=== PATIENT | male | born 1955 | race Caucasian/White ===

== ENCOUNTER 2022-11-10 00:38 | Inpatient (IN) | payer MEDICARE ==
[~2022-11-10] VITALS: Ht 177.8 cm; Wt 94.8 kg
--- NOTE | 2022-11-10 00:45 | ED Abdominal Pain ---
General Stated Complaint: LOWER ABD PAIN Source of Information: Patient Exam Limitations: No Limitations History of Present Illness Date Seen by Provider: Nov 10, 2022 Time Seen by Provider: 00:33 Initial Comments 67-year-old male presents to the emergency department today for abdominal pain. Symptoms started yesterday and have been progressive. He states he has had diverticulitis which felt similar in the past. He describes burning, stabbing sensation in the suprapubic region and left lower abdomen. No fevers or chills. No nausea or vomiting. He states for the last week he has been drinking very heavily. He has not taken his medications for about a week. He does have a history of atrial fibrillation, is typically taking Eliquis metoprolol and diltiazem. EMS reports A-fib with rates as high as 180 during transport. His blood pressures have been stable. He denies any bloody or dark tarry stools. Pain or shortness of breath. No urinary symptoms. All other systems reviewed and negative except documented per HPI. Voice recognition software was used to help create this chart Allergies and Home Medications Allergies Coded Allergies: No Known Drug Allergies (Unverified , 11/10/22) Patient Home Medication List Home Medication List Reviewed: Yes Apixaban (Eliquis) 5 Mg Tablet, 5 MG PO BID, (Reported) Entered as Reported by: BRUCE LACEY on 11/10/221014 Last Action: Continued Atorvastatin Calcium (Atorvastatin Calcium) 10 Mg Tablet, 10 MG PO DAILY, (Reported) Entered as Reported by: BRUCE LACEY on 11/10/221014 Last Action: Reviewed Diltiazem HCl (Diltiazem ER) 300 Mg Tab.er.24h, 300 MG PO DAILY, (Reported) Entered as Reported by: BRUCE LACEY on 11/10/221014 Last Action: Converted Furosemide (Furosemide) 20 Mg Tablet, 20 MG PO BID, (Reported) Entered as Reported by: BRUCE LACEY on 11/10/221014 Last Action: Reviewed Losartan Potassium (Losartan Potassium) 25 Mg Tablet, 25 MG PO DAILY, (Reported) Entered as Reported by: BRUCE LACEY on 11/10/221014 Last Action: Continued Metoprolol Succinate (Metoprolol Succinate) 25 Mg Tab.er.24h, 25 MG PO DAILY, (Reported) Entered as Reported by: BRUCE LACEY on 11/10/221014 Last Action: Continued Omeprazole (Omeprazole) 40 Mg Capsule., 40 MG PO DAILY, (Reported) Entered as Reported by: BRUCE LACEY on 11/10/221014 Last Action: Reviewed Sitagliptin Phos/Metformin HCl (Janumet 50-500 mg Tablet) 50 Mg-500 Mg Tablet, 1 EA PO BID, (Reported) Entered as Reported by: BRUCE LACEY on 11/10/221014 Last Action: Reviewed Review of Systems Review of Systems Constitutional: see HPI Past Uapmavf-Bvsyfv-Xojjyk Hx Patient Social History Tobacco Use?: No Use of E-Cig and/or Vaping dev: No Substance use?: No Alcohol Use?: Yes Physical Exam Vital Signs Vital Signs - First Documented 11/10/22 00:38 Temp 36.7 Pulse 136 Resp 18 B/P (MAP) 148/101 (117) Pulse Ox 94 O2 Delivery Room Air Capillary Refill : Height/Weight/BMI Height: '" Weight: lbs. oz. kg; BMI Method: General Appearance: WD/WN, no apparent distress HEENT: normal ENT inspection, pharynx normal Neck: non-tender, full range of motion, supple, normal inspection Respiratory: chest non-tender, lungs clear, normal breath sounds, no respiratory distress, no accessory muscle use Cardiovascular: no murmur, irregularly irregular Gastrointestinal: normal bowel sounds, soft, no organomegaly, tenderness (Tenderness palpation of suprapubic region and left lower abdomen with voluntary guarding. No rebound tenderness. No mass organomegaly. No skin changes.) Extremities: normal range of motion, non-tender, normal inspection, no pedal edema, no calf tenderness Neurologic/Psychiatric: alert, normal mood/affect, oriented x 3 Skin: normal color, warm/dry Progress/Results/Core Measures Results/Orders Lab Results Laboratory Tests Test 11/10/22 00:47 11/10/22 02:01 Range/Units White Blood Count 10.4 4.3-11.0 10^3/uL Red Blood Count 4.76 4.30-5.52 10^6/uL Hemoglobin 14.8 13.3-17.7 g/dL Hematocrit 44 40-54 % Mean Corpuscular Volume 93 80-99 fL Mean Corpuscular Hemoglobin 31 25-34 pg Mean Corpuscular Hemoglobin Concent 34 32-36 g/dL Red Cell Distribution Width 13.3 10.0-14.5 % Platelet Count 121 L 130-400 10^3/uL Mean Platelet Volume 10.3 9.0-12.2 fL Immature Granulocyte % (Auto) 0 % Neutrophils (%) (Auto) 73 42-75 % Lymphocytes (%) (Auto) 20 12-44 % Monocytes (%) (Auto) 6 0-12 % Eosinophils (%) (Auto) 1 0-10 % Basophils (%) (Auto) 1 0-10 % Neutrophils # (Auto) 7.6 1.8-7.8 10^3/uL Lymphocytes # (Auto) 2.1 1.0-4.0 10^3/uL Monocytes # (Auto) 0.6 0.0-1.0 10^3/uL Eosinophils # (Auto) 0.1 0.0-0.3 10^3/uL Basophils # (Auto) 0.1 0.0-0.1 10^3/uL Immature Granulocyte # (Auto) 0.0 0.0-0.1 10^3/uL Sodium Level 136 135-145 MMOL/L Potassium Level 3.8 3.6-5.0 MMOL/L Chloride Level 99 98-107 MMOL/L Carbon Dioxide Level 19 L 21-32 MMOL/L Anion Gap 18 H 5-14 MMOL/L Blood Urea Nitrogen 18 7-18 MG/DL Creatinine 0.84 0.60-1.30 MG/DL Estimat Glomerular Filtration Rate 96 BUN/Creatinine Ratio 21 Glucose Level 126 H 70-105 MG/DL Calcium Level 9.0 8.5-10.1 MG/DL Corrected Calcium 9.1 8.5-10.1 MG/DL Magnesium Level 1.4 L 1.6-2.4 MG/DL Total Bilirubin 1.2 H 0.1-1.0 MG/DL Aspartate Amino Transf (AST/SGOT) 43 H 5-34 U/L Alanine Aminotransferase (ALT/SGPT) 35 0-55 U/L Alkaline Phosphatase 75 40-136 U/L Total Protein 7.3 6.4-8.2 GM/DL Albumin 3.9 3.2-4.5 GM/DL Lipase 37 8-78 U/L Urine Color DARK YELLOW Urine Clarity CLEAR Urine pH 6.0 5-9 Urine Specific [place] 1.020 1.016-1.022 Urine Protein 2+ H NEGATIVE Urine Glucose (UA) NEGATIVE NEGATIVE Urine Ketones NEGATIVE NEGATIVE Urine Nitrite NEGATIVE NEGATIVE Urine Bilirubin NEGATIVE NEGATIVE Urine Urobilinogen 0.2 < = 1.0 MG/DL Urine Leukocyte Esterase NEGATIVE NEGATIVE Urine RBC (Auto) 1+ H NEGATIVE Urine RBC RARE /HPF Urine WBC RARE /HPF Urine Squamous Epithelial Cells RARE /HPF Urine Crystals NONE /LPF Urine Bacteria NEGATIVE /HPF Urine Casts PRESENT /LPF Urine Hyaline Casts 0-2 H /LPF Urine Granular Casts RARE /LPF Urine Mucus SMALL H /LPF Urine Culture Indicated NO My Orders Orders - ANAMARIA CARDENAS DO Cbc With Automated Diff (11/10/22 00:43) Comprehensive Metabolic Panel (11/10/22 00:43) Lipase (11/10/22 00:43) Ua Culture If Indicated (11/10/22 00:43) Magnesium (11/10/22 00:44) Ct Abdomen/Pelvis W (11/10/22 00:44) Diltiazem Injection (Cardizem Injection) (11/10/22 00:45) Ns Iv 1000 Ml (Sodium Chloride 0.9%) (11/10/22 01:00) Iohexol Injection (Omnipaque 350 Mg/Ml 1 (11/10/22 01:15) Received Contrast (Hold Metformin- Contr (11/10/22 01:15) Ns (Ivpb) (Sodium Chloride 0.9% Ivpb Bag (11/10/22 01:15) Monitor-Rhythm Ecg Trace Only (11/10/22 01:07) Ed Iv/Invasive Line Start (11/10/22 01:07) Ekg Tracing (11/10/22 01:07) Ciprofloxacin Iv 400mg/200ml (Cipro Iv S (11/10/22 02:00) Metronidazole 500mg/100ml Ivpb (Flagyl 5 (11/10/22 02:00) Diltiazem Drip Pre-Mix (Cardizem Drip Pr (11/10/22 02:15) Vital Signs/I&O 11/10/22 11/10/22 11/10/22 11/10/22 00:38 00:53 02:22 02:39 Temp 36.7 Pulse 136 118 130 126 Resp 18 20 B/P (MAP) 148/101 (117) 148/101 152/100 154/94 Pulse Ox 94 94 O2 Delivery Room Air Room Air Comment Atrial fibrillation with a rate of 143 bpm. Normal intervals outside of [place] interval's. Left axis deviation. No ST or T wave abnormalities. No ectopy. No STEMI. Departure Communication (Admissions) Patient has severe diverticulitis. Cipro Flagyl IV fluids. He also has A-fib with RVR. He is given a Cardizem bolus which does initially improve his symptoms. His blood pressures are stable. He is started on Cardizem drip and admitted to the ICU in stable condition. Impression Primary Impression: Atrial fibrillation with RVR Additional Impression: Diverticulitis Disposition: ADMITTED INPATIENT Condition: Stable Admissions Decision to Admit Reason: Admit from ER (General) ANAMARIA CARDENAS DO Nov 10, 2022 00:45
[2022-11-10 00:58] LABS: BASOPHILS # (AUTO) 0.1 10^3/uL (0.0-0.1); BASOPHILS % (AUTO) 1 % (0-10); EOSINOPHILS # (AUTO) 0.1 10^3/uL (0.0-0.3); EOSINOPHILS % (AUTO) 1 % (0-10); HEMATOCRIT 44 % (40-54); HEMOGLOBIN 14.8 g/dL (13.3-17.7); LYMPHOCYTES # (AUTO) 2.1 10^3/uL (1.0-4.0); LYMPHOCYTES % (AUTO) 20 % (12-44); MEAN CORPUSCULAR HEMOGLOBIN 31 pg (25-34); MEAN CORPUSCULAR HGB CONC 34 g/dL (32-36); MEAN CORPUSCULAR VOLUME 93 fL (80-99); MEAN PLATELET VOLUME 10.3 fL (9.0-12.2); MONOCYTES # (AUTO) 0.6 10^3/uL (0.0-1.0); MONOCYTES % (AUTO) 6 % (0-12); NEUTROPHILS # (AUTO) 7.6 10^3/uL (1.8-7.8); NEUTROPHILS % (AUTO) 73 % (42-75); PLATELET COUNT 121 10^3/uL (130-400); WHITE BLOOD COUNT 10.4 10^3/uL (4.3-11.0)
[2022-11-10] MEDS ORDERED: NS IV 1000 ML 1,000 ML IV SCH (01:00)
[2022-11-10] MEDS ORDERED: NS 100 ML (IVPB) BAG IV ONE (01:15)
[2022-11-10] MEDS ORDERED: IOHEXOL 350 MG/ML 100 ML (OMNIPAQUE 350) VIAL IV ONE (01:15)
[2022-11-10] MEDS ORDERED: HOLD METFORMIN - RECEIVED CONTRAST 20 ML VIAL IV SCH (01:15)
[2022-11-10 01:34] LABS: POTASSIUM 3.8 MMOL/L (3.6-5.0)
[2022-11-10 01:35] LABS: BILIRUBIN,TOTAL 1.2 MG/DL (0.1-1.0); CREATININE SERUM 0.84 MG/DL (0.60-1.30); MAGNESIUM 1.4 MG/DL (1.6-2.4)
[2022-11-10 01:36] LABS: ALBUMIN 3.9 GM/DL (3.2-4.5); TOTAL PROTEIN 7.3 GM/DL (6.4-8.2)
[2022-11-10] MEDS ORDERED: CIPROFLOXACIN IV 400MG/200ML 200 ML IV ONE (02:00)
[2022-11-10] MEDS ORDERED: metroNIDAZOLE 500MG/100ML IVPB 100 ML IV ONE (02:00)
[2022-11-10 02:14] LABS: BILIRUBIN,URINE NEGATIVE (NEGATIVE); CLARITY,URINE CLEAR; GLUCOSE, URINE (UA) NEGATIVE (NEGATIVE); KETONES,URINE NEGATIVE (NEGATIVE); LEUKOCYTE ESTERASE ,URINE NEGATIVE (NEGATIVE); NITRITE,URINE NEGATIVE (NEGATIVE); PROTEIN,URINE 2+ (NEGATIVE)
[2022-11-10] MEDS: dilTIAZem DRIP PRE-MIX 125 ML IV SCH (02:22)
[2022-11-10 02:24] LABS: BACTERIA,URINE NEGATIVE /HPF; COLOR,URINE DARK YELLOW; HYALINE CASTS, URINE 0-2 /LPF; RBC,URINE RARE /HPF; SQUAMOUS EPITHELIAL CELL,UR RARE /HPF; WBC,URINE RARE /HPF
[2022-11-10 02:25] LABS: GRANULAR CASTS,URINE RARE /LPF
[2022-11-10] MEDS ORDERED: ONDANSETRON 4 MG/2 ML (SDV) Z0FRAN IV PRN ×2 (04:30→13:15)
[2022-11-10] MEDS: morphine INJ 4 MG/ML 1 ML (VIAL/SYRINGE) IV PRN ×3 (04:37→12:04)
[2022-11-10 04:55] LABS: BASOPHILS % (AUTO) 1 % (0-10); EOSINOPHILS % (AUTO) 0 % (0-10); MONOCYTES % (AUTO) 6 % (0-12)
[2022-11-10 04:58] LABS: BASOPHILS # (AUTO) 0.1 10^3/uL (0.0-0.1); HEMATOCRIT 44 % (40-54); HEMOGLOBIN 14.7 g/dL (13.3-17.7); LYMPHOCYTES # (AUTO) 1.3 10^3/uL (1.0-4.0); LYMPHOCYTES % (AUTO) 12 % (12-44); MEAN CORPUSCULAR HEMOGLOBIN 32 pg (25-34); MEAN CORPUSCULAR HGB CONC 33 g/dL (32-36); MEAN CORPUSCULAR VOLUME 95 fL (80-99); MEAN PLATELET VOLUME 10.8 fL (9.0-12.2); MONOCYTES # (AUTO) 0.6 10^3/uL (0.0-1.0); NEUTROPHILS % (AUTO) 82 % (42-75); PLATELET COUNT 113 10^3/uL (130-400)
[2022-11-10] MEDS ORDERED: NS IV 500 ML 500 ML IV PRN (05:00)
[2022-11-10] MEDS ORDERED: NS IV 500 ML 500 ML ONE (05:02)
[2022-11-10 05:11] LABS: ALBUMIN 3.6 GM/DL (3.2-4.5)
[2022-11-10 05:13] LABS: CALCIUM 8.4 MG/DL (8.5-10.1)
[2022-11-10 05:16] LABS: BILIRUBIN,TOTAL 1.3 MG/DL (0.1-1.0)
[2022-11-10 05:17] LABS: PHOSPHORUS 2.3 MG/DL (2.3-4.7)
[2022-11-10 05:18] LABS: CREATININE SERUM 0.78 MG/DL (0.60-1.30)
[2022-11-10 05:20] LABS: MAGNESIUM 1.2 MG/DL (1.6-2.4)
[2022-11-10] MEDS: POTASSIUM CL 10MEQ/50ML IVPB 50 ML IV SCH ×3 (05:26→06:17)
[2022-11-10] MEDS: MAGNESIUM 1 GM/100 ML IVPB 100 ML IV SCH ×4 (05:26→07:00)
[2022-11-10] MEDS: CATHETER FLUSH 10 ML SYR IVP SCH ×3 (05:29→20:19)
[2022-11-10] MEDS: KCL 20 MEQ TAB (K-DUR) PO SCH (05:29)
--- NOTE | 2022-11-10 06:05 | Tele-ICU Progress Note ---
Progress Note 67M with afib, etoh abuse presented with progressive abd pain since yesterday. Feels similar to prior diverticulitis. No fever, chills, nausea or vomiting. Has not taken any meds for the past week, including metoprolol and eliquis for afib. In ED was in RVR in the 120-140s, reported to be up to 180 in the field. - afib: rate controlled still 110s on diltiazem gtt, BP 156/97. Will titrate. Mag and K replacements ordered. Cardiology consulted. - diverticulitis: CT completed, results not yet available. Continue cipro and flagyl started in ED. Can de-escalate if CT is negative. Will send cultures, lactic. - etoh: CIWA, banana bag Patient assessed via real time audiovisual communication system. CCT6 min Focused Exam Lactate Level 11/10/22 05:23: Height, Weight, BMI Height: '" Weight: lbs. oz. kg; 29.82 BMI Method: Lactic Acid Level Laboratory Tests Test 11/10/22 05:23 LULI LAY MD Nov 10, 2022 06:04
--- NOTE | 2022-11-10 08:00 | Diagnostic Imaging Report ---
PROCEDURE: CT abdomen and pelvis with contrast. TECHNIQUE: Multiple contiguous axial images were obtained through the abdomen and pelvis after administration of intravenous contrast. Auto Exposure Controls were utilized during the CT exam to meet ALARA standards for radiation dose reduction. All CT scans use one or more of the following dose optimizing techniques: automated exposure control, MA and/or KvP adjustment based on patient size and exam type or iterative reconstruction. INDICATION: Diffuse abdominal pain. Constipation. EXAMINATION: CT abdomen and pelvis with contrast 11/10/2022. FINDINGS: Lung bases unremarkable for acute abnormality. There is diffuse hepatic steatosis. There is evidence of previous cholecystectomy. Spleen normal. Pancreas slightly atrophied otherwise unremarkable. Adrenal glands normal. Kidneys unremarkable. There is marked wall thickening throughout the sigmoid colon with surrounding fluid and inflammatory change. Diverticular disease in the region is noted. Findings consistent with a severe acute diverticulitis. Along the inflammatory change, foci of air noted along the superior border of the sigmoid colon which could represent prominent diverticuli. A small contained microperforation is not excluded. There is no abscess. No distant or significant free air is seen. Free fluid noted in the pelvis. Appendix normal. There is no acute osseous abnormality. IMPRESSION: 1. Findings consistent with severe acute diverticulitis with marked inflammatory change and free fluid. Small contained microperforation not excluded. No abscess. Findings agree with the preliminary report. 2. Hepatic steatosis. Dictated by: Dictated on workstation # [id number]
--- NOTE | 2022-11-10 08:03 | Diagnostic Imaging Report ---
INDICATION: Sepsis EXAMINATION: Chest 11/10/2022 FINDINGS: Heart is prominent. Pulmonary vasculature is unremarkable. Lungs clear with no infiltrates, effusions or pneumothorax. IMPRESSION: No acute cardiopulmonary process. Dictated by: Dictated on workstation # [id number]
[2022-11-10] MEDS: THIAMINE IV SCH (08:40)
[2022-11-10] MEDS: NS IV SCH (08:40)
[2022-11-10] MEDS ORDERED: MTP25TSR PO (10:15)
[2022-11-10] MEDS ORDERED: LOSA25TA41 PO (10:15)
[2022-11-10] MEDS ORDERED: OMEP40CA6 PO (10:15)
[2022-11-10] MEDS ORDERED: SITA1TAB2 PO (10:15)
[2022-11-10] MEDS ORDERED: DILT300T9 PO (10:15)
[2022-11-10] MEDS ORDERED: APIX5TAB PO (10:15)
[2022-11-10] MEDS ORDERED: FURO20TA4 PO (10:15)
[2022-11-10] MEDS ORDERED: ATOR10TA66 PO (10:15)
[2022-11-10] MEDS ORDERED: PIPERACILLIN SODIUM/TAZOBACTAM 4.5 GM in NS (IVPB) 100 ML IV NR (11:00)
--- NOTE | 2022-11-10 13:14 | History & Physical ---
HPI History of Present Illness: 67 yo M that presented to ER with worsening abdominal pain. Patient states that it started yesterday morning and has been getting worse until he presented to ER. Patient has a h/o diverticulitis and states that it feels similar. He does also have a long h/o EtOH dependence and recently did a 90 day program and was living with a brother. About a week ago they moved him into a hotel because he started drinking again. States that he drinks 1/5 of Vodka daily and his last drink was yesterday afternoon. He also has not been taking his heart medication because he has been drinking more and forgeting. States that he has not previously had to be in the hospital when he stops drinking and denies any wi thdraw seizures. Source: patient, family (Sister in law) Exam Limitations: no limitations Date seen by provider: Nov 10, 2022 Time Seen by Provider: 10:05 Attending Physician Brandy,Local Physician PCP Admitting Physician: Glenys Ordonez MD Attending Physician: Glenys Ordonez MD Consult Date of Admission Nov 10, 2022 at 03:43 Home Medications Home Medications Reviewed patient Home Medication Reconciliation performed by pharmacy medication reconciliations location and measurement technician and/or nursing. Patients Allergies have been reviewed. Allergies Coded Allergies: No Known Drug Allergies (Unverified , 11/10/22) [id number]-Znghta Hx Patient Social History Alcohol Use?: Yes Past Medical History Atrial Fibrillation EtOH dependence Review of Systems ([facility]) Constitutional: No chills, No fever; malaise, weakness EENTM: no symptoms reported; No mouth pain, No nose congestion, No nose pain Respiratory: no symptoms reported; No cough, No dyspnea on exertion, No short of breath Cardiovascular: No chest pain; palpitations Gastrointestinal: abdominal pain; No constipation, No diarrhea; loss of appetite, nausea; No vomiting Genitourinary: no symptoms reported; No dysuria, No frequency, No hematuria Musculoskeletal: no symptoms reported; No back pain, No joint pain, No muscle pain Skin: no symptoms reported Psychiatric/Neurological: Anxiety Reviewed Test Results Reviewed Test Results Lab Laboratory Tests Test 11/10/22 00:47 11/10/22 02:01 11/10/22 04:35 11/10/22 05:23 Range/Units White Blood Count 10.4 11.0 4.3-11.0 10^3/uL Red Blood Count 4.76 4.67 4.30-5.52 10^6/uL Hemoglobin 14.8 14.7 13.3-17.7 g/dL Hematocrit 44 44 40-54 % Mean Corpuscular Volume 93 95 80-99 fL Mean Corpuscular Hemoglobin 31 32 25-34 pg Mean Corpuscular Hemoglobin Concent 34 33 32-36 g/dL Red Cell Distribution Width 13.3 13.4 10.0-14.5 % Platelet Count 121 L 113 L 130-400 10^3/uL Mean Platelet Volume 10.3 10.8 9.0-12.2 fL Immature Granulocyte % (Auto) 0 0 % Neutrophils (%) (Auto) 73 82 H 42-75 % Lymphocytes (%) (Auto) 20 12 12-44 % Monocytes (%) (Auto) 6 6 0-12 % Eosinophils (%) (Auto) 1 0 0-10 % Basophils (%) (Auto) 1 1 0-10 % Neutrophils # (Auto) 7.6 9.0 H 1.8-7.8 10^3/uL Lymphocytes # (Auto) 2.1 1.3 1.0-4.0 10^3/uL Monocytes # (Auto) 0.6 0.6 0.0-1.0 10^3/uL Eosinophils # (Auto) 0.1 0.0 0.0-0.3 10^3/uL Basophils # (Auto) 0.1 0.1 0.0-0.1 10^3/uL Immature Granulocyte # (Auto) 0.0 0.0 0.0-0.1 10^3/uL Sodium Level 136 135 135-145 MMOL/L Potassium Level 3.8 4.0 3.6-5.0 MMOL/L Chloride Level 99 104 98-107 MMOL/L Carbon Dioxide Level 19 L 17 L 21-32 MMOL/L Anion Gap 18 H 14 5-14 MMOL/L Blood Urea Nitrogen 18 14 7-18 MG/DL Creatinine 0.84 0.78 0.60-1.30 MG/DL Estimat Glomerular Filtration Rate 96 98 BUN/Creatinine Ratio 21 18 Glucose Level 126 H 141 H 70-105 MG/DL Calcium Level 9.0 8.4 L 8.5-10.1 MG/DL Corrected Calcium 9.1 8.7 8.5-10.1 MG/DL Magnesium Level 1.4 L 1.2 L 1.6-2.4 MG/DL Total Bilirubin 1.2 H 1.3 H 0.1-1.0 MG/DL Aspartate Amino Transf (AST/SGOT) 43 H 39 H 5-34 U/L Alanine Aminotransferase (ALT/SGPT) 35 37 0-55 U/L Alkaline Phosphatase 75 62 40-136 U/L Total Protein 7.3 7.0 6.4-8.2 GM/DL Albumin 3.9 3.6 3.2-4.5 GM/DL Lipase 37 8-78 U/L Urine Color DARK YELLOW Urine Clarity CLEAR Urine pH 6.0 5-9 Urine Specific [place] 1.020 1.016-1.022 Urine Protein 2+ H NEGATIVE Urine Glucose (UA) NEGATIVE NEGATIVE Urine Ketones NEGATIVE NEGATIVE Urine Nitrite NEGATIVE NEGATIVE Urine Bilirubin NEGATIVE NEGATIVE Urine Urobilinogen 0.2 < = 1.0 MG/DL Urine Leukocyte Esterase NEGATIVE NEGATIVE Urine RBC (Auto) 1+ H NEGATIVE Urine RBC RARE /HPF Urine WBC RARE /HPF Urine Squamous Epithelial Cells RARE /HPF Urine Crystals NONE /LPF Urine Bacteria NEGATIVE /HPF Urine Casts PRESENT /LPF Urine Hyaline Casts 0-2 H /LPF Urine Granular Casts RARE /LPF Urine Mucus SMALL H /LPF Urine Culture Indicated NO Percent Immature Platelet Fraction 4.3 0.0-7.6 % Phosphorus Level 2.3 2.3-4.7 MG/DL Lactic Acid Level 2.42 *H 0.50-2.00 MMOL/L Test 11/10/22 07:26 Range/Units Lactic Acid Level 1.46 0.50-2.00 MMOL/L Physical Exam-([facility]) Physical Exam Vital Signs VS - Last 72 Hours, by Label 11/10/22 11/10/22 11/10/22 11/10/22 00:38 00:53 02:22 02:39 Temp 36.7 Pulse 136 118 130 126 Resp 18 20 B/P (MAP) 148/101 (117) 148/101 152/100 154/94 Pulse Ox 94 94 O2 Delivery Room Air Room Air 11/10/22 11/10/22 11/10/22 11/10/22 04:02 04:15 04:15 04:30 Temp 36.5 Pulse 117 111 114 Resp 16 23 22 B/P (MAP) 168/110 (129) 141/94 (110) 169/110 (129) Pulse Ox 96 93 98 94 O2 Delivery Room Air Room Air Room Air Room Air 11/10/22 11/10/22 11/10/22 11/10/22 04:45 05:00 05:15 06:00 Pulse 128 128 115 99 Resp 17 11 18 13 B/P (MAP) 152/100 (117) 152/102 (119) 149/87 (107) 156/97 (116) Pulse Ox 95 93 93 93 O2 Delivery Room Air Room Air Room Air Room Air 11/10/22 11/10/22 11/10/22 11/10/22 07:00 07:00 07:07 07:35 Temp 36.0 Pulse 118 99 Resp 17 B/P (MAP) 157/97 (117) Pulse Ox 93 O2 Delivery Room Air Room Air 11/10/22 11/10/22 11/10/22 11/10/22 08:00 09:00 10:30 12:00 Temp 35.9 Pulse 105 106 112 Resp 16 17 19 B/P (MAP) 156/102 (120) 139/107 (118) 167/110 (129) Pulse Ox 94 92 93 O2 Delivery Room Air Room Air Room Air Capillary Refill : Less Than 3 Seconds General Appearance: WD/WN, no apparent distress HEENT: PERRL/EOMI Neck: non-tender, full range of motion, supple Respiratory: chest non-tender, lungs clear, normal breath sounds, no respiratory distress, no accessory muscle use Cardiovascular: regular rate, rhythm, no murmur Gastrointestinal: soft, guarding (mild), tenderness (LLQ) Back: no CVA tenderness Extremities: normal range of motion, no pedal edema, no calf tenderness Neurologic/Psychiatric: manufacturer's service representative II-XII nml as tested, alert, oriented x 3 Skin: normal color, warm/dry Lymphatic: no adenopathy Assessment/Plan Assessment/Plan Admission Status: Inpatient Order (span 2 midnights) Reason for Inpatient Admission: High risk for decompensation (1) Diverticulitis Status: Acute Assessment & Plan: - CT with some concerns about microperforation, will consult General surgery, tolerating CLD, Continue on Zosyn (2) Atrial fibrillation with RVR Status: Chronic Assessment & Plan: - Rate controlled this AM, Continue OAC (3) Alcohol dependence Status: Chronic Assessment & Plan: - CIWS, Folic Acid and thiamine Qualifiers: Qualified Codes: F10.20 - Alcohol dependence, uncomplicated (4) DVT prophylaxis Status: Acute Assessment & Plan: - OAC GLENYS ORDONEZ MD Nov 10, 2022 13:14
[2022-11-10] MEDS ORDERED: 1/2 NS IV SOLUTION 1,000 ML IV PRN (13:15)
[2022-11-10] MEDS ORDERED: SENNA W/DOCUSATE (SENOKOT S) TABLET PO PRN (13:15)
[2022-11-10] MEDS ORDERED: D5 1/2 NS 1000 ML IV SOLUTION 1,000 ML IV PRN (13:15)
[2022-11-10] MEDS ORDERED: ANTACID SUSP 30 ML UDC (MYLANTA) PO PRN (13:15)
[2022-11-10] MEDS ORDERED: LORazepam INJ 2 MG/ML (ATIVAN) VIAL IM/IV PRN (13:15)
[2022-11-10] MEDS ORDERED: ONDANSETRON 4 MG (ZOFRAN) ORAL DISSOLVE TAB SL PRN (13:15)
[2022-11-10] MEDS ORDERED: CIPROFLOXACIN IV 400MG/200ML 200 ML IV SCH (14:00)
[2022-11-10] MEDS ORDERED: metroNIDAZOLE 500MG/100ML IVPB 100 ML IV SCH (14:00)
[2022-11-10] MEDS: HYDROmorphone 2 MG/ML VIAL (DILAUDID) IV PRN ×2 (14:58→20:15)
[2022-11-10] MEDS: PIPERACILLIN SODIUM/TAZOBACTAM 4.5 GM in NS (IVPB) 100 ML IV SCH (17:45)
[2022-11-10] MEDS: APIXABAN 5 MG (ELIQUIS) TABLET PO SCH (20:15)
--- NOTE | 2022-11-10 22:26 | CONSULTATION REPORT ---
ADMITTING PHYSICIAN: Dr. Ania Ordonez. HISTORY OF PRESENT ILLNESS: The patient is a 67-year-old male, who presented to the Emergency Department with a left lower quadrant abdominal pain that started in the morning previous. He stated that the pain worsened over time and I decided to go to the emergency room. The patient does have a history of sigmoid diverticulitis and states that his pain was similar to this. The patient has a longstanding history of alcohol dependence and abuse and temporarily moved to this area with his brother and attempt for detoxification. The patient had a relapse approximately 1 week ago. His brother moved into a hotel because he again started drinking. His normal regimen is drinking 750 mL of vodka on a daily basis and had restarted that regimen recently. The patient also does have a history of atrial fibrillation and was found again to be in atrial fibrillation with a rapid ventricular response at a rate of 143 and was admitted to the ICU for rate control and started on a Cardizem drip. A CT scan was performed, which did show hepatic steatosis as well as a severe sigmoid diverticulitis with a small contained perforation. He does not report ever having a previous colonoscopy done in the past. He originally resides in [place] and the plan is for him to return back to [place]. Due to his circumstances and situation, we will recommend conservative medical management with IV antibiotics and bowel rest and hopefully allow the diverticulitis to resolve using this as a conservative route. At this time, a CT scan also did not show any intra-abdominal abscesses. He does have some pain; however, is mostly controlled with IV pain medications. He is currently afebrile. PAST MEDICAL HISTORY: Atrial fibrillation with a rapid ventricular response, hypertension, hypercholesterolemia, diabetes, alcohol dependence. PAST SURGICAL HISTORY: None known. ALLERGIES: NO KNOWN DRUG ALLERGIES. MEDICATIONS: Eliquis 5 mg b.i.d., atorvastatin 10 mg daily, diltiazem 300 mg daily, furosemide 20 mg daily, losartan 25 mg daily, metoprolol 25 mg daily, omeprazole 40 mg daily, Janumet 50/500 mg b.i.d. SOCIAL HISTORY: Positive for alcohol abuse, approximately 750 mL of hard alcohol on a daily basis. Denies smoking. FAMILY HISTORY: Noncontributory. REVIEW OF SYSTEMS: A well-nourished male, currently in no acute distress. He is not experiencing shortness of breath or difficulty breathing. No cough or sputum production. No chest pain with mild palpitations. No nausea, vomiting. No known diarrhea, no constipation and does not report any red blood per rectum, nor any dark tarry stools. No fever, chills, no recent inadvertent weight loss. All other review of systems negative. PHYSICAL EXAMINATION: VITAL SIGNS: Temperature 36.6, blood pressure 140/87, pulse 105, respirations 11, pulse ox 95% on 2 liters nasal cannula. CHEST: Few scattered rales bilaterally. HEART: Regular. No murmurs. EXTREMITIES: +1/3 bilateral lower extremity edema. Negative Homans' sign. HEENT: No scleral icterus. No cervical lymphadenopathy. ABDOMEN: Soft, nondistended. There is pain in the left lower abdominal quadrant with voluntary guarding, no rebound. No hernias. SKIN: Warm, dry. LABORATORY DATA: WBC 11.0, hemoglobin 14.7, hematocrit 44, platelets 113, BUN 14, creatinine 0.78. ASSESSMENT AND PLAN: A 67-year-old male with complicated diverticulitis with a contained microperforation as well as a history of atrial fibrillation with recent onset of rapid ventricular response and alcoholism. He came to this area to live with his brother temporarily in an attempt for detoxification; however, was not able to follow through with this plan. His plan is to move back to his hometown and then proceed with further evaluation and workup for the complicated diverticulitis and the necessary steps for resolution, which would encompass medical stabilization, alcohol cessation and this will be followed by a colonoscopy in approximately 6 weeks to rule out malignancy and then planning for an elective low anterior colorectal resection, ideally in 1 step with anastomosis. For now, we will continue with conservative medical management with bowel rest with a clear liquid diet and continued IV antibiotics and close monitoring. Job ID: [id number] DocumentID: [id number] Dictated Date: 11/10/2022 21:57:33 Account Manager Employee Benefits Date: 11/10/2022 22:24:00 Dictated By: WALLY LYNNE MD MTDD
[2022-11-11] MEDS: HYDROmorphone 2 MG/ML VIAL (DILAUDID) IV PRN (00:18)
[2022-11-11] MEDS: PIPERACILLIN SODIUM/TAZOBACTAM 4.5 GM in NS (IVPB) 100 ML IV SCH ×3 (00:18→16:46)
[2022-11-11] MEDS: LORazepam INJ 2 MG/ML (ATIVAN) VIAL IV PRN ×2 (03:22→19:52)
[2022-11-11] MEDS: dilTIAZem DRIP PRE-MIX 125 ML IV SCH (03:30)
[2022-11-11] MEDS ORDERED: ACETAMINOPHEN 500 MG TAB (TYLENOL) ONE (04:55)
[2022-11-11] MEDS ORDERED: ACETAMINOPHEN 500 MG TAB (TYLENOL) PO PRN (05:00)
[2022-11-11] MEDS: KCL 20 MEQ TAB (K-DUR) PO SCH (05:11)
[2022-11-11] MEDS: MAGNESIUM 1 GM/100 ML IVPB 100 ML IV SCH ×5 (05:11→08:49)
[2022-11-11] MEDS: CATHETER FLUSH 10 ML SYR IVP SCH ×3 (05:11→21:34)
[2022-11-11] MEDS: POTASSIUM CL 10MEQ/50ML IVPB 50 ML IV SCH (05:11)
[2022-11-11 05:21] LABS: BASOPHILS % (AUTO) 0 % (0-10); EOSINOPHILS % (AUTO) 0 % (0-10); HEMOGLOBIN 13.6 g/dL (13.3-17.7); PLATELET COUNT 109 10^3/uL (130-400)
[2022-11-11 05:23] LABS: HEMATOCRIT 41 % (40-54); LYMPHOCYTES # (AUTO) 0.6 10^3/uL (1.0-4.0); LYMPHOCYTES % (AUTO) 6 % (12-44); MEAN CORPUSCULAR HEMOGLOBIN 31 pg (25-34); MEAN CORPUSCULAR HGB CONC 33 g/dL (32-36); MEAN CORPUSCULAR VOLUME 94 fL (80-99); MEAN PLATELET VOLUME 11.1 fL (9.0-12.2); MONOCYTES # (AUTO) 0.3 10^3/uL (0.0-1.0); MONOCYTES % (AUTO) 3 % (0-12); NEUTROPHILS # (AUTO) 9.3 10^3/uL (1.8-7.8); NEUTROPHILS % (AUTO) 91 % (42-75); WHITE BLOOD COUNT 10.3 10^3/uL (4.3-11.0)
[2022-11-11 05:33] LABS: ALBUMIN 3.4 GM/DL (3.2-4.5); POTASSIUM 4.2 MMOL/L (3.6-5.0)
[2022-11-11 05:34] LABS: CALCIUM 8.6 MG/DL (8.5-10.1)
[2022-11-11 05:35] LABS: TOTAL PROTEIN 6.6 GM/DL (6.4-8.2)
[2022-11-11 05:37] LABS: BILIRUBIN,TOTAL 1.7 MG/DL (0.1-1.0)
[2022-11-11 05:39] LABS: CREATININE SERUM 1.01 MG/DL (0.60-1.30); PHOSPHORUS 2.3 MG/DL (2.3-4.7)
[2022-11-11 05:42] LABS: MAGNESIUM 1.6 MG/DL (1.6-2.4)
[2022-11-11 05:43] LABS: BAND NEUTROPHILS 11 %; BASOPHILS % (MANUAL) 0 %; EOSINOPHILS % (MANUAL) 0 %; LYMPHOCYTES % (MANUAL) 6 %; MONOCYTES % (MANUAL) 2 %; NEUTROPHILS % (MANUAL) 81 %; ROULEAUX SLIGHT; TOXIC GRANULATION/VACUOLAZATIO 1+
[2022-11-11] MEDS ORDERED: meTOprolol 5 MG/5 ML (LOPRESSOR) VIAL ONE (05:45)
[2022-11-11] MEDS: meTOprolol 5 MG/5 ML (LOPRESSOR) VIAL IV PRN (05:48)
[2022-11-11] MEDS: LOSARTAN 25 MG (COZAAR) TAB PO SCH (08:49)
[2022-11-11] MEDS ORDERED: NON-FORMULARY MEDICATION 1 EA EA (Diltiazem HCl (Diltiazem ER) 300 MG) PO SCH (09:00)
--- NOTE | 2022-11-11 09:04 | Consultation-Cardiology ---
HPI-Cardiology Cardiology Consultation Date of Consultation 11/11/22 Date of Admission Time Seen by Provider: 09:01 Indication: Atrial fibrillation HPI 67-year-old gentleman with history of paroxysmal atrial fibrillation, not following with any food and nutrition services assistant. Admitted with acute abdominal pain, diagnosed with diverticulitis. Has history of diverticulitis. Patient has long history of alcoholism. He denies any chest pain, no shortness of breath, his abdomen is feeling better. No syncope or near syncopal episodes. No claudication. Home Medications & Allergies Allergies: Coded Allergies: No Known Drug Allergies (Unverified , 11/10/22) Home Medication List Reviewed: Yes [id number] Hx Patient Social History Marital Status: single Employed/Student: retired Alcohol Use?: Yes Past Medical History Discussed below Family Medical History Significant Family History: No Pertinent Family Hx Review of Systems-General Review of Systems Constitutional: No chills, No fever; malaise, weakness EENTM: no symptoms reported; No mouth pain, No nose congestion, No nose pain Respiratory: no symptoms reported; No cough, No dyspnea on exertion, No short of breath Cardiovascular: No chest pain; palpitations Gastrointestinal: abdominal pain; No constipation, No diarrhea; loss of appetite, nausea; No vomiting Genitourinary: no symptoms reported; No dysuria, No frequency, No hematuria Musculoskeletal: no symptoms reported; No back pain, No joint pain, No muscle pain Skin: no symptoms reported Psychiatric/Neurological: Anxiety Reviewed Test Results Reviewed Test Results Lab Laboratory Tests Test 11/11/22 04:18 Range/Units White Blood Count 10.3 4.3-11.0 10^3/uL Red Blood Count 4.40 4.30-5.52 10^6/uL Hemoglobin 13.6 13.3-17.7 g/dL Hematocrit 41 40-54 % Mean Corpuscular Volume 94 80-99 fL Mean Corpuscular Hemoglobin 31 25-34 pg Mean Corpuscular Hemoglobin Concent 33 32-36 g/dL Red Cell Distribution Width 13.5 10.0-14.5 % Platelet Count 109 L 130-400 10^3/uL Mean Platelet Volume 11.1 9.0-12.2 fL Immature Granulocyte % (Auto) 0 % Neutrophils (%) (Auto) 91 H 42-75 % Lymphocytes (%) (Auto) 6 L 12-44 % Monocytes (%) (Auto) 3 0-12 % Eosinophils (%) (Auto) 0 0-10 % Basophils (%) (Auto) 0 0-10 % Neutrophils # (Auto) 9.3 H 1.8-7.8 10^3/uL Lymphocytes # (Auto) 0.6 L 1.0-4.0 10^3/uL Monocytes # (Auto) 0.3 0.0-1.0 10^3/uL Eosinophils # (Auto) 0.0 0.0-0.3 10^3/uL Basophils # (Auto) 0.0 0.0-0.1 10^3/uL Immature Granulocyte # (Auto) 0.0 0.0-0.1 10^3/uL Neutrophils % (Manual) 81 % Lymphocytes % (Manual) 6 % Monocytes % (Manual) 2 % Eosinophils % (Manual) 0 % Basophils % (Manual) 0 % Band Neutrophils 11 % Toxic Granulation 1+ Percent Immature Platelet Fraction 7.7 H 0.0-7.6 % Rouleau SLIGHT Sodium Level 133 L 135-145 MMOL/L Potassium Level 4.2 3.6-5.0 MMOL/L Chloride Level 99 98-107 MMOL/L Carbon Dioxide Level 25 21-32 MMOL/L Anion Gap 9 5-14 MMOL/L Blood Urea Nitrogen 13 7-18 MG/DL Creatinine 1.01 0.60-1.30 MG/DL Estimat Glomerular Filtration Rate 82 BUN/Creatinine Ratio 13 Glucose Level 204 H 70-105 MG/DL Calcium Level 8.6 8.5-10.1 MG/DL Corrected Calcium 9.1 8.5-10.1 MG/DL Phosphorus Level 2.3 2.3-4.7 MG/DL Magnesium Level 1.6 1.6-2.4 MG/DL Total Bilirubin 1.7 H 0.1-1.0 MG/DL Aspartate Amino Transf (AST/SGOT) 25 5-34 U/L Alanine Aminotransferase (ALT/SGPT) 28 0-55 U/L Alkaline Phosphatase 59 40-136 U/L Total Protein 6.6 6.4-8.2 GM/DL Albumin 3.4 3.2-4.5 GM/DL Physical Exam Physical Exam Vital Signs Vital Signs - First Documented 11/10/22 11/10/22 00:38 19:45 Temp 36.7 Pulse 136 Resp 18 B/P (MAP) 148/101 (117) Pulse Ox 94 O2 Delivery Room Air O2 Flow Rate 2.00 Capillary Refill : Less Than 3 Seconds Height, Weight, BMI Height: '" Weight: lbs. oz. kg; 29.82 BMI Method: General Appearance: No Apparent Distress, WD/WN Eyes: Bilateral Eye Normal Inspection, Bilateral Eye PERRL, Bilateral Eye EOMI HEENT: PERRL/EOMI, TMs Normal, Normal ENT Inspection, Pharynx Normal, Moist Mucous Membranes Neck: Full Range of Motion, Normal Inspection, Non Tender, Supple, Carotid Bruit Respiratory: Chest Non Tender, Normal Breath Sounds, No Accessory Muscle Use, No Respiratory Distress Cardiovascular: No Edema, No Gallop, No JVD, No Murmur, Normal Peripheral Pulses, Irregularly Irregular, Tachycardia Gastrointestinal: Normal Bowel Sounds, No Organomegaly, No Pulsatile Mass, Soft, Abnormal Bowel Sounds, Distended Back: Normal Inspection, No CVA Tenderness, No Vertebral Tenderness Extremity: Normal Capillary Refill, Normal Inspection, Normal Range of Motion, Non Tender, No Calf Tenderness, No Pedal Edema Neurologic/Psychiatric: Alert, Oriented x3, No Motor/Sensory Deficits, Normal Mood/Affect Skin: Normal Color, Warm/Dry Lymphatic: No Adenopathy A/P-Cardiology Admission Diagnosis Atrial fibrillation Tachycardia Hypertension Diverticulitis Assessment/Plan Atrial fibrillation with ventricular response History of paroxysmal atrial fibrillation, back in atrial fibrillation Started on Cardizem drip We will monitor, continue with Eliquis Evaluate 2D echo Acute diverticulitis, abdominal pain. Managed by medical team Alcoholism, is going through withdrawal. Managed by medical team, evaluation 2D echo Hypertension, monitor blood pressure, started on beta-pawan in addition to the Cardizem Obesity, BMI 30. GASPER OLVERA MD Nov 11, 2022 09:04
--- NOTE | 2022-11-11 09:24 | Tele-ICU Progress Note ---
Subjective Date Seen by a Provider: Nov 11, 2022 Time Seen by a Provider: 09:24 Subjective/Events-last exam (Tele-ICU Physician , Progress Note ) Service provided via interactive audio and video telecommunications E-CARE system to a patient admitted to ICU bed in [facility]. Patient is seen today due to persistent need of ICU care Available chart/ vitals / labs / Images reviewed Video assessment done using teleICU camera, rest of exam as per RN Discussed with RN Events overnight : Afebrile hemodynamically stable Respiratory - 2 l I/O =+ Drips: cardizem gtt Pressors- no Hospital course: (6.7) Admitted a 67 y/o with AF/RVR and diverticulitis A/P Afib - h/o PAF rate controlled still 110s on diltiazem gtt,15 - PO starteed -AC with eliquis if ok with sx - ECHO pending Cardiology consulted. omplicated diverticulitis with a contained microperforation -zosyn - sx follow - conservative mngmt now ( Etoh -CIWA- not in withdrawal - follow , banana bag Lines : , (Central Line Necessity Reviewed) Villalpando: OG: Nutrition: Analgesia: Anxiety/ delirium VTE Prophylaxis: Stress Ulcer Prophylaxis: Plans in collaboration with bedside consultants and IM MDs. Discussed with RN to reach out if any questions or concerns Case and care daily discussed on multidisciplinary rounds ( RN, PharmD, Associate Professor Of Medicine , Respiratory Therapy, pack mule worker ) A total of 20 minutes of critical care time was devoted to this patient today, required to treat and/or prevent further deterioration of critical care condition ( as above ) . I am remotely monitoring this patient from another state. I am unable to do the bedside exam, and history/physical and pertinent information is taken from other notes in the computer and bedside staff. Sepsis Event Evaluation Height, Weight, BMI Height: '" Weight: lbs. oz. kg; 29.82 BMI Method: Focused Exam Lactate Level 11/10/22 05:23: Lactic Acid Level 2.42*H 11/10/22 07:26: Lactic Acid Level 1.46 Exam Exam Patient acknowledged, consented, and participated in this virtual visit which was conducted using real time audio/video Vital Signs Date Time Temp Pulse Resp B/P (MAP) Pulse Ox O2 Delivery O2 Flow Rate FiO2 11/11/22 09:00 110 15 124/79 (94) 100 Nasal Cannula 2.00 11/11/22 08:00 99 Nasal Cannula 2.00 11/11/22 08:00 36.1 11/11/22 08:00 122 13 140/98 (112) 99 Nasal Cannula 2.00 11/11/22 07:23 90 11/11/22 07:00 106 17 133/75 (94) 99 Nasal Cannula 2.00 11/11/22 06:00 108 120/79 (93) 98 Nasal Cannula 2.00 11/11/22 05:28 36.1 11/11/22 05:00 142 130/99 (109) 96 Nasal Cannula 2.00 11/11/22 04:58 38.0 11/11/22 04:46 38.0 11/11/22 04:00 134 116/93 (101) 98 Nasal Cannula 2.00 11/11/22 04:00 95 Nasal Cannula 2.00 11/11/22 03:30 110 143/97 11/11/22 03:00 120 141/110 (120) 96 Nasal Cannula 2.00 11/11/22 02:00 104 150/96 (114) 91 Nasal Cannula 2.00 11/11/22 01:00 96 122/71 (88) 92 Nasal Cannula 2.00 11/11/22 01:00 110 11/11/22 00:00 37.0 11/11/22 00:00 91 143/97 (112) 93 Nasal Cannula 2.00 11/10/22 23:59 92 Nasal Cannula 2.00 11/10/22 23:00 96 127/96 (106) 93 Nasal Cannula 2.00 11/10/22 22:00 96 11 143/99 (114) 94 Nasal Cannula 2.00 11/10/22 21:00 102 11 140/87 (104) 95 Nasal Cannula 2.00 11/10/22 20:00 36.6 11/10/22 20:00 92 Nasal Cannula 2.00 11/10/22 20:00 115 11 152/99 (116) 94 Nasal Cannula 2.00 11/10/22 19:45 Nasal Cannula 2.00 11/10/22 19:00 114 11/10/22 19:00 100 25 152/114 (127) 93 Room Air 11/10/22 18:00 114 13 147/113 (124) 94 Room Air 11/10/22 17:00 152 23 168/112 (130) 91 Room Air 11/10/22 16:00 133 9 143/109 (120) 90 Room Air 11/10/22 15:51 36.0 11/10/22 15:00 112 15 169/111 (130) 92 Room Air 11/10/22 14:00 109 16 164/112 (129) 92 Room Air 11/10/22 13:09 125 11/10/22 13:00 103 16 171/107 (128) 93 Room Air 11/10/22 12:00 105 17 173/112 (132) 92 Room Air 11/10/22 12:00 35.9 11/10/22 11:00 108 17 168/107 (127) 92 Room Air 11/10/22 10:30 112 19 167/110 (129) 93 Room Air I & O 11/11/22 07:00 Intake Total 2675 ml Balance 2675 ml Height & Weight Height: '" Weight: lbs. oz. kg; 29.82 BMI Method: General Appearance: No Apparent Distress, WD/WN HEENT: PERRL/EOMI, TMs Normal, Normal ENT Inspection, Pharynx Normal, Moist Mucous Membranes Neck: Full Range of Motion, Normal Inspection, Non Tender, Supple, Carotid Bruit Respiratory: Chest Non Tender, Normal Breath Sounds, No Accessory Muscle Use, No Respiratory Distress Cardiovascular: No Edema, No Gallop, No JVD, No Murmur, Normal Peripheral Pulse s, Irregularly Irregular, Tachycardia Capillary Refill: Less Than 3 Seconds Gastrointestinal: soft, guarding (mild), tenderness (LLQ) Extremity: Normal Capillary Refill, Normal Inspection, Normal Range of Motion, Non Tender, No Calf Tenderness, No Pedal Edema Neurologic/Psychiatric: Alert, Oriented x3, No Motor/Sensory Deficits, Normal Mood/Affect Skin: Normal Color, Warm/Dry Lymphatic: No Adenopathy Results Lab Laboratory Tests 11/10/22 00:47 11/10/22 04:35 11/11/22 04:18 Assessment/Plan Assessment/Plan 1 STEPHANIA SOLANO MD Nov 11, 2022 09:24
[2022-11-11] MEDS: APIXABAN 5 MG (ELIQUIS) TABLET PO SCH ×2 (09:46→20:30)
[2022-11-11] MEDS: NS IV SCH (09:47)
[2022-11-11] MEDS: THIAMINE IV SCH (09:47)
[2022-11-11] MEDS ORDERED: FAMOTIDINE 20 MG (PEPCID) TABLET PO NR (12:00)
--- NOTE | 2022-11-11 13:28 | Progress Note ---
Subjective Subjective/Events-last exam Patient states that his pain is much better. He is tolerating PO diet. Review of Systems General: No Fatigue, No Malaise Pulmonary: No Dyspnea, No Cough Cardiovascular: No: Chest Pain, Palpitations, Edema Gastrointestinal: Abdominal Pain; No: Nausea, Vomiting, Diarrhea, Constipation, Hematochezia Neurological: Weakness Focused Exam Lactate Level 11/10/22 05:23: Lactic Acid Level 2.42*H 11/10/22 07:26: Lactic Acid Level 1.46 Objective Exam Last Set of Vital Signs Vital Signs Date Time Temp Pulse Resp B/P (MAP) Pulse Ox O2 Delivery O2 Flow Rate FiO2 11/11/22 12:34 117 11/11/22 12:00 36.6 11/11/22 12:00 99 Nasal Cannula 2.00 11/11/22 11:00 14 Capillary Refill : Less Than 3 Seconds I&O Intake and Output 11/11/22 00:00 Intake Total 3152.5 ml Balance 3152.5 ml Intake Oral 2000 ml IV Total 1152.5 ml # Voids 15 # Bowel Movements 9 Daily Weight Change No General: Alert, Oriented X3, No Acute Distress Lungs: Clear to Auscultation, Normal Air Movement Heart: Regular Rate, No Murmurs Abdomen: Normal Bowel Sounds, Soft, Other (mild LLQ ttp, no rebound or guar ding) Extremities: No Edema, No Tenderness/Swelling Neuro: Normal Speech Results/Procedures Lab Laboratory Tests 11/11/22 04:18: White Blood Count 10.3, Red Blood Count 4.40, Hemoglobin 13.6, Hematocrit 41, Mean Corpuscular Volume 94, Mean Corpuscular Hemoglobin 31, Mean Corpuscular Hemoglobin Concent 33, Red Cell Distribution Width 13.5, Platelet Count 109L, Mean Platelet Volume 11.1, Immature Granulocyte % (Auto) 0, Neutrophils (%) (Auto) 91H, Lymphocytes (%) (Auto) 6L, Monocytes (%) (Auto) 3, Eosinophils (%) (Auto) 0, Basophils (%) (Auto) 0, Neutrophils # (Auto) 9.3H, Lymphocytes # (Auto ) 0.6L, Monocytes # (Auto) 0.3, Eosinophils # (Auto) 0.0, Basophils # (Auto) 0.0, Immature Granulocyte # (Auto) 0.0, Neutrophils % (Manual) 81, Lymphocytes % (Manual) 6, Monocytes % (Manual) 2, Eosinophils % (Manual) 0, Basophils % (Manual) 0, Band Neutrophils 11, Toxic Granulation 1+, Percent Immature Platelet Fraction 7.7H, Rouleau SLIGHT, Sodium Level 133L, Potassium Level 4.2, Chloride Level 99, Carbon Dioxide Level 25, Anion Gap 9, Blood Urea Nitrogen 13, Creatinine 1.01, Estimat Glomerular Filtration Rate 82, BUN/Creatinine Ratio 13, Glucose Level 204H, Calcium Level 8.6, Corrected Calcium 9.1, Phosphorus Level 2.3, Magnesium Level 1.6, Total Bilirubin 1.7H, Aspartate Amino Transf (AST/SGOT) 25, Alanine Aminotransferase (ALT/SGPT) 28, Alkaline Phosphatase 59, Total Protein 6.6, Albumin 3.4 11/11/22 12:12: Glucometer 188H Microbiology 11/10/22 MRSA Screen - Final, Complete Assessment/Plan Assessment/Plan (1) Diverticulitis Status: Acute Assessment & Plan: - CT with some concerns about microperforation, will consult General surgery, tolerating CLD, Continue on Zosyn 11/11: Pain improved, will continue IV antibiotics and advance diet (2) Atrial fibrillation with RVR Status: Chronic Assessment & Plan: - Rate controlled this AM, Continue OAC 11/11: Restarting PO meds and d/c IV (3) Alcohol dependence Status: Chronic Assessment & Plan: - CIWS, Folic Acid and thiamine Qualifiers: Qualified Codes: F10.20 - Alcohol dependence, uncomplicated (4) DVT prophylaxis Status: Acute Assessment & Plan: - OAC GLENYS BAZAN MD Nov 11, 2022 13:28
[2022-11-11] MEDS: inSUlin ASPART (NovoLOG) 1 UNIT/0.01 ML (CHARGE PER UNIT) SC SCH ×2 (15:11→20:00)
[2022-11-11] MEDS: LORazepam 1 MG (ATIVAN) TAB PO PRN ×2 (16:45→17:58)
[2022-11-11] MEDS ORDERED: LIDOCAINE UROJET 2% GEL 10 ML PKG ONE (18:03)
[2022-11-11] MEDS ORDERED: DexMEDEtomidine 250 ML DRIP 250 ML IV ONE (20:28)
[2022-11-11] MEDS: DexMEDEtomidine 250 ML DRIP 250 ML IV SCH (20:32)
[2022-11-12] MEDS: PIPERACILLIN SODIUM/TAZOBACTAM 4.5 GM in NS (IVPB) 100 ML IV SCH ×3 (01:00→17:37)
[2022-11-12 05:22] LABS: NEUTROPHILS % (AUTO) 71 % (42-75)
[2022-11-12 05:24] LABS: BASOPHILS % (AUTO) 0 % (0-10); EOSINOPHILS # (AUTO) 0.2 10^3/uL (0.0-0.3); EOSINOPHILS % (AUTO) 3 % (0-10); HEMATOCRIT 32 % (40-54); HEMOGLOBIN 11.1 g/dL (13.3-17.7); LYMPHOCYTES # (AUTO) 1.4 10^3/uL (1.0-4.0); LYMPHOCYTES % (AUTO) 20 % (12-44); MEAN CORPUSCULAR HEMOGLOBIN 32 pg (25-34); MEAN CORPUSCULAR HGB CONC 34 g/dL (32-36); MEAN CORPUSCULAR VOLUME 92 fL (80-99); MEAN PLATELET VOLUME 11.2 fL (9.0-12.2); MONOCYTES # (AUTO) 0.4 10^3/uL (0.0-1.0); MONOCYTES % (AUTO) 6 % (0-12); NEUTROPHILS # (AUTO) 4.8 10^3/uL (1.8-7.8); PLATELET COUNT 107 10^3/uL (130-400); WHITE BLOOD COUNT 6.8 10^3/uL (4.3-11.0)
--- NOTE | 2022-11-12 05:36 | Progress Note - Hospitalist ---
Subjective HPI/CC On Admission Date Seen by Provider: Nov 12, 2022 Time Seen by Provider: 11:00 Subjective/Events-last exam Patient remains on Precedex for alcohol withdrawal Atrial fibrillation rate control is better Review of Systems General: Fatigue, Malaise Neurological: Confusion Focused Exam Lactate Level 11/10/22 07:26: Lactic Acid Level 1.46 Objective Exam Vital Signs Vital Signs Date Time Temp Pulse Resp B/P (MAP) Pulse Ox O2 Delivery O2 Flow Rate FiO2 11/13/22 05:52 Nasal Cannula 2.00 11/13/22 05:15 89 138/109 11/13/22 05:00 100 11/12/22 20:26 35.7 16 Capillary Refill : Less Than 3 Seconds General Appearance: Chronically ill, Other (Sedated) Respiratory: Lungs Clear, Normal Breath Sounds Results/Procedures Lab Laboratory Tests 11/13/22 05:00 Patient resulted labs reviewed. Assessment/Plan Assessment and Plan Assess & Plan/Chief Complaint Assessment: Atrial fibrillation with RVR Acute alcohol withdrawal Plan: Detox protocol JONE IVEY DO Nov 12, 2022 05:36
[2022-11-12 05:38] LABS: ALBUMIN 2.8 GM/DL (3.2-4.5)
[2022-11-12 05:39] LABS: CALCIUM 8.6 MG/DL (8.5-10.1)
[2022-11-12 05:41] LABS: TOTAL PROTEIN 6.2 GM/DL (6.4-8.2)
[2022-11-12 05:42] LABS: BILIRUBIN,TOTAL 1.2 MG/DL (0.1-1.0)
[2022-11-12 05:44] LABS: CREATININE SERUM 0.93 MG/DL (0.60-1.30)
[2022-11-12] MEDS: CATHETER FLUSH 10 ML SYR IVP SCH ×3 (06:00→20:36)
[2022-11-12] MEDS: POTASSIUM CL 10MEQ/50ML IVPB 50 ML IV SCH (07:21)
[2022-11-12] MEDS: MAGNESIUM 1 GM/100 ML IVPB 100 ML IV SCH (07:22)
[2022-11-12] MEDS: KCL 20 MEQ TAB (K-DUR) PO SCH (07:23)
[2022-11-12] MEDS: inSUlin ASPART (NovoLOG) 1 UNIT/0.01 ML (CHARGE PER UNIT) SC SCH ×4 (07:24→20:31)
[2022-11-12] MEDS: DexMEDEtomidine 250 ML DRIP 250 ML IV SCH ×2 (08:11→17:38)
[2022-11-12] MEDS: THIAMINE 100 MG (VITAMIN B-1) TAB PO SCH (08:38)
[2022-11-12] MEDS: LOSARTAN 25 MG (COZAAR) TAB PO SCH (08:38)
[2022-11-12] MEDS: FOLIC ACID 1 MG TAB PO SCH (08:38)
[2022-11-12] MEDS: APIXABAN 5 MG (ELIQUIS) TABLET PO SCH ×2 (08:39→20:35)
[2022-11-12] MEDS: PANTOPRAZOLE 40 MG (PROTONIX) TAB PO SCH (08:39)
[2022-11-12] MEDS: MULTIVIT W/MINERALS TAB (THERAGRAN M) PO SCH (08:39)
--- NOTE | 2022-11-12 09:38 | Cardiology Progress Note ---
Subjective Date Seen by Provider: Nov 12, 2022 Time Seen by Provider: 09:36 Subjective/Events-last exam Patient was seen and evaluated, he was sedated. Patient was confused and fell out of bed last night. Review of Systems General: Other (Unable to provide review of system) Focused Exam Lactate Level 11/10/22 05:23: Lactic Acid Level 2.42*H 11/10/22 07:26: Lactic Acid Level 1.46 Objective-Cardiology Exam Last Set of Vital Signs Vital Signs 11/11/22 11/12/22 15:56 09:00 Temp 37.1 Pulse 72 Resp 15 B/P (MAP) 137/97 (110) Pulse Ox 99 O2 Delivery Nasal Cannula O2 Flow Rate 2.00 I&O Intake and Output 11/12/22 00:00 Intake Total 2478 ml Output Total 775 ml Balance 1703 ml Intake Oral 1700 ml IV Total 778 ml Output Urine Total 775 ml # Voids 6 General: Alert, Oriented X3, No Acute Distress Lungs: Clear to Auscultation, Normal Air Movement Heart: Regular Rate, No Murmurs Abdomen: Normal Bowel Sounds, Soft, Other (mild LLQ ttp, no rebound or guarding) Extremities: No Edema, No Tenderness/Swelling Neuro: Normal Speech Results Lab Laboratory Tests 11/12/22 05:07 A/P-Cardiology Admission Diagnosis Atrial fibrillation Tachycardia Hypertension Diverticulitis Assessment/Plan Atrial fibrillation with ventricular response History of paroxysmal atrial fibrillation, back in atrial fibrillation Heart rate is better controlled on Cardizem 90 every 6 hours. 2D echo was done on November 11, 2022 with normal left ventricular size, ejection fraction 60 to 65%. Moderately dilated left atrium, calcified mitral valve, PA pressure 40 to 45 mmHg. Alcohol withdrawal. Agitation. Confusion Currently sedated. Acute diverticulitis, abdominal pain. Managed by medical team Hypertension, blood pressure is better controlled Tolerating Cardizem and metoprolol. Obesity, BMI 30. GASPER OLVERA MD Nov 12, 2022 09:38
--- NOTE | 2022-11-12 10:23 | Tele-ICU Progress Note ---
Subjective Date Seen by a Provider: Nov 12, 2022 Time Seen by a Provider: 10:22 Subjective/Events-last exam (Tele-ICU Physician , Progress Note ) Service provided via interactive audio and video telecommunications E-CARE system to a patient admitted to ICU bed in [facility]. Patient is seen today due to persistent need of ICU care Available chart/ vitals / labs / Images reviewed Video assessment done using teleICU camera, rest of exam as per RN Discussed with RN Events overnight : Afebrile hemodynamically stable Respiratory - 2 l I/O =+ Drips: cardizem gtt Pressors- no Hospital course: (6.7) Admitted a 67 y/o with AF/RVR and diverticulitis 11/11- ECHO 11/11/22 EF 55% , RVSP 45 mmHg 11/12 - STATED ON RESEDEX FOR DT A/P Afib - h/o PAF rate controlled still 110s on diltiazem gtt,15 - PO starteed -AC with eliquis if ok with sx - ECHO 11/11/22 EF 55% , RVSP 45 mmHg Cardiology consulted. Complicated diverticulitis with a contained microperforation - fever is down -zosyn to cont - sx follow - conservative mngmt now Etoh withdrawal, DT - no hallucinations , very confused -CIWA- - STATED ON RRESEDEX 11/12 -vitamins Lines : periph , (Central Line Necessity Reviewed) Villalpando: + OG: Nutrition: Po Analgesia: Anxiety/ delirium VTE Prophylaxis: eliquis Stress Ulcer Prophylaxis: na Plans in collaboration with bedside consultants and IM MDs. Discussed with RN to reach out if any questions or concerns Case and care daily discussed on multidisciplinary rounds ( RN, PharmD, Associate Juvenile Court Judge , Respiratory Therapy, vegetable ii farmworker ) A total of 25 minutes of critical care time was devoted to this patient today, required to treat and/or prevent further deterioration of critical care condition ( as above ) . I am remotely monitoring this patient from another state. I am unable to do the bedside exam, and history/physical and pertinent information is taken from other notes in the computer and bedside staff. Sepsis Event Evaluation Height, Weight, BMI Height: '" Weight: lbs. oz. kg; 30.81 BMI Method: Focused Exam Lactate Level 11/10/22 05:23: Lactic Acid Level 2.42*H 11/10/22 07:26: Lactic Acid Level 1.46 Exam Exam Patient acknowledged, consented, and participated in this virtual visit which was conducted using real time audio/video Vital Signs Date Time Temp Pulse Resp B/P (MAP) Pulse Ox O2 Delivery O2 Flow Rate FiO2 11/12/22 10:00 66 22 122/89 (98) 97 Nasal Cannula 2.00 11/12/22 09:00 72 15 137/97 (110) 99 Nasal Cannula 2.00 11/12/22 08:11 73 121/83 11/12/22 08:00 96 2.00 11/12/22 08:00 68 22 125/90 (100) 97 Nasal Cannula 2.00 11/12/22 07:18 95 Nasal Cannula 2.00 11/12/22 07:17 98 Nasal Cannula 4.00 11/12/22 07:00 69 11/12/22 07:00 72 23 130/83 (97) 97 Nasal Cannula 2.00 11/12/22 06:00 73 21 121/83 (96) 98 Nasal Cannula 2.00 11/12/22 05:00 74 20 124/80 (95) 98 Nasal Cannula 2.00 11/12/22 04:00 67 27 117/71 (86) 95 Nasal Cannula 2.00 11/12/22 03:00 73 23 108/73 (85) 96 Nasal Cannula 2.00 11/12/22 02:00 72 24 103/73 (83) 96 Nasal Cannula 2.00 11/12/22 01:00 70 11/12/22 01:00 72 23 101/65 (77) 94 Nasal Cannula 2.00 11/12/22 00:38 92 3.00 11/12/22 00:32 73 108/73 11/12/22 00:00 68 89/63 (72) 92 Nasal Cannula 2.00 11/11/22 23:00 68 23 100/61 (74) 93 Nasal Cannula 2.00 11/11/22 22:00 85 90/51 (64) 92 Nasal Cannula 2.00 11/11/22 21:00 144 135/70 (91) 92 Nasal Cannula 2.00 11/11/22 20:32 99 102/61 11/11/22 20:28 73 108/73 11/11/22 20:00 126 114/74 (87) 90 Nasal Cannula 2.00 11/11/22 20:00 95 3.00 11/11/22 19:41 Nasal Cannula 2.00 11/11/22 19:08 98 11/11/22 19:00 108 23 120/85 (97) 90 Nasal Cannula 2.00 11/11/22 18:00 131 23 98/52 (67) 90 Nasal Cannula 2.00 11/11/22 17:00 93 16 119/79 (92) 96 Nasal Cannula 2.00 11/11/22 16:00 96 Nasal Cannula 2.00 11/11/22 16:00 112 20 137/96 (110) 95 Nasal Cannula 2.00 11/11/22 15:56 37.1 11/11/22 15:00 109 21 113/81 (92) 96 Nasal Cannula 2.00 11/11/22 14:00 144 23 116/86 (96) 94 Nasal Cannula 2.00 11/11/22 13:30 134 20 145/127 (133) 90 Nasal Cannula 2.00 11/11/22 12:34 117 11/11/22 12:00 36.6 11/11/22 12:00 99 Nasal Cannula 2.00 11/11/22 11:00 111 14 100 Nasal Cannula 2.00 I & O 11/12/22 07:00 Intake Total 1713 ml Output Total 1275 ml Balance 438 ml Height & Weight Height: '" Weight: lbs. oz. kg; 30.81 BMI Method: General Appearance: No Apparent Distress, WD/WN HEENT: PERRL/EOMI, TMs Normal, Normal ENT Inspection, Pharynx Normal, Moist Mucous Membranes Neck: Full Range of Motion, Normal Inspection, Non Tender, Supple, Carotid Bruit Respiratory: Chest Non Tender, Normal Breath Sounds, No Accessory Muscle Use, No Respiratory Distress Cardiovascular: No Edema, No Gallop, No JVD, No Murmur, Normal Peripheral Pulses, Irregularly Irregular, Tachycardia Capillary Refill: Less Than 3 Seconds Gastrointestinal: soft, guarding (mild), tenderness (LLQ) Extremity: Normal Capillary Refill, Normal Inspection, Normal Range of Motion, Non Tender, No Calf Tenderness, No Pedal Edema Neurologic/Psychiatric: Alert, Oriented x3, No Motor/Sensory Deficits, Normal Mood/Affect Skin: Normal Color, Warm/Dry Lymphatic: No Adenopathy Results Lab Laboratory Tests 11/11/22 04:18 11/12/22 05:07 Assessment/Plan Assessment/Plan 1 STEPHANIA SOLANO MD Nov 12, 2022 10:23
--- NOTE | 2022-11-12 10:48 | Progress Note ---
Subjective Date Seen by a Provider: Nov 12, 2022 Time Seen by a Provider: 10:30 Subjective/Events-last exam doing well. rate better controlled. pain controlled. tolerating regular diet and having loose BM's. Focused Exam Lactate Level 11/10/22 05:23: Lactic Acid Level 2.42*H 11/10/22 07:26: Lactic Acid Level 1.46 Objective Exam Vital Signs Date Time Temp Pulse Resp B/P (MAP) Pulse Ox O2 Delivery O2 Flow Rate FiO2 11/12/22 10:00 66 22 122/89 (98) 97 Nasal Cannula 2.00 11/12/22 09:00 72 15 137/97 (110) 99 Nasal Cannula 2.00 11/12/22 08:11 73 121/83 11/12/22 08:00 96 2.00 11/12/22 08:00 68 22 125/90 (100) 97 Nasal Cannula 2.00 11/12/22 07:18 95 Nasal Cannula 2.00 11/12/22 07:17 98 Nasal Cannula 4.00 11/12/22 07:00 69 11/12/22 07:00 72 23 130/83 (97) 97 Nasal Cannula 2.00 11/12/22 06:00 73 21 121/83 (96) 98 Nasal Cannula 2.00 11/12/22 05:00 74 20 124/80 (95) 98 Nasal Cannula 2.00 11/12/22 04:00 67 27 117/71 (86) 95 Nasal Cannula 2.00 11/12/22 03:00 73 23 108/73 (85) 96 Nasal Cannula 2.00 11/12/22 02:00 72 24 103/73 (83) 96 Nasal Cannula 2.00 11/12/22 01:00 70 11/12/22 01:00 72 23 101/65 (77) 94 Nasal Cannula 2.00 11/12/22 00:38 92 3.00 11/12/22 00:32 73 108/73 11/12/22 00:00 68 89/63 (72) 92 Nasal Cannula 2.00 11/11/22 23:00 68 23 100/61 (74) 93 Nasal Cannula 2.00 11/11/22 22:00 85 90/51 (64) 92 Nasal Cannula 2.00 11/11/22 21:00 144 135/70 (91) 92 Nasal Cannula 2.00 11/11/22 20:32 99 102/61 11/11/22 20:28 73 108/73 11/11/22 20:00 126 114/74 (87) 90 Nasal Cannula 2.00 11/11/22 20:00 95 3.00 11/11/22 19:41 Nasal Cannula 2.00 11/11/22 19:08 98 11/11/22 19:00 108 23 120/85 (97) 90 Nasal Cannula 2.00 11/11/22 18:00 131 23 98/52 (67) 90 Nasal Cannula 2.00 11/11/22 17:00 93 16 119/79 (92) 96 Nasal Cannula 2.00 11/11/22 16:00 96 Nasal Cannula 2.00 11/11/22 16:00 112 20 137/96 (110) 95 Nasal Cannula 2.00 11/11/22 15:56 37.1 11/11/22 15:00 109 21 113/81 (92) 96 Nasal Cannula 2.00 11/11/22 14:00 144 23 116/86 (96) 94 Nasal Cannula 2.00 11/11/22 13:30 134 20 145/127 (133) 90 Nasal Cannula 2.00 11/11/22 12:34 117 11/11/22 12:00 36.6 11/11/22 12:00 99 Nasal Cannula 2.00 11/11/22 11:00 111 14 100 Nasal Cannula 2.00 I & O 11/12/22 06:59 Intake Total 1713 ml Output Total 1275 ml Balance 438 ml Capillary Refill : Less Than 3 Seconds General Appearance: No Apparent Distress HEENT: PERRL/EOMI Neck: Full Range of Motion Respiratory: Chest Non Tender, Decreased Breath Sounds Cardiovascular: Regular Rate, Rhythm Gastrointestinal: normal bowel sounds, soft, tenderness Extremity: Normal Capillary Refill Neurologic/Psychiatric: Alert, Oriented x3 Skin: Normal Color Lymphatic: No Adenopathy Results Lab Laboratory Tests 11/11/22 12:12: Glucometer 188H 11/11/22 15:34: Glucometer 130H 11/11/22 21:00: Glucometer 127H 11/12/22 05:07: White Blood Count 6.8, Red Blood Count 3.50L, Hemoglobin 11.1L, Hematocrit 32L, Mean Corpuscular Volume 92, Mean Corpuscular Hemoglobin 32, Mean Corpuscular Hemoglobin Concent 34, Red Cell Distribution Width 13.4, Platelet Count 107L, Mean Platelet Volume 11.2, Immature Granulocyte % (Auto) 0, Neutrophils (%) (Auto) 71, Lymphocytes (%) (Auto) 20, Monocytes (%) (Auto) 6, Eosinophils (%) (Auto) 3, Basophils (%) (Auto) 0, Neutrophils # (Auto) 4.8, Lymphocytes # (Auto) 1.4, Monocytes # (Auto) 0.4, Eosinophils # (Auto) 0.2, Basophils # (Auto) 0.0, Immature Granulocyte # (Auto) 0.0, Percent Immature Platelet Fraction 5.5, Sodium Level 135, Potassium Level 5.0, Chloride Level 102, Carbon Dioxide Level 24, Anion Gap 9, Blood Urea Nitrogen 10, Creatinine 0.93, Estimat Glomerular Filtration Rate 91, BUN/Creatinine Ratio 11, Glucose Level 146H, Calcium Level 8.6, Corrected Calcium 9.6, Phosphorus Level 2.0L, Magnesium Level 2.0, Total Bilirubin 1.2H, Aspartate Amino Transf (AST/SGOT) 31, Alanine Aminotransferase (ALT/SGPT) 19, Alkaline Phosphatase 55, Total Protein 6.2L, Albumin 2.8L 11/12/22 07:14: Glucometer 132H Microbiology 11/10/22 Blood Culture - Preliminary, Resulted No growth 11/10/22 MRSA Screen - Final, Complete Assessment/Plan Assessment/Plan Assess & Plan/Chief Complaint complicated diverticulitis with a-fib and rvr. responding well to conservative management. cont diet and abx. patient states returing back to [facility] then will seek medical /surgical attention there. WALLY LYNNE MD Nov 12, 2022 10:48
[2022-11-12] MEDS: LORazepam INJ 2 MG/ML (ATIVAN) VIAL IV PRN (22:52)
[2022-11-13] MEDS: DexMEDEtomidine 250 ML DRIP 250 ML IV SCH ×3 (01:15→20:15)
[2022-11-13] MEDS: PIPERACILLIN SODIUM/TAZOBACTAM 4.5 GM in NS (IVPB) 100 ML IV SCH ×3 (01:16→18:08)
[2022-11-13 05:02] LABS: BASOPHILS % (AUTO) 0 % (0-10); EOSINOPHILS # (AUTO) 0.2 10^3/uL (0.0-0.3); EOSINOPHILS % (AUTO) 4 % (0-10); HEMATOCRIT 37 % (40-54); HEMOGLOBIN 12.7 g/dL (13.3-17.7); LYMPHOCYTES # (AUTO) 1.1 10^3/uL (1.0-4.0); LYMPHOCYTES % (AUTO) 19 % (12-44); MEAN CORPUSCULAR HEMOGLOBIN 32 pg (25-34); MEAN CORPUSCULAR HGB CONC 35 g/dL (32-36); MEAN CORPUSCULAR VOLUME 93 fL (80-99); MONOCYTES # (AUTO) 0.4 10^3/uL (0.0-1.0); MONOCYTES % (AUTO) 7 % (0-12); NEUTROPHILS # (AUTO) 4.1 10^3/uL (1.8-7.8); NEUTROPHILS % (AUTO) 70 % (42-75); PLATELET COUNT 165 10^3/uL (130-400); WHITE BLOOD COUNT 5.9 10^3/uL (4.3-11.0)
[2022-11-13] MEDS: LORazepam INJ 2 MG/ML (ATIVAN) VIAL IV PRN ×2 (05:18→14:21)
[2022-11-13 05:31] LABS: ALBUMIN 3.2 GM/DL (3.2-4.5); POTASSIUM 3.4 MMOL/L (3.6-5.0)
[2022-11-13 05:32] LABS: CALCIUM 9.4 MG/DL (8.5-10.1)
[2022-11-13 05:34] LABS: TOTAL PROTEIN 6.7 GM/DL (6.4-8.2)
[2022-11-13 05:35] LABS: BILIRUBIN,TOTAL 0.9 MG/DL (0.1-1.0)
[2022-11-13 05:37] LABS: CREATININE SERUM 0.93 MG/DL (0.60-1.30); PHOSPHORUS 2.9 MG/DL (2.3-4.7)
[2022-11-13 05:40] LABS: MAGNESIUM 1.5 MG/DL (1.6-2.4)
[2022-11-13] MEDS: KCL 20 MEQ TAB (K-DUR) PO SCH (05:54)
[2022-11-13] MEDS: MAGNESIUM 1 GM/100 ML IVPB 100 ML IV SCH ×5 (05:54→09:17)
[2022-11-13] MEDS: POTASSIUM CL 10MEQ/50ML IVPB 50 ML IV SCH ×5 (05:54→09:17)
[2022-11-13] MEDS: CATHETER FLUSH 10 ML SYR IVP SCH ×3 (05:54→23:12)
[2022-11-13] MEDS ORDERED: MAGNESIUM 1 GM/100 ML IVPB 400 ML IV ONE (05:54)
[2022-11-13] MEDS: inSUlin ASPART (NovoLOG) 1 UNIT/0.01 ML (CHARGE PER UNIT) SC SCH ×4 (05:55→20:14)
--- NOTE | 2022-11-13 07:16 | Progress Note - Hospitalist ---
Subjective HPI/CC On Admission Date Seen by Provider: Nov 13, 2022 Time Seen by Provider: 11:00 Subjective/Events-last exam Patient doing a lot better Precedex is being weaned down Alcohol withdrawal still an issue Review of Systems General: Fatigue, Malaise Focused Exam Lactate Level Objective Exam Vital Signs Vital Signs Date Time Temp Pulse Resp B/P (MAP) Pulse Ox O2 Delivery O2 Flow Rate FiO2 11/13/22 16:00 77 159/98 (116) 100 Nasal Cannula 2.00 11/13/22 15:55 36.6 11/12/22 20:26 16 Capillary Refill : Less Than 3 Seconds General Appearance: No Apparent Distress, WD/WN, Chronically ill Respiratory: Lungs Clear, Normal Breath Sounds Cardiovascular: Regular Rate, Rhythm Results/Procedures Lab Laboratory Tests 11/13/22 05:00 Patient resulted labs reviewed. Assessment/Plan Assessment and Plan Assess & Plan/Chief Complaint Assessment: Atrial fibrillation with RVR Acute alcohol withdrawal Plan: Detox protocol JONE IVEY DO Nov 13, 2022 07:16
[2022-11-13] MEDS: MULTIVIT W/MINERALS TAB (THERAGRAN M) PO SCH (08:26)
[2022-11-13] MEDS: APIXABAN 5 MG (ELIQUIS) TABLET PO SCH ×2 (08:26→20:15)
[2022-11-13] MEDS: FOLIC ACID 1 MG TAB PO SCH (08:26)
[2022-11-13] MEDS: PANTOPRAZOLE 40 MG (PROTONIX) TAB PO SCH (08:26)
[2022-11-13] MEDS: LOSARTAN 25 MG (COZAAR) TAB PO SCH (08:26)
[2022-11-13] MEDS: THIAMINE 100 MG (VITAMIN B-1) TAB PO SCH (08:26)
--- NOTE | 2022-11-13 08:57 | Cardiology Progress Note ---
Subjective Date Seen by Provider: Nov 13, 2022 Time Seen by Provider: 08:56 Subjective/Events-last exam Patient was seen at bedside, agitated. Sitting upright. Confused. Not sure where he is. Review of Systems General: No Chills, No Night Sweats, No Fatigue, No Malaise, No Appetite, No Other HEENT: No Head Aches, No Visual Changes, No Eye Pain, No Ear Pain, No Dy sphasia, No Sinus Congestion, No Post Nasal Drip, No Sore Throat, No Other Pulmonary: No Dyspnea, No Cough, No Pleuritic Chest Pain, No Other Cardiovascular: No: Chest Pain, Palpitations, Orthopnea, Paroxysmal Noc. Dyspnea, Edema, Lt Headedness, Other Objective-Cardiology Exam Last Set of Vital Signs Vital Signs 11/12/22 11/13/22 11/13/22 20:26 07:56 08:23 Temp 36.5 Pulse 72 Resp 16 B/P (MAP) 150/110 I&O Intake and Output 11/13/22 00:00 Intake Total 235 ml Output Total 5500 ml Balance -5265 ml Intake Oral 235 ml Output Urine Total 5500 ml General: Alert, No Acute Distress Lungs: Clear to Auscultation, Normal Air Movement Heart: Normal S1, Normal S2, No Murmurs, Other (Atrial fibrillation) Abdomen: Normal Bowel Sounds, Soft, Other (mild LLQ ttp, no rebound or guarding) Extremities: No Clubbing, No Cyanosis, No Edema, No Tenderness/Swelling Neuro: Normal Speech Psych/Mental Status: Other (Agitated) Results Lab Laboratory Tests 11/13/22 05:00 A/P-Cardiology Admission Diagnosis Atrial fibrillation Tachycardia Hypertension Diverticulitis Assessment/Plan Paroxysmal atrial fibrillation Currently heart rate is better controlled Tolerating Cardizem 90 mg every 6 hours. Confusion, agitation. Managed by medical team. 2D echo was done on November 11, 2022 with normal left ventricular size, ejection fraction 60 to 65%. Moderately dilated left atrium, calcified mitral valve, PA pressure 40 to 45 mmHg. Alcohol withdrawal. Agitation. Confusion Currently sedated. Acute diverticulitis, abdominal pain. Managed by medical team Hypertension, blood pressure is better controlled Tolerating Cardizem and metoprolol. Obesity, BMI 30. GASPER OLVERA MD Nov 13, 2022 08:57
--- NOTE | 2022-11-13 10:01 | Tele-ICU Progress Note ---
Subjective Date Seen by a Provider: Nov 13, 2022 Time Seen by a Provider: 10:00 Subjective/Events-last exam (Tele-ICU Physician , Progress Note ) Service provided via interactive audio and video telecommunications E-CARE system to a patient admitted to ICU bed in [facility]. Patient is seen today due to persistent need of ICU care Available chart/ vitals / labs / Images reviewed Video assessment done using teleICU camera, rest of exam as per RN Discussed with RN Events overnight : Afebrile hemodynamically stable Respiratory - 2 l I/O = tiarra 5 L Drips: cardizem gtt OFF 11/12 Pressors- no Hospital course: (6.7) Admitted a 67 y/o with AF/RVR and diverticulitis 11/11- ECHO 11/11/22 EF 55% , RVSP 45 mmHg 11/12 - STATED ON RESEDEX FOR DT, off cardizem gtt A/P Afib - h/o PAF rate controlled on diltiazem PO s -AC with eliquis if ok with sx - ECHO 11/11/22 EF 55% , RVSP 45 mmHg Cardiology consulted. Complicated diverticulitis with a contained microperforation - fever is down -zosyn to cont - sx follow - conservative mngmt now Etoh withdrawal, DT - no hallucinations , less confused -CIWA- to cont - STATED ON RRESEDEX 11/12 - to wean -vitamins Lines : periph , (Central Line Necessity Reviewed) Villalpando: + OG: Nutrition: Po Analgesia: Anxiety/ delirium VTE Prophylaxis: eliquis Stress Ulcer Prophylaxis: na Plans in collaboration with bedside consultants and IM MDs. Discussed with RN to reach out if any questions or concerns Case and care daily discussed on multidisciplinary rounds ( RN, PharmD, Waterproofing Supervisor , Respiratory Therapy, needleworker ) A total of 25 minutes of critical care time was devoted to this patient today, required to treat and/or prevent further deterioration of critical care condition ( as above ) . I am remotely monitoring this patient from another state. I am unable to do the bedside exam, and history/physical and pertinent information is taken from other notes in the computer and bedside staff. Sepsis Event Evaluation Height, Weight, BMI Height: '" Weight: lbs. oz. kg; 30.81 BMI Method: Exam Exam Patient acknowledged, consented, and participated in this virtual visit which was conducted using real time audio/video Vital Signs Date Time Temp Pulse Resp B/P (MAP) Pulse Ox O2 Delivery O2 Flow Rate FiO2 11/13/22 09:00 73 144/105 (114) 100 Nasal Cannula 2.00 11/13/22 08:23 72 150/110 11/13/22 08:00 100 Nasal Cannula 2.00 11/13/22 08:00 72 150/110 (120) 100 Nasal Cannula 2.00 11/13/22 07:56 36.5 11/13/22 07:00 72 157/108 (119) 100 Nasal Cannula 2.00 11/13/22 07:00 74 11/13/22 05:52 Nasal Cannula 2.00 11/13/22 05:15 89 138/109 11/13/22 05:00 89 100 Nasal Cannula 2.00 11/13/22 04:00 81 138/109 (119) 100 Nasal Cannula 2.00 11/13/22 04:00 98 Nasal Cannula 2.00 11/13/22 03:00 82 154/119 (131) 100 Nasal Cannula 2.00 11/13/22 02:00 69 152/110 (124) 100 Nasal Cannula 2.00 11/13/22 01:15 76 146/107 11/13/22 01:00 60 146/107 (120) 100 Nasal Cannula 2.00 11/13/22 01:00 70 11/13/22 00:00 76 146/107 (120) 100 Nasal Cannula 2.00 11/12/22 23:59 96 Room Air 11/12/22 23:00 74 154/102 (119) 100 Nasal Cannula 2.00 11/12/22 22:00 67 140/108 (119) 100 Nasal Cannula 2.00 11/12/22 21:38 73 159/102 11/12/22 21:00 71 153/110 (124) 100 Nasal Cannula 2.00 11/12/22 20:26 35.7 73 16 159/102 (121) 100 Nasal Cannula 2.00 11/12/22 20:00 96 Nasal Cannula 2.00 11/12/22 19:00 78 152/108 (123) 100 Nasal Cannula 2.00 11/12/22 19:00 80 11/12/22 18:00 73 150/109 (121) 100 Nasal Cannula 2.00 11/12/22 17:38 76 151/111 11/12/22 17:00 76 151/111 (120) 100 Nasal Cannula 2.00 11/12/22 16:00 96 Nasal Cannula 2.00 11/12/22 16:00 67 152/99 (108) 100 Nasal Cannula 2.00 11/12/22 16:00 36.4 11/12/22 15:00 64 136/103 (116) 98 Nasal Cannula 2.00 11/12/22 14:00 73 141/91 (111) 98 Nasal Cannula 2.00 11/12/22 13:04 65 11/12/22 13:00 61 135/95 (110) 98 Nasal Cannula 2.00 11/12/22 12:11 65 135/95 11/12/22 12:00 36.3 11/12/22 12:00 96 Nasal Cannula 2.00 11/12/22 12:00 63 139/86 (101) 98 Nasal Cannula 2.00 11/12/22 11:00 67 127/86 (92) 98 Nasal Cannula 2.00 I & O 11/13/22 07:00 Intake Total 1075 ml Output Total 6050 ml Balance -4975 ml Height & Weight Height: '" Weight: lbs. oz. kg; 30.81 BMI Method: General Appearance: Chronically ill, Other (Sedated) HEENT: PERRL/EOMI Neck: Full Range of Motion Respiratory: Lungs Clear, Normal Breath Sounds Cardiovascular: Regular Rate, Rhythm Capillary Refill: Less Than 3 Seconds Gastrointestinal: normal bowel sounds, soft, tenderness Extremity: Normal Capillary Refill Neurologic/Psychiatric: Alert, Oriented x3 Skin: Normal Color Lymphatic: No Adenopathy Results Lab Laboratory Tests 11/12/22 05:07 11/13/22 05:00 Assessment/Plan Assessment/Plan 1 STEPHANIA SOLANO MD Nov 13, 2022 10:01
--- NOTE | 2022-11-13 15:34 | Progress Note - Surgery ---
Subjective Time Seen by a Provider: 10:43 Subjective/Events-last exam Pt seen and examined, lying in bed comfortable. He denies any abdominal pain. Review of Systems Pulmonary: No Dyspnea Cardiovascular: No: Chest Pain Gastrointestinal: No: Nausea, Vomiting, Abdominal Pain Genitourinary: No Dysuria, No Frequency Objective Exam Vital Signs Date Time Temp Pulse Resp B/P (MAP) Pulse Ox O2 Delivery O2 Flow Rate FiO2 11/13/22 14:00 70 150/96 (109) 100 Nasal Cannula 2.00 11/13/22 13:10 72 133/71 11/13/22 13:00 77 11/13/22 13:00 65 141/92 (117) 100 Nasal Cannula 2.00 11/13/22 12:00 100 Nasal Cannula 2.00 11/13/22 12:00 72 133/71 (97) 100 Nasal Cannula 2.00 11/13/22 11:47 36.4 11/13/22 11:00 66 149/103 (112) 99 Nasal Cannula 2.00 11/13/22 10:00 62 147/89 (111) 100 Nasal Cannula 2.00 11/13/22 09:00 73 144/105 (114) 100 Nasal Cannula 2.00 11/13/22 08:23 72 150/110 11/13/22 08:00 100 Nasal Cannula 2.00 11/13/22 08:00 72 150/110 (120) 100 Nasal Cannula 2.00 11/13/22 07:56 36.5 11/13/22 07:00 72 157/108 (119) 100 Nasal Cannula 2.00 11/13/22 07:00 74 11/13/22 05:52 Nasal Cannula 2.00 11/13/22 05:15 89 138/109 11/13/22 05:00 89 100 Nasal Cannula 2.00 11/13/22 04:00 81 138/109 (119) 100 Nasal Cannula 2.00 11/13/22 04:00 98 Nasal Cannula 2.00 11/13/22 03:00 82 154/119 (131) 100 Nasal Cannula 2.00 11/13/22 02:00 69 152/110 (124) 100 Nasal Cannula 2.00 11/13/22 01:15 76 146/107 11/13/22 01:00 60 146/107 (120) 100 Nasal Cannula 2.00 11/13/22 01:00 70 11/13/22 00:00 76 146/107 (120) 100 Nasal Cannula 2.00 11/12/22 23:59 96 Room Air 11/12/22 23:00 74 154/102 (119) 100 Nasal Cannula 2.00 11/12/22 22:00 67 140/108 (119) 100 Nasal Cannula 2.00 11/12/22 21:38 73 159/102 11/12/22 21:00 71 153/110 (124) 100 Nasal Cannula 2.00 11/12/22 20:26 35.7 73 16 159/102 (121) 100 Nasal Cannula 2.00 11/12/22 20:00 96 Nasal Cannula 2.00 11/12/22 19:00 78 152/108 (123) 100 Nasal Cannula 2.00 11/12/22 19:00 80 11/12/22 18:00 73 150/109 (121) 100 Nasal Cannula 2.00 11/12/22 17:38 76 151/111 11/12/22 17:00 76 151/111 (120) 100 Nasal Cannula 2.00 11/12/22 16:00 96 Nasal Cannula 2.00 11/12/22 16:00 67 152/99 (108) 100 Nasal Cannula 2.00 11/12/22 16:00 36.4 I & O 11/13/22 07:00 Intake Total 1075 ml Output Total 6050 ml Balance -4975 ml Capillary Refill : Less Than 3 Seconds General Appearance: Chronically ill, Obese HEENT: PERRL/EOMI Respiratory: Lungs Clear, Normal Breath Sounds, No Accessory Muscle Use, No Respiratory Distress Cardiovascular: Regular Rate, Rhythm, No Murmur Gastrointestinal: non tender, soft, no organomegaly Extremity: No Calf Tenderness, No Pedal Edema Skin: Normal Color Results Lab Laboratory Tests 11/12/22 16:38: Glucometer 145H 11/12/22 20:31: Glucometer 148H 11/13/22 05:00: White Blood Count 5.9, Red Blood Count 3.97L, Hemoglobin 12.7L, Hematocrit 37L, Mean Corpuscular Volume 93, Mean Corpuscular Hemoglobin 32, Mean Corpuscular Hemoglobin Concent 35, Red Cell Distribution Width 13.3, Platelet Count 165, Mean Platelet Volume 10.0, Immature Granulocyte % (Auto) 1, Neutrophils (%) (Auto) 70, Lymphocytes (%) (Auto) 19, Monocytes (%) (Auto) 7, Eosinophils (%) (Auto) 4, Basophils (%) (Auto) 0, Neutrophils # (Auto) 4.1, Lymphocytes # (Auto) 1.1, Monocytes # (Auto) 0.4, Eosinophils # (Auto) 0.2, Basophils # (Auto) 0.0, Immature Granulocyte # (Auto) 0.0, Sodium Level 139, Potassium Level 3.4L, Chloride Level 100, Carbon Dioxide Level 26, Anion Gap 13, Blood Urea Nitrogen 9, Creatinine 0.93, Estimat Glomerular Filtration Rate 91, BUN/Creatinine Ratio 10, Glucose Level 163H, Calcium Level 9.4, Corrected Calcium 10.0, Phosphorus Level 2.9, Magnesium Level 1.5L, Total Bilirubin 0.9, Aspartate Amino Transf (AST/SGOT) 20, Alanine Aminotransferase (ALT/SGPT) 19, Alkaline Phosphatase 57, Total Protein 6.7, Albumin 3.2 11/13/22 10:42: Glucometer 198H Microbiology 11/10/22 Blood Culture - Preliminary, Resulted No growth 11/10/22 MRSA Screen - Final, Complete Assessment/Plan Assessment/Plan Assessment/Plan Complicated diverticulitis A-fib and rvr EtOH Withdrawal Pt is currently on CIWA protocol and Precedex; which is why he is still in the ICU. His abdominal pain is basically gone and he can advance diet as tolerated. I looked at the CT and he appears to have inflammation throughout Sigmoid colon down through rectum. I told him about this and that he needs a colonoscopy in 6 weeks. He may not need surgery for Diverticula, but he definitely needs the area looked at. He stated he has not had a colonoscopy before. Continue ABX. BERNICE AGUAYO DO Nov 13, 2022 15:34
[2022-11-13] MEDS: LORazepam 1 MG (ATIVAN) TAB PO PRN ×2 (20:15→23:12)
[2022-11-14] MEDS: LORazepam 1 MG (ATIVAN) TAB PO PRN ×7 (01:52→23:10)
[2022-11-14] MEDS: PIPERACILLIN SODIUM/TAZOBACTAM 4.5 GM in NS (IVPB) 100 ML IV SCH ×3 (01:52→17:38)
[2022-11-14] MEDS: DexMEDEtomidine 250 ML DRIP 250 ML IV SCH (03:30)
[2022-11-14 04:53] LABS: BASOPHILS % (AUTO) 0 % (0-10); EOSINOPHILS # (AUTO) 0.2 10^3/uL (0.0-0.3); EOSINOPHILS % (AUTO) 3 % (0-10); HEMATOCRIT 38 % (40-54); HEMOGLOBIN 12.7 g/dL (13.3-17.7); LYMPHOCYTES # (AUTO) 1.4 10^3/uL (1.0-4.0); LYMPHOCYTES % (AUTO) 26 % (12-44); MEAN CORPUSCULAR HEMOGLOBIN 31 pg (25-34); MEAN CORPUSCULAR HGB CONC 34 g/dL (32-36); MEAN CORPUSCULAR VOLUME 93 fL (80-99); MEAN PLATELET VOLUME 9.8 fL (9.0-12.2); MONOCYTES # (AUTO) 0.5 10^3/uL (0.0-1.0); MONOCYTES % (AUTO) 9 % (0-12); NEUTROPHILS # (AUTO) 3.3 10^3/uL (1.8-7.8); NEUTROPHILS % (AUTO) 61 % (42-75); PLATELET COUNT 223 10^3/uL (130-400); WHITE BLOOD COUNT 5.4 10^3/uL (4.3-11.0)
[2022-11-14 05:18] LABS: ALBUMIN 3.2 GM/DL (3.2-4.5); CALCIUM 9.6 MG/DL (8.5-10.1); CREATININE SERUM 1.05 MG/DL (0.60-1.30); MAGNESIUM 1.7 MG/DL (1.6-2.4); PHOSPHORUS 3.7 MG/DL (2.3-4.7); POTASSIUM 3.4 MMOL/L (3.6-5.0); TOTAL PROTEIN 6.9 GM/DL (6.4-8.2)
[2022-11-14] MEDS: MAGNESIUM 1 GM/100 ML IVPB 100 ML IV SCH ×5 (05:33→11:07)
[2022-11-14] MEDS: KCL 20 MEQ TAB (K-DUR) PO SCH (05:33)
[2022-11-14] MEDS: POTASSIUM CL 10MEQ/50ML IVPB 50 ML IV SCH (05:33)
[2022-11-14] MEDS: inSUlin ASPART (NovoLOG) 1 UNIT/0.01 ML (CHARGE PER UNIT) SC SCH ×4 (05:35→21:03)
[2022-11-14] MEDS: MULTIVIT W/MINERALS TAB (THERAGRAN M) PO SCH (06:14)
[2022-11-14] MEDS: THIAMINE 100 MG (VITAMIN B-1) TAB PO SCH (06:14)
[2022-11-14] MEDS ORDERED: POTASSIUM BICARB 20 MEQ (EFFER-K) TABLET PO ONE (06:15)
[2022-11-14] MEDS: CATHETER FLUSH 10 ML SYR IVP SCH ×3 (06:17→22:10)
--- NOTE | 2022-11-14 08:52 | Tele-ICU Progress Note ---
Subjective Date Seen by a Provider: Nov 14, 2022 Subjective/Events-last exam This virtual visit was conducted using real time audio/video. Thank you for asking us to see this patient for critical care services due to afib/RVR, diverticulitis with microperf., alc withdrawal. PE: VSS O2 sat 100% on 2 LPM HEENT: No obvious masses, adenopathy or JVD. Chest: clear to auscultation. CV: Irreg. S1 S2 No murmur or added sounds. Abd: Non-tender. Bowel sounds Y. : Unremarkable. Villalpando Y. FISH PROCESSING SUPERVISOR/psychiatric: Grossly intact. No obvious focal findings. Extremities: No edema. Capillary refill < 3 seconds. Skin: unremarkable. Results: Elevated BG 157, Ca 10.2. Decreased Hb 12.7. Available chart/ vitals / labs / images reviewed. Video assessment done using teleICU camera, rest of exam as per RN. A/P: Critical Care: critically ill patient. Cont.CIWA, Prec., abx, dilt., eliq., PPI, BB, losart., SSI. Replace K. Discussed with NÉSTOR Le. Asked RN to reach out to eICU if any questions or concerns later. Time spent with patient/coordination of care with other health professionals (mins): 20 Sepsis Event Evaluation Height, Weight, BMI Height: '" Weight: lbs. oz. kg; 29.38 BMI Method: Exam Exam Patient acknowledged, consented, and participated in this virtual visit which was conducted using real time audio/video Vital Signs Date Time Temp Pulse Resp B/P (MAP) Pulse Ox O2 Delivery O2 Flow Rate FiO2 11/14/22 08:00 50 25 113/90 (96) 100 Nasal Cannula 2.00 11/14/22 08:00 36.1 11/14/22 07:00 59 23 119/84 (89) 100 Nasal Cannula 2.00 11/14/22 07:00 55 11/14/22 06:00 67 17 154/91 (112) 100 Nasal Cannula 2.00 11/14/22 05:43 Nasal Cannula 2.00 11/14/22 05:00 73 22 150/106 (121) 100 Nasal Cannula 2.00 11/14/22 04:00 73 22 145/99 (114) 100 Nasal Cannula 2.00 11/14/22 04:00 99 Nasal Cannula 2.00 11/14/22 03:30 51 137/91 11/14/22 03:00 69 22 148/107 (121) 100 Nasal Cannula 2.00 11/14/22 02:00 51 12 137/91 (106) 100 Nasal Cannula 2.00 11/14/22 01:00 80 11/14/22 01:00 58 20 154/97 (116) 100 Nasal Cannula 2.00 11/14/22 00:15 80 141/76 11/14/22 00:00 66 21 141/76 (97) 100 Nasal Cannula 2.00 11/13/22 23:59 98 Nasal Cannula 2.00 11/13/22 23:00 72 26 153/97 (115) 100 Nasal Cannula 2.00 11/13/22 22:00 78 20 145/113 (124) 100 Nasal Cannula 2.00 11/13/22 21:00 75 14 159/105 (123) 100 Nasal Cannula 2.00 11/13/22 20:15 74 149/106 11/13/22 20:00 75 18 155/108 (124) 100 Nasal Cannula 2.00 11/13/22 20:00 99 Nasal Cannula 2.00 11/13/22 19:09 36.6 11/13/22 19:00 68 18 159/99 (119) 100 Nasal Cannula 2.00 11/13/22 19:00 80 11/13/22 18:00 74 11 149/106 (122) 100 Nasal Cannula 2.00 11/13/22 17:00 74 155/104 (114) 100 Nasal Cannula 2.00 11/13/22 16:00 100 Nasal Cannula 2.00 11/13/22 16:00 77 159/98 (116) 100 Nasal Cannula 2.00 11/13/22 15:55 36.6 11/13/22 15:00 75 154/92 (105) 100 Nasal Cannula 2.00 11/13/22 14:00 70 150/96 (109) 100 Nasal Cannula 2.00 11/13/22 13:10 72 133/71 11/13/22 13:00 77 11/13/22 13:00 65 141/92 (117) 100 Nasal Cannula 2.00 11/13/22 12:00 100 Nasal Cannula 2.00 11/13/22 12:00 72 133/71 (97) 100 Nasal Cannula 2.00 11/13/22 11:47 36.4 11/13/22 11:00 66 149/103 (112) 99 Nasal Cannula 2.00 11/13/22 10:00 62 147/89 (111) 100 Nasal Cannula 2.00 11/13/22 09:00 73 144/105 (114) 100 Nasal Cannula 2.00 I & O 11/14/22 07:00 Intake Total 4180 ml Output Total 3825 ml Balance 355 ml Height & Weight Height: '" Weight: lbs. oz. kg; 29.38 BMI Method: General Appearance: No Apparent Distress, WD/WN, Chronically ill HEENT: PERRL/EOMI Respiratory: Lungs Clear, Normal Breath Sounds Cardiovascular: Regular Rate, Rhythm Capillary Refill: Less Than 3 Seconds Gastrointestinal: non tender, soft, no organomegaly Extremity: No Calf Tenderness, No Pedal Edema Skin: Normal Color Results Lab Laboratory Tests 11/13/22 05:00 11/14/22 04:35 Assessment/Plan Assessment/Plan See free text. Critical Care: Critically Ill Patient AGUS YEE MD Nov 14, 2022 08:52
--- NOTE | 2022-11-14 09:43 | Cardiology Progress Note ---
Subjective Date Seen by Provider: Nov 14, 2022 Time Seen by Provider: 09:42 Subjective/Events-last exam Patient was seen at bedside, laying down comfortably. No new complain Review of Systems General: No Chills, No Night Sweats, No Fatigue, No Malaise, No Appetite, No Other HEENT: No Head Aches, No Visual Changes, No Eye Pain, No Ear Pain, No Dysphasia, No Sinus Congestion, No Post Nasal Drip, No Sore Throat, No Other Pulmonary: No Dyspnea, No Cough, No Pleuritic Chest Pain, No Other Cardiovascular: No: Chest Pain, Palpitations, Orthopnea, Paroxysmal Noc. Dyspnea, Edema, Lt Headedness, Other Objective-Cardiology Exam Last Set of Vital Signs Vital Signs 11/14/22 11/14/22 08:00 09:00 Temp 36.1 Pulse 55 Resp 30 B/P (MAP) 67/36 (42) Pulse Ox 100 O2 Delivery Nasal Cannula O2 Flow Rate 2.00 I&O Intake and Output 11/14/22 00:00 Intake Total 3950 ml Output Total 3700 ml Balance 250 ml Intake Oral 2200 ml IV Total 1750 ml Output Urine Total 3700 ml General: Alert, Cooperative, No Acute Distress HEENT: Atraumatic, PERRLA Neck: Supple Lungs: Clear to Auscultation, Normal Air Movement Heart: Normal S1, Normal S2, No Murmurs, Other (Atrial fibrillation) Abdomen: Normal Bowel Sounds, Soft, Other (mild LLQ ttp, no rebound or guarding) Extremities: No Clubbing, No Cyanosis, No Edema, No Tenderness/Swelling Skin: No Rashes Neuro: Normal Speech Psych/Mental Status: Mood NL Results Lab Laboratory Tests 11/14/22 04:35 A/P-Cardiology Admission Diagnosis Atrial fibrillation Tachycardia Hypertension Diverticulitis Assessment/Plan Paroxysmal atrial fibrillation Currently heart rate is better controlled Tolerating Cardizem 90 mg every 6 hours. Confusion, agitation. Managed by medical team. 2D echo was done on November 11, 2022 with normal left ventricular size, ejection fraction 60 to 65%. Moderately dilated left atrium, calcified mitral valve, PA pressure 40 to 45 mmHg. Alcohol withdrawal. Agitation. Confusion Currently sedated. Acute diverticulitis, abdominal pain. Managed by medical team Hypertension, blood pressure is better controlled Tolerating Cardizem and metoprolol. Obesity, BMI 30. GASPER OLVERA MD Nov 14, 2022 09:43
[2022-11-14] MEDS ORDERED: POTASSIUM CL 10MEQ/50ML IVPB 50 ML IV SCH (10:00)
--- NOTE | 2022-11-14 11:03 | Progress Note - Hospitalist ---
Subjective HPI/CC On Admission Date Seen by Provider: Nov 14, 2022 Time Seen by Provider: 11:00 Subjective/Events-last exam No major issues No pain reported Precedex is weaning Objective Exam Vital Signs Vital Signs Date Time Temp Pulse Resp B/P (MAP) Pulse Ox O2 Delivery O2 Flow Rate FiO2 11/14/22 14:00 57 101/74 (83) 98 Nasal Cannula 2.00 11/14/22 12:00 36.3 11/14/22 12:00 29 Capillary Refill : Less Than 3 Seconds General Appearance: No Apparent Distress, WD/WN, Chronically ill Respiratory: Lungs Clear Cardiovascular: Regular Rate, Rhythm Results/Procedures Lab Laboratory Tests 11/14/22 04:35 Patient resulted labs reviewed. Assessment/Plan Assessment and Plan Assess & Plan/Chief Complaint Assessment: Atrial fibrillation with RVR Acute alcohol withdrawal Plan: Detox protocol Critical Care Critically Ill Patient JONE IVEY DO Nov 14, 2022 11:03
[2022-11-14] MEDS: PANTOPRAZOLE 40 MG (PROTONIX) TAB PO SCH (11:04)
[2022-11-14] MEDS: APIXABAN 5 MG (ELIQUIS) TABLET PO SCH ×2 (11:04→21:03)
[2022-11-14] MEDS: LOSARTAN 25 MG (COZAAR) TAB PO SCH (11:05)
[2022-11-14] MEDS: FOLIC ACID 1 MG TAB PO SCH (11:12)
--- NOTE | 2022-11-14 14:18 | Progress Note - Surgery ---
Subjective Time Seen by a Provider: 11:05 Subjective/Events-last exam Pt seen and examined, he was sleeping and hard to arouse. Denied abdominal pain, nurse states he does wake up and follow commands. Review of Systems Pulmonary: No Dyspnea, No Cough Cardiovascular: No: Chest Pain, Palpitations Gastrointestinal: No: Nausea, Vomiting, Abdominal Pain Objective Exam Vital Signs Date Time Temp Pulse Resp B/P (MAP) Pulse Ox O2 Delivery O2 Flow Rate FiO2 11/14/22 14:00 57 101/74 (83) 98 Nasal Cannula 2.00 11/14/22 13:00 70 111/79 (89) 99 Nasal Cannula 2.00 11/14/22 12:43 47 11/14/22 12:00 36.3 11/14/22 12:00 99 Nasal Cannula 2.00 11/14/22 12:00 48 29 97/71 (80) 98 Nasal Cannula 2.00 11/14/22 11:00 50 89/59 (71) Nasal Cannula 2.00 11/14/22 10:00 52 27 106/62 (78) 96 Nasal Cannula 2.00 11/14/22 09:00 55 30 67/36 (42) Nasal Cannula 2.00 11/14/22 08:00 50 25 113/90 (96) 100 Nasal Cannula 2.00 11/14/22 08:00 36.1 11/14/22 08:00 99 Nasal Cannula 2.00 11/14/22 07:00 59 23 119/84 (89) 100 Nasal Cannula 2.00 11/14/22 07:00 55 11/14/22 06:00 67 17 154/91 (112) 100 Nasal Cannula 2.00 11/14/22 05:43 Nasal Cannula 2.00 11/14/22 05:00 73 22 150/106 (121) 100 Nasal Cannula 2.00 11/14/22 04:00 73 22 145/99 (114) 100 Nasal Cannula 2.00 11/14/22 04:00 99 Nasal Cannula 2.00 11/14/22 03:30 51 137/91 11/14/22 03:00 69 22 148/107 (121) 100 Nasal Cannula 2.00 11/14/22 02:00 51 12 137/91 (106) 100 Nasal Cannula 2.00 11/14/22 01:00 80 11/14/22 01:00 58 20 154/97 (116) 100 Nasal Cannula 2.00 11/14/22 00:15 80 141/76 11/14/22 00:00 66 21 141/76 (97) 100 Nasal Cannula 2.00 11/13/22 23:59 98 Nasal Cannula 2.00 11/13/22 23:00 72 26 153/97 (115) 100 Nasal Cannula 2.00 11/13/22 22:00 78 20 145/113 (124) 100 Nasal Cannula 2.00 11/13/22 21:00 75 14 159/105 (123) 100 Nasal Cannula 2.00 11/13/22 20:15 74 149/106 11/13/22 20:00 75 18 155/108 (124) 100 Nasal Cannula 2.00 11/13/22 20:00 99 Nasal Cannula 2.00 11/13/22 19:09 36.6 11/13/22 19:00 68 18 159/99 (119) 100 Nasal Cannula 2.00 11/13/22 19:00 80 11/13/22 18:00 74 11 149/106 (122) 100 Nasal Cannula 2.00 11/13/22 17:00 74 155/104 (114) 100 Nasal Cannula 2.00 11/13/22 16:00 100 Nasal Cannula 2.00 11/13/22 16:00 77 159/98 (116) 100 Nasal Cannula 2.00 11/13/22 15:55 36.6 11/13/22 15:00 75 154/92 (105) 100 Nasal Cannula 2.00 I & O 11/14/22 07:00 Intake Total 4180 ml Output Total 3825 ml Balance 355 ml Capillary Refill : Less Than 3 Seconds General Appearance: No Apparent Distress, Obese Respiratory: Lungs Clear, Normal Breath Sounds, No Accessory Muscle Use, No Respiratory Distress Cardiovascular: Regular Rate, Rhythm, No Murmur Gastrointestinal: non tender, soft, no organomegaly Extremity: No Calf Tenderness, No Pedal Edema Skin: Normal Color Results Lab Laboratory Tests 11/13/22 15:31: Glucometer 151H 11/13/22 19:56: Glucometer 142H 11/14/22 04:35: White Blood Count 5.4, Red Blood Count 4.05L, Hemoglobin 12.7L, Hematocrit 38L, Mean Corpuscular Volume 93, Mean Corpuscular Hemoglobin 31, Mean Corpuscular Hemoglobin Concent 34, Red Cell Distribution Width 13.7, Platelet Count 223, Mean Platelet Volume 9.8, Immature Granulocyte % (Auto) 0, Neutrophils (%) (Auto) 61, Lymphocytes (%) (Auto) 26, Monocytes (%) (Auto) 9, Eosinophils (%) (Auto) 3, Basophils (%) (Auto) 0, Neutrophils # (Auto) 3.3, Lymphocytes # (Auto) 1.4, Monocytes # (Auto) 0.5, Eosinophils # (Auto) 0.2, Basophils # (Auto) 0.0, Immature Granulocyte # (Auto) 0.0, Sodium Level 137, Potassium Level 3.4L, Chloride Level 100, Carbon Dioxide Level 26, Anion Gap 11, Blood Urea Nitrogen 8, Creatinine 1.05, Estimat Glomerular Filtration Rate 78, BUN/Creatinine Ratio 8, Glucose Level 157H, Calcium Level 9.6, Corrected Calcium 10.2H, Phosphorus Level 3.7, Magnesium Level 1.7, Total Bilirubin 1.0, Aspartate Amino Transf (AST/SGOT) 20, Alanine Aminotransferase (ALT/SGPT) 18, Alkaline Phosphatase 55, Total Protein 6.9, Albumin 3.2 11/14/22 10:59: Glucometer 183H Microbiology 11/10/22 Blood Culture - Preliminary, Resulted No growth 11/10/22 MRSA Screen - Final, Complete Assessment/Plan Assessment/Plan Assessment/Plan Complicated diverticulitis A-fib and rvr EtOH Withdrawal Pt is currently on CIWA protocol and Precedex; which is why he is still in the ICU. His abdominal pain is basically gone and he can advance diet as tolerated. I looked at the CT and he appears to have inflammation throughout Sigmoid colon down through rectum. I told him about this and that he needs a colonoscopy in 6 weeks. He may not need surgery for Diverticula, but he definitely needs the area looked at. He stated he has not had a colonoscopy before. Continue ABX. BERNICE AGUAYO DO Nov 14, 2022 14:18
[2022-11-14] MEDS: meTOprolol 5 MG/5 ML (LOPRESSOR) VIAL IV PRN (22:10)
[2022-11-15] MEDS: LORazepam 1 MG (ATIVAN) TAB PO PRN ×9 (00:30→23:33)
[2022-11-15] MEDS: PIPERACILLIN SODIUM/TAZOBACTAM 4.5 GM in NS (IVPB) 100 ML IV SCH (00:30)
[2022-11-15 05:25] LABS: BASOPHILS % (AUTO) 0 % (0-10); EOSINOPHILS # (AUTO) 0.1 10^3/uL (0.0-0.3); EOSINOPHILS % (AUTO) 2 % (0-10); HEMATOCRIT 37 % (40-54); HEMOGLOBIN 12.4 g/dL (13.3-17.7); LYMPHOCYTES # (AUTO) 1.5 10^3/uL (1.0-4.0); LYMPHOCYTES % (AUTO) 21 % (12-44); MEAN CORPUSCULAR HEMOGLOBIN 31 pg (25-34); MEAN CORPUSCULAR HGB CONC 34 g/dL (32-36); MEAN CORPUSCULAR VOLUME 92 fL (80-99); MEAN PLATELET VOLUME 9.7 fL (9.0-12.2); MONOCYTES % (AUTO) 14 % (0-12); NEUTROPHILS # (AUTO) 4.3 10^3/uL (1.8-7.8); NEUTROPHILS % (AUTO) 62 % (42-75); PLATELET COUNT 291 10^3/uL (130-400); WHITE BLOOD COUNT 6.8 10^3/uL (4.3-11.0)
[2022-11-15 05:38] LABS: ALBUMIN 3.3 GM/DL (3.2-4.5); BILIRUBIN,TOTAL 0.9 MG/DL (0.1-1.0); CALCIUM 9.2 MG/DL (8.5-10.1); CREATININE SERUM 1.2 MG/DL (0.60-1.30); MAGNESIUM 1.7 MG/DL (1.6-2.4); PHOSPHORUS 3.7 MG/DL (2.3-4.7); POTASSIUM 3.5 MMOL/L (3.6-5.0); TOTAL PROTEIN 6.8 GM/DL (6.4-8.2)
--- NOTE | 2022-11-15 05:54 | Progress Note - Hospitalist ---
Subjective HPI/CC On Admission Date Seen by Provider: Nov 15, 2022 Time Seen by Provider: 09:00 Subjective/Events-last exam Doing a lot better Off Precedex Ativan used a lot PT OT ordered ARU? Review of Systems General: Fatigue, Malaise Objective Exam Vital Signs Vital Signs Date Time Temp Pulse Resp B/P (MAP) Pulse Ox O2 Delivery O2 Flow Rate FiO2 11/15/22 10:00 89 17 133/82 (99) 100 Nasal Cannula 2.00 11/15/22 08:54 36.6 Capillary Refill : Less Than 3 Seconds General Appearance: No Apparent Distress, WD/WN, Chronically ill Respiratory: Lungs Clear, Normal Breath Sounds Cardiovascular: Regular Rate, Rhythm Results/Procedures Lab Laboratory Tests 11/15/22 05:05 Patient resulted labs reviewed. Assessment/Plan Assessment and Plan Assess & Plan/Chief Complaint Assessment: Atrial fibrillation with RVR Acute alcohol withdrawal Plan: Detox protocol Move to 4th floor Critical Care Critically Ill Patient JONE IVEY DO Nov 15, 2022 05:54
[2022-11-15] MEDS: POTASSIUM CL 10MEQ/50ML IVPB 50 ML IV SCH (06:05)
[2022-11-15] MEDS: MAGNESIUM 1 GM/100 ML IVPB 100 ML IV SCH ×3 (06:06→07:46)
[2022-11-15] MEDS: KCL 20 MEQ TAB (K-DUR) PO SCH (06:06)
[2022-11-15] MEDS: THIAMINE 100 MG (VITAMIN B-1) TAB PO SCH (06:17)
[2022-11-15] MEDS: inSUlin ASPART (NovoLOG) 1 UNIT/0.01 ML (CHARGE PER UNIT) SC SCH ×4 (06:17→21:14)
[2022-11-15] MEDS: MULTIVIT W/MINERALS TAB (THERAGRAN M) PO SCH (06:18)
[2022-11-15] MEDS: CATHETER FLUSH 10 ML SYR IVP SCH ×3 (06:19→20:32)
[2022-11-15] MEDS: PANTOPRAZOLE 40 MG (PROTONIX) TAB PO SCH (07:59)
[2022-11-15] MEDS: FOLIC ACID 1 MG TAB PO SCH (07:59)
[2022-11-15] MEDS: APIXABAN 5 MG (ELIQUIS) TABLET PO SCH ×2 (07:59→20:32)
[2022-11-15] MEDS: LOSARTAN 25 MG (COZAAR) TAB PO SCH (07:59)
[2022-11-15] MEDS ORDERED: KCL 20 MEQ TAB (K-DUR) PO ONE (08:00)
--- NOTE | 2022-11-15 08:38 | Cardiology Progress Note ---
Subjective Date Seen by Provider: Nov 15, 2022 Time Seen by Provider: 08:37 Subjective/Events-last exam Patient was seen at bedside, tired, reported that he did not sleep well last night Review of Systems General: No Chills, No Night Sweats; Fatigue; No Malaise, No Appetite, No Other HEENT: No Head Aches, No Visual Changes, No Eye Pain, No Ear Pain, No Dysphasia, No Sinus Congestion, No Post Nasal Drip, No Sore Throat, No Other Pulmonary: No Dyspnea, No Cough, No Pleuritic Chest Pain, No Other Cardiovascular: No: Chest Pain, Palpitations, Orthopnea, Paroxysmal Noc. Dyspnea, Edema, Lt Headedness, Other Objective-Cardiology Exam Last Set of Vital Signs Vital Signs 11/15/22 11/15/22 11/15/22 06:00 07:00 07:59 Temp 36.6 Pulse 103 Resp 29 B/P (MAP) 119/87 (98) Pulse Ox 96 O2 Delivery Nasal Cannula O2 Flow Rate 2.00 I&O Intake and Output 11/15/22 00:00 Intake Total 3495.2 ml Output Total 2975 ml Balance 520.2 ml Intake Oral 2780 ml IV Total 715.2 ml Output Urine Total 2975 ml General: Alert, Cooperative, No Acute Distress HEENT: Atraumatic, PERRLA Neck: Supple Lungs: Clear to Auscultation, Normal Air Movement Heart: Normal S1, Normal S2, No Murmurs, Other (Atrial fibrillation) Abdomen: Normal Bowel Sounds, Soft, Other (mild LLQ ttp, no rebound or guarding) Extremities: No Clubbing, No Cyanosis, No Edema, No Tenderness/Swelling Skin: No Rashes Neuro: Normal Speech Psych/Mental Status: Mood NL Results Lab Laboratory Tests 11/15/22 05:05 A/P-Cardiology Admission Diagnosis Atrial fibrillation Tachycardia Hypertension Diverticulitis Assessment/Plan Paroxysmal atrial fibrillation Currently heart rate is better controlled Tolerating Cardizem 90 mg every 6 hours. I will change to Cardizem CD 180 twice daily Confusion, agitation. Managed by medical team. 2D echo was done on November 11, 2022 with normal left ventricular size, ejection fraction 60 to 65%. Moderately dilated left atrium, calcified mitral valve, PA pressure 40 to 45 mmHg. Alcohol withdrawal. Agitation. Confusion Currently sedated. Acute diverticulitis, abdominal pain. Managed by medical team Hypertension, blood pressure is better controlled Tolerating Cardizem and metoprolol. Obesity, BMI 30. GASPER OLVERA MD Nov 15, 2022 08:38
[2022-11-15 12:14] VITALS: BP 115/84
--- NOTE | 2022-11-15 14:27 | Physical Therapy Progress Note ---
Therapy Progress Note Attempted to see patient for PT initial evaluation. Patient refused stating "I was in bed for 4 days and can't do any walking now." Patient educated on the benefits of activity for healing, specifically the benefits of PT to improve strength, activity, mobility and loss of function after prolonged bedrest. Continues to refuse stating his pain is "10/10 in my ulcer, I'll do something tomorrow." Nurse notified. SERVANDO JONES PT Nov 15, 2022 14:27
[2022-11-15 16:07] VITALS: BP 108/72
--- NOTE | 2022-11-15 16:16 | Occupational Therapy Eval ---
OT Evaluation-General/PLF Medical Diagnosis Admission Date Nov 10, 2022 at 03:43 Medical Diagnosis: a fib/RVR/diverticullitis Onset Date: Nov 10, 2022 Therapy Diagnosis Therapy Diagnosis: weakness Precautions Precautions/Isolations: Fall Prevention, Standard Precautions Weight Bear Status Weight Bearing Restriction: Full Weight Bearing Location Restriction: LE Bilateral Referral Referral Reason: Self Care, Evaluation/Treatment Medical History Pertinent Medical History: Alcoholism, Diverticulitis Additional Medical History Visiting from [place]. Plan to admit to rehab in [place]. Reviewed History: Yes ADL-Prior Level of Function SCALE: Activities may be completed with or without assistive devices. 3-Vghiusmaxp-ekvlyhn completes the activity by him/herself with no assistance from a helper. 5-Set-up or Clean-up Assistance-helper sets up or cleans up; patient completes activity. [place] assists only prior to or following the activity. 4-Supervision or Touching Assistance-helper provides verbal cues and/or touching/steadying and/or contact guard assistance as patient completes activity. Assistance may be provided throughout the activity or intermittently. 3-Partial/Moderate Assistance-helper does LESS THAN HALF the effort. [place] lifts, holds or supports trunk or limbs, but provides less than half the effort. 2-Substantial/Maximal Assistance-helper does MORE THAN HALF the effort. [place] lifts or holds trunk or limbs and provides more than half the effort. 4-Prjxyqdhx-vnttmd does ALL the effort. Patient does none of the effort to compl ete the activity. Or, the assistance of 2 or more helpers is required for the patient to complete the activity. If activity was not attempted, code reason: 7-Patient Refused. 9-Not Applicable-not attempted and the patient did not perform the activity before the current illness, exacerbation or injury. 10-Not Attempted due to Environmental Limitations-(lack of equipment, weather restraints, etc.). 88-Not Attempted due to Medical Conditions or Safety Concerns. Self Care: Independent Functional Cognition: Independent Drive Self: Yes OT Current Status Subjective Patient ambulating back from bathroom on OT arrival, unsteady and w/o assistance, fall risk, education provided for safety Mental Status/Objective Patient Orientation: Person, Place Attachments: [place] Catheter Current Upper Extremity ROM BUE ROM WFLS Upper Extremity Strength +3/5 ADL-Treatment Eating (QC): 5 Oral Hygiene (QC): 5 Shower/Bathe Self (QC): 7 Upper Body Dressing (QC): 4 Lower Body Dressing (QC): 3 On/Off Footwear (QC): 3 Toileting Hygiene (QC): 3 Education OT Patient Education: Correct positioning, Exercise program, Modified ADL techniques, Progress toward Goal/Update tx plan, Purpose of tx/functional activities, Reviewed precautions, Rehab process, Safety issues, Transfer techniques Teaching Recipient: Patient Teaching Methods: Demonstration, Discussion Response to Teaching: Reinforcement Needed OT Mattress Renovator Goals Mattress Renovator Goals Eating (QC): 6 Oral Hygiene (QC): 6 Toileting Hygiene (QC): 6 Shower/Bathe Self (QC): 6 Upper Body Dressing (QC): 6 Lower Body Dressing (QC): 6 On/Off Footwear (QC): 6 1=Demonstrate adherence to instructed precautions during ADL tasks. 2=Patient will verbalize/demonstrate understanding of assistive devices/modifications for ADL. 3=Patient will improve strength/tolerance for activity to enable patient to perform ADL's. OT Education/Plan Problem List/Assessment Assessment: Decreased Activ Tolerance, Decreased Safety Aware, Decreased UE Strength, Impaired Coordination, Impaired Funct Balance, Impaired Self-Care Skills Discharge Recommendations Plan/Recommendations: Continue POC Therapy Discharge Recommendati: Post Acute OT Treatment Plan/Plan of Care Treatment,Training & Education: Yes Patient would benefit from OT for education, treatment and training to promote independence in ADL's, mobility, safety and/or upper extremity function for ADL's. Plan of Care: ADL Retraining, Functional Mobility, Group Exercise/Act as Ind, UE Funct Exercise/Act Treatment Duration: Nov 20, 2022 Frequency: 3 times per week (3-5 times per week) Estimated Hrs Per Day: .25 hour per day Agreement: Yes Rehab Potential: Fair Time Start Time: 14:00 Stop Time: 14:20 DATE: Nov 15, 2022 Total Time Billed (hr/min): 20 Billed Treatment Time EVM 20 KILLIAN DOYLE OT Nov 15, 2022 16:16
[2022-11-15 20:48] VITALS: BP 143/85
[2022-11-15 23:28] VITALS: BP 123/62
[2022-11-16] MEDS: meTOprolol 5 MG/5 ML (LOPRESSOR) VIAL IV PRN (01:36)
[2022-11-16 03:19] VITALS: BP 131/74
[2022-11-16 05:31] LABS: BASOPHILS % (AUTO) 0 % (0-10); EOSINOPHILS # (AUTO) 0.3 10^3/uL (0.0-0.3); EOSINOPHILS % (AUTO) 3 % (0-10); HEMATOCRIT 35 % (40-54); HEMOGLOBIN 11.6 g/dL (13.3-17.7); LYMPHOCYTES # (AUTO) 2.1 10^3/uL (1.0-4.0); LYMPHOCYTES % (AUTO) 26 % (12-44); MEAN CORPUSCULAR HEMOGLOBIN 31 pg (25-34); MEAN CORPUSCULAR HGB CONC 33 g/dL (32-36); MEAN CORPUSCULAR VOLUME 94 fL (80-99); MEAN PLATELET VOLUME 9.6 fL (9.0-12.2); MONOCYTES # (AUTO) 1.1 10^3/uL (0.0-1.0); MONOCYTES % (AUTO) 13 % (0-12); NEUTROPHILS # (AUTO) 4.6 10^3/uL (1.8-7.8); NEUTROPHILS % (AUTO) 56 % (42-75); PLATELET COUNT 326 10^3/uL (130-400); WHITE BLOOD COUNT 8.1 10^3/uL (4.3-11.0)
[2022-11-16] MEDS: MULTIVIT W/MINERALS TAB (THERAGRAN M) PO SCH (05:32)
[2022-11-16] MEDS: THIAMINE 100 MG (VITAMIN B-1) TAB PO SCH (05:32)
[2022-11-16] MEDS: CATHETER FLUSH 10 ML SYR IVP SCH (05:33)
[2022-11-16 05:48] LABS: ALBUMIN 3.1 GM/DL (3.2-4.5); BILIRUBIN,TOTAL 0.6 MG/DL (0.1-1.0); CALCIUM 8.9 MG/DL (8.5-10.1); CREATININE SERUM 1.13 MG/DL (0.60-1.30); MAGNESIUM 1.8 MG/DL (1.6-2.4); POTASSIUM 3.9 MMOL/L (3.6-5.0); TOTAL PROTEIN 6.3 GM/DL (6.4-8.2)
[2022-11-16] MEDS: inSUlin ASPART (NovoLOG) 1 UNIT/0.01 ML (CHARGE PER UNIT) SC SCH (06:10)
--- NOTE | 2022-11-16 07:58 | Physical Therapy Evaluation ---
PT Evaluation-General Medical Diagnosis Admission Date Nov 10, 2022 at 03:43 Medical Diagnosis: a fib/RVR/diverticullitis Onset Date: Nov 10, 2022 Therapy Diagnosis Therapy Diagnosis: debility/weakness Precautions Precautions/Isolations: Fall Prevention, Standard Precautions, Pressure Ulcer Referral Physician: Jayne Reason for Referral: Evaluation/Treatment Medical History Pertinent Medical History: Alcoholism, Diverticulitis Current History ER secondary to abdominal pain Reviewed History: Yes Social History Home: Single Level Current Living Status: Friend Prior Prior Level of Function SCALE: Activities may be completed with or without assistive devices. 7-Gwualnkmju-vorlcko completes the activity by him/herself with no assistance from a helper. 5-Set-up or Clean-up Assistance-helper sets up or cleans up; patient completes activity. [place] assists only prior to or following the activity. 4-Supervision or Touching Assistance-helper provides verbal cues and/or touching/steadying and/or contact guard assistance as patient completes activity. Assistance may be provided throughout the activity or intermittently. 3-Partial/Moderate Assistance-helper does LESS THAN HALF the effort. [place] lifts, holds or supports trunk or limbs, but provides less than half the effort. 2-Substantial/Maximal Assistance-helper does MORE THAN HALF the effort. [place] lifts or holds trunk or limbs and provides more than half the effort. 4-Ajexmteqn-hkgydz does ALL the effort. Patient does none of the effort to complete the activity. Or, the assistance of 2 or more helpers is required for the patient to complete the activity. If activity was not attempted, code reason: 7-Patient Refused. 9-Not Applicable-not attempted and the patient did not perform the activity before the current illness, exacerbation or injury. 10-Not Attempted due to Environmental Limitations-(lack of equipment, weather restraints, etc.). 88-Not Attempted due to Medical Conditions or Safety Concerns. Bed Mobility: 6 Transfers (B,C,W/C): 6 Gait: 6 Stairs: 6 Indoor Mobility (Ambulation): Independent Stairs: Independent Prior Devices Use: None PT Evaluation-Current Subjective Patient agrees to PT. Pain Numeric Pain Scale: 5-Moderate Pain Location: Medial, Lower Location Body Site: Abdomen Pain Description: Pressure Objective Patient Orientation: Normal For Age ROM/Strength ROM Lower Extremities bilateral LE WFL Strength Lower Extremities 4/5 grossly bilateral LE all planes Integumentary/Posture Bladder Incontinence: Yes Posture slight trunk flexed posture due to abdominal discomfort Neuromuscular (Tone, Coordination, Reflexes) grossly intact Sensory Vision: Functional Hearing: Functional Transfers Lying to Sitting/Side of Bed(Q: 4 Sit to Stand (QC): 4 Chair/Ldi-dt-Vzoma Xfer(QC): 4 SBA with all mobility Gait Mode of Locomotion: Walk Anticipated Mode of Locomotion: Walk Walk 10 feet (QC): 4 Walk 50 ft with 2 Turns(QC): 4 Walk 150 ft (QC): 4 Distance: 250' Gait Assistive Device: FWW Comments/Gait Description slow, steady gait sequence Balance Sitting Static: Normal Sitting Dynamic: Normal Standing Static: Normal Standing Dynamic: Normal Assessment/Needs Patient will be seen short term by skilled PT to address functional strength and mobility to improve current LOF to safely return to independent PLOF. Rehab Potential: Fair PT Audograph Operator Goals Audograph Operator Goals PT Longterm Goals Time Frame: Nov 27, 2022 Roll Left & Right (QC): 6 Sit to Lying (QC): 6 Lying-Sitting on Side/Bed(QC): 6 Sit to Stand (QC): 6 Chair/Hfy-ad-Lofsp Xfer(QC): 6 Toilet Transfer (QC): 6 Walk 10 feet (QC): 6 Walk 50ft with 2 Turns (QC): 6 Walk 150 ft (QC): 6 PT Plan Treatment/Plan Treatment Plan: Continue Plan of Care Treatment Plan: Education, Functional Activity [place], Functional Strength, Gait, Safety, Therapeutic Exercise, Transfers Treatment Duration: Nov 27, 2022 Frequency: 6 times per week Estimated Hrs Per Day: .25 hour per day Patient and/or Family Agrees t: Yes Time Time In: 730 Time Out: 748 DATE: Nov 16, 2022 Total Billed Treatment Time: 18 [facility] REYNALDO SAWYER PT Nov 16, 2022 07:58
[2022-11-16] MEDS: PANTOPRAZOLE 40 MG (PROTONIX) TAB PO SCH (08:12)
[2022-11-16] MEDS: FOLIC ACID 1 MG TAB PO SCH (08:12)
[2022-11-16] MEDS: APIXABAN 5 MG (ELIQUIS) TABLET PO SCH (08:12)
[2022-11-16] MEDS: LOSARTAN 25 MG (COZAAR) TAB PO SCH (08:12)
[2022-11-16 08:31] VITALS: BP 139/77
[2022-11-16] MEDS ORDERED: MULT-1137 PO (08:32)
[2022-11-16] MEDS ORDERED: FOLI1TAB33 PO (08:32)
[2022-11-16] MEDS ORDERED: DILT180C85 PO (08:32)
[2022-11-16] MEDS ORDERED: THIA100T80 PO (08:32)
--- NOTE | 2022-11-16 08:32 | Discharge Summary ---
Diagnosis/Chief Complaint Date of Admission Nov 10, 2022 at 03:43 Date of Discharge Discharge Date: Nov 16, 2022 Discharge Diagnosis Assessment: Atrial fibrillation with RVR Acute alcohol withdrawal with encephalopathy Discharge Summary Discharge Physical Examination Allergies: Coded Allergies: No Known Drug Allergies (Unverified , 11/10/22) Vitals & I&Os Vital Signs Date Time Temp Pulse Resp B/P (MAP) Pulse Ox O2 Delivery O2 Flow Rate FiO2 11/16/22 10:00 11/16/22 08:31 36.6 102 18 95 Room Air 11/15/22 10:00 2.00 General Appearance: Alert, Oriented X3, Cooperative Respiratory: Clear to Auscultation Cardiovascular: Regular Rate Psych/Mental Status: Other (confused) Hospital Course Was the Problem List Reviewed?: Yes Ramer Hospital course: Patient had a lengthy hospital course for 7 days after he was admitted for atrial fibrillation with rapid ventricular response with acute diverticulitis and then became encephalopathic due to alcohol withdrawal. He did require several days of Precedex and benzodiazepines and ultimately recovered and was moved from ICU to fourth floor where he was evaluated with therapy and the decision was made to move to inpatient rehab for further recovery. He was very weak and still slightly confused but out of the window of alcohol withdrawal and he did not require any type of sitter and was not impulsive and his cognitive deficit should clear with additional treatment in inpatient rehab. Labs (last 24 hrs) Laboratory Tests 11/10/22 00:47: White Blood Count 10.4, Red Blood Count 4.76, Hemoglobin 14.8, Hematocrit 44, Mean Corpuscular Volume 93, Mean Corpuscular Hemoglobin 31, Mean Corpuscular Hemoglobin Concent 34, Red Cell Distribution Width 13.3, Platelet Count 121L, Mean Platelet Volume 10.3, Immature Granulocyte % (Auto) 0, Neutrophils (%) (Auto) 73, Lymphocytes (%) (Auto) 20, Monocytes (%) (Auto) 6, Eosinophils (%) (Auto) 1, Basophils (%) (Auto) 1, Neutrophils # (Auto) 7.6, Lymphocytes # (Auto) 2.1, Monocytes # (Auto) 0.6, Eosinophils # (Auto) 0.1, Basophils # (Auto) 0.1, Immature Granulocyte # (Auto) 0.0, Sodium Level 136, Potassium Level 3.8, Chloride Level 99, Carbon Dioxide Level 19L, Anion Gap 18H, Blood Urea Nitrogen 18, Creatinine 0.84, Estimat Glomerular Filtration Rate 96, BUN/Creatinine Ratio 21, Glucose Level 126H, Calcium Level 9.0, Corrected Calcium 9.1, Magnesium Level 1.4L, Total Bilirubin 1.2H, Aspartate Amino Transf (AST/SGOT) 43H, Alanine Aminotransferase (ALT/SGPT) 35, Alkaline Phosphatase 75, Total Protein 7.3, Albumin 3.9, Lipase 37 11/10/22 02:01: Urine Color DARK YELLOW, Urine Clarity CLEAR, Urine pH 6.0, Urine Specific Galva 1.020, Urine Protein 2+H, Urine Glucose (UA) NEGATIVE, Urine Ketones NEGATIVE, Urine Nitrite NEGATIVE, Urine Bilirubin NEGATIVE, Urine Urobilinogen 0.2, Urine Leukocyte Esterase NEGATIVE, Urine RBC (Auto) 1+H, Urine RBC RARE, Urine WBC RARE, Urine Squamous Epithelial Cells RARE, Urine Crystals NONE, Urine Bacteria NEGATIVE, Urine Casts PRESENT, Urine Hyaline Casts 0-2H, Urine Granular Casts RARE, Urine Mucus SMALLH, Urine Culture Indicated NO 11/10/22 04:35: White Blood Count 11.0, Red Blood Count 4.67, Hemoglobin 14.7, Hematocrit 44, Mean Corpuscular Volume 95, Mean Corpuscular Hemoglobin 32, Mean Corpuscular Hemoglobin Concent 33, Red Cell Distribution Width 13.4, Platelet Count 113L, Mean Platelet Volume 10.8, Immature Granulocyte % (Auto) 0, Neutrophils (%) (Auto) 82H, Lymphocytes (%) (Auto) 12, Monocytes (%) (Auto) 6, Eosinophils (%) (Auto) 0, Basophils (%) (Auto) 1, Neutrophils # (Auto) 9.0H, Lymphocytes # (Auto) 1.3, Monocytes # (Auto) 0.6, Eosinophils # (Auto) 0.0, Basophils # (Auto) 0.1, Immature Granulocyte # (Auto) 0.0, Sodium Level 135, Potassium Level 4.0, Chloride Level 104, Carbon Dioxide Level 17L, Anion Gap 14, Blood Urea Nitrogen 14, Creatinine 0.78, Estimat Glomerular Filtration Rate 98, BUN/Creatinine Ratio 18, Glucose Level 141H, Calcium Level 8.4L, Corrected Calcium 8.7, Magnesium Level 1.2L, Total Bilirubin 1.3H, Aspartate Amino Transf (AST/SGOT) 39H, Alanine Aminotransferase (ALT/SGPT) 37, Alkaline Phosphatase 62, Total Protein 7.0, Albumin 3.6, Percent Immature Platelet Fraction 4.3, Phosphorus Level 2.3 11/10/22 05:23: Lactic Acid Level 2.42*H 11/10/22 07:26: Lactic Acid Level 1.46 11/11/22 04:18: White Blood Count 10.3, Red Blood Count 4.40, Hemoglobin 13.6, Hematocrit 41, Mean Corpuscular Volume 94, Mean Corpuscular Hemoglobin 31, Mean Corpuscular Hemoglobin Concent 33, Red Cell Distribution Width 13.5, Platelet Count 109L, Mean Platelet Volume 11.1, Immature Granulocyte % (Auto) 0, Neutrophils (%) (Auto) 91H, Lymphocytes (%) (Auto) 6L, Monocytes (%) (Auto) 3, Eosinophils (%) (Auto) 0, Basophils (%) (Auto) 0, Neutrophils # (Auto) 9.3H, Lymphocytes # (Auto) 0.6L, Monocytes # (Auto) 0.3, Eosinophils # (Auto) 0.0, Basophils # (Auto) 0.0, Immature Granulocyte # (Auto) 0.0, Neutrophils % (Manual) 81, Lymphocytes % (Manual) 6, Monocytes % (Manual) 2, Eosinophils % (Manual) 0, Basophils % (Manual) 0, Band Neutrophils 11, Toxic Granulation 1+, Percent Immature Platelet Fraction 7.7H, Rouleau SLIGHT, Sodium Level 133L, Potassium Level 4.2, Chloride Level 99, Carbon Dioxide Level 25, Anion Gap 9, Blood Urea Nitrogen 13, Creatinine 1.01, Estimat Glomerular Filtration Rate 82, BUN/Creatinine Ratio 13, Glucose Level 204H, Calcium Level 8.6, Corrected Calcium 9.1, Phosphorus Level 2.3, Magnesium Level 1.6, Total Bilirubin 1.7H, Aspartate Amino Transf (AST/SGOT) 25, Alanine Aminotransferase (ALT/SGPT) 28, Alkaline Phosphatase 59, Total Protein 6.6, Albumin 3.4 11/11/22 12:12: Glucometer 188H 11/11/22 15:34: Glucometer 130H 11/11/22 21:00: Glucometer 127H 11/12/22 05:07: White Blood Count 6.8, Red Blood Count 3.50L, Hemoglobin 11.1L, Hematocrit 32L, Mean Corpuscular Volume 92, Mean Corpuscular Hemoglobin 32, Mean Corpuscular Hemoglobin Concent 34, Red Cell Distribution Width 13.4, Platelet Count 107L, Mean Platelet Volume 11.2, Immature Granulocyte % (Auto) 0, Neutrophils (%) (Auto) 71, Lymphocytes (%) (Auto) 20, Monocytes (%) (Auto) 6, Eosinophils (%) (Auto) 3, Basophils (%) (Auto) 0, Neutrophils # (Auto) 4.8, Lymphocytes # (Auto) 1.4, Monocytes # (Auto) 0.4, Eosinophils # (Auto) 0.2, Basophils # (Auto) 0.0, Immature Granulocyte # (Auto) 0.0, Percent Immature Platelet Fraction 5.5, So dium Level 135, Potassium Level 5.0, Chloride Level 102, Carbon Dioxide Level 24, Anion Gap 9, Blood Urea Nitrogen 10, Creatinine 0.93, Estimat Glomerular Filtration Rate 91, BUN/Creatinine Ratio 11, Glucose Level 146H, Calcium Level 8 .6, Corrected Calcium 9.6, Phosphorus Level 2.0L, Magnesium Level 2.0, Total Bilirubin 1.2H, Aspartate Amino Transf (AST/SGOT) 31, Alanine Aminotransferase (ALT/SGPT) 19, Alkaline Phosphatase 55, Total Protein 6.2L, Albumin 2.8L 11/12/22 07:14: Glucometer 132H 11/12/22 11:13: Glucometer 138H 11/12/22 16:38: Glucometer 145H 11/12/22 20:31: Glucometer 148H 11/13/22 05:00: White Blood Count 5.9, Red Blood Count 3.97L, Hemoglobin 12.7L, Hematocrit 37L, Mean Corpuscular Volume 93, Mean Corpuscular Hemoglobin 32, Mean Corpuscular Hemoglobin Concent 35, Red Cell Distribution Width 13.3, Platelet Count 165, Mean Platelet Volume 10.0, Immature Granulocyte % (Auto) 1, Neutrophils (%) (Auto) 70, Lymphocytes (%) (Auto) 19, Monocytes (%) (Auto) 7, Eosinophils (%) (Auto) 4, Basophils (%) (Auto) 0, Neutrophils # (Auto) 4.1, Lymphocytes # (Auto) 1.1, Monocytes # (Auto) 0.4, Eosinophils # (Auto) 0.2, Basophils # (Auto) 0.0, Immature Granulocyte # (Auto) 0.0, Sodium Level 139, Potassium Level 3.4L, Chloride Level 100, Carbon Dioxide Level 26, Anion Gap 13, Blood Urea Nitrogen 9, Creatinine 0.93, Estimat Glomerular Filtration Rate 91, BUN/Creatinine Ratio 10, Glucose Level 163H, Calcium Level 9.4, Corrected Calcium 10.0, Phosphorus Level 2.9, Magnesium Level 1.5L, Total Bilirubin 0.9, Aspartate Amino Transf (AST/SGOT) 20, Alanine Aminotransferase (ALT/SGPT) 19, Alkaline Phosphatase 57, Total Protein 6.7, Albumin 3.2 11/13/22 10:42: Glucometer 198H 11/13/22 15:31: Glucometer 151H 11/13/22 19:56: Glucometer 142H 11/14/22 04:35: White Blood Count 5.4, Red Blood Count 4.05L, Hemoglobin 12.7L, Hematocrit 38L, Mean Corpuscular Volume 93, Mean Corpuscular Hemoglobin 31, Mean Corpuscular Hemoglobin Concent 34, Red Cell Distribution Width 13.7, Platelet Count 223, Mean Platelet Volume 9.8, Immature Granulocyte % (Auto) 0, Neutrophils (%) (Auto) 61, Lymphocytes (%) (Auto) 26, Monocytes (%) (Auto) 9, Eosinophils (%) (Auto) 3, Basophils (%) (Auto) 0, Neutrophils # (Auto) 3.3, Lymphocytes # (Auto) 1.4, Monocytes # (Auto) 0.5, Eosinophils # (Auto) 0.2, Basophils # (Auto) 0.0, Immature Granulocyte # (Auto) 0.0, Sodium Level 137, Potassium Level 3.4L, Chloride Level 100, Carbon Dioxide Level 26, Anion Gap 11, Blood Urea Nitrogen 8, Creatinine 1.05, Estimat Glomerular Filtration Rate 78, BUN/Creatinine Ratio 8, Glucose Level 157H, Calcium Level 9.6, Corrected Calcium 10.2H, Phosphorus Level 3.7, Magnesium Level 1.7, Total Bilirubin 1.0, Aspartate Amino Transf (A ST/SGOT) 20, Alanine Aminotransferase (ALT/SGPT) 18, Alkaline Phosphatase 55, Total Protein 6.9, Albumin 3.2 11/14/22 10:59: Glucometer 183H 11/14/22 15:27: Glucometer 124H 11/14/22 21:02: Glucometer 112H 11/15/22 05:05: White Blood Count 6.8, Red Blood Count 4.02L, Hemoglobin 12.4L, Hematocrit 37L, Mean Corpuscular Volume 92, Mean Corpuscular Hemoglobin 31, Mean Corpuscular Hemoglobin Concent 34, Red Cell Distribution Width 13.8, Platelet Count 291, Mean Platelet Volume 9.7, Immature Granulocyte % (Auto) 0, Neutrophils (%) (Auto) 62, Lymphocytes (%) (Auto) 21, Monocytes (%) (Auto) 14H, Eosinophils (%) (Auto) 2, Basophils (%) (Auto) 0, Neutrophils # (Auto) 4.3, Lymphocytes # (Auto) 1.5, Monocytes # (Auto) 1.0, Eosinophils # (Auto) 0.1, Basophils # (Auto) 0.0, Immature Granulocyte # (Auto) 0.0, Sodium Level 137, Potassium Level 3.5L, Chloride Level 103, Carbon Dioxide Level 26, Anion Gap 8, Blood Urea Nitrogen 10, Creatinine 1.20, Estimat Glomerular Filtration Rate 67, BUN/Creatinine Ratio 8, Glucose Level 187H, Calcium Level 9.2, Corrected Calcium 9.8, Phosphorus Level 3.7, Magnesium Level 1.7, Total Bilirubin 0.9, Aspartate Amino Transf (AST/SGOT) 21, Alanine Aminotransferase (ALT/SGPT) 19, Alkaline Phosphatase 53, Total Protein 6.8, Albumin 3.3 11/15/22 10:22: Glucometer 126H 11/15/22 16:07: Glucometer 181H 11/15/22 21:07: Glucometer 178H 11/16/22 05:21: White Blood Count 8.1, Red Blood Count 3.70L, Hemoglobin 11.6L, Hematocrit 35L, Mean Corpuscular Volume 94, Mean Corpuscular Hemoglobin 31, Mean Corpuscular Hemoglobin Concent 33, Red Cell Distribution Width 13.9, Platelet Count 326, Mean Platelet Volume 9.6, Immature Granulocyte % (Auto) 1, Neutrophils (%) (Auto) 56, Lymphocytes (%) (Auto) 26, Monocytes (%) (Auto) 13H, Eosinophils (%) (Auto) 3, Basophils (%) (Auto) 0, Neutrophils # (Auto) 4.6, Lymphocytes # (Auto) 2.1, Monocytes # (Auto) 1.1H, Eosinophils # (Auto) 0.3, Basophils # (Auto) 0.0, Immature Granulocyte # (Auto) 0.1, Sodium Level 136, Potassium Level 3.9, Chloride Level 103, Carbon Dioxide Level 26, Anion Gap 7, Blood Urea Nitrogen 9, Creatinine 1.13, Estimat Glomerular Filtration Rate 72, BUN/Creatinine Ratio 8, Glucose Level 132H, Calcium Level 8.9, Corrected Calcium 9.6, Magnesium Level 1.8, Total Bilirubin 0.6, Aspartate Amino Transf (AST/SGOT) 22, Alanine Aminotransferase (ALT/SGPT) 17, Alkaline Phosphatase 49, Total Protein 6.3L, Albumin 3.1L Microbiology 11/10/22 Blood Culture - Final, Complete No growth 11/10/22 MRSA Screen - Final, Complete Pending Labs Microbiology Date/Time Source Procedure Growth Status 11/10/22 05:25 Peripheral Iv/Heplock Blood Culture - Final No growth Complete 11/10/22 05:23 Peripheral Lt Hand Blood Culture - Final No growth Complete 11/10/22 04:02 Nasal MRSA Screen - Final Complete Laboratory Tests 11/10/22 00:47: White Blood Count 10.4, Red Blood Count 4.76, Hemoglobin 14.8, Hematocrit 44, M dima Corpuscular Volume 93, Mean Corpuscular Hemoglobin 31, Mean Corpuscular Hemoglobin Concent 34, Red Cell Distribution Width 13.3, Platelet Count 121, Mean Platelet Volume 10.3, Immature Granulocyte % (Auto) 0, Neutrophils (%) (Auto) 73, Lymphocytes (%) (Auto) 20, Monocytes (%) (Auto) 6, Eosinophils (%) (Auto) 1, Basophils (%) (Auto) 1, Neutrophils # (Auto) 7.6, Lymphocytes # (Auto) 2.1, Monocytes # (Auto) 0.6, Eosinophils # (Auto) 0.1, Basophils # (Auto) 0.1, Immature Granulocyte # (Auto) 0.0, Sodium Level 136, Potassium Level 3.8, Chloride Level 99, Carbon Dioxide Level 19, Anion Gap 18, Blood Urea Nitrogen 18, Creatinine 0.84, Estimat Glomerular Filtration Rate 96, BUN/Creatinine Ratio 21, Glucose Level 126, Calcium Level 9.0, Corrected Calcium 9.1, Magnesium Level 1.4, Total Bilirubin 1.2, Aspartate Amino Transf (AST/SGOT) 43, Alanine Aminotransferase (ALT/SGPT) 35, Alkaline Phosphatase 75, Total Protein 7.3, Albumin 3.9, Lipase 37 11/10/22 02:01: Urine Color DARK YELLOW, Urine Clarity CLEAR, Urine pH 6.0, Urine Specific Galva 1.020, Urine Protein 2+, Urine Glucose (UA) NEGATIVE, Urine Ketones NEGATIVE, Urine Nitrite NEGATIVE, Urine Bilirubin NEGATIVE, Urine Urobilinogen 0.2, Urine Leukocyte Esterase NEGATIVE, Urine RBC (Auto) 1+, Urine RBC RARE, Urine WBC RARE, Urine Squamous Epithelial Cells RARE, Urine Crystals NONE, Urine Bacteria NEGATIVE, Urine Casts PRESENT, Urine Hyaline Casts 0-2, Urine Granular Casts RARE, Urine Mucus SMALL, Urine Culture Indicated NO 11/10/22 04:35: White Blood Count 11.0, Red Blood Count 4.67, Hemoglobin 14.7, Hematocrit 44, Mean Corpuscular Volume 95, Mean Corpuscular Hemoglobin 32, Mean Corpuscular Hemoglobin Concent 33, Red Cell Distribution Width 13.4, Platelet Count 113, Mean Platelet Volume 10.8, Immature Granulocyte % (Auto) 0, Neutrophils (%) (Auto) 82, Lymphocytes (%) (Auto) 12, Monocytes (%) (Auto) 6, Eosinophils (%) (Auto) 0, Basophils (%) (Auto) 1, Neutrophils # (Auto) 9.0, Lymphocytes # (Auto) 1.3, Monocytes # (Auto) 0.6, Eosinophils # (Auto) 0.0, Basophils # (Auto) 0.1, Immature Granulocyte # (Auto) 0.0, Sodium Level 135, Potassium Level 4.0, Chlori de Level 104, Carbon Dioxide Level 17, Anion Gap 14, Blood Urea Nitrogen 14, Creatinine 0.78, Estimat Glomerular Filtration Rate 98, BUN/Creatinine Ratio 18, Glucose Level 141, Calcium Level 8.4, Corrected Calcium 8.7, Magnesium Level 1.2, Total Bilirubin 1.3, Aspartate Amino Transf (AST/SGOT) 39, Alanine Aminotransferase (ALT/SGPT) 37, Alkaline Phosphatase 62, Total Protein 7.0, A lbumin 3.6, Percent Immature Platelet Fraction 4.3, Phosphorus Level 2.3 11/10/22 05:23: Lactic Acid Level 2.42 11/10/22 07:26: Lactic Acid Level 1.46 11/11/22 04:18: White Blood Count 10.3, Red Blood Count 4.40, Hemoglobin 13.6, Hematocrit 41, Mean Corpuscular Volume 94, Mean Corpuscular Hemoglobin 31, Mean Corpuscular Hemoglobin Concent 33, Red Cell Distribution Width 13.5, Platelet Count 109, Mean Platelet Volume 11.1, Immature Granulocyte % (Auto) 0, Neutrophils (%) (Auto) 91, Lymphocytes (%) (Auto) 6, Monocytes (%) (Auto) 3, Eosinophils (%) (Auto) 0, Basophils (%) (Auto) 0, Neutrophils # (Auto) 9.3, Lymphocytes # (Auto) 0.6, Monocytes # (Auto) 0.3, Eosinophils # (Auto) 0.0, Basophils # (Auto) 0.0, Immature Granulocyte # (Auto) 0.0, Neutrophils % (Manual) 81, Lymphocytes % (Manual) 6, Monocytes % (Manual) 2, Eosinophils % (Manual) 0, Basophils % (Manual) 0, Band Neutrophils 11, Toxic Granulation 1+, Percent Immature Platelet Fraction 7.7, Rouleau SLIGHT, Sodium Level 133, Potassium Level 4.2, Chloride Level 99, Carbon Dioxide Level 25, Anion Gap 9, Blood Urea Nitrogen 13, C reatinine 1.01, Estimat Glomerular Filtration Rate 82, BUN/Creatinine Ratio 13, Glucose Level 204, Calcium Level 8.6, Corrected Calcium 9.1, Phosphorus Level 2.3, Magnesium Level 1.6, Total Bilirubin 1.7, Aspartate Amino Transf (AST/SGOT) 25, Alanine Aminotransferase (ALT/SGPT) 28, Alkaline Phosphatase 59, Total Protein 6.6, Albumin 3.4 11/11/22 12:12: Glucometer 188 11/11/22 15:34: Glucometer 130 11/11/22 21:00: Glucometer 127 11/12/22 05:07: White Blood Count 6.8, Red Blood Count 3.50, Hemoglobin 11.1, Hematocrit 32, Mean Corpuscular Volume 92, Mean Corpuscular Hemoglobin 32, Mean Corpuscular Hemoglobin Concent 34, Red Cell Distribution Width 13.4, Platelet Count 107, Mean Platelet Volume 11.2, Immature Granulocyte % (Auto) 0, Neutrophils (%) (Auto) 71, Lymphocytes (%) (Auto) 20, Monocytes (%) (Auto) 6, Eosinophils (%) (Auto) 3, Basophils (%) (Auto) 0, Neutrophils # (Auto) 4.8, Lymphocytes # (Auto) 1.4, Monocytes # (Auto) 0.4, Eosinophils # (Auto) 0.2, Basophils # (Auto) 0.0, Immature Granulocyte # (Auto) 0.0, Percent Immature Platelet Fraction 5.5, Sodium Level 135, Potassium Level 5.0, Chloride Level 102, Carbon Dioxide Level 24, Anion Gap 9, Blood Urea Nitrogen 10, Creatinine 0.93, Estimat Glomerular Filtration Rate 91, BUN/Creatinine Ratio 11, Glucose Level 146, Calcium Level 8.6, Corrected Calcium 9.6, Phosphorus Level 2.0, Magnesium Level 2.0, Total Bilirubin 1.2, Aspartate Amino Transf (AST/SGOT) 31, Alanine Aminotransferase ( ALT/SGPT) 19, Alkaline Phosphatase 55, Total Protein 6.2, Albumin 2.8 11/12/22 07:14: Glucometer 132 11/12/22 11:13: Glucometer 138 11/12/22 16:38: Glucometer 145 11/12/22 20:31: Glucometer 148 11/13/22 05:00: White Blood Count 5.9, Red Blood Count 3.97, Hemoglobin 12.7, Hematocrit 37, Mean Corpuscular Volume 93, Mean Corpuscular Hemoglobin 32, Mean Corpuscular Hemoglobin Concent 35, Red Cell Distribution Width 13.3, Platelet Count 165, Mean Platelet Volume 10.0, Immature Granulocyte % (Auto) 1, Neutrophils (%) (Auto) 70, Lymphocytes (%) (Auto) 19, Monocytes (%) (Auto) 7, Eosinophils (%) (Auto) 4, Basophils (%) (Auto) 0, Neutrophils # (Auto) 4.1, Lymphocytes # (Auto) 1.1, Monocytes # (Auto) 0.4, Eosinophils # (Auto) 0.2, Basophils # (Auto) 0.0, Immature Granulocyte # (Auto) 0.0, Sodium Level 139, Potassium Level 3.4, Chloride Level 100, Carbon Dioxide Level 26, Anion Gap 13, Blood Urea Nitrogen 9, Creatinine 0.93, Estimat Glomerular Filtration Rate 91, BUN/Creatinine Ratio 10, Glucose Level 163, Calcium Level 9.4, Corrected Calcium 10.0, Phosphorus Level 2.9, Magnesium Level 1.5, Total Bilirubin 0.9, Aspartate Amino Transf (AST/SGOT) 20, Alanine Aminotransferase (ALT/SGPT) 19, Alkaline Phosphatase 57, Total Protein 6.7, Albumin 3.2 11/13/22 10:42: Glucometer 198 11/13/22 15:31: Glucometer 151 11/13/22 19:56: Glucometer 142 11/14/22 04:35: White Blood Count 5.4, Red Blood Count 4.05, Hemoglobin 12.7, Hematocrit 38, Mean Corpuscular Volume 93, Mean Corpuscular Hemoglobin 31, Mean Corpuscular Hemoglobin Concent 34, Red Cell Distribution Width 13.7, Platelet Count 223, Mean Platelet Volume 9.8, Immature Granulocyte % (Auto) 0, Neutrophils (%) (Auto) 61, Lymphocytes (%) (Auto) 26, Monocytes (%) (Auto) 9, Eosinophils (%) (Auto) 3, Basophils (%) (Auto) 0, Neutrophils # (Auto) 3.3, Lymphocytes # (Auto) 1.4, Monocytes # (Auto) 0.5, Eosinophils # (Auto) 0.2, Basophils # (Auto) 0.0, Immature Granulocyte # (Auto) 0.0, Sodium Level 137, Potassium Level 3.4, Chloride Level 100, Carbon Dioxide Level 26, Anion Gap 11, Blood Urea Nitrogen 8, Creatinine 1.05, Estimat Glomerular Filtration Rate 78, BUN/Creatinine Ratio 8, Glucose Level 157, Calcium Level 9.6, Corrected Calcium 10.2, Phosphorus Level 3.7, Magnesium Level 1.7, Total Bilirubin 1.0, Aspartate Amino Transf (AST/SGOT) 20, Alanine Aminotransferase (ALT/SGPT) 18, Alkaline Phosphatase 55, Total Protein 6.9, Albumin 3.2 11/14/22 10:59: Glucometer 183 11/14/22 15:27: Glucometer 124 11/14/22 21:02: Glucometer 112 11/15/22 05:05: White Blood Count 6.8, Red Blood Count 4.02, Hemoglobin 12.4, Hematocrit 37, Mean Corpuscular Volume 92, Mean Corpuscular Hemoglobin 31, Mean Corpuscular Hemoglobin Concent 34, Red Cell Distribution Width 13.8, Platelet Count 291, Mean Platelet Volume 9.7, Immature Granulocyte % (Auto) 0, Neutrophils (%) (Auto) 62, Lymphocytes (%) (Auto) 21, Monocytes (%) (Auto) 14, Eosinophils (%) (Auto) 2, Basophils (%) (Auto) 0, Neutrophils # (Auto) 4.3, Lymphocytes # (Auto) 1.5, Monocytes # (Auto) 1.0, Eosinophils # (Auto) 0.1, Basophils # (Auto) 0.0, Immature Granulocyte # (Auto) 0.0, Sodium Level 137, Potassium Level 3.5, Chloride Level 103, Carbon Dioxide Level 26, Anion Gap 8, Blood Urea Nitrogen 10, Creatinine 1.20, Estimat Glomerular Filtration Rate 67, BUN/Creatinine Ratio 8, Glucose Level 187, Calcium Level 9.2, Corrected Calcium 9.8, Phosphorus Level 3.7, Magnesium Level 1.7, Total Bilirubin 0.9, Aspartate Amino Transf (AST/SGOT) 21, Alanine Aminotransferase (ALT/SGPT) 19, Alkaline Phosphatase 53, Total Protein 6.8, Albumin 3.3 11/15/22 10:22: Glucometer 126 11/15/22 16:07: Glucometer 181 11/15/22 21:07: Glucometer 178 11/16/22 05:21: White Blood Count 8.1, Red Blood Count 3.70, Hemoglobin 11.6, Hematocrit 35, Mean Corpuscular Volume 94, Mean Corpuscular Hemoglobin 31, Mean Corpuscular Hemoglobin Concent 33, Red Cell Distribution Width 13.9, Platelet Count 326, Mean Platelet Volume 9.6, Immature Granulocyte % (Auto) 1, Neutrophils (%) (Auto) 56, Lymphocytes (%) (Auto) 26, Monocytes (%) (Auto) 13, Eosinophils (%) (Auto) 3, Basophils (%) (Auto) 0, Neutrophils # (Auto) 4.6, Lymphocytes # (Auto) 2.1, Monocytes # (Auto) 1.1, Eosinophils # (Auto) 0.3, Basophils # (Auto) 0.0, Immature Granulocyte # (Auto) 0.1, Sodium Level 136, Potassium Level 3.9, Chloride Level 103, Carbon Dioxide Level 26, Anion Gap 7, Blood Urea Nitrogen 9, Creatinine 1.13, Estimat Glomerular Filtration Rate 72, BUN/Creatinine Ratio 8, Glucose Level 132, Calcium Level 8.9, Corrected Calcium 9.6, Magnesium Level 1.8, Total Bilirubin 0.6, Aspartate Amino Transf (AST/SGOT) 22, Alanine Aminotransferase (ALT/SGPT) 17, Alkaline Phosphatase 49, Total Protein 6.3, Albumin 3.1 Discharge Home Medications: Active Scripts Active Vitamin B-1 (Thiamine HCl) 100 Mg Tablet 100 Mg PO DAILY@0700 30 Days Folic Acid 1 Mg Tablet 1 Mg PO DAILY 30 Days Tab-A-Angeline Multivit with Iron (Multivitamin/Iron/Folic Acid) 18 Mg Iron-400 Mcg Tablet 1 Ea PO DAILY@0700 30 Days Diltiazem 24Hr ER (Diltiazem HCl) 180 Mg Cap.er.24h 180 Mg PO BID 30 Days Reported Atorvastatin Calcium 10 Mg Tablet 10 Mg PO DAILY Eliquis (Apixaban) 5 Mg Tablet 5 Mg PO BID Omeprazole 40 Mg Capsule.dr 40 Mg PO DAILY Janumet 50-500 mg Tablet (Sitagliptin Phos/Metformin HCl) 50 Mg-500 Mg Tablet 1 Ea PO BID Metoprolol Succinate 25 Mg Tab.er.24h 25 Mg PO DAILY Losartan Potassium 25 Mg Tablet 25 Mg PO DAILY Furosemide 20 Mg Tablet 20 Mg PO BID Instructions to patient/family Please see electronic discharge instructions given to patient. JONE IVEY DO Nov 16, 2022 08:32
[2022-11-16] MEDS ORDERED: meTOproloL SUCCINATE 50 MG (TOPROL XL) TAB PO SCH (09:00)
--- NOTE | 2022-11-16 09:55 | Cardiology Progress Note ---
Subjective Date Seen by Provider: Nov 16, 2022 Time Seen by Provider: 08:25 Subjective/Events-last exam Patient is sitting up in chair, denies any chest pain or increased dyspnea. Objective-Cardiology Exam Last Set of Vital Signs Vital Signs 11/15/22 11/16/22 10:00 08:31 Temp 36.6 Pulse 102 Resp 18 B/P (MAP) 139/77 (97) Pulse Ox 95 O2 Delivery Room Air O2 Flow Rate 2.00 I&O Intake and Output 11/16/22 00:00 Intake Total 3000 ml Output Total 2400 ml Balance 600 ml Intake Oral 2500 ml IV Total 500 ml Output Urine Total 2400 ml # Bowel Movements 1 General: Alert, Cooperative, No Acute Distress HEENT: Atraumatic, PERRLA Neck: Supple Lungs: Clear to Auscultation, Normal Air Movement Heart: Normal S1, Normal S2, No Murmurs, Other (Atrial fibrillation) Abdomen: Normal Bowel Sounds, Soft Extremities: No Clubbing, No Cyanosis, No Edema, No Tenderness/Swelling Skin: No Rashes Neuro: Normal Speech Psych/Mental Status: Mood NL Results Lab Laboratory Tests 11/16/22 05:21 A/P-Cardiology Admission Diagnosis Atrial fibrillation Tachycardia Hypertension Diverticulitis Assessment/Plan Paroxysmal atrial fibrillation Currently heart rate is better controlled Maintained on Cardizem CD 180 twice daily, Toprol XL 50mg Confusion, agitation. Managed by medical team. 2D echo was done on November 11, 2022 with normal left ventricular size, ejection fraction 60 to 65%. Moderately dilated left atrium, calcified mitral valve, PA pressure 40 to 45 mmHg. Alcohol withdrawal. Agitation. Confusion, improving. Acute diverticulitis, abdominal pain. Managed by medical team Hypertension, blood pressure is better controlled Tolerating Cardizem and metoprolol. Obesity, BMI 30. Supervisory-Addendum Brief Supervisory Addendum Participated in pt care: history, MDM, physical Personally performed: exam, history, MDM Care discussed with: ANTONIETA Results interpretation: Verified all documentation Notes: Patient was seen and evaluated with Gabriele, examination performed, management plan was discussed, agree with the current scribed note, I made few changes to the note using Italic font Patient was seen at bedside, sitting comfortably Feeling better No new complaint Continue to monitor Continue current medication GABRIELE CASTELLON Nov 16, 2022 09:55 GASPER OLVERA MD Nov 16, 2022 12:49
== END 2022-11-16 09:50 | DRG 392 ==
LOC: ER FS 00:41 → ICU 03:43 → 4TH 11-15 11:25
PROVIDERS: ADMIT Family Medicine; ATTEND Internal Medicine
DX: K57.20 Diverticulitis of large intestine with perforation and abscess without bleeding (principal); F10.231 Alcohol dependence with withdrawal delirium; I48.0 Paroxysmal atrial fibrillation; G31.2 Degeneration of nervous system due to alcohol; K76.0 Fatty (change of) liver, not elsewhere classified; I10 Essential (primary) hypertension; E78.00 Pure hypercholesterolemia, unspecified; E11.9 Type 2 diabetes mellitus without complications; E66.9 Obesity, unspecified; Z68.30 Body mass index [BMI] 30.0-30.9, adult; Z79.01 Long term (current) use of anticoagulants; Z79.84 Long term (current) use of oral hypoglycemic drugs; Z79.899 Other long term (current) drug therapy
CPT/HCPCS: 36410; 36415; 71045; 74177; 76937; 80053; 81000; 82947; 83605; 83690; 83735; 84100; 85007; 85025; 85027; 87040; 87081; 93005; 93041; 93306; Q9967

== ENCOUNTER 2022-11-16 09:17 | Inpatient (IN) | payer MEDICARE ==
[~2022-11-16] VITALS: Ht 177.8 cm; Wt 95.4 kg
[~2022-11-16 09:17] MED LIST: APIX5TAB PO; ATOR10TA66 PO; DILT180C85 PO; DILT300T9 PO; FOLI1TAB33 PO; FURO20TA4 PO; LOSA25TA41 PO; MTP25TSR PO; MULT-1137 PO; OMEP40CA6 PO; SITA1TAB2 PO; THIA100T80 PO
[2022-11-16 09:50] VITALS: BP 121/77
--- NOTE | 2022-11-16 10:52 | Occupational Therapy Eval ---
OT Evaluation-General/PLF Medical Diagnosis Admission Date Nov 16, 2022 at 09:50 Medical Diagnosis: encephalopathy Onset Date: Nov 10, 2022 Therapy Diagnosis Therapy Diagnosis: decreased ADL status, weakness Precautions Precautions/Isolations: Fall Prevention, Standard Precautions Referral Physician: Jayne Meyer Reason: Evaluation/Treatment Medical History Pertinent Medical History: Alcoholism, Diverticulitis Additional Medical History 11/10/22 ED with worsening abdominal pain, dx with diverticulosis. Transferred to ARU 11/16/22 Current History ETOH dependence, afib, HTN, DM, hypercholesterolemia Social History Home: Single Level Current Living Status: Other Family (sister and sister's ) Entry Into Home: Stairs With Railing Steps Into Home: 4 Pt reports home in [place] belongs to his sister. He typically lives with his sister and her in a 1 story house, 4 steps with rails. ADL-Prior Level of Function SCALE: Activities may be completed with or without assistive devices. 2-Ksqbwjciyc-ecjzbjw completes the activity by him/herself with no assistance from a helper. 5-Set-up or Clean-up Assistance-helper sets up or cleans up; patient completes activity. [place] assists only prior to or following the activity. 4-Supervision or Touching Assistance-helper provides verbal cues and/or touching/steadying and/or contact guard assistance as patient completes activity. Assistance may be provided throughout the activity or intermittently. 3-Partial/Moderate Assistance-helper does LESS THAN HALF the effort. [place] lifts, holds or supports trunk or limbs, but provides less than half the effort. 2-Substantial/Maximal Assistance-helper does MORE THAN HALF the effort. [place] lifts or holds trunk or limbs and provides more than half the effort. 8-Deqgswqka-tmucij does ALL the effort. Patient does none of the effort to complete the activity. Or, the assistance of 2 or more helpers is required for the patient to complete the activity. If activity was not attempted, code reason: 7-Patient Refused. 9-Not Applicable-not attempted and the patient did not perform the activity before the current illness, exacerbation or injury. 10-Not Attempted due to Environmental Limitations-(lack of equipment, weather restraints, etc.). 88-Not Attempted due to Medical Conditions or Safety Concerns. ADL PLOF Comments Pt reports IND with ADLs and functional mobility without AD. He has a walk in shower, no SC at his sister's house in [place]. Self Care: Independent Functional Cognition: Independent OT Current Status Subjective Pt agreeable to OT Tx, states "ache" in b/l ankles rating pain 5/10. Pt appeared slightly confused, initially telling OT he lived with a friend in a multilevel house, but with further questioning and tx, reports he lives with his sister and her , in his sister's house, and it is only 1 level (no basement or upstairs). Mental Status/Objective Patient Orientation: Person, Confused, Place, Time, Situation Current Glasses/Contacts: Yes (reading) Hearing Aids: No Dentures/Partials: No Hand Dominance: Right Upper Extremity ROM WFL, BUE shoulder flexion to approx 150 degrees Upper Extremity Coordination WFL Upper Extremity Sensation WFL, pt denies tingling/numbness Upper Extremity Strength grossly 3+/5 ADL-Treatment Eating (QC): 6 Oral Hygiene (QC): 4 (CGA standing at sink for steadying assistance.) Shower/Bathe Self (QC): 4 (CGA in stand. Pt able to wash/dry all parts with min VCs for safety.) Upper Body Dressing (QC): 5 Lower Body Dressing (QC): 3 (Min A threading LLE into brief.) On/Off Footwear (QC): 4 (SBA seated to don/doff gripper socks.) Toileting Hygiene (QC): 4 (CGA in stand for pant hike.) Other Treatments OT evaluation complete, pt provided information about PLOF and home set up to his ability. Pt initially states he lived in a multilevel house, but later denied having and upstairs or basement and indicated everything is on one level. Pt transferred supine to sit EOB, SBA, then sit to stand with CGA. Pt used FWW to transfer to w/c, CGA. Pt participated in UE screen. Sit to stand from w/c, CGA, then CGA using FWW to transfer into bathroom and onto SC. Pt completed showering, dressing, and grooming tasks as outlined above, requiring min VCS for sequencing and locating items. When standing at sink, OT encouraged pt to comb his hair, he stated he would if he had a comb. OT informed pt a comb was located on the counter at his R, pt then able to complete task with CGA. When brushing his teeth, pt able to complete tasks with CGA, but did not turn off water when finished requiring VC. Pt used FWW to transfer to recliner, [facility]. Pt attempted to leave walker off to the side during transfer. OT educated pt on importance and safety of keeping walker close by during entire transfer, he verbalized understanding. Post tx, pt in recliner, call light in reach and all needs met, chair alarm activated. Education OT Patient Education: Correct positioning, Energy conservation, Modified ADL techniques, Progress toward Goal/Update tx plan, Purpose of tx/functional activities, Rehab process Teaching Recipient: Patient Teaching Methods: Discussion Response to Teaching: Reinforcement Needed BIMS CAM BIMS Expression of Ideas and Wants: Without Difficulty Understanding Verbal Content: Understands Brief Interview/Mental Status: Yes IRF KRISTI BIMS: IRF KRISTI BIMS Response (Comments) Value Repitition of Three Words Three 3 Recalls Socks Yes, No Cue Required 2 Recalls Blue Yes, No Cue Required 2 Recalls Bed No, Could Not Recall 0 Year Correct 3 Month Accurate Within 5 Days 2 Day Correct 1 Total 13 Should Staff Asses. Mental St[address] No CAM Mental Status Change/Baseline: 1 Inattention: 0 Disorganized thinkin Altered level of consciousness: 0 OT Short Term Goals Short Term Goals Time Frame: Nov 24, 2022 Shower/bathe self: 5 Upper body dressin Lower body dressin Putting on/taking off footwear: 5 OT Prison Goals Hand Bookbinder Goals Time Frame: Dec 03, 2022 Eating (QC): 6 Oral Hygiene (QC): 6 Toileting Hygiene (QC): 6 Shower/Bathe Self (QC): 6 Upper Body Dressing (QC): 6 Lower Body Dressing (QC): 6 On/Off Footwear (QC): 6 Additional Goals: 1-Demonstrate ADL Tasks, 2-Verbalize Understanding, 3- ImproveStrength/[place] 1=Demonstrate adherence to instructed precautions during ADL tasks. 2=Patient will verbalize/demonstrate understanding of assistive devices/modifications for ADL. 3=Patient will improve strength/tolerance for activity to enable patient to perform ADL's. OT Education/Plan Problem List/Assessment Assessment: Decreased Activ Tolerance, Decreased Safety Aware, Decreased UE Strength, Impaired Funct Balance, Impaired I ADL's, Impaired Self-Care Skills Discharge Recommendations Plan/Recommendations: Continue POC Equpiment Recommendations-D/C: Bath Chair Treatment Plan/Plan of Care Patient would benefit from OT for education, treatment and training to promote independence in ADL's, mobility, safety and/or upper extremity function for ADL's. Plan of Care: ADL Retraining, Functional Mobility, Group Exercise/Act as Ind, UE Funct Exercise/Act Treatment Duration: Dec 03, 2022 Frequency: At least 5 of 7 days/Wk (IRF) Estimated Hrs Per Day: 1.5 hours per day Agreement: Yes Rehab Potential: Good Time Start Time: 09:50 Stop Time: 11:00 DATE: Nov 16, 2022 Total Time Billed (hr/min): 70 Billed Treatment Time 1, EVM (30'), ADL 3 (40') CANELO CORRIGAN OT Nov 16, 2022 10:52
--- NOTE | 2022-11-16 10:52 | PM&R Post Admission Assessment ---
PM&R Date of Visit: Nov 16, 2022 Time of Visit: 12:00 History of Present Illness Chief complaint: Encephalopathy from alcohol withdrawal with severe weakness HPI: This is a 67-year-old male who presents to inpatient rehab following a 7- day hospital course mostly in the ICU due to atrial fibrillation with rapid ventricular response with acute diverticulitis and then subsequent alcohol withdrawal resulting in severe encephalopathy requiring IV Precedex infusion along with benzodiazepines and supportive care. He continues to be very weak and having additional problems with management of anticoagulation and cardiac meds. He will need close follow-up with cardiology and close monitoring of encephalopathy while giving vitamin supplementation to prevent Wernicke's encephalopathy chronic state and Korsakoff's psychosis. Past Ottaqfg-Jogmcr-Aonkja Hx Past Med/Social Hx: Reviewed Nursing Past Med/Soc Hx, Reviewed and Corrections made Patient Social History Marrital Status: single Employed/Student: retired Alcohol Use: Regular Use Smoking Status: Current Everyday Smoker Past Medical History Cardiac: Atrial Fibrillation, High Cholesterol, Hypertension Endocrine: Diabetes, Non-Insulin dep Family History No Pertinent Family Hx PM&R Allergy/Meds/Data Review Allergies Coded Allergies: No Known Drug Allergies (Unverified , 11/10/22) Home Medications Scheduled Apixaban (Eliquis), 5 MG PO BID, (Reported) Atorvastatin Calcium (Atorvastatin Calcium), 10 MG PO DAILY, (Reported) Diltiazem HCl (Diltiazem 24Hr ER), 180 MG PO BID Folic Acid (Folic Acid), 1 MG PO DAILY Furosemide (Furosemide), 20 MG PO BID, (Reported) Losartan Potassium (Losartan Potassium), 25 MG PO DAILY, (Reported) Metoprolol Succinate (Metoprolol Succinate), 25 MG PO DAILY, (Reported) Multivitamin/Iron/Folic Acid (Tab-A-Angeline Multivit with Iron), 1 EA PO DAILY@0700 Omeprazole (Omeprazole), 40 MG PO DAILY, (Reported) Sitagliptin Phos/Metformin HCl (Janumet 50-500 mg Tablet), 1 EA PO BID, (Reported) Thiamine HCl (Vitamin B-1), 100 MG PO DAILY@0700 Discontinued Medications Diltiazem HCl (Diltiazem ER), 300 MG PO DAILY, (Reported) Current Medications Current Medications Reviewed Review of Systems Constitutional: see HPI, malaise, weakness EENTM: no symptoms reported Respiratory: no symptoms reported Cardiovascular: no symptoms reported Gastrointestinal: no symptoms reported Genitourinary: no symptoms reported Musculoskeletal: back pain, joint pain Skin: no symptoms reported Psychiatric/Neurological: Anxiety All Other Systems Reviewed Negative Unless Noted: Yes Physical Exam Physical Exam Vital Signs Vital Signs - First Documented 11/16/22 09:50 Temp 36.5 Pulse 99 Resp 18 B/P (MAP) 121/77 (92) Pulse Ox 96 O2 Delivery Room Air Capillary Refill : Height, Weight, BMI Height: '" Weight: lbs. oz. kg; 29.98 BMI Method: General Appearance: No Apparent Distress, WD/WN, Chronically ill, Obese Eyes: Bilateral Eye Normal Inspection, Bilateral Eye PERRL HEENT: PERRL/EOMI, Normal ENT Inspection, Pharynx Normal Neck: Full Range of Motion, Normal Inspection, Non Tender, Supple, Carotid Bruit Respiratory: Chest Non Tender, Lungs Clear, Normal Breath Sounds, No Accessory Muscle Use, No Respiratory Distress Cardiovascular: No Edema, No Gallop, No JVD, No Murmur, Normal Peripheral Pulses, Irregularly Irregular Gastrointestinal: Normal Bowel Sounds, No Organomegaly, No Pulsatile Mass, Non Tender, Soft Back: Normal Inspection, No CVA Tenderness, No Vertebral Tenderness Extremity: Normal Capillary Refill, Normal Inspection, Normal Range of Motion, Non Tender, No Calf Tenderness, No Pedal Edema Neurologic/Psychiatric: Alert, Normal Mood/Affect, 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-XII Norm as Tested, Abnormal Gait, Depressed Affect, Disoriented, Motor Weakness (Generalized) Skin: Normal Color, Warm/Dry Lymphatic: No Adenopathy PM&R Medical Assessment & Plan REHAB/MEDICAL ASSESSMENT AND PLAN: REHAB IMPAIRMENT GROUP: Encephalopathy from alcohol withdrawal ETIOLOGIC DIAGNOSIS: Encephalopathy from alcohol withdrawal The comorbidities that impact the patients function and/or functional outcome by: severe alcoholism, Atrial fibrillation with recent RVR, Obesity, Severe weakness REHAB PLAN: The patient is being admitted to our comprehensive inpatient rehabilitation facility and can tolerate the intensity of service consisting of at least: 180 minutes of therapy a day, 5 out of 7 days a week Rehab treatment will consist of: PT and OT will focus on regaining function with use of assistive devices in order to increase stamina with ambulation and increased independence in ADLs The patient/family has a good understanding of our discharge process and will benefit from an interdisciplinary inpatient rehabilitation program. The patient has potential to make improvement and is in need of at least two of the following multidisciplinary therapies including but not limited to physical, occupational, speech, and prosthetics and orthotics. Additionally the patient will need services from respiratory, nutritional services, wound care, psychology, etc. (Customize this to each patient). Given the patients complex condition and risk of further medical complications, rehabilitation services cannot be safely or effectively provided at a lower level of care such as a half-way facility. BARRIERS TO DISCHARGE: severe alcoholism ESTIMATED LOS: 7 days DISPOSITION: home RELEVANT CHANGES SINCE PREADMISSION SCREENING: I have compared the patients medical and functional status at the time of the preadmission screening and there are: no changes PROGNOSIS: fair REHABILITATION GOALS: 1.PT and OT will focus on regaining function with use of assistive devices in order to increase stamina with ambulation and increased independence in ADLs All the above goals were reviewed with the patient and he/she is in agreement. By signing this document, I acknowledge that I have personally performed a full physical examination on this patient within 24 hours of admission to this in patient rehabilitation facility and have determined the patient to be able to tolerate the above course of treatment at an intensive level for a reasonable period of time. I will be completing a detailed individualized Plan of Care for this patient by day #4 of the patients stay based upon the Preadmission Screen, the Post-Admission Evaluation, and the therapy evaluations. Admission Dx/Comorbidities: (1) Encephalopathy ICD Codes: G93.40 - Encephalopathy, unspecified Assessment/Plan Assessment and Plan Assess & Plan/Chief Complaint Assessment: Acute encephalopathy due to alcohol withdrawal Atrial fibrillation with recent RVR Obesity Diabetes Hypertension Hyperlipidemia Plan: Aggressive rehab PT and OT Home meds Oral anticoagulation JONE IVEY DO Nov 16, 2022 10:52
[2022-11-16] MEDS ORDERED: ACETAMINOPHEN 325 MG TABLET PO PRN (11:00)
[2022-11-16] MEDS ORDERED: ALPRAZolam 0.25 MG (XANAX) TAB PO PRN (11:00)
[2022-11-16] MEDS ORDERED: LACTULOSE SYRUP 10GM/15ML (ENULOSE) 30ML UDC PO PRN (11:00)
[2022-11-16] MEDS ORDERED: diphenhydrAMINE 25 MG TAB (BENADRYL) PO PRN (11:00)
[2022-11-16] MEDS ORDERED: BISACODYL 10 MG SUPP (DULCOLAX) PR PRN (11:00)
[2022-11-16] MEDS ORDERED: guaiFENesin/CODEINE (ROBITUSSIN AC) 10ML UDC PO PRN (11:00)
[2022-11-16] MEDS ORDERED: CALCIUM CARBONATE 500 MG (TUMS) TAB.CHEW PO PRN (11:00)
[2022-11-16] MEDS ORDERED: NALOXONE 0.4 MG/ML 1 ML (NARCAN) VIAL IV PRN (11:00)
[2022-11-16] MEDS ORDERED: ONDANSETRON 4 MG (ZOFRAN) ORAL DISSOLVE TAB PO PRN (11:00)
[2022-11-16] MEDS ORDERED: FLEET ENEMA ADULT 1 EA BTL PR PRN (11:00)
[2022-11-16] MEDS ORDERED: LOPERAMIDE 2 MG (IMODIUM) TABLET PO PRN (11:00)
[2022-11-16] MEDS ORDERED: DOCUSATE SODIUM 100 MG (COLACE) CAP PO PRN (11:00)
--- NOTE | 2022-11-16 11:13 | Physical Therapy Evaluation ---
PT Evaluation-General Medical Diagnosis Admission Date Nov 16, 2022 at 09:50 Medical Diagnosis: Encephalopathy Onset Date: Nov 10, 2022 Therapy Diagnosis Therapy Diagnosis: Weakness; Decreased functional mobility Precautions Precautions/Isolations: Fall Prevention, Standard Precautions Weight Bear Status Right Lower Extremity: Right Full Weight Bearing Left Lower Extremity: Left Full Weight Bearing Referral Physician: Jayne Reason for Referral: Evaluation/Treatment Medical History Pertinent Medical History: Atrial Fib, Alcoholism, Diverticulitis Additional Medical History Atrial fibrillation with a rapid ventricular response, hypertension, hypercholesterolemia, diabetes, alcohol dependence, Diverticulitis Current History 11/10/22 ED with worsening abdominal pain, dx with diverticulosis. Transferred to ARU 11/16/22 Reviewed History: Yes Social History Home: Single Level Current Living Status: Other Family (Cousin ) Entry Into Home: Stairs Without Railing PT Steps Into Home: 3 Pt reports he has been staying with his cousin in town whole lives in a 1 story home with 3 steps to enter/exit with no HR. Pt reports no steps within the home. Pt reports a basement in the home, but he does not need to use it. Pt reports a walk-in shower, no grab bars, SC (pt does not use), and standard toilet. Prior Prior Level of Function SCALE: Activities may be completed with or without assistive devices. 9-Trdgvnibmb-pefqrih completes the activity by him/herself with no assistance from a helper. 5-Set-up or Clean-up Assistance-helper sets up or cleans up; patient completes activity. Cactus assists only prior to or following the activity. 4-Supervision or Touching Assistance-helper provides verbal cues and/or touching/steadying and/or contact guard assistance as patient completes activity. Assistance may be provided throughout the activity or intermittently. 3-Partial/Moderate Assistance-helper does LESS THAN HALF the effort. Cactus lifts, holds or supports trunk or limbs, but provides less than half the effort. 2-Substantial/Maximal Assistance-helper does MORE THAN HALF the effort. Cactus lifts or holds trunk or limbs and provides more than half the effort. 1-Rqkhdazyl-asjadx does ALL the effort. Patient does none of the effort to complete the activity. Or, the assistance of 2 or more helpers is required for the patient to complete the activity. If activity was not attempted, code reason: 7-Patient Refused. 9-Not Applicable-not attempted and the patient did not perform the activity before the current illness, exacerbation or injury. 10-Not Attempted due to Environmental Limitations-(lack of equipment, weather restraints, etc.). 88-Not Attempted due to Medical Conditions or Safety Concerns. Bed Mobility: 6 Transfers (B,C,W/C): 6 Gait: 6 Stairs: 6 Wheelchair Mobility: 88 Indoor Mobility (Ambulation): Independent Stairs: Independent Prior Devices Use: None Pt reports at [facility], he was Ind with no AD PT Evaluation-Current Subjective Pt reports he is doing well today and is agreeable to PT eval and treatment. Pt reported B feet/ankle pain (neuropathy) at 5/10. Pain Numeric Pain Scale: 5-Moderate Pain Location Body Site: Foot Section J - Health Conditions 1. Rarely or not at all 2. Occasionally 3. Frequently 4. Almost constantly 8. Unable to answer Pain Effect on Sleep: 2 Pain Interference with Therapy: 2 Pain Interference w/Day-to-Day: 2 Pt/Family Goals Safely return home and progress to [facility] Objective Patient Orientation: Person, Place, Time, Situation ROM/Strength ROM Upper Extremities WFL ROM Lower Extremities WFL Strength Upper Extremities WFL Strength Lower Extremities B LE MMT - 3+/5 Integumentary/Posture Integumentary Please see nursing note Bowel Incontinence: No Bladder Incontinence: No Sensory Vision: Functional Hearing: Functional Hand Dominance: Right Sensation Right Upper Extremit: Intact Sensation Left Upper Extremity: Intact Sensation Right Lower Extremit: Intact Sensation Left Lower Extremity: Intact Transfers Roll Left & Right (QC): 4 (SBA) Sit to Lying (QC): 4 (SBA) Lying to Sitting/Side of Bed(Q: 4 (SBA) Sit to Stand (QC): 4 (SBA/CGA) Chair/Rfs-no-Nwivx Xfer(QC): 4 (SBA/CGA) Toilet Transfer (QC): 4 (SBA/CGA) Car Transfer (QC): 4 (SBA/CGA) Gait Does the Patient Walk?: Yes Mode of Locomotion: Walk Anticipated Mode of Locomotion: Walk Walk 10 feet (QC): 4 (CGA) Walk 50 ft with 2 Turns(QC): 4 (CGA) Walk 150 ft (QC): 4 (CGA) Walking 10ft/uneven surface-QC: 4 (CGA) Gait Assistive Device: FWW Wheelchair Training Does the Pt Use a Wheelchair?: No Wheel 50 ft with 2 turns (QC): 9 Wheel 150 ft (QC): 9 Type of Wheelchair: N/A Stairs #of Steps: 12 1 Step (curb) (QC): 4 (CGA) 4 Steps (QC): 4 (CGA) 12 Steps (QC): 4 (CGA) Balance Sitting Static: Good Sitting Dynamic: Good Standing Static: Fair Standing Dynamic: Fair Picking up an Object (QC): 4 (SBA) Special Test Comments KU standing balance scale = 4/5 (Goal = 5/5) Treatment Pt completed seated B LE Ther Ex x 20 reps each with the red Tband. Pt completed 10 min on the nu-step on level 2. Assessment/Needs Pt tolerated PT well and would benefit from skilled PT to progress towards PLOF and safe d/c. Rehab Potential: Good Post Rehab Potential-Barriers: living situation Equipment Needs FWW, SC PT Monitor And Storage Bin Tender Goals Senior Care Goals PT Monitor And Storage Bin Tender Goals Time Frame: Nov 26, 2022 Roll Left to Right (QC): 6 (Pt will be Mod I with all aspects of functional mobility to be at PLOF. ) Sit to Lying (QC): 6 (Pt will be Mod I with all aspects of functional mobility to be at PLOF. ) Lying-Sitting on Side/Bed(QC): 6 (Pt will be Mod I with all aspects of functional mobility to be at PLOF. ) Sit to Stand (QC): 6 (Pt will be Mod I with all aspects of functional mobility to be at PLOF. ) Chair/Mbp-dz-Ahwqw Xfer(QC): 6 (Pt will be Mod I with all aspects of functional mobility to be at PLOF. ) Toilet/Commode Transfer (QC): 6 (Pt will be Mod I with all aspects of functional mobility to be at PLOF. ) Car Transfer (QC): 6 (Pt will be Mod I with all aspects of functional mobility to be at PLOF. ) Does the Patient Walk: Yes Walk 10 feet (QC): 6 (Pt will be Mod I with ambulation, with the least restrictive AD. ) Walk 10ft-Uneven Surface(QC): 6 (Pt will be Mod I with ambulation, with the least restrictive AD. ) Walk 50ft with 2 Turns (QC): 6 (Pt will be Mod I with ambulation, with the least restrictive AD. ) Walk 150 ft (QC): 6 (Pt will be Mod I with ambulation, with the least restrictive AD. ) Does the Pt use WC or Scooter?: No Wheel 50 feet with 2 turns (QC: 9 Type: N/A Wheel 150 feet: 9 Type: N/A 1 Step (curb) (QC): 6 (Pt will be Mod I with steps to safely enter/exit the home. ) 4 Steps (QC): 6 (Pt will be Mod I with steps to safely enter/exit the home. ) 12 Steps (QC): 6 (Pt will be Mod I with steps to safely enter/exit the home. ) Picking up an Object (QC): 6 (Pt will be Mod I with all aspects of functional mobility to be at PLOF. ) KU standing balance scale goal = 5/5 PT Plan Problem List Problem List: Activity Tolerance, Functional Strength, Safety, Balance, Gait, Transfer, Bed Mobility Treatment/Plan Treatment Plan: Continue Plan of Care Treatment Plan: Bed Mobility, Concurrent Therapy, Education, Functional Activity Wesley, Functional Strength, Group Therapy, Gait, Safety, Therapeutic Exercise, Transfers Treatment Duration: Nov 26, 2022 Frequency: At least 5 of 7 days/Wk (IRF) Estimated Hrs Per Day: 1.5 hours per day Patient and/or Family Agrees t: Yes Safety Risks/Education Patient Education: Gait Training, Transfer Techniques, Steps, Safety Issues Teaching Recipient: Patient Teaching Methods: Demonstration, Discussion Response to Teaching: Verbalize Understanding, Return Demonstration, Reinforcement Needed Discharge Recommendations Therapy Discharge Recommendati: Home & Family Equpiment Recommendations-D/C: Front Wheeled Walker, Shower Chair Discharge Status/Home Program Cont per POC Barriers to Progress living situation Target Placement home with family Time Time In: 1100 Time Out: 1220 DATE: Nov 16, 2022 Total Billed Treatment Time: 80 Total Billed Treatment 80 min EVM (20 min from 2090-1338) 1 visit (60 min from 5561-5345) EX x 1 GT x 1 FA x 2 JASKARAN QUINTANA PT Nov 16, 2022 11:12
[2022-11-16] MEDS ORDERED: ONDANSETRON 4 MG/2 ML (SDV) Z0FRAN IV PRN (13:30)
[2022-11-16] MEDS ORDERED: meTOprolol 5 MG/5 ML (LOPRESSOR) VIAL IV PRN (13:30)
[2022-11-16] MEDS ORDERED: ANTACID SUSP 30 ML UDC (MYLANTA) PO PRN (13:30)
[2022-11-16] MEDS ORDERED: SENNA W/DOCUSATE (SENOKOT S) TABLET PO PRN (13:30)
[2022-11-16] MEDS ORDERED: LORazepam 1 MG (ATIVAN) TAB PO PRN (13:30)
[2022-11-16] MEDS ORDERED: ACETAMINOPHEN 500 MG TAB (TYLENOL) PO PRN (13:30)
[2022-11-16] MEDS ORDERED: LORazepam INJ 2 MG/ML (ATIVAN) VIAL IM/IV PRN (13:30)
[2022-11-16] MEDS ORDERED: ONDANSETRON 4 MG (ZOFRAN) ORAL DISSOLVE TAB SL PRN (13:30)
[2022-11-16] MEDS: CATHETER FLUSH 10 ML SYR IVP SCH ×2 (13:51→21:36)
--- NOTE | 2022-11-16 14:08 | ST Cognitive Linguistic Eval ---
Speech Evaluation-General Medical Diagnosis Encephalopathy Onset Date: Nov 10, 2022 Therapy Diagnosis Therapy Diagnosis: Moderate Cognitive Impairment Precautions Precautions: Fall Precautions/Isolations: Fall Prevention, Standard Precautions Referral Referring Physician: Jayne Reason for Referral: Evaluation/Treatment Cognition Medical History Pertinent Medical History: Atrial Fib, Alcoholism, Diverticulitis Atrial fibrillation with a rapid ventricular response, hypertension, hypercholesterolemia, diabetes, alcohol dependence, diverticulitis Current History Pt arrived at the ED on 11/10/22 with worsening abdominal pain. Pt diagnosed with diverticulosis. Pt transferred to ARU on 11/16/22. Reviewed History: Yes Social History Home: Single Level Current Living Status: Other Family (Cousin ) Speech PLF-Current Status Prior Level of Function Pt reports he lived with his sister in [place]. He states he managed his own medications and finances and plans to continue once dismissed from the hospital. Pt states he does not write checks and he pays his bills monthly online. Subjective Pt laying in bed when SENIOR WINDOWS SYSTEMS ENGINEER enters the room. Pt lays with his eyes close for most of the session. Pt asks a couple of times to do the evaluation later as he is tired. When asked if he feels he has had changes to his cognition since being admitted to the hospital, pt says yes. Pt is pleasant and cooperative throughout the evaluation. Pain Numeric Pain Scale: 5-Moderate Pain Comment: bilateral feet Language Eval: Auditory Comprehends Simple Yes/No Ques: Functional Follows 1-Step Commands: Mild Follows General Conversations: Functional Language Eval: Verbal Language Completes Spontaneous Greeting: Functional States Basic Personal Info: Functional Cognitive Patient Orientation Pt able state day of week, year and state. Objective Cognitive Domain Attention: WNL Memory: Moderate Problem Solving: Mild Executive Functions: Moderate Visuospatial Skills: Moderate Clock Drawing Severity Rating: Severe Score: 17 Objective Formal/Standardized Tests SLUMS Results Impression Pt appears oriented at this time. Pt appears to appropriately answer questions about his home set up and prior level of functioning and plans when leaving the hospital. Pt is able to answer orientation questions correctly. He is able to recall 5 words immediately, however following a short delay he was unable to recall any of the 5 words. He was able to recall 5/5 words with verbal cues. Pt completed basic problem solving and was able to follow basic one step direction. Pt demonstrated increased difficulty with mental manipulation, generative naming/processing speed, and clock drawing/executive functioning. Pt was unable to regive a series of numbers backwards - often flipping around two numbers. Pt was able to name 8 animals in one minute. Pt galina all the numbers of the clock on the right hand side of the given redding. The numbers do go in a clockwise direction, however do not form a complete redding with a large gap between his 11 and 12. When asked to place the hands on the clock showing 10 till 11, pt is un able to do. Pt does not appear to demonstrate awareness of visuospatial errors with the clock. Pt was able to answer questions following having a paragraph of information read to him. Pt was able to provide solutions to medication management questions in 5/7 opportunities. Speech Short Term Goals Short Term Goals Short Term Goals Pt will recall 3 words following a short delay of at least a minute in 4/5 opportunities. Pt will be taught memory strategies. Pt will complete medication management task with 100% accuracy independently. Speech Mcfp Goals Cutter And Presser Goals Pt will complete higher level executive functioning tasks to improve overall safety and awareness with 80% accuracy with min verbal cues. Pt will complete memory and mental manipulation tasks with 80% accuracy with min verbal cues. Speech-Plan Patient/Family Goals Patient/Family Goals: Pt's goal is to return home in [place] with sister. Treatment Plan Speech Therapy Treatment Plan: Continue Plan of Care Frequency: 5 times per week Estimated Hrs Per Day: .5 hour per day Rehab Potential: Good Pt/Family Agrees to Plan: Yes Safety Risks/Education Teaching Recipient: Patient Teaching Methods: Discussion Response to Teaching: Verbalize Understanding Education Topics Provided: Pt was educated on role of SENIOR WINDOWS SYSTEMS ENGINEER, purpose of evalution, results, and recommendations. Pt was also given an overview of the plan of care for speech therapy while he is on rehab. Pt verbalized understanding. Time Speech Therapy Time In: 13:10 Speech Therapy Time Out: 13:40 DATE: Nov 16, 2022 Total Billed Time: 30 Billed Treatment Time S/L Abelardo Platt Speech Therapy Nov 16, 2022 14:08
[2022-11-16] MEDS: inSUlin ASPART (NovoLOG) 1 UNIT/0.01 ML (CHARGE PER UNIT) SC SCH ×2 (16:33→21:23)
[2022-11-16 20:55] VITALS: BP 131/68
[2022-11-16] MEDS: DOCUSATE SODIUM 100 MG (COLACE) CAP PO SCH (21:23)
[2022-11-16] MEDS: polyethylene glycoL POWDER 17 GM (MIRALAX) PACK PO SCH (21:23)
[2022-11-16] MEDS: SENNA W/DOCUSATE (SENOKOT S) TABLET PO SCH (21:23)
[2022-11-16] MEDS: APIXABAN 5 MG (ELIQUIS) TABLET PO SCH (21:34)
[2022-11-17] MEDS: MULTIVIT W/MINERALS TAB (THERAGRAN M) PO SCH (05:04)
[2022-11-17] MEDS: THIAMINE 100 MG (VITAMIN B-1) TAB PO SCH (05:04)
[2022-11-17] MEDS: CATHETER FLUSH 10 ML SYR IVP SCH ×3 (05:05→20:34)
[2022-11-17 05:10] LABS: BASOPHILS % (AUTO) 0 % (0-10); EOSINOPHILS # (AUTO) 0.3 10^3/uL (0.0-0.3); EOSINOPHILS % (AUTO) 4 % (0-10); HEMATOCRIT 36 % (40-54); HEMOGLOBIN 11.6 g/dL (13.3-17.7); LYMPHOCYTES # (AUTO) 2.8 10^3/uL (1.0-4.0); LYMPHOCYTES % (AUTO) 30 % (12-44); MEAN CORPUSCULAR HEMOGLOBIN 31 pg (25-34); MEAN CORPUSCULAR HGB CONC 33 g/dL (32-36); MEAN CORPUSCULAR VOLUME 95 fL (80-99); MEAN PLATELET VOLUME 9.5 fL (9.0-12.2); MONOCYTES # (AUTO) 1.2 10^3/uL (0.0-1.0); MONOCYTES % (AUTO) 13 % (0-12); NEUTROPHILS # (AUTO) 4.8 10^3/uL (1.8-7.8); NEUTROPHILS % (AUTO) 52 % (42-75); PLATELET COUNT 416 10^3/uL (130-400); WHITE BLOOD COUNT 9.3 10^3/uL (4.3-11.0)
[2022-11-17 05:38] LABS: ALBUMIN 3.4 GM/DL (3.2-4.5); BILIRUBIN,TOTAL 0.5 MG/DL (0.1-1.0); CALCIUM 9.5 MG/DL (8.5-10.1); CREATININE SERUM 1.13 MG/DL (0.60-1.30); POTASSIUM 4.4 MMOL/L (3.6-5.0)
[2022-11-17] MEDS: inSUlin ASPART (NovoLOG) 1 UNIT/0.01 ML (CHARGE PER UNIT) SC SCH ×4 (05:42→21:23)
--- NOTE | 2022-11-17 05:55 | PM&R Progress Note ---
Subjective HPI/CC On Admission Date Seen by Provider: Nov 17, 2022 Time Seen by Provider: 11:00 Subjective/Events-last exam 11/17/2022: Patient doing really well Improving Very weak No falls Confusion is clearing Review of Systems General: Fatigue, Malaise Objective Exam Vital Signs Vital Signs Date Time Temp Pulse Resp B/P (MAP) Pulse Ox O2 Delivery O2 Flow Rate FiO2 11/17/22 08:50 Room Air 11/17/22 08:13 36.2 99 16 130/79 (96) 95 Capillary Refill : General Appearance: No Apparent Distress, WD/WN, Chronically ill, Obese HEENT: PERRL/EOMI, Normal ENT Inspection, Pharynx Normal Neck: Full Range of Motion, Normal Inspection, Non Tender, Supple, Carotid Bruit Respiratory: Chest Non Tender, Lungs Clear, Normal Breath Sounds, No Accessory Muscle Use, No Respiratory Distress Cardiovascular: No Edema, No Gallop, No JVD, No Murmur, Normal Peripheral Pulses, Irregularly Irregular Gastrointestinal: Normal Bowel Sounds, No Organomegaly, No Pulsatile Mass, Non Tender, Soft Back: Normal Inspection, No CVA Tenderness, No Vertebral Tenderness Extremity: Normal Capillary Refill, Normal Inspection, Normal Range of Motion, Non Tender, No Calf Tenderness, No Pedal Edema Neurologic/Psychiatric: Alert, Normal Mood/Affect, digital account supervisor II-XII Norm as Tested, Abnormal Gait, Depressed Affect, Disoriented, Motor Weakness (Generalized) Skin: Normal Color, Warm/Dry Lymphatic: No Adenopathy Results/Procedures Lab Laboratory Tests 11/17/22 04:54 Patient resulted labs reviewed. FIM Transfers Therapy Code Descriptions/Definitions Functional [place] Measure: 0=Not Assessed/NA 4=Minimal Assistance 1=Total Assistance 5=Supervision or Setup 2=Maximal Assistance 6=Modified [place] 3=Moderate Assistance 7=Complete IndependenceSCALE: Activities may be completed with or without assistive devices. 8-Ttxmnnngei-cwvahrl completes the activity by him/herself with no assistance from a helper. 5-Set-up or Clean-up Assistance-helper sets up or cleans up; patient completes activity. [place] assists only prior to or following the activity. 4-Supervision or Touching Assistance-helper provides verbal cues and/or touching/steadying and/or contact guard assistance as patient completes activity. Assistance may be provided throughout the activity or intermittently. 3-Partial/Moderate Assistance-helper does LESS THAN HALF the effort. [place] lifts, holds or supports trunk or limbs, but provides less than half the effort. 2-Substantial/Maximal Assistance-helper does MORE THAN HALF the effort. Ke[place] lifts or holds trunk or limbs and provides more than half the effort. 7-Jdemzdxgq-gdpzve does ALL the effort. Patient does none of the effort to complete the activity. Or, the assistance of 2 or more helpers is required for the patient to complete the activity. If activity was not attempted, code reason: 7-Patient Refused. 9-Not Applicable-not attempted and the patient did not perform the activity before the current illness, exacerbation or injury. 10-Not Attempted due to Environmental Limitations-(lack of equipment, weather restraints, etc.). 88-Not Attempted due to Medical Conditions or Safety Concerns. Roll Left to Right (QC): 4 (SBA) Sit to Lying (QC): 4 (SBA) Sit to Stand (QC): 4 (SBA/CGA) Chair/Uif-dd-Npfbc Xfer(QC): 4 (SBA/CGA) Car Transfer (QC): 4 (SBA/CGA) Gait Training Does the Patient Walk?: Yes Walk 10 feet (QC): 4 (CGA) Walk 50 ft with 2 Turns(QC): 4 (CGA) Walk 150 ft (QC): 4 (CGA) Walking 10ft/uneven surface-QC: 4 (CGA) Gait Assistive Device: FWW Wheelchair Training Does the Pt Use a Wheelchair?: No Wheel 50 ft with 2 turns (QC): 9 Wheel 150 ft (QC): 9 Type of Wheelchair: N/A Stair Training #of Steps: 12 1 Step (curb) (QC): 4 (CGA) 4 Steps (QC): 4 (CGA) 12 Steps (QC): 4 (CGA) Balance Picking up an Object (QC): 4 (SBA) ADL-Treatment Eating (QC): 6 Oral Hygiene (QC): 4 (CGA standing at sink for steadying assistance.) Shower/Bathe Self (QC): 4 (CGA in stand. Pt able to wash/dry all parts with min VCs for safety.) Upper Body Dressing (QC): 5 Lower Body Dressing (QC): 3 (Min A threading LLE into brief.) On/Off Footwear (QC): 4 (SBA seated to don/doff gripper socks.) Toileting Hygiene (QC): 4 (CGA in stand for pant hike.) Assessment/Plan Assessment and Plan Assess & Plan/Chief Complaint Assessment: Acute encephalopathy due to alcohol withdrawal Atrial fibrillation with recent RVR Obesity Diabetes Hypertension Hyperlipidemia Lower extremity neuropathy Plan: Aggressive rehab PT and OT Home meds Oral anticoagulation 11/17/2022: Supportive care Gabapentin tonight for neuropathy (1) Encephalopathy JONE IVEY DO Nov 17, 2022 05:55
--- NOTE | 2022-11-17 05:56 | Individualized Plan of Care ---
Individualized Plan of Care Rehab Nursing IPOC Order Admission Date Nov 16, 2022 at 09:50 Current Orders Orders Admission Arrival Bed Request (11/16/22 09:55) Admission Order(Inpt,Obs,Sdc) (11/16/22 10:49) Vital Signs: Per Unit Policy ( 08,16,00 (11/16/22 10:49) Diuedonne Alberts (11/16/22 10:49) Sequential Compression Device (11/16/22 10:49) Weatherization Specialist-Inpt Rehab Con (11/16/22 10:49) Rehab Nursing Orders-Ipoc (11/16/22 10:49) Physical Therapy Rehab Orders (11/16/22 10:49) Occupational Therapy Rehab Ord (11/16/22 10:49) Speech Therapy Rehab Orders (11/16/22 10:49) Cbc With Automated Diff (11/17/22 06:00) Comprehensive Metabolic Panel (11/17/22 06:00) Precautions (Aru) (11/16/22 10:49) Weekly Weight WEEK (11/16/22 10:49) Rehab-Intensity Of Therapy (11/16/22 10:49) Initiate Admission Nursing Pro .admission (11/16/22 10:49) Alprazolam Tablet (Xanax Tablet) (11/16/22 11:00) Calcium Carbonate Chew Tablet (Antacid C (11/16/22 11:00) Diphenhydramine Tablet (Benadryl Tablet) (11/16/22 11:00) Docusate Sodium Capsule (Colace Capsule) (11/16/22 21:00) Docusate Sodium Capsule (Colace Capsule) (11/16/22 11:00) Bisacodyl Suppository (Dulcolax Supposit (11/16/22 11:00) Lactulose Oral Solution (Enulose Oral So (11/16/22 11:00) Na Phos/Na Biphos Enema (Fleet Enema Dileep (11/16/22 11:00) Guaifenesin/Codeine Syrup (Robitussin Ac (11/16/22 11:00) Loperamide Tablet (Imodium Tablet) (11/16/22 11:00) Melatonin Tablet (Melatonin Tablet) (11/16/22 11:00) Polyethylene Glycol Powder Pkt (Miralax (11/16/22 21:00) Ondansetron Oral Dissolve Tab (Zofran (11/16/22 11:00) Senna S Tablet (Senokot S Tablet) (11/16/22 21:00) Acetaminophen Tablet/Caplet (Tylenol T (11/16/22 11:00) Therapeutic Activity Goals: .PRN (11/16/22 10:49) Nursing Communication (Order) (11/16/22 ) Naloxone Injection (Narcan Injection) (11/16/22 11:00) Initiate Admission Nursing Pro .admission (11/16/22 10:49) Code/Resuscitation (11/16/22 13:16) Catheter(Urinary) Discontinue (11/16/22 13:16) Acetaminophen Tablet (Tylenol Tablet) (11/16/22 13:30) Apixaban Tablet (Eliquis Tablet) (11/16/22 21:00) Lorazepam Tablet (Ativan Tablet) (11/16/22 13:30) Folic Acid Tablet (Folic Acid Tablet) (11/17/22 09:00) Hydrocodone/Apap 10/325 Tablet (Lortab 1 (11/16/22 13:30) Lorazepam Injection (Ativan Injection) (11/16/22 13:30) Losartan Tablet (Cozaar Tablet) (11/17/22 09:00) Antacid Suspension (Mylanta Suspension (11/16/22 13:30) Ondansetron Injection (Zofran Injectio (11/16/22 13:30) Ondansetron Oral Dissolve Tab (Zofran (11/16/22 13:30) Pantoprazole Tablet (Protonix Tablet) (11/17/22 09:00) Senna S Tablet (Senokot S Tablet) (11/16/22 13:30) Sodium Chloride Flush (Catheter Flush Sy (11/16/22 14:00) Therapeutic Multivitamin Tab (Vitamins, (11/17/22 07:00) Thiamine Tablet (Vitamin B-1 Tablet) (11/17/22 07:00) Diltiazem Cd 24 Hr Capsule (Cardizem Cd (11/16/22 21:00) Insulin Aspart (Novolog) (Novolog (Charg (11/16/22 16:00) Metoprolol Succinate (Xl) Tab (Toprol Xl (11/17/22 09:00) Metoprolol Tartrate Injection (Lopressor (11/16/22 13:30) Consult Cardiology (11/16/22 13:16) Alcohol Wyonezhzjf-Tpaf-Jk Deepak Q1H (11/16/22 13:16) Patient Visit (11/16/22 ) Pt Eval Moderate Complexity (11/16/22 ) Exercise Therap, Ea 15 Min (11/16/22 ) Gait Training, Ea 15 Min (11/16/22 ) Functional Activities, Ea 15 (11/16/22 ) Speech Sound Lang Comp (11/16/22 ) General/Regular (11/16/22 Lunch) Atorvastatin Tablet (Lipitor Tablet) (11/17/22 09:00) Furosemide Tablet (Lasix Tablet) (11/17/22 09:00) Therapeutic Multivitamin Tab (Vitamins, (11/17/22 07:00) Thiamine Tablet (Vitamin B-1 Tablet) (11/17/22 07:00) (Nf) Sitagliptin Phos/Metformin Hcl (Jun (11/17/22 09:00) Patient May Use Own Med,Single (Patient (11/17/22 10:45) (Nf) Sitagliptin Phos/Metformin Hcl (Jun (11/17/22 11:00) Gabapentin Capsule/Tablet (Neurontin Cap (11/17/22 21:00) Patient Visit (11/17/22 ) Gait Training, Ea 15 Min (11/17/22 ) Exercise Therap, Ea 15 Min (11/17/22 ) Functional Activities, Ea 15 (11/17/22 ) Patient Visit (11/17/22 ) Treat. Speech/Lang/Voice (11/17/22 ) Rehab Nursing Orders: Ongoing Assess. of Cognitive Status, Ongoing Assess. of Function Status, Bladder Management, Bladder Scan, Bladder Training, Bowel Management, Bowel Training, Disease Management & Educaiton, DVT Prophylaxis, Fall Prevention, Fluid/Electrolyte/Nutrition Mgmt, Infection Prevention, Medication Management & Education, Management of Risks & Complications, Management of Skin Intergrity, Nutrition Management, Pain Management, Patient/Family Support, Safety Management Intensity of Therapy to be met Patient to be seen: Min.3h per day/5 of 7d PT IPOC Problem List: Activity Tolerance, Functional Strength, Safety, Balance, Gait, Transfer, Bed Mobility Treatment Plan: Continue Plan of Care Bed Mobility, Concurrent Therapy, Education, Functional Activity [place], Functional Strength, Group Therapy, Gait, Safety, Therapeutic Exercise, Transfers Treatment Duration: Nov 26, 2022 Frequency: At least 5 of 7 days/Wk (IRF) Estimated Hrs Per Day: 1.5 hours per day OT IPOC Problems: Decreased Activ Tolerance, Decreased Safety Aware, Decreased UE Strength, Impaired Funct Balance, Impaired I ADL's, Impaired Self-Care Skills OT Treatment, Training and Edu: Yes Plan of Care: ADL Retraining, Functional Mobility, Group Exercise/Act as Ind, UE Funct Exercise/Act Treatment Duration: Dec 03, 2022 Frequency: At least 5 of 7 days/Wk (IRF) Estimated Hrs Per Day: 1.[address] IPOC Speech Therapy Treatment Plan: Continue Plan of Care Treatment Duration: Nov 16, 2022 Frequency: Modified Program (IRF) Estimated Hrs Per Day: Other Weatherization Specialist/Case Mgmt Weatherization Specialist/Case Managemen: Discharge Planning Dietitian/Elevator Repair Mechanic Dietitian/Elevator Repair Mechanic to monitor nutritional status and make changes and/or recommendations as needed and work with speech pathology on dietary upgrades as the occur. Physician IPOC Medical Issues being managed closely and that require the 24 hour availability of a physician: Recent critical illness with A-fib with RVR and severe alcohol withdrawal requiring Precedex and multiple days of benzodiazepines will require close monitoring for any decompensation Medical Issues: Bowel/Bladder Function, DVT Prophylaxis, Falls Precautions, Fluid/Electrolyte/Nutrition Balance, Infection Protection, Pain Management Brief Synthesis of Preadmission Screen, Post-Admission Evaluation, and Therapy Evaluations: PT and OT will focus on regaining function with use of assistive devices in order to regain function and increased independence in order to return back home Medical Prognosis: Fair Anticipated Length of Stay: 7 days JONE IVEY DO Nov 17, 2022 05:56
[2022-11-17] MEDS ORDERED: MULTIVIT W/MINERALS TAB (THERAGRAN M) PO SCH (07:00)
[2022-11-17] MEDS ORDERED: THIAMINE 100 MG (VITAMIN B-1) TAB PO SCH (07:00)
--- NOTE | 2022-11-17 07:46 | Occupational Ther Daily Note ---
OT Current Status-Daily Note Subjective Pt agreeable to OT Tx. Pt had not had breakfast delivered yet, OT informed RN who placed order for pt. Pt agreeable to OT tx while waiting on breakfast to arrive. Mental Status/Objective Patient Orientation: Person, Place, Time, Situation ADL-Treatment Therapy Code Descriptions/Definitions Functional [place] Measure: 0=Not Assessed/NA 4=Minimal Assistance 1=Total Assistance 5=Supervision or Setup 2=Maximal Assistance 6=Modified [place] 3=Moderate Assistance 7=Complete IndependenceSCALE: Activities may be completed with or without assistive devices. 5-Dknlyzgipd-rgafwit completes the activity by him/herself with no assistance from a helper. 5-Set-up or Clean-up Assistance-helper sets up or cleans up; patient completes activity. [place] assists only prior to or following the activity. 4-Supervision or Touching Assistance-helper provides verbal cues and/or touching/steadying and/or contact guard assistance as patient completes activity. Assistance may be provided throughout the activity or intermittently. 3-Partial/Moderate Assistance-helper does LESS THAN HALF the effort. [place] lifts, holds or supports trunk or limbs, but provides less than half the effort. 2-Substantial/Maximal Assistance-helper does MORE THAN HALF the effort. [place] lifts or holds trunk or limbs and provides more than half the effort. 4-Ztjfuwbdh-kbfhlh does ALL the effort. Patient does none of the effort to complete the activity. Or, the assistance of 2 or more helpers is required for the patient to complete the activity. If activity was not attempted, code reason: 7-Patient Refused. 9-Not Applicable-not attempted and the patient did not perform the activity before the current illness, exacerbation or injury. 10-Not Attempted due to Environmental Limitations-(lack of equipment, weather restraints, etc.). 88-Not Attempted due to Medical Conditions or Safety Concerns. Eating (QC): 6 On/Off Footwear: 4 Other Treatment Pt in bed, transferred supine to sit EOB, SBA. Pt adjusted gripper socks seated EOB with supervision. Pt stood from EOB, CGA, then used FWW to perform functional mobility to therapy gym, [facility]-SBA. OT tx focused on increasing BUE strength and activity tolerance. Pt completed arm bike x15 mins, 20 Watt resistance, 1 rest break. Pt educated on UE exercises HEP using moderate resistance (red) theraband. Pt completed x15 reps, 5/5 exercises, with skilled VC and demonstration throughout exercises for correct technique. Copy of HEP provided to pt, 1 copy placed in pt's chart and 1 copy attached to pt's white board in his room. Pt's breakfast arrived, pt used FWW to return to his room, CGA-SBA, transferring to recliner. Pt ate breakfast independently. Post tx, pt in recliner, call light in reach and all needs met. Chair alarm activated. Education OT Patient Education: Correct positioning, Energy conservation, Modified ADL techniques, Progress toward Goal/Update tx plan, Purpose of tx/functional activities, Rehab process Teaching Recipient: Patient Teaching Methods: Discussion Response to Teaching: Verbalize Understanding OT Short Term Goals Short Term Goals Time Frame: Nov 24, 2022 Shower/bathe self: 5 Upper body dressin Lower body dressin Putting on/taking off footwear: 5 OT I&C Technician Goals I&C Technician Goals Time Frame: Dec 03, 2022 Acute change in mental status: 1 Inattention: 0 Disorganized thinkin Altered level of consciousness: 0 Eating (QC): 6 Oral Hygiene (QC): 6 Toileting Hygiene (QC): 6 Shower/Bathe Self (QC): 6 Upper Body Dressing (QC): 6 Lower Body Dressing (QC): 6 On/Off Footwear (QC): 6 Additional Goals: 1-Demonstrate ADL Tasks, 2-Verbalize Understanding, 3-Improv eStrength/[place] 1=Demonstrate adherence to instructed precautions during ADL tasks. 2=Patient will verbalize/demonstrate understanding of assistive devices/modifications for ADL. 3=Patient will improve strength/tolerance for activity to enable patient to p erform ADL's. OT Education/Plan Problem List/Assessment Assessment: Decreased Activ Tolerance, Decreased UE Strength, Impaired Funct Balance, Impaired I ADL's, Impaired Self-Care Skills Discharge Recommendations Plan/Recommendations: Continue POC Treatment Plan/Plan of Care Patient would benefit from OT for education, treatment and training to promote independence in ADL's, mobility, safety and/or upper extremity function for ADL's. Plan of Care: ADL Retraining, Functional Mobility, Group Exercise/Act as Ind, U E Funct Exercise/Act Treatment Duration: Dec 03, 2022 Frequency: At least 5 of 7 days/Wk (IRF) Estimated Hrs Per Day: 1.5 hours per day Agreement: Yes Rehab Potential: Good Time Start Time: 07:25 Stop Time: 08:45 DATE: Nov 17, 2022 Total Time Billed (hr/min): 80 Billed Treatment Time 1, ADL 2 (30'), EX 3 (50') CANELO CORRIGAN OT Nov 17, 2022 07:46
[2022-11-17 08:13] VITALS: BP 130/79
[2022-11-17] MEDS: meTOproloL SUCCINATE 50 MG (TOPROL XL) TAB PO SCH (08:15)
[2022-11-17] MEDS: APIXABAN 5 MG (ELIQUIS) TABLET PO SCH ×2 (08:15→20:30)
[2022-11-17] MEDS: FOLIC ACID 1 MG TAB PO SCH (08:16)
[2022-11-17] MEDS: FUROSEMIDE 20 MG (LASIX) TAB PO SCH ×2 (08:16→20:31)
[2022-11-17] MEDS: PANTOPRAZOLE 40 MG (PROTONIX) TAB PO SCH (08:16)
[2022-11-17] MEDS: AtorvaSTATin TABLET 10 MG TABLET PO SCH (08:16)
[2022-11-17] MEDS: LOSARTAN 25 MG (COZAAR) TAB PO SCH (08:16)
[2022-11-17] MEDS: DOCUSATE SODIUM 100 MG (COLACE) CAP PO SCH ×2 (08:44→20:21)
[2022-11-17] MEDS: polyethylene glycoL POWDER 17 GM (MIRALAX) PACK PO SCH ×2 (08:44→20:20)
[2022-11-17] MEDS: SENNA W/DOCUSATE (SENOKOT S) TABLET PO SCH ×2 (08:44→20:21)
[2022-11-17] MEDS ORDERED: NON-FORMULARY MEDICATION 1 EA EA (Omeprazole 40 MG) PO SCH (09:00)
[2022-11-17] MEDS ORDERED: FOLIC ACID 1 MG TAB PO SCH (09:00)
[2022-11-17] MEDS ORDERED: NON-FORMULARY MEDICATION 1 EA EA (Sitagliptin Phos/Metformin HCl (Janumet 50-500 mg Tablet PO SCH (09:00)
--- NOTE | 2022-11-17 09:53 | Speech Therapy Daily Note ---
Speech Daily Progress Note Subjective Date Seen by Provider: Nov 17, 2022 Time Seen by Provider: 08:45 Pt sitting up in recliner when MOSAIC TILE MAKER enters room. Pt had just finished occupational therapy and eating breakfast. Pt pleasant and cooperative throughout session this date. Pain Numeric Pain Scale: 6 Comment: bilateral feet (neuropathy) Objective Pt completes medication management task this date. He is able to look at example pill bottles and tell the MOSAIC TILE MAKER verbally when he would take the medications. Pt is then able to put the medications into a morning and evening pill organizer. Pt does demonstrate one mistake of putting an extra pill in one day. MOSAIC TILE MAKER and pt talk through PRN meds and how those don't go into a pill organizer. Pt then completes a clock drawing again. Pt continues to demonstrate visuospatial and executive functioning deficits. Pt does demonstrate awareness of the number spacing this date, but is unable to correct. With verbal cues and the visual of the clock in his room, pt is able to draw a more accurate representation. MOSAIC TILE MAKER provides cues of planning and organization such as start by placing the numbers 12, 3, 6, [address] the other numbers. Even when doing this, Pt does not use the entire [place] for the clock face. Pt is able to sequence daily tasks of 4 and 5 steps with 100% accuracy independently. Assessment Assessment Current Status: Good Progress Treatment Plan Continue Plan of Care Complete bill/money management tasks next session. Speech Short Term Goals Short Term Goals Short Term Goals Pt will recall 3 words following a short delay of at least a minute in 4/5 opportunities. Pt will be taught memory strategies. Pt will complete medication management task with 100% accuracy independently. Speech Senior Living Goals Personnel Representative Goals Pt will complete higher level executive functioning tasks to improve overall safety and awareness with 80% accuracy with min verbal cues. Pt will complete memory and mental manipulation tasks with 80% accuracy with min verbal cues. Speech-Plan Patient/Family Goals Patient/Family Goals: Pt's goal is to return home in [place] and live with his sister. Treatment Plan Speech Therapy Treatment Plan: Continue Plan of Care Frequency: 5 times per week Estimated Hrs Per Day: .5 hour per day Rehab Potential: Good Pt/Family Agrees to Plan: Yes Safety Risks/Education Teaching Recipient: Patient Teaching Methods: Discussion Response to Teaching: Verbalize Understanding Education Topics Provided: Pt educated on purpose of therapy tasks. Pt also provided education on medication management strategies. Pt receptive and verbalized understanding. Time Speech Therapy Time In: 08:45 Speech Therapy Time Out: 09:15 DATE: Nov 17, 2022 Total Billed Time: 30 Billed Treatment Time S/L Abelardo Johnson Speech Therapy Nov 17, 2022 09:53
--- NOTE | 2022-11-17 10:05 | Cardiology Progress Note ---
Subjective Date Seen by Provider: Nov 17, 2022 Time Seen by Provider: 08:20 Subjective/Events-last exam Patient is sitting up in chair, no new complaints, denies any chest pain or dyspnea. Objective-Cardiology Exam Last Set of Vital Signs Vital Signs 11/17/22 11/17/22 08:13 08:50 Temp 36.2 Pulse 99 Resp 16 B/P (MAP) 130/79 (96) Pulse Ox 95 O2 Delivery Room Air I&O Intake and Output 11/17/22 00:00 Intake Total 600 ml Balance 600 ml Intake Oral 600 ml Bladder Scan Volume Amount 5 ml # Voids 3 # Bowel Movements 1 Daily Weight Change No General: Alert, Oriented X3, Cooperative HEENT: Atraumatic, PERRLA Lungs: Clear to Auscultation, Normal Air Movement Heart: Other (irregulary irregular) Abdomen: Normal Bowel Sounds, Soft Extremities: No Edema Skin: No Rashes, No Significant Lesion Neuro: Cranial Nerves 3-12 NL Psych/Mental Status: Mental Status NL, Mood NL Results Lab Laboratory Tests 11/17/22 04:54 A/P-Cardiology Admission Diagnosis PAF HTN ETOH use Diverticulitis Assessment/Plan Paroxysmal atrial fibrillation Currently heart rate is better controlled, still in atrial fibrillation Maintained on Cardizem CD 180 twice daily, Toprol XL 50mg Confusion, agitation, improved. 2D echo was done on November 11, 2022 with normal left ventricular size, ejection fraction 60 to 65%. Moderately dilated left atrium, calcified mitral valve, PA pressure 40 to 45 mmHg. ETOH use, alcohol withdrawal Acute diverticulitis, abdominal pain, improved Managed by medical team Hypertension, blood pressure is better controlled Tolerating Cardizem and metoprolol. Obesity, BMI 30. Generalized weakness, Continue with PT/OT Supervisory-Addendum Brief Supervisory Addendum Participated in pt care: history, MDM, physical Personally performed: exam, history, MDM Care discussed with: ANTONIETA Results interpretation: Verified all documentation Notes: Patient came for followup visit today, has been feeling well. Denied any chest pain or shortness of breath, no palpitation, no other complaint was reported. Patient has been compliant with medications. Patient was seen at bedside laying down comfortably, feeling better. Transferred to acute rehab Receiving therapy Monitor blood pressure GABRIELE CASTELLON Nov 17, 2022 10:05 GASPER OLVERA MD Nov 17, 2022 12:02
[2022-11-17] MEDS ORDERED: PATIENT MAY USE OWN MED,SINGLE MED PO SCH (10:45)
[2022-11-17] MEDS: [UNRECOGNIZED DRUG - REMARK] PO SCH ×2 (11:23→20:30)
[2022-11-17 20:38] VITALS: BP 126/78
[2022-11-17] MEDS ORDERED: GABAPENTIN 100 MG (NEURONTIN) CAP PO SCH (21:00)
[2022-11-18] MEDS: MULTIVIT W/MINERALS TAB (THERAGRAN M) PO SCH (06:17)
[2022-11-18] MEDS: THIAMINE 100 MG (VITAMIN B-1) TAB PO SCH (06:17)
[2022-11-18] MEDS: CATHETER FLUSH 10 ML SYR IVP SCH ×3 (06:17→20:04)
[2022-11-18] MEDS: inSUlin ASPART (NovoLOG) 1 UNIT/0.01 ML (CHARGE PER UNIT) SC SCH ×4 (06:21→20:12)
[2022-11-18 07:26] VITALS: BP 112/64
--- NOTE | 2022-11-18 08:09 | PM&R Progress Note ---
Subjective HPI/CC On Admission Date Seen by Provider: Nov 18, 2022 Time Seen by Provider: 12:00 Subjective/Events-last exam 11/18/2022: Patient doing a lot better Encephalopathy is clearing Gabapentin requested to have higher dose 11/17/2022: Patient doing really well Improving Very weak No falls Confusion is clearing Review of Systems General: Fatigue, Malaise Musculoskeletal: foot pain Neurological: Confusion Objective Exam Vital Signs Vital Signs Date Time Temp Pulse Resp B/P (MAP) Pulse Ox O2 Delivery O2 Flow Rate FiO2 11/18/22 20:15 Room Air 11/18/22 19:38 36.1 78 18 119/68 (85) 99 Capillary Refill : General Appearance: No Apparent Distress, WD/WN, Chronically ill, Obese HEENT: PERRL/EOMI, Normal ENT Inspection, Pharynx Normal Neck: Full Range of Motion, Normal Inspection, Non Tender, Supple, Carotid Bruit Respiratory: Chest Non Tender, Lungs Clear, Normal Breath Sounds, No Accessory Muscle Use, No Respiratory Distress Cardiovascular: No Edema, No Gallop, No JVD, No Murmur, Normal Peripheral Pulses, Irregularly Irregular Gastrointestinal: Normal Bowel Sounds, No Organomegaly, No Pulsatile Mass, Non Tender, Soft Back: Normal Inspection, No CVA Tenderness, No Vertebral Tenderness Extremity: Normal Capillary Refill, Normal Inspection, Normal Range of Motion, Non Tender, No Calf Tenderness, No Pedal Edema Neurologic/Psychiatric: Alert, Normal Mood/Affect, passenger rate clerk II-XII Norm as Tested, Abnormal Gait, Depressed Affect, Disoriented, Motor Weakness (Generalized) Skin: Normal Color, Warm/Dry Lymphatic: No Adenopathy Results/Procedures Lab Patient resulted labs reviewed. FIM Transfers Therapy Code Descriptions/Definitions Functional [place] Measure: 0=Not Assessed/NA 4=Minimal Assistance 1=Total Assistance 5=Supervision or Setup 2=Maximal Assistance 6=Modified [place] 3=Moderate Assistance 7=Complete IndependenceSCALE: Activities may be completed with or without assistive devices. 4-Fvxjbeqpuy-gpyxbrd completes the activity by him/herself with no assistance from a helper. 5-Set-up or Clean-up Assistance-helper sets up or cleans up; patient completes activity. [place] assists only prior to or following the activity. 4-Supervision or Touching Assistance-helper provides verbal cues and/or touching/steadying and/or contact guard assistance as patient completes activity. Assistance may be provided throughout the activity or intermittently. 3-Partial/Moderate Assistance-helper does LESS THAN HALF the effort. [place] lifts, holds or supports trunk or limbs, but provides less than half the effort. 2-Substantial/Maximal Assistance-helper does MORE THAN HALF the effort. [place] lifts or holds trunk or limbs and provides more than half the effort. 6-Rugqpbljs-ftuiba does ALL the effort. Patient does none of the effort to complete the activity. Or, the assistance of 2 or more helpers is required for the patient to complete the activity. If activity was not attempted, code reason: 7-Patient Refused. 9-Not Applicable-not attempted and the patient did not perform the activity before the current illness, exacerbation or injury. 10-Not Attempted due to Environmental Limitations-(lack of equipment, weather restraints, etc.). 88-Not Attempted due to Medical Conditions or Safety Concerns. Roll Left to Right (QC): 4 (SBA) Sit to Lying (QC): 4 (SBA) Sit to Stand (QC): 4 (SBA/CGA) Chair/Vkb-nm-Qqojh Xfer(QC): 4 (SBA/CGA) Car Transfer (QC): 4 (SBA/CGA) Gait Training Does the Patient Walk?: Yes Walk 10 feet (QC): 4 (CGA) Walk 50 ft with 2 Turns(QC): 4 (CGA) Walk 150 ft (QC): 4 (CGA) Walking 10ft/uneven surface-QC: 4 (CGA) Gait Assistive Device: FWW Wheelchair Training Does the Pt Use a Wheelchair?: No Wheel 50 ft with 2 turns (QC): 9 Wheel 150 ft (QC): 9 Type of Wheelchair: N/A Stair Training #of Steps: 12 1 Step (curb) (QC): 4 (CGA) 4 Steps (QC): 4 (CGA) 12 Steps (QC): 4 (CGA) Balance Picking up an Object (QC): 4 (SBA) ADL-Treatment Eating (QC): 6 Oral Hygiene (QC): 4 (CGA standing at sink for steadying assistance.) Shower/Bathe Self (QC): 4 (CGA in stand. Pt able to wash/dry all parts with min VCs for safety.) Upper Body Dressing (QC): 5 Lower Body Dressing (QC): 3 (Min A threading LLE into brief.) On/Off Footwear (QC): 4 Toileting Hygiene (QC): 4 (CGA in stand for pant hike.) Assessment/Plan Assessment and Plan Assess & Plan/Chief Complaint Assessment: Acute encephalopathy due to alcohol withdrawal Atrial fibrillation with recent RVR Obesity Diabetes Hypertension Hyperlipidemia Lower extremity neuropathy Plan: Aggressive rehab PT and OT Home meds Oral anticoagulation 11/17/2022: Supportive care Gabapentin tonight for neuropathy 11/18/2022: Increased dose of gabapentin (1) Encephalopathy JONE IVEY DO Nov 18, 2022 08:09
[2022-11-18] MEDS: PANTOPRAZOLE 40 MG (PROTONIX) TAB PO SCH (08:12)
[2022-11-18] MEDS: LOSARTAN 25 MG (COZAAR) TAB PO SCH (08:12)
[2022-11-18] MEDS: APIXABAN 5 MG (ELIQUIS) TABLET PO SCH ×2 (08:12→20:02)
[2022-11-18] MEDS: meTOproloL SUCCINATE 50 MG (TOPROL XL) TAB PO SCH (08:12)
[2022-11-18] MEDS: FOLIC ACID 1 MG TAB PO SCH (08:12)
[2022-11-18] MEDS: FUROSEMIDE 20 MG (LASIX) TAB PO SCH ×2 (08:12→17:03)
[2022-11-18] MEDS: AtorvaSTATin TABLET 10 MG TABLET PO SCH (08:12)
[2022-11-18] MEDS: [UNRECOGNIZED DRUG - REMARK] PO SCH ×2 (08:14→20:03)
[2022-11-18] MEDS: polyethylene glycoL POWDER 17 GM (MIRALAX) PACK PO SCH ×2 (08:15→19:19)
[2022-11-18] MEDS: DOCUSATE SODIUM 100 MG (COLACE) CAP PO SCH ×2 (08:15→19:19)
[2022-11-18] MEDS: SENNA W/DOCUSATE (SENOKOT S) TABLET PO SCH ×2 (08:16→19:19)
--- NOTE | 2022-11-18 08:41 | Cardiology Progress Note ---
Subjective Date Seen by Provider: Nov 18, 2022 Time Seen by Provider: 08:41 Subjective/Events-last exam Patient was seen at bedside, laying down comfortably. No new complaint Objective-Cardiology Exam Last Set of Vital Signs Vital Signs 11/18/22 07:26 Temp 35.6 Pulse 61 Resp 16 B/P (MAP) 112/64 (80) Pulse Ox 94 O2 Delivery Room Air I&O Intake and Output 11/18/22 00:00 Intake Total 922 ml Balance 922 ml Intake Oral 922 ml # Voids 8 # Bowel Movements 3 General: Alert, Oriented X3, Cooperative HEENT: Atraumatic, PERRLA Lungs: Clear to Auscultation, Normal Air Movement Heart: Other (irregulary irregular) Abdomen: Normal Bowel Sounds, Soft Extremities: No Edema Skin: No Rashes, No Significant Lesion Neuro: Cranial Nerves 3-12 NL Psych/Mental Status: Mental Status NL, Mood NL A/P-Cardiology Admission Diagnosis PAF HTN ETOH use Diverticulitis Assessment/Plan Paroxysmal atrial fibrillation Currently heart rate is better controlled, still in atrial fibrillation Maintained on Cardizem CD 180 twice daily, Toprol XL 50mg Confusion, agitation, improved. 2D echo was done on November 11, 2022 with normal left ventricular size, ejection fraction 60 to 65%. Moderately dilated left atrium, calcified mitral valve, PA pressure 40 to 45 mmHg. ETOH use, alcohol withdrawal Acute diverticulitis, abdominal pain, improved Managed by medical team Hypertension, blood pressure is better controlled Tolerating Cardizem and metoprolol. Obesity, BMI 30. Generalized weakness, Continue with PT/OT Dr. Goodman is covering starting November 19, 2022 GASPER OLVERA MD Nov 18, 2022 08:41
--- NOTE | 2022-11-18 09:00 | Speech Therapy Daily Note ---
Speech Daily Progress Note Subjective Date Seen by Provider: Nov 18, 2022 Time Seen by Provider: 08:14 Pt reclined in bed when PRESS OPERATOR MEAT enters room. Nursing at bedside administering medications at this time. Pt is alert and agrees to start speech therapy earlier than original scheduled time. Pt is pleasant and cooperative throughout session. Pain Numeric Pain Scale: 6 Location: Right, Left Location Body Site: Foot Comment: neuropathy Objective Pt completes level 1 executive functioning with bill management (answering basic questions about the bills) with 90% accuracy independently. Pt completes a deductive reasoning puzzle with 100% accuracy with min verbal cues. Pt does well with immediately identifying concrete clues. When the clues become more abstract, he demonstrates slight difficulty in being able to reason through those clues to help fill in the puzzle. Pt completes generative naming task. The first task, the pt was given a category and a letter. He did well with this task, there were a few targets where he did require extra time to respond. Then we completed generative naming with processing speed. Pt was able to quickly name 5-10 items in the given category, however when asked for an addition 3-5 items in a category, pt took significantly longer to name those items. Assessment Assessment Current Status: Good Progress Treatment Plan Continue Plan of Care Speech Short Term Goals Short Term Goals Short Term Goals Pt will recall 3 words following a short delay of at least a minute in 4/5 opportunities. Pt will be taught memory strategies. Pt will complete medication management task with 100% accuracy independently. Speech Usp Goals Usp Goals Pt will complete higher level executive functioning tasks to improve overall safety and awareness with 80% accuracy with min verbal cues. Pt will complete memory and mental manipulation tasks with 80% accuracy with min verbal cues. Speech-Plan Patient/Family Goals Patient/Family Goals: Pt's goal is to return home in [place]. Treatment Plan Speech Therapy Treatment Plan: Continue Plan of Care Treatment Duration: Nov 16, 2022 Frequency: Modified Program (IRF) Estimated Hrs Per Day: Other Rehab Potential: Good Pt/Family Agrees to Plan: Yes Safety Risks/Education Teaching Recipient: Patient Teaching Methods: Discussion Response to Teaching: Verbalize Understanding Education Topics Provided: Pt educated on purpose of therapy tasks. Pt receptive and verbalized understanding. Time Speech Therapy Time In: 08:14 Speech Therapy Time Out: 08:48 DATE: Nov 18, 2022 Total Billed Time: 34 Billed Treatment Time S/L [place] Kim,Glendolyn Speech Therapy Nov 18, 2022 09:00
--- NOTE | 2022-11-18 09:52 | Occupational Ther Daily Note ---
OT Current Status-Daily Note Subjective Pt in bed, agreeable to OT Tx. Pt states he didn't sleep well last night ADL-Treatment Therapy Code Descriptions/Definitions Functional [place] Measure: 0=Not Assessed/NA 4=Minimal Assistance 1=Total Assistance 5=Supervision or Setup 2=Maximal Assistance 6=Modified [place] 3=Moderate Assistance 7=Complete IndependenceSCALE: Activities may be completed with or without assistive devices. 6-Teaisvjtgl-ewjhcjp completes the activity by him/herself with no assistance from a helper. 5-Set-up or Clean-up Assistance-helper sets up or cleans up; patient completes activity. [place] assists only prior to or following the activity. 4-Supervision or Touching Assistance-helper provides verbal cues and/or touching/steadying and/or contact guard assistance as patient completes activity. Assistance may be provided throughout the activity or intermittently. 3-Partial/Moderate Assistance-helper does LESS THAN HALF the effort. [place] lifts, holds or supports trunk or limbs, but provides less than half the effort. 2-Substantial/Maximal Assistance-helper does MORE THAN HALF the effort. [place] lifts or holds trunk or limbs and provides more than half the effort. 7-Uhibecnsk-ubhpnq does ALL the effort. Patient does none of the effort to complete the activity. Or, the assistance of 2 or more helpers is required for the patient to complete the activity. If activity was not attempted, code reason: 7-Patient Refused. 9-Not Applicable-not attempted and the patient did not perform the activity before the current illness, exacerbation or injury. 10-Not Attempted due to Environmental Limitations-(lack of equipment, weather restraints, etc.). 88-Not Attempted due to Medical Conditions or Safety Concerns. Oral Hygiene (QC): 4 (Supervision) Shower/Bathe Self (QC): 4 (Supervision) Upper Body Dressing (QC): 4 (Supervision in standing) Lower Body Dressing (QC): 4 (SBA) On/Off Footwear: 4 (SBA, 1 VC to complete seated.) Other Treatment Pt in bed, transferred supine to sit EOB, SBA. SBA sit to stand and transfer into bathroom onto OH using FWW. Pt doffed clothes, SBA in standing. Pt complet ed shower with supervision, then donned clothes. Pt educated on safety of threading pants seated, pt verbalized understanding but disregarded OT's recommendation. Pt able to thread underwear in standing with close SBA and safety concerns. Pt stood at sink for grooming tasks, supervision, then used FWW to perform functional mobility to therapy gym, SBA. In order to increase BUE strength and activity tolerance, pt completed arm bike x15 mins, 20 Watt resistance, 1 rest break. Pt returned to his room, SBA using FWW, transferring to EOB and supine. Post tx, pt in bed, call light in reach and all needs met. SBA with transfers and mobility throughout tx, pt often attempts to leave walker off to the side requiring VCs to keep walker with him throughout all mobilit y/transfers. Education OT Patient Education: Correct positioning, Energy conservation, Modified ADL techniques, Progress toward Goal/Update tx plan, Purpose of tx/functional activities, Rehab process, Safety issues, Transfer techniques Teaching Recipient: Patient Teaching Methods: Discussion Response to Teaching: Verbalize Understanding OT Short Term Goals Short Term Goals Time Frame: Nov 24, 2022 Shower/bathe self: 5 Upper body dressin Lower body dressin Putting on/taking off footwear: 5 OT Usp Goals Shuttler Goals Time Frame: Dec 03, 2022 Acute change in mental status: 1 Inattention: 0 Disorganized thinkin Altered level of consciousness: 0 Eating (QC): 6 Oral Hygiene (QC): 6 Toileting Hygiene (QC): 6 Shower/Bathe Self (QC): 6 Upper Body Dressing (QC): 6 Lower Body Dressing (QC): 6 On/Off Footwear (QC): 6 Additional Goals: 1-Demonstrate ADL Tasks, 2-Verbalize Understanding, 3- ImproveStrength/[place] 1=Demonstrate adherence to instructed precautions during ADL tasks. 2=Patient will verbalize/demonstrate understanding of assistive devices/modifications for ADL. 3=Patient will improve strength/tolerance for activity to enable patient to perform ADL's. OT Education/Plan Problem List/Assessment Assessment: Decreased Activ Tolerance, Decreased Safety Aware, Decreased UE Strength, Impaired Funct Balance, Impaired I ADL's, Impaired Self-Care Skills Discharge Recommendations Plan/Recommendations: Continue POC Treatment Plan/Plan of Care Patient would benefit from OT for education, treatment and training to promote independence in ADL's, mobility, safety and/or upper extremity function for ADL's. Plan of Care: ADL Retraining, Functional Mobility, Group Exercise/Act as Ind, UE Funct Exercise/Act Treatment Duration: Dec 03, 2022 Frequency: At least 5 of 7 days/Wk (IRF) Estimated Hrs Per Day: 1.5 hours per day Agreement: Yes Rehab Potential: Good Time Start Time: 08:55 Stop Time: 10:10 DATE: Nov 18, 2022 Total Time Billed (hr/min): 75 Billed Treatment Time 1, ADL 4 (60'), EX (15') CANELO CORRIGAN OT Nov 18, 2022 09:52
--- NOTE | 2022-11-18 14:22 | Physical Therapy Daily Note ---
PT Daily Note-Current Subjective Pt sitting up in bed upon arrival. Pt agrees to PT. Pain Numeric Pain Scale: 6 Location: Right, Left, Dorsal Location Body Site: Foot Pain Description: Ache, Tingling Comment: Reports Neuropathy in B feet Section J - Health Conditions 1. Rarely or not at all 2. Occasionally 3. Frequently 4. Almost constantly 8. Unable to answer Pain Effect on Sleep: 2 Pain Interference with Therapy: 2 Pain Interference w/Day-to-Day: 2 Mental Status Patient Orientation: Person, Place, Time, Situation Transfers SCALE: Activities may be completed with or without assistive devices. 7-Nxsvuweafa-pijlqcw completes the activity by him/herself with no assistance from a helper. 5-Set-up or Clean-up Assistance-helper sets up or cleans up; patient completes activity. [place] assists only prior to or following the activity. 4-Supervision or Touching Assistance-helper provides verbal cues and/or touching/steadying and/or contact guard assistance as patient completes activity. Assistance may be provided throughout the activity or intermittently. 3-Partial/Moderate Assistance-helper does LESS THAN HALF the effort. [place] lifts, holds or supports trunk or limbs, but provides less than half the effort. 2-Substantial/Maximal Assistance-helper does MORE THAN HALF the effort. [place] lifts or holds trunk or limbs and provides more than half the effort. 0-Omivvuosx-wiklsl does ALL the effort. Patient does none of the effort to complete the activity. Or, the assistance of 2 or more helpers is required for the patient to complete the activity. If activity was not attempted, code reason: 7-Patient Refused. 9-Not Applicable-not attempted and the patient did not perform the activity before the current illness, exacerbation or injury. 10-Not Attempted due to Environmental Limitations-(lack of equipment, weather restraints, etc.). 88-Not Attempted due to Medical Conditions or Safety Concerns. Sit to Stand (QC): 5 Toilet Transfer (QC): 5 Weight Bearing Right Lower Extremity: Right Full Weight Bearing Left Lower Extremity: Left Full Weight Bearing Gait Training Does the Patient Walk?: Yes Distance: 700' Walk 10 feet (QC): 5 Walk 50 ft with 2 Turns(QC): 5 Walk 150 ft (QC): 5 Gait Assistive Device: FWW Exercises Supine Ex: Ankle pumps, Quad Set, Heel Slides, Short Arc Quads, Straight leg raise, Hip abd/add Supine Reps: 10 Standing: Hip Abduction, Hamstring curls, Heel/toe raises, 3 way Ex=Flex, Abd, Ext (10), Marching, Mini squats Standing Reps: 15 NuStep Minutes: 15 NuStep Workload: 3 Treatments Pt completes Supine EX then TF to standing and amb. to Therapy Gym. Pt uses NuStep for 15m at WL 3 before short RB. Pt completes Standing EX at //bars w/one RB before amb. ext. distance in hallway then returns to rest and eat lunch. All needs met, call light in hand. Assessment Current Status: Good Progress Pt ara. tx. well. PT Shelter Goals Shelter Goals PT Shelter Goals Time Frame: Nov 26, 2022 Roll Left & Right (QC): 6 (Pt will be Mod I with all aspects of functional mobility to be at PLOF. ) Sit to Lying (QC): 6 (Pt will be Mod I with all aspects of functional mobility to be at PLOF. ) Lying-Sitting on Side/Bed(QC): 6 (Pt will be Mod I with all aspects of fun ctional mobility to be at PLOF. ) Sit to Stand (QC): 6 (Pt will be Mod I with all aspects of functional mobility to be at PLOF. ) Chair/Jfk-ab-Fkvnj Xfer(QC): 6 (Pt will be Mod I with all aspects of functional mobility to be at PLOF. ) Toilet Transfer (QC): 6 (Pt will be Mod I with all aspects of functional mobility to be at PLOF. ) Car Transfer (QC): 6 (Pt will be Mod I with all aspects of functional mobility to be at PLOF. ) Does the Patient Walk: Yes Walk 10 feet (QC): 6 (Pt will be Mod I with ambulation, with the least restrictive AD. ) Walk 50ft with 2 Turns (QC): 6 (Pt will be Mod I with ambulation, with the least restrictive AD. ) Walk 150 ft (QC): 6 (Pt will be Mod I with ambulation, with the least rest rictive AD. ) Walking 10ft on Uneven Surface: 6 (Pt will be Mod I with ambulation, with the least restrictive AD. ) 1 Step (curb) (QC): 6 (Pt will be Mod I with steps to safely enter/exit the home. ) 4 Steps (QC): 6 (Pt will be Mod I with steps to safely enter/exit the home. ) 12 Steps (QC): 6 (Pt will be Mod I with steps to safely enter/exit the home. ) Picking up an Object (QC): 6 (Pt will be Mod I with all aspects of functional mobility to be at PLOF. ) Does the Pt use WC or Scooter?: No Wheel 50 feet with 2 turns (QC: 9 Type: N/A Wheel 150 feet: 9 Type: N/A PT Plan Problem List Problem List: Safety Treatment/Plan Treatment Plan: Continue Plan of Care Treatment Plan: Bed Mobility, Concurrent Therapy, Education, Functional Activity [place], Functional Strength, Group Therapy, Gait, Safety, Therapeutic Exercise, Transfers Treatment Duration: Nov 26, 2022 Frequency: At least 5 of 7 days/Wk (IRF) Estimated Hrs Per Day: 1.5 hours per day Patient and/or Family Agrees t: Yes Safety Risks/Education Patient Education: Safety Issues Teaching Recipient: Patient Teaching Methods: Discussion Response to Teaching: Verbalize Understanding Time Time In: 1140 Time Out: 1230 DATE: Nov 18, 2022 Total Billed Treatment Time: 50 Total Billed Treatment 1, EX x2 (30m) & GT (20m) LULI MILES DYE TANK TENDER Nov 18, 2022 14:22
--- NOTE | 2022-11-18 14:57 | Physical Therapy Daily Note ---
PT Daily Note-Current Subjective Pt sitting up in bed upon arrival. Pt reports not feeling well this afternoon with nausea. Pt agrees to limited tx after Nurse gives nausea med. Pain Numeric Pain Scale: 5-Moderate Pain Location: Right, Left, Dorsal Location Body Site: Foot Pain Description: Ache, Tingling Comment: Neuropathy reported Section J - Health Conditions 1. Rarely or not at all 2. Occasionally 3. Frequently 4. Almost constantly 8. Unable to answer Pain Effect on Sleep: 2 Pain Interference with Therapy: 2 Pain Interference w/Day-to-Day: 2 Mental Status Patient Orientation: Person, Place, Situation Transfers SCALE: Activities may be completed with or without assistive devices. 5-Gapnqmcuei-zliagxi completes the activity by him/herself with no assistance from a helper. 5-Set-up or Clean-up Assistance-helper sets up or cleans up; patient completes activity. [place] assists only prior to or following the activity. 4-Supervision or Touching Assistance-helper provides verbal cues and/or touching/steadying and/or contact guard assistance as patient completes activity. Assistance may be provided throughout the activity or intermittently. 3-Partial/Moderate Assistance-helper does LESS THAN HALF the effort. [place] lifts, holds or supports trunk or limbs, but provides less than half the effort. 2-Substantial/Maximal Assistance-helper does MORE THAN HALF the effort. [place] lifts or holds trunk or limbs and provides more than half the effort. 3-Kblqvdlmh-vgjikn does ALL the effort. Patient does none of the effort to complete the activity. Or, the assistance of 2 or more helpers is required for the patient to complete the activity. If activity was not attempted, code reason: 7-Patient Refused. 9-Not Applicable-not attempted and the patient did not perform the activity before the current illness, exacerbation or injury. 10-Not Attempted due to Environmental Limitations-(lack of equipment, weather restraints, etc.). 88-Not Attempted due to Medical Conditions or Safety Concerns. Weight Bearing Right Lower Extremity: Right Full Weight Bearing Left Lower Extremity: Left Full Weight Bearing Wheelchair Training Does the Pt Use a Wheelchair?: No Exercises Supine Ex: Ankle pumps, Quad Set, Heel Slides, Hip abd/add Supine Reps: 15 Treatments Limited Supine Ex in bed w/pt educ. over progression to less restrictive AD as well as what pt can do to help progress tx. Pt resting at end of tx w/all needs met, call light in hand. Assessment Current Status: Fair Progress Nausea limits tx this afternoon. PT Detention Goals Detention Goals PT Detention Goals Time Frame: Nov 26, 2022 Roll Left & Right (QC): 6 (Pt will be Mod I with all aspects of functional mobility to be at PLOF. ) Sit to Lying (QC): 6 (Pt will be Mod I with all aspects of functional mobility to be at PLOF. ) Lying-Sitting on Side/Bed(QC): 6 (Pt will be Mod I with all aspects of functional mobility to be at PLOF. ) Sit to Stand (QC): 6 (Pt will be Mod I with all aspects of functional mobility to be at PLOF. ) Chair/Snm-iy-Lymfi Xfer(QC): 6 (Pt will be Mod I with all aspects of functional mobility to be at PLOF. ) Toilet Transfer (QC): 6 (Pt will be Mod I with all aspects of functional mobility to be at PLOF. ) Car Transfer (QC): 6 (Pt will be Mod I with all aspects of functional mobility to be at PLOF. ) Does the Patient Walk: Yes Walk 10 feet (QC): 6 (Pt will be Mod I with ambulation, with the least restrictive AD. ) Walk 50ft with 2 Turns (QC): 6 (Pt will be Mod I with ambulation, with the least restrictive AD. ) Walk 150 ft (QC): 6 (Pt will be Mod I with ambulation, with the least restrictive AD. ) Walking 10ft on Uneven Surface: 6 (Pt will be Mod I with ambulation, with the least restrictive AD. ) 1 Step (curb) (QC): 6 (Pt will be Mod I with steps to safely enter/exit the home. ) 4 Steps (QC): 6 (Pt will be Mod I with steps to safely enter/exit the home. ) 12 Steps (QC): 6 (Pt will be Mod I with steps to safely enter/exit the home. ) Picking up an Object (QC): 6 (Pt will be Mod I with all aspects of functional mobility to be at PLOF. ) Does the Pt use WC or Scooter?: No Wheel 50 feet with 2 turns (QC: 9 Type: N/A Wheel 150 feet: 9 Type: N/A PT Plan Treatment/Plan Treatment Plan: Continue Plan of Care Treatment Plan: Bed Mobility, Concurrent Therapy, Education, Functional Activity [place], Functional Strength, Group Therapy, Gait, Safety, Therapeutic Exercise, Transfers Treatment Duration: Nov 26, 2022 Frequency: At least 5 of 7 days/Wk (IRF) Estimated Hrs Per Day: 1.5 hours per day Patient and/or Family Agrees t: Yes Time Time In: 1425 Time Out: 1450 DATE: Nov 18, 2022 Total Billed Treatment Time: 25 Total Billed Treatment 1, FA x2 (25m) LULI MILES TERMINAL PRESS OPERATOR Nov 18, 2022 14:57
[2022-11-18] MEDS ORDERED: DILT300C38 PO (15:17)
[2022-11-18 19:38] VITALS: BP 119/68
[2022-11-18] MEDS: GABAPENTIN 300 MG (NEURONTIN) CAP PO SCH (20:02)
[2022-11-18] MEDS ORDERED: GABAPENTIN 100 MG (NEURONTIN) CAP PO SCH (21:00)
[2022-11-18] MEDS: MELATONIN 3 MG TABLET PO PRN (23:10)
[2022-11-19] MEDS: inSUlin ASPART (NovoLOG) 1 UNIT/0.01 ML (CHARGE PER UNIT) SC SCH ×4 (06:03→21:16)
[2022-11-19] MEDS: MULTIVIT W/MINERALS TAB (THERAGRAN M) PO SCH (06:04)
[2022-11-19] MEDS: FUROSEMIDE 20 MG (LASIX) TAB PO SCH ×2 (06:04→16:42)
[2022-11-19] MEDS: THIAMINE 100 MG (VITAMIN B-1) TAB PO SCH (06:04)
[2022-11-19] MEDS: CATHETER FLUSH 10 ML SYR IVP SCH ×3 (06:04→21:16)
[2022-11-19 07:15] VITALS: BP 117/74
[2022-11-19] MEDS: APIXABAN 5 MG (ELIQUIS) TABLET PO SCH ×2 (08:19→21:15)
[2022-11-19] MEDS: LOSARTAN 25 MG (COZAAR) TAB PO SCH (08:19)
[2022-11-19] MEDS: PANTOPRAZOLE 40 MG (PROTONIX) TAB PO SCH (08:19)
[2022-11-19] MEDS: FOLIC ACID 1 MG TAB PO SCH (08:19)
[2022-11-19] MEDS: DOCUSATE SODIUM 100 MG (COLACE) CAP PO SCH ×2 (08:19→21:15)
[2022-11-19] MEDS: meTOproloL SUCCINATE 50 MG (TOPROL XL) TAB PO SCH (08:19)
[2022-11-19] MEDS: AtorvaSTATin TABLET 10 MG TABLET PO SCH (08:19)
[2022-11-19] MEDS: [UNRECOGNIZED DRUG - REMARK] PO SCH ×2 (08:20→21:14)
[2022-11-19] MEDS: SENNA W/DOCUSATE (SENOKOT S) TABLET PO SCH ×2 (08:22→21:16)
[2022-11-19] MEDS: polyethylene glycoL POWDER 17 GM (MIRALAX) PACK PO SCH ×2 (08:22→21:15)
--- NOTE | 2022-11-19 09:10 | Speech Therapy Daily Note ---
Speech Daily Progress Note Subjective Date Seen by Provider: Nov 19, 2022 Time Seen by Provider: 08:22 Pt reclined in bed when DETHISTLER OPERATOR arrives. Nurse at bedside. Pt states he got about 6 hours of sleep last night. Pt pleasant and cooperative throughout the session. Pain Numeric Pain Scale: 5-Moderate Pain Location: Right, Left Location Body Site: Foot Comment: neuropathy pain Objective Pt taught a game this date. Pt is able to recall directions and set up to game following a short delay with 100% accuracy independently. Game requires processing speed, pt's processing speed improves as more rounds of the game are played. There are a few times when pt says he is unable to play a card - after a verbal prompt, pt is able to identify that he does have a move he can make in the game. Pt is also able to recall sports news that he has learned from watching [employer] in conversation. Assessment Assessment Current Status: Good Progress Treatment Plan Continue Plan of Care Speech Short Term Goals Short Term Goals Short Term Goals Pt will recall 3 words following a short delay of at least a minute in 4/5 opportunities. Pt will be taught memory strategies. Pt will complete medication management task with 100% accuracy independently. Speech Docket Clerk Goals Docket Clerk Goals Pt will complete higher level executive functioning tasks to improve overall safety and awareness with 80% accuracy with min verbal cues. Pt will complete memory and mental manipulation tasks with 80% accuracy with min verbal cues. Speech-Plan Patient/Family Goals Patient/Family Goals: Pt and family's goal is for pt to d/c home. Treatment Plan Speech Therapy Treatment Plan: Continue Plan of Care Treatment Duration: Nov 16, 2022 Frequency: Modified Program (IRF) Estimated Hrs Per Day: Other Rehab Potential: Good Safety Risks/Education Teaching Recipient: Patient Teaching Methods: Discussion Response to Teaching: Verbalize Understanding Education Topics Provided: Pt educated on purpose of therapy tasks. Pt receptive and verbalize understanding. Time Speech Therapy Time In: 08:22 Speech Therapy Time Out: 08:57 DATE: Nov 19, 2022 Total Billed Time: 35 Billed Treatment Time S/L Abelardo Johnson Speech Therapy Nov 19, 2022 09:09
--- NOTE | 2022-11-19 10:55 | Occupational Ther Daily Note ---
OT Current Status-Daily Note Subjective Pt was located in therapy gym with PT. OT took over therapy services. ADL-Treatment Pt completed arm bike exercise to increase strength for daily function 15 mins at 22 teran resistance. Pt took 1 recovery break. Pt also completed BUE exercises using 3 # wts, 15 reps 2 sets. To address functional standing balance, endurance, and work on crossing midline, UE reaching, pt stood and tossed beanbags approximately, 3 ft away 2 times alternating R and L arms. Also addressed fine motor, coordination, and dexterity while completing a nuts and bolts functional activity.Pt took a recovery break and then ambulated with FWW SBA back to room. Pt sat in chair, and completed HEP program with red theraband 15 reps of each exercise, 2 sets, requiring skilled instruction, and verbal cues for correct technique during those exercises. Following treatment pt was left in chair in room, all needs met and call light and phone were within reach. Therapy Code Descriptions/Definitions Functional [place] Measure: 0=Not Assessed/NA 4=Minimal Assistance 1=Total Assistance 5=Supervision or Setup 2=Maximal Assistance 6=Modified [place] 3=Moderate Assistance 7=Complete IndependenceSCALE: Activities may be completed with or without assistive devices. 0-Liifdmslec-ttrfxlb completes the activity by him/herself with no assistance from a helper. 5-Set-up or Clean-up Assistance-helper sets up or cleans up; patient completes activity. [place] assists only prior to or following the activity. 4-Supervision or Touching Assistance-helper provides verbal cues and/or touching/steadying and/or contact guard assistance as patient completes activity. Assistance may be provided throughout the activity or intermittently. 3-Partial/Moderate Assistance-helper does LESS THAN HALF the effort. [place] lifts, holds or supports trunk or limbs, but provides less than half the effort. 2-Substantial/Maximal Assistance-helper does MORE THAN HALF the effort. [place] lifts or holds trunk or limbs and provides more than half the effort. 4-Sqliwercs-hviscb does ALL the effort. Patient does none of the effort to compl ete the activity. Or, the assistance of 2 or more helpers is required for the patient to complete the activity. If activity was not attempted, code reason: 7-Patient Refused. 9-Not Applicable-not attempted and the patient did not perform the activity before the current illness, exacerbation or injury. 10-Not Attempted due to Environmental Limitations-(lack of equipment, weather restraints, etc.). 88-Not Attempted due to Medical Conditions or Safety Concerns. Education Teaching Recipient: Patient Teaching Methods: Demonstration Response to Teaching: Verbalize Understanding, Return Demonstration OT Short Term Goals Short Term Goals Time Frame: Nov 24, 2022 Shower/bathe self: 5 Upper body dressin Lower body dressin Putting on/taking off footwear: 5 OT Miner Helper Goals Mcc Goals Time Frame: Dec 03, 2022 Acute change in mental status: 1 Inattention: 0 Disorganized thinkin Altered level of consciousness: 0 Eating (QC): 6 Oral Hygiene (QC): 6 Toileting Hygiene (QC): 6 Shower/Bathe Self (QC): 6 Upper Body Dressing (QC): 6 Lower Body Dressing (QC): 6 On/Off Footwear (QC): 6 Additional Goals: 1-Demonstrate ADL Tasks, 2-Verbalize Understanding, 3- ImproveStrength/[place] 1=Demonstrate adherence to instructed precautions during ADL tasks. 2=Patient will verbalize/demonstrate understanding of assistive devices/modifications for ADL. 3=Patient will improve strength/tolerance for activity to enable patient to perform ADL's. OT Education/Plan Discharge Recommendations Plan/Recommendations: Continue POC Treatment Plan/Plan of Care Patient would benefit from OT for education, treatment and training to promote independence in ADL's, mobility, safety and/or upper extremity function for ADL's. Plan of Care: ADL Retraining, Functional Mobility, Group Exercise/Act as Ind, UE Funct Exercise/Act Treatment Duration: Dec 03, 2022 Frequency: At least 5 of 7 days/Wk (IRF) Estimated Hrs Per Day: 1.5 hours per day Agreement: Yes Rehab Potential: Good Time Start Time: 10:45 Stop Time: 12:00 DATE: Nov 19, 2022 Total Time Billed (hr/min): 75 Billed Treatment Time 1 visit FA 2 EX 3 Eva Aguirre COTA Nov 19, 2022 10:55
--- NOTE | 2022-11-19 11:29 | PM&R Progress Note ---
Subjective HPI/CC On Admission Date Seen by Provider: Nov 19, 2022 Time Seen by Provider: 12:00 Subjective/Events-last exam 11/19/2022: Encephalopathy is cleared No falls Making major progress Much stronger 11/18/2022: Patient doing a lot better Encephalopathy is clearing Gabapentin requested to have higher dose 11/17/2022: Patient doing really well Improving Very weak No falls Confusion is clearing Review of Systems General: Fatigue, Malaise Objective Exam Vital Signs Vital Signs Date Time Temp Pulse Resp B/P (MAP) Pulse Ox O2 Delivery O2 Flow Rate FiO2 11/19/22 20:18 36.2 70 16 107/60 (76) 94 Room Air Capillary Refill : General Appearance: No Apparent Distress, WD/WN, Chronically ill, Obese HEENT: PERRL/EOMI, Normal ENT Inspection, Pharynx Normal Neck: Full Range of Motion, Normal Inspection, Non Tender, Supple, Carotid Bruit Respiratory: Chest Non Tender, Lungs Clear, Normal Breath Sounds, No Accessory Muscle Use, No Respiratory Distress Cardiovascular: No Edema, No Gallop, No JVD, No Murmur, Normal Peripheral Pulses, Irregularly Irregular Gastrointestinal: Normal Bowel Sounds, No Organomegaly, No Pulsatile Mass, Non Tender, Soft Back: Normal Inspection, No CVA Tenderness, No Vertebral Tenderness Extremity: Normal Capillary Refill, Normal Inspection, Normal Range of Motion, Non Tender, No Calf Tenderness, No Pedal Edema Neurologic/Psychiatric: Alert, Normal Mood/Affect, horser up II-XII Norm as Tested, Abnormal Gait, Depressed Affect, Disoriented, Motor Weakness (Generalized) Skin: Normal Color, Warm/Dry Lymphatic: No Adenopathy Results/Procedures Lab Patient resulted labs reviewed. FIM Transfers Therapy Code Descriptions/Definitions Functional [place] Measure: 0=Not Assessed/NA 4=Minimal Assistance 1=Total Assistance 5=Supervision or Setup 2=Maximal Assistance 6=Modified [place] 3=Moderate Assistance 7=Complete IndependenceSCALE: Activities may be completed with or without assistive devices. 2-Cjveogukdd-kabxomx completes the activity by him/herself with no assistance from a helper. 5-Set-up or Clean-up Assistance-helper sets up or cleans up; patient completes activity. [place] assists only prior to or following the activity. 4-Supervision or Touching Assistance-helper provides verbal cues and/or touching/steadying and/or contact guard assistance as patient completes activity. Assistance may be provided throughout the activity or intermittently. 3-Partial/Moderate Assistance-helper does LESS THAN HALF the effort. [place] lifts, holds or supports trunk or limbs, but provides less than half the effort. 2-Substantial/Maximal Assistance-helper does MORE THAN HALF the effort. [place] lifts or holds trunk or limbs and provides more than half the effort. 6-Qalvihajg-zgdxov does ALL the effort. Patient does none of the effort to complete the activity. Or, the assistance of 2 or more helpers is required for the patient to complete the activity. If activity was not attempted, code reason: 7-Patient Refused. 9-Not Applicable-not attempted and the patient did not perform the activity before the current illness, exacerbation or injury. 10-Not Attempted due to Environmental Limitations-(lack of equipment, weather restraints, etc.). 88-Not Attempted due to Medical Conditions or Safety Concerns. Roll Left to Right (QC): 4 (SBA) Sit to Lying (QC): 4 (SBA) Sit to Stand (QC): 5 Chair/Wfn-cw-Lagtk Xfer(QC): 4 (SBA/CGA) Car Transfer (QC): 4 (SBA/CGA) Gait Training Does the Patient Walk?: Yes Distance: 700' Walk 10 feet (QC): 5 Walk 50 ft with 2 Turns(QC): 5 Walk 150 ft (QC): 5 Walking 10ft/uneven surface-QC: 4 (CGA) Gait Assistive Device: FWW Wheelchair Training Does the Pt Use a Wheelchair?: No Wheel 50 ft with 2 turns (QC): 9 Wheel 150 ft (QC): 9 Type of Wheelchair: N/A Stair Training #of Steps: 12 1 Step (curb) (QC): 4 (CGA) 4 Steps (QC): 4 (CGA) 12 Steps (QC): 4 (CGA) Balance Picking up an Object (QC): 4 (SBA) ADL-Treatment Eating (QC): 6 Oral Hygiene (QC): 4 (Supervision) Shower/Bathe Self (QC): 4 (Supervision) Upper Body Dressing (QC): 4 (Supervision in standing) Lower Body Dressing (QC): 4 (SBA) On/Off Footwear (QC): 4 (SBA, 1 VC to complete seated.) Toileting Hygiene (QC): 4 (CGA in stand for pant hike.) Assessment/Plan Assessment and Plan Assess & Plan/Chief Complaint WarmAssessment: 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
--- NOTE | 2022-11-19 14:09 | Speech Therapy Daily Note ---
Speech Daily Progress Note Subjective Date Seen by Provider: Nov 19, 2022 Time Seen by Provider: 12:45 Pt sitting up at edge of bed when TENT WORKER enters room. Pt pleasant and cooperative throughout session. Objective Pt is able to recall setup and rules of card game played earlier in the day with 100% accuracy independently. Pt's speed of processing throughout the game is faster and pt does not require any verbal prompts for plays this time. Pt is able to tell therapist about the [place] Open that he as been watching on TV and is able to tell therapist about the formatting of the tournament. Overall, pt's cognitive functioning appears to be improving. Pt reports he thinks he is doing better with cognitive tasks. Assessment Assessment Current Status: Good Progress Treatment Plan Continue Plan of Care Reassess medication management Speech Short Term Goals Short Term Goals Short Term Goals Pt will recall 3 words following a short delay of at least a minute in 4/5 opportunities. Pt will be taught memory strategies. Pt will complete medication management task with 100% accuracy independently. Speech Long-Term Goals Long-Term Goals Pt will complete higher level executive functioning tasks to improve overall safety and awareness with 80% accuracy with min verbal cues. Pt will complete memory and mental manipulation tasks with 80% accuracy with min verbal cues. Speech-Plan Patient/Family Goals Patient/Family Goals: Pt's goal is to return home following d/c from IRU Treatment Plan Speech Therapy Treatment Plan: Continue Plan of Care Treatment Duration: Nov 16, 2022 Frequency: Modified Program (IRF) Estimated Hrs Per Day: Other Rehab Potential: Good Safety Risks/Education Teaching Recipient: Patient Teaching Methods: Discussion Response to Teaching: Verbalize Understanding Education Topics Provided: TENT WORKER educates pt on purpose of therapy task and progress noted since IRU admission. Pt receptive and verbalized understanding. Time Speech Therapy Time In: 12:45 Speech Therapy Time Out: 13:15 DATE: Nov 19, 2022 Total Billed Time: 30 Billed Treatment Time S/L Abelardo Johnson Speech Therapy Nov 19, 2022 14:09
--- NOTE | 2022-11-19 15:15 | Physical Therapy Daily Note ---
PT Daily Note-Current Subjective Pt reports he is doing well today and is agreeable to PT. R foot/ankle pain was 5/10 Pain Numeric Pain Scale: 5-Moderate Pain Location: Right, Left Location Body Site: Foot Section J - Health Conditions 1. Rarely or not at all 2. Occasionally 3. Frequently 4. Almost constantly 8. Unable to answer Pain Effect on Sleep: 2 Pain Interference with Therapy: 2 Pain Interference w/Day-to-Day: 2 Transfers SCALE: Activities may be completed with or without assistive devices. 7-Ovfwpjbqfy-ijxnuxd completes the activity by him/herself with no assistance from a helper. 5-Set-up or Clean-up Assistance-helper sets up or cleans up; patient completes activity. [place] assists only prior to or following the activity. 4-Supervision or Touching Assistance-helper provides verbal cues and/or touching/steadying and/or contact guard assistance as patient completes activity. Assistance may be provided throughout the activity or intermittently. 3-Partial/Moderate Assistance-helper does LESS THAN HALF the effort. [place] lifts, holds or supports trunk or limbs, but provides less than half the effort. 2-Substantial/Maximal Assistance-helper does MORE THAN HALF the effort. [place] lifts or holds trunk or limbs and provides more than half the effort. 8-Xkgygzdnc-ujrrmg does ALL the effort. Patient does none of the effort to complete the activity. Or, the assistance of 2 or more helpers is required for the patient to complete the activity. If activity was not attempted, code reason: 7-Patient Refused. 9-Not Applicable-not attempted and the patient did not perform the activity before the current illness, exacerbation or injury. 10-Not Attempted due to Environmental Limitations-(lack of equipment, weather restraints, etc.). 88-Not Attempted due to Medical Conditions or Safety Concerns. Sit to Stand (QC): 4 Weight Bearing Right Lower Extremity: Right Full Weight Bearing Left Lower Extremity: Left Full Weight Bearing Gait Training Does the Patient Walk?: Yes Walk 10 feet (QC): 4 Walk 50 ft with 2 Turns(QC): 4 Walk 150 ft (QC): 4 Gait Persons Needed: 1 Gait Assistive Device: None Wheelchair Training Does the Pt Use a Wheelchair?: No Treatments Pt completed transfers with SBA. Pt ambulated 300ft with the FWW and CGA. Pt then ambulated 600ft with no AD and CGA. Pt completed 20 min on the nu-step on level 3. Pt completed ladder golf standing for 12 min with no UE support, SBA, and no LOB. Pt left sitting in recliner with call light in reach and all needs met. Assessment Current Status: Good Progress Pt tolerated PT well with good effort; good progress PT Jail Goals Jail Goals PT Full Time Paramedic Goals Time Frame: Nov 26, 2022 Roll Left & Right (QC): 6 (Pt will be Mod I with all aspects of functional mobility to be at PLOF. ) Sit to Lying (QC): 6 (Pt will be Mod I with all aspects of functional mobility to be at PLOF. ) Lying-Sitting on Side/Bed(QC): 6 (Pt will be Mod I with all aspects of functional mobility to be at PLOF. ) Sit to Stand (QC): 6 (Pt will be Mod I with all aspects of functional mobility to be at PLOF. ) Chair/Rle-sg-Cnztq Xfer(QC): 6 (Pt will be Mod I with all aspects of functional mobility to be at PLOF. ) Toilet Transfer (QC): 6 (Pt will be Mod I with all aspects of functional mobility to be at PLOF. ) Car Transfer (QC): 6 (Pt will be Mod I with all aspects of functional mobility to be at PLOF. ) Does the Patient Walk: Yes Walk 10 feet (QC): 6 (Pt will be Mod I with ambulation, with the least restrictive AD. ) Walk 50ft with 2 Turns (QC): 6 (Pt will be Mod I with ambulation, with the least restrictive AD. ) Walk 150 ft (QC): 6 (Pt will be Mod I with ambulation, with the least restrictive AD. ) Walking 10ft on Uneven Surface: 6 (Pt will be Mod I with ambulation, with the least restrictive AD. ) 1 Step (curb) (QC): 6 (Pt will be Mod I with steps to safely enter/exit the home. ) 4 Steps (QC): 6 (Pt will be Mod I with steps to safely enter/exit the home. ) 12 Steps (QC): 6 (Pt will be Mod I with steps to safely enter/exit the home. ) Picking up an Object (QC): 6 (Pt will be Mod I with all aspects of functional mobility to be at PLOF. ) Does the Pt use WC or Scooter?: No Wheel 50 feet with 2 turns (QC: 9 Type: N/A Wheel 150 feet: 9 Type: N/A PT Plan Problem List Problem List: Activity Tolerance, Functional Strength, Safety, Balance, Gait, Transfer, Bed Mobility Treatment/Plan Treatment Plan: Continue Plan of Care Treatment Plan: Bed Mobility, Concurrent Therapy, Education, Functional Activity [place], Functional Strength, Group Therapy, Gait, Safety, Therapeutic Exercise, Transfers Treatment Duration: Nov 26, 2022 Frequency: At least 5 of 7 days/Wk (IRF) Estimated Hrs Per Day: 1.5 hours per day Patient and/or Family Agrees t: Yes Safety Risks/Education Patient Education: Gait Training, Transfer Techniques, Safety Issues Teaching Recipient: Patient Teaching Methods: Demonstration, Discussion Response to Teaching: Verbalize Understanding, Return Demonstration, Reinforcement Needed Discharge Recommendations Therapy Discharge Recommendati: Home & Family Discharge Status/Home Program cont per POC Barriers to Progress impulsive at times Target Placement home with family Time Time In: 1000 Time Out: 1045 DATE: Nov 19, 2022 Total Billed Treatment Time: 45 Total Billed Treatment 45 min 1 visit GT x 1 FA x 2 JASKARAN QUINTANA PT Nov 19, 2022 15:15
[2022-11-19 20:18] VITALS: BP 107/60
[2022-11-19] MEDS: GABAPENTIN 300 MG (NEURONTIN) CAP PO SCH (21:14)
[2022-11-19] MEDS: MELATONIN 3 MG TABLET PO PRN (23:06)
[2022-11-20] MEDS: inSUlin ASPART (NovoLOG) 1 UNIT/0.01 ML (CHARGE PER UNIT) SC SCH ×4 (05:43→20:26)
[2022-11-20] MEDS: THIAMINE 100 MG (VITAMIN B-1) TAB PO SCH (06:38)
[2022-11-20] MEDS: MULTIVIT W/MINERALS TAB (THERAGRAN M) PO SCH (06:38)
[2022-11-20] MEDS: FUROSEMIDE 20 MG (LASIX) TAB PO SCH ×2 (06:38→16:58)
[2022-11-20] MEDS: CATHETER FLUSH 10 ML SYR IVP SCH ×3 (06:38→22:25)
--- NOTE | 2022-11-20 06:51 | PM&R Progress Note ---
Subjective HPI/CC On Admission Date Seen by Provider: Nov 20, 2022 Time Seen by Provider: 11:00 Subjective/Events-last exam 11/20/2022: Improved overall No pain reported Neuropathy at night improved 11/19/2022: Encephalopathy is cleared No falls Making major progress Much stronger 11/18/2022: Patient doing a lot better Encephalopathy is clearing Gabapentin requested to have higher dose 11/17/2022: Patient doing really well Improving Very weak No falls Confusion is clearing Review of Systems General: Fatigue, Malaise Objective Exam Vital Signs Vital Signs Date Time Temp Pulse Resp B/P (MAP) Pulse Ox O2 Delivery O2 Flow Rate FiO2 11/20/22 09:05 Room Air 11/20/22 07:45 36.3 69 18 107/67 (80) 96 Capillary Refill : General Appearance: No Apparent Distress, WD/WN, Chronically ill, Obese HEENT: PERRL/EOMI, Normal ENT Inspection, Pharynx Normal Neck: Full Range of Motion, Normal Inspection, Non Tender, Supple, Carotid Bruit Respiratory: Chest Non Tender, Lungs Clear, Normal Breath Sounds, No Accessory Muscle Use, No Respiratory Distress Cardiovascular: No Edema, No Gallop, No JVD, No Murmur, Normal Peripheral Pulses, Irregularly Irregular Gastrointestinal: Normal Bowel Sounds, No Organomegaly, No Pulsatile Mass, Non Tender, Soft Back: Normal Inspection, No CVA Tenderness, No Vertebral Tenderness Extremity: Normal Capillary Refill, Normal Inspection, Normal Range of Motion, Non Tender, No Calf Tenderness, No Pedal Edema Neurologic/Psychiatric: Alert, Normal Mood/Affect, assisted living housekeeper II-XII Norm as Tested, Abnormal Gait, Depressed Affect, Disoriented, Motor Weakness (Generalized) Skin: Normal Color, Warm/Dry Lymphatic: No Adenopathy Results/Procedures Lab Patient resulted labs reviewed. FIM Transfers Therapy Code Descriptions/Definitions Functional [place] Measure: 0=Not Assessed/NA 4=Minimal Assistance 1=Total Assistance 5=Supervision or Setup 2=Maximal Assistance 6=Modified [place] 3=Moderate Assistance 7=Complete IndependenceSCALE: Activities may be completed with or without assistive devices. 4-Cxrrcbhmaq-equkmkm completes the activity by him/herself with no assistance from a helper. 5-Set-up or Clean-up Assistance-helper sets up or cleans up; patient completes activity. [place] assists only prior to or following the activity. 4-Supervision or Touching Assistance-helper provides verbal cues and/or touc evie/steadying and/or contact guard assistance as patient completes activity. Assistance may be provided throughout the activity or intermittently. 3-Partial/Moderate Assistance-helper does LESS THAN HALF the effort. [place] lifts, holds or supports trunk or limbs, but provides less than half the effort. 2-Substantial/Maximal Assistance-helper does MORE THAN HALF the effort. [place] lifts or holds trunk or limbs and provides more than half the effort. 3-Drletssfm-zvvwht does ALL the effort. Patient does none of the effort to complete the activity. Or, the assistance of 2 or more helpers is required for the patient to complete the activity. If activity was not attempted, code reason: 7-Patient Refused. 9-Not Applicable-not attempted and the patient did not perform the activity before the current illness, exacerbation or injury. 10-Not Attempted due to Environmental Limitations-(lack of equipment, weather restraints, etc.). 88-Not Attempted due to Medical Conditions or Safety Concerns. Roll Left to Right (QC): 4 (SBA) Sit to Lying (QC): 4 (SBA) Sit to Stand (QC): 4 Chair/Jtx-yd-Xtgaw Xfer(QC): 4 (SBA/CGA) Car Transfer (QC): 4 (SBA/CGA) Gait Training Does the Patient Walk?: Yes Distance: 700' Walk 10 feet (QC): 4 Walk 50 ft with 2 Turns(QC): 4 Walk 150 ft (QC): 4 Walking 10ft/uneven surface-QC: 4 (CGA) Gait Persons Needed: 1 Gait Assistive Device: None Wheelchair Training Does the Pt Use a Wheelchair?: No Wheel 50 ft with 2 turns (QC): 9 Wheel 150 ft (QC): 9 Type of Wheelchair: N/A Stair Training #of Steps: 12 1 Step (curb) (QC): 4 (CGA) 4 Steps (QC): 4 (CGA) 12 Steps (QC): 4 (CGA) Balance Picking up an Object (QC): 4 (SBA) ADL-Treatment Eating (QC): 6 Oral Hygiene (QC): 4 (Supervision) Shower/Bathe Self (QC): 4 (Supervision) Upper Body Dressing (QC): 4 (Supervision in standing) Lower Body Dressing (QC): 4 (SBA) On/Off Footwear (QC): 4 (SBA, 1 VC to complete seated.) Toileting Hygiene (QC): 4 (CGA in stand for pant hike.) Assessment/Plan Assessment and Plan Assess & Plan/Chief Complaint Assessment: 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
[2022-11-20 07:45] VITALS: BP 107/67
[2022-11-20] MEDS: LOSARTAN 25 MG (COZAAR) TAB PO SCH (09:04)
[2022-11-20] MEDS: FOLIC ACID 1 MG TAB PO SCH (09:04)
[2022-11-20] MEDS: meTOproloL SUCCINATE 50 MG (TOPROL XL) TAB PO SCH (09:04)
[2022-11-20] MEDS: AtorvaSTATin TABLET 10 MG TABLET PO SCH (09:04)
[2022-11-20] MEDS: APIXABAN 5 MG (ELIQUIS) TABLET PO SCH ×2 (09:04→21:02)
[2022-11-20] MEDS: PANTOPRAZOLE 40 MG (PROTONIX) TAB PO SCH (09:04)
[2022-11-20] MEDS: DOCUSATE SODIUM 100 MG (COLACE) CAP PO SCH ×2 (09:08→19:46)
[2022-11-20] MEDS: polyethylene glycoL POWDER 17 GM (MIRALAX) PACK PO SCH ×2 (09:09→19:47)
[2022-11-20] MEDS: SENNA W/DOCUSATE (SENOKOT S) TABLET PO SCH ×2 (09:09→19:47)
[2022-11-20] MEDS: [UNRECOGNIZED DRUG - REMARK] PO SCH ×2 (10:34→21:03)
[2022-11-20 19:24] VITALS: BP 104/59
[2022-11-20] MEDS: GABAPENTIN 300 MG (NEURONTIN) CAP PO SCH (21:02)
[2022-11-20] MEDS: MELATONIN 3 MG TABLET PO PRN (21:05)
[2022-11-21] MEDS: THIAMINE 100 MG (VITAMIN B-1) TAB PO SCH (06:11)
[2022-11-21] MEDS: MULTIVIT W/MINERALS TAB (THERAGRAN M) PO SCH (06:11)
[2022-11-21] MEDS: FUROSEMIDE 20 MG (LASIX) TAB PO SCH ×2 (06:11→16:01)
[2022-11-21] MEDS: CATHETER FLUSH 10 ML SYR IVP SCH ×3 (06:13→21:14)
[2022-11-21] MEDS: inSUlin ASPART (NovoLOG) 1 UNIT/0.01 ML (CHARGE PER UNIT) SC SCH ×4 (06:14→21:14)
[2022-11-21 07:28] VITALS: BP 96/66
[2022-11-21] MEDS: APIXABAN 5 MG (ELIQUIS) TABLET PO SCH ×2 (07:45→21:11)
[2022-11-21] MEDS: FOLIC ACID 1 MG TAB PO SCH (07:45)
[2022-11-21] MEDS: [UNRECOGNIZED DRUG - REMARK] PO SCH ×2 (07:45→21:13)
[2022-11-21] MEDS: AtorvaSTATin TABLET 10 MG TABLET PO SCH (07:45)
[2022-11-21] MEDS: PANTOPRAZOLE 40 MG (PROTONIX) TAB PO SCH (07:45)
--- NOTE | 2022-11-21 07:48 | PM&R Progress Note ---
Subjective HPI/CC On Admission Date Seen by Provider: Nov 21, 2022 Time Seen by Provider: 15:00 Subjective/Events-last exam 11/21/2022: Patient doing well Much improved Neuropathy is much improved No falls 11/20/2022: Improved overall No pain reported Neuropathy at night improved 11/19/2022: Encephalopathy is cleared No falls Making major progress Much stronger 11/18/2022: Patient doing a lot better Encephalopathy is clearing Gabapentin requested to have higher dose 11/17/2022: Patient doing really well Improving Very weak No falls Confusion is clearing Review of Systems General: Fatigue, Malaise Objective Exam Vital Signs Vital Signs Date Time Temp Pulse Resp B/P (MAP) Pulse Ox O2 Delivery O2 Flow Rate FiO2 11/21/22 19:30 36.4 84 20 108/62 (77) 99 Room Air Capillary Refill : General Appearance: No Apparent Distress, WD/WN, Chronically ill, Obese HEENT: PERRL/EOMI, Normal ENT Inspection, Pharynx Normal Neck: Full Range of Motion, Normal Inspection, Non Tender, Supple, Carotid Bruit Respiratory: Chest Non Tender, Lungs Clear, Normal Breath Sounds, No Accessory Muscle Use, No Respiratory Distress Cardiovascular: No Edema, No Gallop, No JVD, No Murmur, Normal Peripheral Pulses, Irregularly Irregular Gastrointestinal: Normal Bowel Sounds, No Organomegaly, No Pulsatile Mass, Non Tender, Soft Back: Normal Inspection, No CVA Tenderness, No Vertebral Tenderness Extremity: Normal Capillary Refill, Normal Inspection, Normal Range of Motion, Non Tender, No Calf Tenderness, No Pedal Edema Neurologic/Psychiatric: Alert, Normal Mood/Affect, etl bi developer II-XII Norm as Tested, Abnormal Gait, Depressed Affect, Disoriented, Motor Weakness (Generalized) Skin: Normal Color, Warm/Dry Lymphatic: No Adenopathy Results/Procedures Lab Patient resulted labs reviewed. FIM Transfers Therapy Code Descriptions/Definitions Functional [place] Measure: 0=Not Assessed/NA 4=Minimal Assistance 1=Total Assistance 5=Supervision or Setup 2=Maximal Assistance 6=Modified [place] 3=Moderate Assistance 7=Complete IndependenceSCALE: Activities may be completed with or without assistive devices. 7-Jsbajakuum-subipvg completes the activity by him/herself with no assistance from a helper. 5-Set-up or Clean-up Assistance-helper sets up or cleans up; patient completes activity. [place] assists only prior to or following the activity. 4-Supervision or Touching Assistance-helper provides verbal cues and/or touching/steadying and/or contact guard assistance as patient completes a ctivity. Assistance may be provided throughout the activity or intermittently. 3-Partial/Moderate Assistance-helper does LESS THAN HALF the effort. [place] lifts, holds or supports trunk or limbs, but provides less than half the effort. 2-Substantial/Maximal Assistance-helper does MORE THAN HALF the effort. [place] lifts or holds trunk or limbs and provides more than half the effort. 8-Ayeguebqr-xjxjdv does ALL the effort. Patient does none of the effort to complete the activity. Or, the assistance of 2 or more helpers is required for the patient to complete the activity. If activity was not attempted, code reason: 7-Patient Refused. 9-Not Applicable-not attempted and the patient did not perform the activity before the current illness, exacerbation or injury. 10-Not Attempted due to Environmental Limitations-(lack of equipment, weather restraints, etc.). 88-Not Attempted due to Medical Conditions or Safety Concerns. Roll Left to Right (QC): 4 (SBA) Sit to Lying (QC): 4 (SBA) Sit to Stand (QC): 4 Chair/Otu-tw-Heskv Xfer(QC): 4 (SBA/CGA) Car Transfer (QC): 4 (SBA/CGA) Gait Training Does the Patient Walk?: Yes Distance: 700' Walk 10 feet (QC): 4 Walk 50 ft with 2 Turns(QC): 4 Walk 150 ft (QC): 4 Walking 10ft/uneven surface-QC: 4 (CGA) Gait Persons Needed: 1 Gait Assistive Device: None Wheelchair Training Does the Pt Use a Wheelchair?: No Wheel 50 ft with 2 turns (QC): 9 Wheel 150 ft (QC): 9 Type of Wheelchair: N/A Stair Training #of Steps: 12 1 Step (curb) (QC): 4 (CGA) 4 Steps (QC): 4 (CGA) 12 Steps (QC): 4 (CGA) Balance Picking up an Object (QC): 4 (SBA) ADL-Treatment Eating (QC): 6 Oral Hygiene (QC): 4 (Supervision) Shower/Bathe Self (QC): 4 (Supervision) Upper Body Dressing (QC): 4 (Supervision in standing) Lower Body Dressing (QC): 4 (SBA) On/Off Footwear (QC): 4 (SBA, 1 VC to complete seated.) Toileting Hygiene (QC): 4 (CGA in stand for pant hike.) Assessment/Plan Assessment and Plan Assess & Plan/Chief Complaint Assessment: 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
[2022-11-21 10:06] VITALS: BP 101/66
[2022-11-21] MEDS: DOCUSATE SODIUM 100 MG (COLACE) CAP PO SCH ×2 (10:10→21:15)
[2022-11-21] MEDS: SENNA W/DOCUSATE (SENOKOT S) TABLET PO SCH ×2 (10:11→21:15)
[2022-11-21] MEDS: polyethylene glycoL POWDER 17 GM (MIRALAX) PACK PO SCH ×2 (10:11→21:15)
[2022-11-21 13:44] VITALS: BP 107/63
[2022-11-21] MEDS: meTOproloL SUCCINATE 50 MG (TOPROL XL) TAB PO SCH (15:46)
[2022-11-21] MEDS: LOSARTAN 25 MG (COZAAR) TAB PO SCH (15:50)
[2022-11-21 19:30] VITALS: BP 108/62
[2022-11-21] MEDS: GABAPENTIN 300 MG (NEURONTIN) CAP PO SCH (21:11)
[2022-11-21] MEDS: MELATONIN 3 MG TABLET PO PRN (22:23)
[2022-11-22] MEDS: MULTIVIT W/MINERALS TAB (THERAGRAN M) PO SCH (05:54)
[2022-11-22] MEDS: THIAMINE 100 MG (VITAMIN B-1) TAB PO SCH (05:54)
[2022-11-22] MEDS: FUROSEMIDE 20 MG (LASIX) TAB PO SCH ×2 (05:54→16:38)
[2022-11-22] MEDS: CATHETER FLUSH 10 ML SYR IVP SCH ×3 (05:55→21:08)
[2022-11-22] MEDS: inSUlin ASPART (NovoLOG) 1 UNIT/0.01 ML (CHARGE PER UNIT) SC SCH ×4 (06:00→20:27)
[2022-11-22 06:07] LABS: BASOPHILS # (AUTO) 0.1 10^3/uL (0.0-0.1); BASOPHILS % (AUTO) 1 % (0-10); EOSINOPHILS # (AUTO) 0.2 10^3/uL (0.0-0.3); EOSINOPHILS % (AUTO) 2 % (0-10); HEMATOCRIT 36 % (40-54); LYMPHOCYTES # (AUTO) 2.5 10^3/uL (1.0-4.0); LYMPHOCYTES % (AUTO) 28 % (12-44); MEAN CORPUSCULAR HEMOGLOBIN 31 pg (25-34); MEAN CORPUSCULAR HGB CONC 34 g/dL (32-36); MEAN CORPUSCULAR VOLUME 93 fL (80-99); MEAN PLATELET VOLUME 9.4 fL (9.0-12.2); MONOCYTES # (AUTO) 0.7 10^3/uL (0.0-1.0); MONOCYTES % (AUTO) 8 % (0-12); NEUTROPHILS # (AUTO) 5.5 10^3/uL (1.8-7.8); NEUTROPHILS % (AUTO) 61 % (42-75); PLATELET COUNT 542 10^3/uL (130-400); WHITE BLOOD COUNT 9.1 10^3/uL (4.3-11.0)
[2022-11-22 06:18] LABS: ALBUMIN 3.4 GM/DL (3.2-4.5); POTASSIUM 3.6 MMOL/L (3.6-5.0)
[2022-11-22 06:19] LABS: CALCIUM 9.3 MG/DL (8.5-10.1)
[2022-11-22 06:20] LABS: TOTAL PROTEIN 6.7 GM/DL (6.4-8.2)
[2022-11-22 06:22] LABS: BILIRUBIN,TOTAL 0.3 MG/DL (0.1-1.0)
[2022-11-22 06:24] LABS: CREATININE SERUM 1.3 MG/DL (0.60-1.30)
--- NOTE | 2022-11-22 06:28 | PM&R Progress Note ---
Subjective HPI/CC On Admission Date Seen by Provider: Nov 22, 2022 Time Seen by Provider: 09:00 Subjective/Events-last exam 11/22/2022: Patient doing really well Discharge is planning soon No falls Neuropathy improved 11/21/2022: Patient doing well Much improved Neuropathy is much improved No falls 11/20/2022: Improved overall No pain reported Neuropathy at night improved 11/19/2022: Encephalopathy is cleared No falls Making major progress Much stronger 11/18/2022: Patient doing a lot better Encephalopathy is clearing Gabapentin requested to have higher dose 11/17/2022: Patient doing really well Improving Very weak No falls Confusion is clearing Review of Systems General: Fatigue, Malaise Objective Exam Vital Signs Vital Signs Date Time Temp Pulse Resp B/P (MAP) Pulse Ox O2 Delivery O2 Flow Rate FiO2 11/22/22 20:29 36.2 72 20 101/65 (77) 96 Room Air Capillary Refill : General Appearance: No Apparent Distress, WD/WN, Chronically ill, Obese HEENT: PERRL/EOMI, Normal ENT Inspection, Pharynx Normal Neck: Full Range of Motion, Normal Inspection, Non Tender, Supple, Carotid Bruit Respiratory: Chest Non Tender, Lungs Clear, Normal Breath Sounds, No Accessory Muscle Use, No Respiratory Distress Cardiovascular: No Edema, No Gallop, No JVD, No Murmur, Normal Peripheral Pulses, Irregularly Irregular Gastrointestinal: Normal Bowel Sounds, No Organomegaly, No Pulsatile Mass, Non Tender, Soft Back: Normal Inspection, No CVA Tenderness, No Vertebral Tenderness Extremity: Normal Capillary Refill, Normal Inspection, Normal Range of Motion, Non Tender, No Calf Tenderness, No Pedal Edema Neurologic/Psychiatric: Alert, Normal Mood/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 FIM Transfers Therapy Code Descriptions/Definitions Functional [place] Measure: 0=Not Assessed/NA 4=Minimal Assistance 1=Total Assistance 5=Supervision or Setup 2=Maximal Assistance 6=Modified [place] 3=Moderate Assistance 7=Complete IndependenceSCALE: Activities may be completed with or without assistive devices. 7-Abntnprcak-fixxiwm completes the activity by him/herself with no assistance f rom a helper. 5-Set-up or Clean-up Assistance-helper sets up or cleans up; patient completes activity. [place] assists only prior to or following the activity. 4-Supervision or Touching Assistance-helper provides verbal cues and/or touching/steadying and/or contact guard assistance as patient completes activity. Assistance may be provided throughout the activity or intermittently. 3-Partial/Moderate Assistance-helper does LESS THAN HALF the effort. [place] lifts, holds or supports trunk or limbs, but provides less than half the effort. 2-Substantial/Maximal Assistance-helper does MORE THAN HALF the effort. [place] lifts or holds trunk or limbs and provides more than half the effort. 4-Pdjpsrlyk-rgayke does ALL the effort. Patient does none of the effort to complete the activity. Or, the assistance of 2 or more helpers is required for the patient to complete the activity. If activity was not attempted, code reason: 7-Patient Refused. 9-Not Applicable-not attempted and the patient did not perform the activity before the current illness, exacerbation or injury. 10-Not Attempted due to Environmental Limitations-(lack of equipment, weather restraints, etc.). 88-Not Attempted due to Medical Conditions or Safety Concerns. Roll Left to Right (QC): 4 (SBA) Sit to Lying (QC): 4 (SBA) Sit to Stand (QC): 4 Chair/Xdf-ew-Whe[place] Xfer(QC): 4 (SBA/CGA) Car Transfer (QC): 4 (SBA/CGA) Gait Training Does the Patient Walk?: Yes Distance: 700' Walk 10 feet (QC): 4 Walk 50 ft with 2 Turns(QC): 4 Walk 150 ft (QC): 4 Walking 10ft/uneven surface-QC: 4 (CGA) Gait Persons Needed: 1 Gait Assistive Device: None Wheelchair Training Does the Pt Use a Wheelchair?: No Wheel 50 ft with 2 turns (QC): 9 Wheel 150 ft (QC): 9 Type of Wheelchair: N/A Stair Training #of Steps: 12 1 Step (curb) (QC): 4 (CGA) 4 Steps (QC): 4 (CGA) 12 Steps (QC): 4 (CGA) Balance Picking up an Object (QC): 4 (SBA) ADL-Treatment Eating (QC): 6 Oral Hygiene (QC): 4 (Supervision) Shower/Bathe Self (QC): 4 (Supervision) Upper Body Dressing (QC): 4 (Supervision in standing) Lower Body Dressing (QC): 4 (SBA) On/Off Footwear (QC): 4 (SBA, 1 VC to complete seated.) Toileting Hygiene (QC): 4 (CGA in stand for pant hike.) Assessment/Plan Assessment and Plan Assess & Plan/Chief Complaint Assessment: 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
[2022-11-22 07:50] VITALS: BP 115/75
[2022-11-22] MEDS: LOSARTAN 25 MG (COZAAR) TAB PO SCH (08:33)
[2022-11-22] MEDS: AtorvaSTATin TABLET 10 MG TABLET PO SCH (08:33)
[2022-11-22] MEDS: APIXABAN 5 MG (ELIQUIS) TABLET PO SCH ×2 (08:33→20:36)
[2022-11-22] MEDS: meTOproloL SUCCINATE 50 MG (TOPROL XL) TAB PO SCH (08:33)
[2022-11-22] MEDS: PANTOPRAZOLE 40 MG (PROTONIX) TAB PO SCH (08:33)
[2022-11-22] MEDS: FOLIC ACID 1 MG TAB PO SCH (08:33)
[2022-11-22] MEDS: polyethylene glycoL POWDER 17 GM (MIRALAX) PACK PO SCH ×2 (08:34→19:50)
[2022-11-22] MEDS: DOCUSATE SODIUM 100 MG (COLACE) CAP PO SCH ×2 (08:34→19:50)
[2022-11-22] MEDS: SENNA W/DOCUSATE (SENOKOT S) TABLET PO SCH ×2 (08:35→19:50)
[2022-11-22] MEDS: [UNRECOGNIZED DRUG - REMARK] PO SCH ×2 (08:36→20:36)
--- NOTE | 2022-11-22 08:36 | Occupational Ther Daily Note ---
OT Current Status-Daily Note Subjective Pt found lying in bed, alert and cooperative. Agreed to OT. Pt stated "no pain other than in his feet today". Mental Status/Objective Patient Orientation: Person, Place, Time, Situation ADL-Treatment Pt sat EOB, stood sit to stand with no assistance from OT. Pt gathered clothes from the closet for a shower, walked them into the bathroom independently. Pt completed toilet hygiene, and toilet transfer independently. Pt bathed self independently. Pt completed showering, completed upper body dressing, lower body dressing and oral hygiene independently, while standing at sink. To address functional mobility, pt then ambulated to therapy gym independently, therapist placed gate belt on pt for safety while walking. Pt completed 15 mins on the arm bike at 25 teran to increase strength for ADLs. Worked on kitchen management with kitchen on ARU, using cones for pt to look for and retrieve with various heights to address reaching, and crossing midline, focusing on safety for when pt goes home. To address strengthening, BUE pt completed HEP exercises using medium resistance (red theraband) 20 reps 2 sets to address functional strength needed for ADLs. Skilled instruction given for correct technique during exercises for max benefit. Pt then ambulated back to room independently, with gait belt in place for safety. Pt was left in room in chair, with phone and call light with in reach, all needs met in room. Therapy Code Descriptions/Definitions Functional [place] Measure: 0=Not Assessed/NA 4=Minimal Assistance 1=Total Assistance 5=Supervision or Setup 2=Maximal Assistance 6=Modified [place] 3=Moderate Assistance 7=Complete IndependenceSCALE: Activities may be completed with or without assistive devices. 1-Sblumxsnsr-ngbsces completes the activity by him/herself with no assistance from a helper. 5-Set-up or Clean-up Assistance-helper sets up or cleans up; patient completes activity. [place] assists only prior to or following the activity. 4-Supervision or Touching Assistance-helper provides verbal cues and/or touching/steadying and/or contact guard assistance as patient completes activity. Assistance may be provided throughout the activity or intermittently. 3-Partial/Moderate Assistance-helper does LESS THAN HALF the effort. [place] lifts, holds or supports trunk or limbs, but provides less than half the effort. 2-Substantial/Maximal Assistance-helper does MORE THAN HALF the effort. [place] lifts or holds trunk or limbs and provides more than half the effort. 1-Qyakjoztx-ywuyhq does ALL the effort. Patient does none of the effort to co mplete the activity. Or, the assistance of 2 or more helpers is required for the patient to complete the activity. If activity was not attempted, code reason: 7-Patient Refused. 9-Not Applicable-not attempted and the patient did not perform the activity before the current illness, exacerbation or injury. 10-Not Attempted due to Environmental Limitations-(lack of equipment, weather restraints, etc.). 88-Not Attempted due to Medical Conditions or Safety Concerns. Eating (QC): 6 Oral Hygiene (QC): 6 Shower/Bathe Self (QC): 6 Upper Body Dressing (QC): 6 Lower Body Dressing (QC): 6 On/Off Footwear: 6 Toileting Hygiene (QC): 6 Toilet Transfer (QC): 6 Education OT Patient Education: Correct positioning, Home exercise program, Safety issues, Transfer techniques, W/C management Teaching Recipient: Patient Teaching Methods: Demonstration Response to Teaching: Verbalize Understanding, Return Demonstration OT Short Term Goals Short Term Goals Time Frame: Nov 24, 2022 Shower/bathe self: 5 Upper body dressin Lower body dressin Putting on/taking off footwear: 5 OT Retirement Goals Retirement Goals Time Frame: Dec 03, 2022 Acute change in mental status: 1 Inattention: 0 Disorganized thinkin Altered level of consciousness: 0 Eating (QC): 6 Oral Hygiene (QC): 6 Toileting Hygiene (QC): 6 Shower/Bathe Self (QC): 6 Upper Body Dressing (QC): 6 Lower Body Dressing (QC): 6 On/Off Footwear (QC): 6 Additional Goals: 1-Demonstrate ADL Tasks, 2-Verbalize Understanding, 3- ImproveStrength/[place] 1=Demonstrate adherence to instructed precautions during ADL tasks. 2=Patient will verbalize/demonstrate understanding of assistive devices/modifications for ADL. 3=Patient will improve strength/tolerance for activity to enable patient to perform ADL's. OT Education/Plan Discharge Recommendations Plan/Recommendations: Continue POC Treatment Plan/Plan of Care Patient would benefit from OT for education, treatment and training to promote independence in ADL's, mobility, safety and/or upper extremity function for ADL's. Plan of Care: ADL Retraining, Functional Mobility, Group Exercise/Act as Ind, UE Funct Exercise/Act Treatment Duration: Dec 03, 2022 Frequency: At least 5 of 7 days/Wk (IRF) Estimated Hrs Per Day: 1.5 hours per day Agreement: Yes Rehab Potential: Good Time Start Time: 07:55 Stop Time: 09:10 DATE: Nov 22, 2022 Total Time Billed (hr/min): 75 Billed Treatment Time 1 visit ADL 2 (25) FA 1 (15) EX 2 (35) Eva Aguirre COTA Nov 22, 2022 08:35
--- NOTE | 2022-11-22 12:52 | Physical Therapy Daily Note ---
PT Daily Note-Current Subjective pt laying in bed upon arrival and willing for therapy. pt reports no pain before, during or after therapy. pt was left in bed at the end of session with call light all needs met. Pain Section J - Health Conditions 1. Rarely or not at all 2. Occasionally 3. Frequently 4. Almost constantly 8. Unable to answer Pain Effect on Sleep: 2 Pain Interference with Therapy: 2 Pain Interference w/Day-to-Day: 2 Transfers SCALE: Activities may be completed with or without assistive devices. 0-Fhzcnipnhw-nhysfsj completes the activity by him/herself with no assistance from a helper. 5-Set-up or Clean-up Assistance-helper sets up or cleans up; patient completes activity. [place] assists only prior to or following the activity. 4-Supervision or Touching Assistance-helper provides verbal cues and/or touching/steadying and/or contact guard assistance as patient completes activity. Assistance may be provided throughout the activity or intermittently. 3-Partial/Moderate Assistance-helper does LESS THAN HALF the effort. [place] lifts, holds or supports trunk or limbs, but provides less than half the effort. 2-Substantial/Maximal Assistance-helper does MORE THAN HALF the effort. [place] lifts or holds trunk or limbs and provides more than half the effort. 8-Gwmzsguux-lomrut does ALL the effort. Patient does none of the effort to complete the activity. Or, the assistance of 2 or more helpers is required for the patient to complete the activity. If activity was not attempted, code reason: 7-Patient Refused. 9-Not Applicable-not attempted and the patient did not perform the activity before the current illness, exacerbation or injury. 10-Not Attempted due to Environmental Limitations-(lack of equipment, weather restraints, etc.). 88-Not Attempted due to Medical Conditions or Safety Concerns. Weight Bearing Right Lower Extremity: Right Full Weight Bearing Left Lower Extremity: Left Full Weight Bearing Treatments Pt preformed 2 sets of 20 sitting ther-ex with red thera band in all planes of motion and VC of 15 % for correct mm movement for maximum benefit. PT Computer Trainer Goals Retirement Goals PT Computer Trainer Goals Time Frame: Nov 26, 2022 Roll Left & Right (QC): 6 (Pt will be Mod I with all aspects of functional mobility to be at PLOF. ) Sit to Lying (QC): 6 (Pt will be Mod I with all aspects of functional mobility to be at PLOF. ) Lying-Sitting on Side/Bed(QC): 6 (Pt will be Mod I with all aspects of functional mobility to be at PLOF. ) Sit to Stand (QC): 6 (Pt will be Mod I with all aspects of functional mobility to be at PLOF. ) Chair/Xtv-lp-Jadrt Xfer(QC): 6 (Pt will be Mod I with all aspects of functional mobility to be at PLOF. ) Toilet Transfer (QC): 6 (Pt will be Mod I with all aspects of functional mobility to be at PLOF. ) Car Transfer (QC): 6 (Pt will be Mod I with all aspects of functional mobility to be at PLOF. ) Does the Patient Walk: Yes Walk 10 feet (QC): 6 (Pt will be Mod I with ambulation, with the least restrictive AD. ) Walk 50ft with 2 Turns (QC): 6 (Pt will be Mod I with ambulation, with the least restrictive AD. ) Walk 150 ft (QC): 6 (Pt will be Mod I with ambulation, with the least restrictive AD. ) Walking 10ft on Uneven Surface: 6 (Pt will be Mod I with ambulation, with the least restrictive AD. ) 1 Step (curb) (QC): 6 (Pt will be Mod I with steps to safely enter/exit the home. ) 4 Steps (QC): 6 (Pt will be Mod I with steps to safely enter/exit the home. ) 12 Steps (QC): 6 (Pt will be Mod I with steps to safely enter/exit the home. ) Picking up an Object (QC): 6 (Pt will be Mod I with all aspects of functional mobility to be at PLOF. ) Does the Pt use WC or Scooter?: No Wheel 50 feet with 2 turns (QC: 9 Type: N/A Wheel 150 feet: 9 Type: N/A PT Plan Treatment/Plan Treatment Plan: Continue Plan of Care Treatment Plan: Bed Mobility, Concurrent Therapy, Education, Functional Activity [place], Functional Strength, Group Therapy, Gait, Safety, Therapeutic Exercise, Transfers Treatment Duration: Nov 26, 2022 Frequency: At least 5 of 7 days/Wk (IRF) Estimated Hrs Per Day: 1.5 hours per day Patient and/or Family Agrees t: Yes Time Time In: 1000 Time Out: 1015 DATE: Nov 22, 2022 Total Billed Treatment Time: 15 Total Billed Treatment 1 ex Dahlia Rahman SKEIN SPOOLER Nov 22, 2022 12:52
--- NOTE | 2022-11-22 12:58 | Physical Therapy Daily Note ---
PT Daily Note-Current Subjective Pt laying in bed upon arrival and willing for therapy. pt reports no pain this day. pt was left in bed with EDITOR NEWS checking blood sugar and all needs met with call light. Pain Section J - Health Conditions 1. Rarely or not at all 2. Occasionally 3. Frequently 4. Almost constantly 8. Unable to answer Pain Effect on Sleep: 2 Pain Interference with Therapy: 2 Pain Interference w/Day-to-Day: 2 Mental Status Patient Orientation: Person, Place, Time, Situation Transfers SCALE: Activities may be completed with or without assistive devices. 0-Irumgcfsag-fwzhbph completes the activity by him/herself with no assistance from a helper. 5-Set-up or Clean-up Assistance-helper sets up or cleans up; patient completes activity. [place] assists only prior to or following the activity. 4-Supervision or Touching Assistance-helper provides verbal cues and/or touching/steadying and/or contact guard assistance as patient completes activi ty. Assistance may be provided throughout the activity or intermittently. 3-Partial/Moderate Assistance-helper does LESS THAN HALF the effort. [place] lifts, holds or supports trunk or limbs, but provides less than half the effort. 2-Substantial/Maximal Assistance-helper does MORE THAN HALF the effort. [place] lifts or holds trunk or limbs and provides more than half the effort. 2-Arewmdcdy-bbnnex does ALL the effort. Patient does none of the effort to complete the activity. Or, the assistance of 2 or more helpers is required for the patient to complete the activity. If activity was not attempted, code reason: 7-Patient Refused. 9-Not Applicable-not attempted and the patient did not perform the activity before the current illness, exacerbation or injury. 10-Not Attempted due to Environmental Limitations-(lack of equipment, weather restraints, etc.). 88-Not Attempted due to Medical Conditions or Safety Concerns. Roll Left & Right (QC): 6 Sit to Lying (QC): 6 Lying to Sitting/Side of Bed(Q: 6 Sit to Stand (QC): 6 Chair/Fwc-tq-Amlvg Xfer(QC): 6 Toilet Transfer (QC): 6 Car Transfer (QC): 6 Weight Bearing Right Lower Extremity: Right Full Weight Bearing Left Lower Extremity: Left Full Weight Bearing Gait Training Walk 10 feet (QC): 6 Walk 50 ft with 2 Turns(QC): 6 Stair Training 1 Step (curb) (QC): 6 4 Steps (QC): 6 12 Steps (QC): 6 Exercises NuStep Minutes: 25 NuStep Workload: 4 Treatments Pt was able to preform car transfer, 12 stairs, and ambulate 450FT with no AD and no LOB. pt was able to preform obstacle course working on dynamic balance while ambulating with no LOB or fatigue while reaching outside COG Assessment Current Status: Excellent Progress PT Jail Goals Assistant Spa Director Goals PT Jail Goals Time Frame: Nov 26, 2022 Roll Left & Right (QC): 6 (Pt will be Mod I with all aspects of functional mobility to be at PLOF. ) Sit to Lying (QC): 6 (Pt will be Mod I with all aspects of functional mobility to be at PLOF. ) Lying-Sitting on Side/Bed(QC): 6 (Pt will be Mod I with all aspects of functional mobility to be at PLOF. ) Sit to Stand (QC): 6 (Pt will be Mod I with all aspects of functional mobility to be at PLOF. ) Chair/Ebd-jd-Qcbsm Xfer(QC): 6 (Pt will be Mod I with all aspects of functional mobility to be at PLOF. ) Toilet Transfer (QC): 6 (Pt will be Mod I with all aspects of functional mobility to be at PLOF. ) Car Transfer (QC): 6 (Pt will be Mod I with all aspects of functional mobility to be at PLOF. ) Does the Patient Walk: Yes Walk 10 feet (QC): 6 (Pt will be Mod I with ambulation, with the least restrictive AD. ) Walk 50ft with 2 Turns (QC): 6 (Pt will be Mod I with ambulation, with the least restrictive AD. ) Walk 150 ft (QC): 6 (Pt will be Mod I with ambulation, with the least restrictive AD. ) Walking 10ft on Uneven Surface: 6 (Pt will be Mod I with ambulation, with the least restrictive AD. ) 1 Step (curb) (QC): 6 (Pt will be Mod I with steps to safely enter/exit the home. ) 4 Steps (QC): 6 (Pt will be Mod I with steps to safely enter/exit the home. ) 12 Steps (QC): 6 (Pt will be Mod I with steps to safely enter/exit the home. ) Picking up an Object (QC): 6 (Pt will be Mod I with all aspects of functional mobility to be at PLOF. ) Does the Pt use WC or Scooter?: No Wheel 50 feet with 2 turns (QC: 9 Type: N/A Wheel 150 feet: 9 Type: N/A PT Plan Treatment/Plan Treatment Plan: Continue Plan of Care Treatment Plan: Bed Mobility, Concurrent Therapy, Education, Functional Activity Wesley, Functional Strength, Group Therapy, Gait, Safety, Therapeutic Exercise, Transfers Treatment Duration: Nov 26, 2022 Frequency: At least 5 of 7 days/Wk (IRF) Estimated Hrs Per Day: 1.5 hours per day Patient and/or Family Agrees t: Yes Time Time In: 1055 Time Out: 1155 DATE: Nov 22, 2022 Total Billed Treatment Time: 60 Total Billed Treatment 1 EX x 2 FA x 2 Dahlia Rahman [facility] TECHNICIAN Nov 22, 2022 12:58
--- NOTE | 2022-11-22 13:53 | Speech Therapy Daily Note ---
Speech Daily Progress Note Subjective Date Seen by Provider: Nov 22, 2022 Time Seen by Provider: 09:10 Pt just finished with occupational therapy. Pt sits up in bed for therapy session. When asked, pt reports he feels he is at baseline for cognitive functioning. Pt pleasant and cooperative throughout session. Pain Numeric Pain Scale: 5-Moderate Pain Location: Right, Left Location Body Site: Foot Comment: neuropathy pain Objective Pt is able to recall information from the [employer]. Pt completes bill management executive functioning 2 task with 100% accuracy independently. Pt completes check writing task, he write the year incorrectly on one check putting 2002 - all other checks were correct. Pt completes mental manipulation of 3 words in reverse order with 100% accuracy independently, 3 words in alphabetical order with 90% accuracy independently, and 4 words in reverse order with 80% accuracy with min cues. Memory strategies were discussed, pt states he uses his phone calendar and notes for important information/dates. Assessment Assessment Current Status: Good Progress Treatment Plan Continue Plan of Care Speech Short Term Goals Short Term Goals Short Term Goals Pt will recall 3 words following a short delay of at least a minute in 4/5 opportunities. Pt will be taught memory strategies. Pt will complete medication management task with 100% accuracy independently. Speech Fci Goals Prepper Goals Pt will complete higher level executive functioning tasks to improve overall safety and awareness with 80% accuracy with min verbal cues. Pt will complete memory and mental manipulation tasks with 80% accuracy with min verbal cues. Speech-Plan Patient/Family Goals Patient/Family Goals: Pt's goal is to return home. Treatment Plan Speech Therapy Treatment Plan: Continue Plan of Care Treatment Duration: Nov 16, 2022 Frequency: Modified Program (IRF) Estimated Hrs Per Day: Other Rehab Potential: Good Safety Risks/Education Teaching Recipient: Patient Teaching Methods: Discussion Response to Teaching: Verbalize Understanding Education Topics Provided: Pt educated on therapy tasks, progress in speech therapy, and memory strategies. Pt receptive and verbalized understanding. Time Speech Therapy Time In: 09:10 Speech Therapy Time Out: 09:40 DATE: Nov 22, 2022 Total Billed Time: 30 Billed Treatment Time S/L Abelardo Johnson Speech Therapy Nov 22, 2022 13:53
[2022-11-22 20:29] VITALS: BP 101/65
[2022-11-22] MEDS: GABAPENTIN 300 MG (NEURONTIN) CAP PO SCH (20:36)
[2022-11-22] MEDS: MELATONIN 3 MG TABLET PO PRN (22:27)
[2022-11-23] MEDS: FUROSEMIDE 20 MG (LASIX) TAB PO SCH ×2 (06:01→17:01)
[2022-11-23] MEDS: CATHETER FLUSH 10 ML SYR IVP SCH ×3 (06:01→21:48)
[2022-11-23] MEDS: MULTIVIT W/MINERALS TAB (THERAGRAN M) PO SCH (06:01)
[2022-11-23] MEDS: THIAMINE 100 MG (VITAMIN B-1) TAB PO SCH (06:01)
[2022-11-23] MEDS: inSUlin ASPART (NovoLOG) 1 UNIT/0.01 ML (CHARGE PER UNIT) SC SCH ×4 (06:24→20:52)
[2022-11-23 07:35] VITALS: BP 92/57
--- NOTE | 2022-11-23 08:20 | Cardiology Progress Note ---
Subjective Date Seen by Provider: Nov 23, 2022 Time Seen by Provider: 08:20 Subjective/Events-last exam Patient is sitting up in bed, denies any chest pain or dyspnea. Objective-Cardiology Exam Last Set of Vital Signs Vital Signs 11/22/22 11/23/22 11/23/22 20:29 07:35 09:35 Temp 36.0 Pulse 72 Resp 20 B/P (MAP) 93/50 (64) Pulse Ox 96 O2 Delivery Room Air I&O Intake and Output 11/23/22 00:00 Intake Total 1980 ml Output Total 650 ml Balance 1330 ml Intake Oral 1980 ml Output Urine Total 650 ml # Voids 6 General: Alert, Oriented X3, Cooperative HEENT: Atraumatic, PERRLA Lungs: Clear to Auscultation, Normal Air Movement Heart: Other (irregulary irregular) Abdomen: Normal Bowel Sounds, Soft Extremities: No Edema Skin: No Rashes, No Significant Lesion Neuro: Cranial Nerves 3-12 NL Psych/Mental Status: Mental Status NL, Mood NL A/P-Cardiology Admission Diagnosis PAF HTN ETOH use Diverticulitis Assessment/Plan Paroxysmal atrial fibrillation Currently heart rate is better controlled, still in atrial fibrillation Maintained on Cardizem CD 180 twice daily, Toprol XL 50mg Confusion, agitation, improved. 2D echo was done on November 11, 2022 with normal left ventricular size, ejection fraction 60 to 65%. Moderately dilated left atrium, calcified mitral valve, PA pressure 40 to 45 mmHg. ETOH use, alcohol withdrawal Acute diverticulitis, abdominal pain, improved Managed by medical team Hypertension, blood pressure is better controlled Tolerating Cardizem and metoprolol. Obesity, BMI 30. Generalized weakness, Continue with PT/OT Supervisory-Addendum Brief Supervisory Addendum Participated in pt care: history, MDM, physical Personally performed: exam, history, MDM Care discussed with: ANTONIETA Results interpretation: Verified all documentation Notes: Patient was seen and evaluated with Gabriele, examination performed, management plan was discussed, agree with the current scribed note, I made few changes to the note using Italic font Patient was seen at bedside, laying down comfortably Continue to monitor heart rate and blood pressure No changes are recommended Continue with physical therapy GABRIELE CASTELLON Nov 23, 2022 08:20 GASPER OLVERA MD Nov 23, 2022 17:26
[2022-11-23 09:35] VITALS: BP 93/50
[2022-11-23] MEDS: PANTOPRAZOLE 40 MG (PROTONIX) TAB PO SCH (09:45)
[2022-11-23] MEDS: meTOproloL SUCCINATE 50 MG (TOPROL XL) TAB PO SCH (09:45)
[2022-11-23] MEDS: LOSARTAN 25 MG (COZAAR) TAB PO SCH (09:45)
[2022-11-23] MEDS: FOLIC ACID 1 MG TAB PO SCH (09:46)
[2022-11-23] MEDS: APIXABAN 5 MG (ELIQUIS) TABLET PO SCH ×2 (09:46→21:00)
[2022-11-23] MEDS: [UNRECOGNIZED DRUG - REMARK] PO SCH ×2 (09:47→20:59)
--- NOTE | 2022-11-23 09:50 | Occupational Ther Daily Note ---
OT Current Status-Daily Note Subjective Pt found in room alert and cooperative, agreed to OT. No pain mentioned Mental Status/Objective Patient Orientation: Person, Place, Time, Situation ADL-Treatment Pt retrieved shirt from closet independently. Pt ambulated to restroom in room,completed toileting, toilet hygiene all independently. Pt ambulated to therapy gym independently. To focus on strengthening needed for ADLs, pt completed 15 mins on arm bike 25 teran, no recovery breaks taken. Pt completed theraputty exercise retrieving beads in a max resistance putty (green) while standing and addressing functional endurance, standing balance, fine motor, coordination, and dexterity of the hands/fingers. Pt completed HEP exercises 20 reps 2 sets with red theraband, with skilled instruction for correct technique, and therapist educated on importance of continuing exercises at home after discharge, pt verbally confirmed. Pt then ambulated back to room independently, focusing on functional mobility needed for independence at home. Pt was left in room resting, call light and phone within reach, all needs met. Therapy Code Descriptions/Definitions Functional [place] Measure: 0=Not Assessed/NA 4=Minimal Assistance 1=Total Assistance 5=Supervision or Setup 2=Maximal Assistance 6=Modified [place] 3=Moderate Assistance 7=Complete IndependenceSCALE: Activities may be completed with or without assistive devices. 8-Laqyhxbptl-mlpohlk completes the activity by him/herself with no assistance from a helper. 5-Set-up or Clean-up Assistance-helper sets up or cleans up; patient completes activity. [place] assists only prior to or following the activity. 4-Supervision or Touching Assistance-helper provides verbal cues and/or touching/steadying and/or contact guard assistance as patient completes activity. Assistance may be provided throughout the activity or intermittently. 3-Partial/Moderate Assistance-helper does LESS THAN HALF the effort. [place] lifts, holds or supports trunk or limbs, but provides less than half the effort. 2-Substantial/Maximal Assistance-helper does MORE THAN HALF the effort. [place] lifts or holds trunk or limbs and provides more than half the effort. 1-Vnhzptdqc-uqbgsf does ALL the effort. Patient does none of the effort to complete the activity. Or, the assistance of 2 or more helpers is required for the patient to complete the activity. If activity was not attempted, code reason: 7-Patient Refused. 9-Not Applicable-not attempted and the patient did not perform the activity before the current illness, exacerbation or injury. 10-Not Attempted due to Environmental Limitations-(lack of equipment, weather restraints, etc.). 88-Not Attempted due to Medical Conditions or Safety Concerns. Upper Body Dressing (QC): 6 Toileting Hygiene (QC): 6 Toilet Transfer (QC): 6 Education OT Patient Education: Home exercise program Teaching Recipient: Patient Teaching Methods: Demonstration Response to Teaching: Verbalize Understanding, Return Demonstration OT Short Term Goals Short Term Goals Time Frame: Nov 24, 2022 Shower/bathe self: 5 Upper body dressin Lower body dressin Putting on/taking off footwear: 5 OT Fci Goals Fci Goals Time Frame: Dec 03, 2022 Acute change in mental status: 1 Inattention: 0 Disorganized thinkin Altered level of consciousness: 0 Eating (QC): 6 Oral Hygiene (QC): 6 Toileting Hygiene (QC): 6 Shower/Bathe Self (QC): 6 Upper Body Dressing (QC): 6 Lower Body Dressing (QC): 6 On/Off Footwear (QC): 6 Additional Goals: 1-Demonstrate ADL Tasks, 2-Verbalize Understanding, 3- ImproveStrength/[place] 1=Demonstrate adherence to instructed precautions during ADL tasks. 2=Patient will verbalize/demonstrate understanding of assistive devices/modifications for ADL. 3=Patient will improve strength/tolerance for activity to enable patient to perform ADL's. OT Education/Plan Discharge Recommendations Plan/Recommendations: Continue POC Treatment Plan/Plan of Care Patient would benefit from OT for education, treatment and training to promote independence in ADL's, mobility, safety and/or upper extremity function for ADL's. Plan of Care: ADL Retraining, Functional Mobility, Group Exercise/Act as Ind, UE Funct Exercise/Act Treatment Duration: Dec 03, 2022 Frequency: At least 5 of 7 days/Wk (IRF) Estimated Hrs Per Day: 1.5 hours per day Agreement: Yes Rehab Potential: Good Time Start Time: 09:30 Stop Time: 10:45 DATE: Nov 23, 2022 Total Time Billed (hr/min): 75 Billed Treatment Time 1 visit ADL 2 (30 min) Ex 3 (45 min) Eva Aguirre COTA Nov 23, 2022 09:50
[2022-11-23] MEDS: DOCUSATE SODIUM 100 MG (COLACE) CAP PO SCH ×2 (09:56→21:00)
[2022-11-23] MEDS: AtorvaSTATin TABLET 10 MG TABLET PO SCH (09:56)
[2022-11-23] MEDS: polyethylene glycoL POWDER 17 GM (MIRALAX) PACK PO SCH ×2 (09:57→21:00)
[2022-11-23] MEDS: SENNA W/DOCUSATE (SENOKOT S) TABLET PO SCH ×2 (09:57→21:00)
--- NOTE | 2022-11-23 10:20 | PM&R Progress Note ---
Subjective HPI/CC On Admission Date Seen by Provider: Nov 23, 2022 Time Seen by Provider: 10:15 Subjective/Events-last exam 11/23/2022: No major issues Pain is controlled No falls Reviewed meds and labs 11/22/2022: Patient doing really well Discharge is planning soon No falls Neuropathy improved 11/21/2022: Patient doing well Much improved Neuropathy is much improved No falls 11/20/2022: Improved overall No pain reported Neuropathy at night improved 11/19/2022: Encephalopathy is cleared No falls Making major progress Much stronger 11/18/2022: Patient doing a lot better Encephalopathy is clearing Gabapentin requested to have higher dose 11/17/2022: Patient doing really well Improving Very weak No falls Confusion is clearing Review of Systems General: Fatigue, Malaise Objective Exam Vital Signs Vital Signs Date Time Temp Pulse Resp B/P (MAP) Pulse Ox O2 Delivery O2 Flow Rate FiO2 11/23/22 20:10 36.2 94 18 117/73 (88) 98 11/23/22 09:35 Room Air Capillary Refill : General Appearance: No Apparent Distress, WD/WN, Chronically ill, Obese HEENT: PERRL/EOMI, Normal ENT Inspection, Pharynx Normal Neck: Full Range of Motion, Normal Inspection, Non Tender, Supple, Carotid Bruit Respiratory: Chest Non Tender, Lungs Clear, Normal Breath Sounds, No Accessory Muscle Use, No Respiratory Distress Cardiovascular: No Edema, No Gallop, No JVD, No Murmur, Normal Peripheral Pulses, Irregularly Irregular Gastrointestinal: Normal Bowel Sounds, No Organomegaly, No Pulsatile Mass, Non Tender, Soft Back: Normal Inspection, No CVA Tenderness, No Vertebral Tenderness Extremity: Normal Capillary Refill, Normal Inspection, Normal Range of Motion, Non Tender, No Calf Tenderness, No Pedal Edema Neurologic/Psychiatric: Alert, Normal Mood/Affect, hydraulic repairer II-XII Norm as Tested, Abnormal Gait, Depressed Affect, Disoriented, Motor Weakness (Generalized) Skin: Normal Color, Warm/Dry Lymphatic: No Adenopathy Results/Procedures Lab Patient resulted labs reviewed. FIM Transfers Therapy Code Descriptions/Definitions Functional [place] Measure: 0=Not Assessed/NA 4=Minimal Assistance 1=Total Assistance 5=Supervision or Setup 2=Maximal Assistance 6=Modified [place] 3=Moderate Assistance 7=Complete IndependenceSCALE: Activities may be completed with or without assistive devices. 9-Cgxfxyvuei-qfidypt completes the activity by him/herself with no assistance from a helper. 5-Set-up or Clean-up Assistance-helper sets up or cleans up; patient completes activity. [place] assists only prior to or following the activity. 4-Supervision or Touching Assistance-helper provides verbal cues and/or touching/steadying and/or contact guard assistance as patient completes activity. Assistance may be provided throughout the activity or intermittently. 3-Partial/Moderate Assistance-helper does LESS THAN HALF the effort. Thor l ifts, holds or supports trunk or limbs, but provides less than half the effort. 2-Substantial/Maximal Assistance-helper does MORE THAN HALF the effort. Thor lifts or holds trunk or limbs and provides more than half the effort. 4-Uhvwoaihy-pyeokf does ALL the effort. Patient does none of the effort to complete the activity. Or, the assistance of 2 or more helpers is required for t he patient to complete the activity. If activity was not attempted, code reason: 7-Patient Refused. 9-Not Applicable-not attempted and the patient did not perform the activity before the current illness, exacerbation or injury. 10-Not Attempted due to Environmental Limitations-(lack of equipment, weather restraints, etc.). 88-Not Attempted due to Medical Conditions or Safety Concerns. Roll Left to Right (QC): 6 Sit to Lying (QC): 6 Sit to Stand (QC): 6 Chair/Mqg-bv-Fvdgz Xfer(QC): 6 Car Transfer (QC): 6 Gait Training Does the Patient Walk?: Yes Distance: 700' Walk 10 feet (QC): 6 Walk 50 ft with 2 Turns(QC): 6 Walk 150 ft (QC): 4 Walking 10ft/uneven surface-QC: 4 (CGA) Gait Persons Needed: 1 Gait Assistive Device: None Wheelchair Training Does the Pt Use a Wheelchair?: No Wheel 50 ft with 2 turns (QC): 9 Wheel 150 ft (QC): 9 Type of Wheelchair: N/A Stair Training #of Steps: 12 1 Step (curb) (QC): 6 4 Steps (QC): 6 12 Steps (QC): 6 Balance Picking up an Object (QC): 4 (SBA) ADL-Treatment Eating (QC): 6 Oral Hygiene (QC): 6 Shower/Bathe Self (QC): 6 Upper Body Dressing (QC): 6 Lower Body Dressing (QC): 6 On/Off Footwear (QC): 6 Toileting Hygiene (QC): 6 Toilet Transfer (QC): 6 Assessment/Plan Assessment and Plan Assess & Plan/Chief Complaint Assessment: Acute encephalopathy due to alcohol withdrawal Atrial fibrillation with recent RVR Obesity Diabetes Hypertension Hyperlipidemia Lower extremity neuropathy Plan: Aggressive rehab PT and OT Home meds Oral anticoagulation 11/17/2022: Supportive care Gabapentin tonight for neuropathy 11/18/2022: Increased dose of gabapentin 11/19/2022: Monitor closely Continue gabapentin 11/20/2022: Monitor neuropathy 11/21/2022: Monitor closely 11/22/2022: Supportive care Monitor closely 11/23/2022: Continue gabapentin (1) Encephalopathy JONE IVEY DO Nov 23, 2022 10:20
--- NOTE | 2022-11-23 10:27 | Speech Therapy Daily Note ---
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 Pt pleasant and cooperative throughout session. Pain Numeric Pain Scale: 5-Moderate Pain Location: Right, Left Location Body Site: Foot Comment: neuropathy Objective Pt does well with therapy tasks this date. Pt completes deductive reasoning puzzle level 2 with 100% accuracy with min verbal cues. Pt completes medication management with 100% accuracy. Pt able to recall current events from news. Assessment Assessment Current Status: Good Progress Treatment Plan Continue Plan of Care Speech Short Term Goals Short Term Goals Short Term Goals Pt will recall 3 words following a short delay of at least a minute in 4/5 opportunities. Pt will be taught memory strategies. Pt will complete medication management task with 100% accuracy independently. Speech Maintenance Mechanic [place] Goals Maintenance Mechanic [place] Goals Pt will complete higher level executive functioning tasks to improve overall safety and awareness with 80% accuracy with min verbal cues. Pt will complete memory and mental manipulation tasks with 80% accuracy with min verbal cues. Speech-Plan Patient/Family Goals Patient/Family Goals: Pt's goal is to return home following d/c from rehab. Treatment Plan Speech Therapy Treatment Plan: Continue Plan of Care Treatment Duration: Nov 16, 2022 Frequency: Modified Program (IRF) Estimated Hrs Per Day: Other Rehab Potential: Good Safety Risks/Education Teaching Recipient: Patient Teaching Methods: Discussion Response to Teaching: Verbalize Understanding Education Topics Provided: Pt edcuated on purpose of speech therapy tasks. Pt receptive and verbalized understanding. Time Speech Therapy Time In: 09:00 Speech Therapy Time Out: 09:30 DATE: Nov 23, 2022 Total Billed Time: 30 Billed Treatment Time S/L Abelardo Johnson Speech Therapy Nov 23, 2022 10:27
--- NOTE | 2022-11-23 11:57 | Physical Therapy Daily Note ---
PT Daily Note-Current Subjective pt in bed upon arrival and willing for therapy. pt reports no pain before, during or after therapy this day. pt was left in room in bed with call light and all needs met after therapy. Pain Section J - Health Conditions 1. Rarely or not at all 2. Occasionally 3. Frequently 4. Almost constantly 8. Unable to answer Pain Effect on Sleep: 2 Pain Interference with Therapy: 2 Pain Interference w/Day-to-Day: 2 Mental Status Patient Orientation: Person, Place, Time, Situation Transfers SCALE: Activities may be completed with or without assistive devices. 9-Dthltfhyir-yzxqmne completes the activity by him/herself with no assistance from a helper. 5-Set-up or Clean-up Assistance-helper sets up or cleans up; patient completes activity. [place] assists only prior to or following the activity. 4-Supervision or Touching Assistance-helper provides verbal cues and/or touching/steadying and/or contact guard assistance as patient completes activity. Assistance may be provided throughout the activity or intermittently. 3-Partial/Moderate Assistance-helper does LESS THAN HALF the effort. [place] lifts, holds or supports trunk or limbs, but provides less than half the effort. 2-Substantial/Maximal Assistance-helper does MORE THAN HALF the effort. [place] lifts or holds trunk or limbs and provides more than half the effort. 0-Vmcbpkyso-wotaon does ALL the effort. Patient does none of the effort to complete the activity. Or, the assistance of 2 or more helpers is required for the patient to complete the activity. If activity was not attempted, code reason: 7-Patient Refused. 9-Not Applicable-not attempted and the patient did not perform the activity before the current illness, exacerbation or injury. 10-Not Attempted due to Environmental Limitations-(lack of equipment, weather restraints, etc.). 88-Not Attempted due to Medical Conditions or Safety Concerns. Weight Bearing Right Lower Extremity: Right Full Weight Bearing Left Lower Extremity: Left Full Weight Bearing Wheelchair Training Wheel 50 ft with 2 turns (QC): 9 Wheel 150 ft (QC): 9 Balance Picking up an Object (QC): 6 PT Residential Goals Mailing Clerk Goals PT Residential Goals Time Frame: Nov 26, 2022 Roll Left & Right (QC): 6 (Pt will be Mod I with all aspects of functional mobility to be at PLOF. ) Sit to Lying (QC): 6 (Pt will be Mod I with all aspects of functional mobility to be at PLOF. ) Lying-Sitting on Side/Bed(QC): 6 (Pt will be Mod I with all aspects of functional mobility to be at PLOF. ) Sit to Stand (QC): 6 (Pt will be Mod I with all aspects of functional mobility to be at PLOF. ) Chair/Jmf-re-Uxjvl Xfer(QC): 6 (Pt will be Mod I with all aspects of functional mobility to be at PLOF. ) Toilet Transfer (QC): 6 (Pt will be Mod I with all aspects of functional mobility to be at PLOF. ) Car Transfer (QC): 6 (Pt will be Mod I with all aspects of functional mobility to be at PLOF. ) Does the Patient Walk: Yes Walk 10 feet (QC): 6 (Pt will be Mod I with ambulation, with the least restrictive AD. ) Walk 50ft with 2 Turns (QC): 6 (Pt will be Mod I with ambulation, with the l east restrictive AD. ) Walk 150 ft (QC): 6 (Pt will be Mod I with ambulation, with the least restrictive AD. ) Walking 10ft on Uneven Surface: 6 (Pt will be Mod I with ambulation, with the least restrictive AD. ) 1 Step (curb) (QC): 6 (Pt will be Mod I with steps to safely enter/exit the home. ) 4 Steps (QC): 6 (Pt will be Mod I with steps to safely enter/exit the home. ) 12 Steps (QC): 6 (Pt will be Mod I with steps to safely enter/exit the home. ) Picking up an Object (QC): 6 (Pt will be Mod I with all aspects of functional mobility to be at PLOF. ) Does the Pt use WC or Scooter?: No Wheel 50 feet with 2 turns (QC: 9 Type: N/A Wheel 150 feet: 9 Type: N/A PT Plan Treatment/Plan Treatment Plan: Continue Plan of Care Treatment Plan: Bed Mobility, Concurrent Therapy, Education, Functional Activity [place], Functional Strength, Group Therapy, Gait, Safety, Therapeutic Exercise, Transfers Treatment Duration: Nov 26, 2022 Frequency: At least 5 of 7 days/Wk (IRF) Estimated Hrs Per Day: 1.5 hours per day Patient and/or Family Agrees t: Yes Time Time In: 1045 Time Out: 1200 DATE: Nov 23, 2022 Total Billed Treatment Time: 75 Total Billed Treatment 1 GT x 3 EX x 2 Dahlia Rahman RESPIRATORY SUPPORT TECHNICIAN Nov 23, 2022 11:57
[2022-11-23 20:10] VITALS: BP 117/73
[2022-11-23] MEDS: GABAPENTIN 300 MG (NEURONTIN) CAP PO SCH (21:00)
[2022-11-23] MEDS: MELATONIN 3 MG TABLET PO PRN (22:54)
[2022-11-24] MEDS: inSUlin ASPART (NovoLOG) 1 UNIT/0.01 ML (CHARGE PER UNIT) SC SCH ×4 (06:00→20:09)
[2022-11-24] MEDS: CATHETER FLUSH 10 ML SYR IVP SCH ×3 (06:01→21:06)
[2022-11-24] MEDS: FUROSEMIDE 20 MG (LASIX) TAB PO SCH (06:27)
[2022-11-24] MEDS: THIAMINE 100 MG (VITAMIN B-1) TAB PO SCH (06:27)
[2022-11-24] MEDS: MULTIVIT W/MINERALS TAB (THERAGRAN M) PO SCH (06:27)
[2022-11-24 08:00] VITALS: BP 139/80
[2022-11-24] MEDS: LOSARTAN 25 MG (COZAAR) TAB PO SCH (08:58)
[2022-11-24] MEDS: meTOproloL SUCCINATE 50 MG (TOPROL XL) TAB PO SCH (08:59)
[2022-11-24] MEDS: AtorvaSTATin TABLET 10 MG TABLET PO SCH (08:59)
[2022-11-24] MEDS: FOLIC ACID 1 MG TAB PO SCH (08:59)
[2022-11-24] MEDS: APIXABAN 5 MG (ELIQUIS) TABLET PO SCH ×2 (08:59→20:59)
[2022-11-24] MEDS: [UNRECOGNIZED DRUG - REMARK] PO SCH ×2 (08:59→21:00)
[2022-11-24] MEDS: PANTOPRAZOLE 40 MG (PROTONIX) TAB PO SCH (08:59)
--- NOTE | 2022-11-24 09:17 | Cardiology Progress Note ---
Subjective Date Seen by Provider: Nov 24, 2022 Time Seen by Provider: 08:10 Subjective/Events-last exam Patient in bed, no new complaints. Denies any chest pain, dizziness or ligh theadedness. Objective-Cardiology Exam Last Set of Vital Signs Vital Signs 11/24/22 11/24/22 08:00 09:30 Temp 35.9 Pulse 90 Resp 16 B/P (MAP) 139/80 (99) Pulse Ox 93 O2 Delivery Room Air I&O Intake and Output 11/24/22 00:00 Intake Total 1640 ml Output Total 350 ml Balance 1290 ml Intake Oral 1640 ml Output Urine Total 350 ml # Bowel Movements 2 General: Alert, Oriented X3, Cooperative HEENT: Atraumatic, PERRLA Lungs: Clear to Auscultation, Normal Air Movement Heart: Other (irregulary irregular) Abdomen: Normal Bowel Sounds, Soft Extremities: No Edema Skin: No Rashes, No Significant Lesion Neuro: Cranial Nerves 3-12 NL Psych/Mental Status: Mental Status NL, Mood NL A/P-Cardiology Admission Diagnosis PAF HTN ETOH use Diverticulitis Assessment/Plan Paroxysmal atrial fibrillation Currently heart rate is better controlled, still in atrial fibrillation Maintained on Cardizem CD 180 twice daily, Toprol XL 50mg Confusion, agitation, improved. 2D echo was done on November 11, 2022 with normal left ventricular size, ejection fraction 60 to 65%. Moderately dilated left atrium, calcified mitral valve, PA pressure 40 to 45 mmHg. ETOH use, alcohol withdrawal Acute diverticulitis, abdominal pain, improved Managed by medical team Hypertension, patient has been having episodes of hypotension. I changed Lasix to 20 mg once daily and decrease Toprol-XL to 25 mg daily Continue on losartan 25 mg daily Monitor tolerance and response Obesity, BMI 30. Generalized weakness, Continue with PT/OT Supervisory-Addendum Brief Supervisory Addendum Participated in pt care: history, MDM, physical Personally performed: exam, history, MDM Care discussed with: ANTONIETA Results interpretation: Verified all documentation Notes: Patient was seen and evaluated with Gabriele, examination performed, management plan was discussed, agree with the current scribed note, I made few changes to the note using Italic font Patient was seen at bedside, sitting comfortably, has been doing well Noted to have a earlier episode of hypotension, had a similar episode yesterday morning I changed Toprol XL to 25 mg daily and decrease his Lasix to 20 mg once daily We will monitor blood pressure tolerance and response GABRIELE CASTELLON Nov 24, 2022 09:17 GASPER OLVERA MD Nov 24, 2022 16:13
[2022-11-24] MEDS: polyethylene glycoL POWDER 17 GM (MIRALAX) PACK PO SCH ×2 (10:02→20:11)
[2022-11-24] MEDS: DOCUSATE SODIUM 100 MG (COLACE) CAP PO SCH ×2 (10:02→20:12)
[2022-11-24] MEDS: SENNA W/DOCUSATE (SENOKOT S) TABLET PO SCH ×2 (10:03→20:11)
--- NOTE | 2022-11-24 10:31 | Speech Therapy Daily Note ---
Speech Daily Progress Note Subjective Date Seen by Provider: Nov 24, 2022 Time Seen by Provider: 09:00 The patient was seated upright in bed, awake and alert, upon entrance to his room by the clinician. The patient greeted the clinician appropriately and was agreeable to participation in the skilled cognitive linguistic treatment. The patient remained cooperative and pleasant throughout the session however displayed a consistently flat affect. Objective SLUMS: To compare progression and cognitive growth throughout the patient's rehabilitation stay, the clinician provided the SLUMS ([facility] Status). Upon admission, the patient completed the SLUMS with results of +17/30, displaying difficulty with mental manipulation, delayed recall, problem solving, and sequencing. On this date, the patient completed the SLUMS with a result of +30/30 and did not display difficulty in any cognitive area presented. Delayed Recall: The clinician provided the patient with a paragraph read aloud (by the clinician) and the patient was asked to recall specific information from the paragraph. The patient completed the delayed recall activity with 87% accuracy and mild clinician verbal cueing. Assessment Assessment Current Status: Good Progress Treatment Plan Continue Plan of Care Speech Short Term Goals Short Term Goals Short Term Goals Pt will recall 3 words following a short delay of at least a minute in 4/5 opportunities. Pt will be taught memory strategies. Pt will complete medication management task with 100% accuracy independently. Speech Sterile Tech Goals Sterile Tech Goals Pt will complete higher level executive functioning tasks to improve overall safety and awareness with 80% accuracy with min verbal cues. Pt will complete memory and mental manipulation tasks with 80% accuracy with min verbal cues. Speech-Plan Treatment Plan Speech Therapy Treatment Plan: Continue Plan of Care Treatment Duration: Nov 16, 2022 Frequency: Modified Program (IRF) Estimated Hrs Per Day: Other Rehab Potential: Good Pt/Family Agrees to Plan: Yes Safety Risks/Education Teaching Recipient: Patient Teaching Methods: Discussion Response to Teaching: Verbalize Understanding Education Topics Provided: Results of SLUMS, Plan of Care Time Speech Therapy Time In: 09:00 Speech Therapy Time Out: 09:30 DATE: Nov 24, 2022 Total Billed Time: 30 Billed Treatment Time NIDHI Valentin ELIZABETH Nov 24, 2022 10:31
--- NOTE | 2022-11-24 11:03 | PM&R Progress Note ---
Subjective HPI/CC On Admission Date Seen by Provider: Nov 24, 2022 Time Seen by Provider: 11:15 Subjective/Events-last exam 11/24/2022: Patient doing well Discharge plan for tomorrow Sent all meds to [facility] 11/23/2022: No major issues Pain is controlled No falls Reviewed meds and labs 11/22/2022: Patient doing really well Discharge is planning soon No falls Neuropathy improved 11/21/2022: Patient doing well Much improved Neuropathy is much improved No falls 11/20/2022: Improved overall No pain reported Neuropathy at night improved 11/19/2022: Encephalopathy is cleared No falls Making major progress Much stronger 11/18/2022: Patient doing a lot better Encephalopathy is clearing Gabapentin requested to have higher dose 11/17/2022: Patient doing really well Improving Very weak No falls Confusion is clearing Review of Systems General: Fatigue, Malaise Objective Exam Vital Signs Vital Signs Date Time Temp Pulse Resp B/P (MAP) Pulse Ox O2 Delivery O2 Flow Rate FiO2 11/24/22 21:08 Room Air 11/24/22 19:47 36.4 70 20 114/62 (79) 97 Capillary Refill : General Appearance: No Apparent Distress, WD/WN, Chronically ill, Obese HEENT: PERRL/EOMI, Normal ENT Inspection, Pharynx Normal Neck: Full Range of Motion, Normal Inspection, Non Tender, Supple, Carotid Bruit Respiratory: Chest Non Tender, Lungs Clear, Normal Breath Sounds, No Accessory Muscle Use, No Respiratory Distress Cardiovascular: No Edema, No Gallop, No JVD, No Murmur, Normal Peripheral Pulses, Irregularly Irregular Gastrointestinal: Normal Bowel Sounds, No Organomegaly, No Pulsatile Mass, Non Tender, Soft Back: Normal Inspection, No CVA Tenderness, No Vertebral Tenderness Extremity: Normal Capillary Refill, Normal Inspection, Normal Range of Motion, Non Tender, No Calf Tenderness, No Pedal Edema Neurologic/Psychiatric: Alert, Normal Mood/Affect, inspector plug seam II-XII Norm as Tested, Abnormal Gait, Depressed Affect, Disoriented, Motor Weakness (Generalized) Skin: Normal Color, Warm/Dry Lymphatic: No Adenopathy Results/Procedures Lab Patient resulted labs reviewed. FIM Transfers Therapy Code Descriptions/Definitions Functional [place] Measure: 0=Not Assessed/NA 4=Minimal Assistance 1=Total Assistance 5=Supervision or Setup 2=Maximal Assistance 6=Modified [place] 3=Moderate Assistance 7=Complete IndependenceSCALE: Activities may be completed with or without assistive devices. 7-[place]ks[place]uf[place]-sqqtjqt completes the activity by him/herself with no assistance from a helper. 5-Set-up or Clean-up Assistance-helper sets up or cleans up; patient completes activity. [place] assists only prior to or following the activity. 4-Supervision or Touching Assistance-helper provides verbal cues and/or t ouching/steadying and/or contact guard assistance as patient completes activity. Assistance may be provided throughout the activity or intermittently. 3-Partial/Moderate Assistance-helper does LESS THAN HALF the effort. [place] lifts, holds or supports trunk or limbs, but provides less than half the effort. 2-Substantial/Maximal Assistance-helper does MORE THAN HALF the effort. [place] lifts or holds trunk or limbs and provides more than half the effort. 3-Rbciicyem-rawtgs does ALL the effort. Patient does none of the effort to complete the activity. Or, the assistance of 2 or more helpers is required for the patient to complete the activity. If activity was not attempted, code reason: 7-Patient Refused. 9-Not Applicable-not attempted and the patient did not perform the activity before the current illness, exacerbation or injury. 10-Not Attempted due to Environmental Limitations-(lack of equipment, weather restraints, etc.). 88-Not Attempted due to Medical Conditions or Safety Concerns. Roll Left to Right (QC): 6 Sit to Lying (QC): 6 Sit to Stand (QC): 6 Chair/Yiq-zx-Uupkf Xfer(QC): 6 Car Transfer (QC): 6 Gait Training Does the Patient Walk?: Yes Distance: 700' Walk 10 feet (QC): 6 Walk 50 ft with 2 Turns(QC): 6 Walk 150 ft (QC): 4 Walking 10ft/uneven surface-QC: 4 (CGA) Gait Persons Needed: 1 Gait Assistive Device: None Wheelchair Training Does the Pt Use a Wheelchair?: No Wheel 50 ft with 2 turns (QC): 9 Wheel 150 ft (QC): 9 Type of Wheelchair: N/A Stair Training #of Steps: 12 1 Step (curb) (QC): 6 4 Steps (QC): 6 12 Steps (QC): 6 Balance Picking up an Object (QC): 6 ADL-Treatment Eating (QC): 6 Oral Hygiene (QC): 6 Shower/Bathe Self (QC): 6 Upper Body Dressing (QC): 6 Lower Body Dressing (QC): 6 On/Off Footwear (QC): 6 Toileting Hygiene (QC): 6 Toilet Transfer (QC): 6 Assessment/Plan Assessment and Plan Assess & Plan/Chief Complaint Assessment: Acute encephalopathy due to alcohol withdrawal Atrial fibrillation with recent RVR Obesity Diabetes Hypertension Hyperlipidemia Lower extremity neuropathy Plan: Aggressive rehab PT and OT Home meds Oral anticoagulation 11/17/2022: Supportive care Gabapentin tonight for neuropathy 11/18/2022: Increased dose of gabapentin 11/19/2022: Monitor closely Continue gabapentin 11/20/2022: Monitor neuropathy 11/21/2022: Monitor closely 11/22/2022: Supportive care Monitor closely 11/23/2022: Continue gabapentin 11/24/2022: Supportive care Discharge home tomorrow (1) Encephalopathy JONE IVEY DO Nov 24, 2022 11:03
--- NOTE | 2022-11-24 11:30 | Physical Therapy Daily Note ---
PT Daily Note-Current Subjective pt was in therapy gym with OT and willing for therapy. OT/PT co-treat for 15 mins [id number], skills of 2 clinicians required due to higher level training, higher balance active for ADL's. Co-treat for safety as this is the first time performing said activity. Ot focused on ADL task and PT focused on balance training. Pain Section J - Health Conditions 1. Rarely or not at all 2. Occasionally 3. Frequently 4. Almost constantly 8. Unable to answer Pain Effect on Sleep: 2 Pain Interference with Therapy: 2 Pain Interference w/Day-to-Day: 2 Transfers SCALE: Activities may be completed with or without assistive devices. 2-Zfshtdoyiv-pdrlmon completes the activity by him/herself with no assistance from a helper. 5-Set-up or Clean-up Assistance-helper sets up or cleans up; patient completes activity. [place] assists only prior to or following the activity. 4-Supervision or Touching Assistance-helper provides verbal cues and/or touching/steadying and/or contact guard assistance as patient completes activity. Assistance may be provided throughout the activity or intermittently. 3-Partial/Moderate Assistance-helper does LESS THAN HALF the effort. [place] lifts, holds or supports trunk or limbs, but provides less than half the effort. 2-Substantial/Maximal Assistance-helper does MORE THAN HALF the effort. [place] lifts or holds trunk or limbs and provides more than half the effort. 7-Zdhbtjmue-nvmwmp does ALL the effort. Patient does none of the effort to complete the activity. Or, the assistance of 2 or more helpers is required for the patient to complete the activity. If activity was not attempted, code reason: 7-Patient Refused. 9-Not Applicable-not attempted and the patient did not perform the activity before the current illness, exacerbation or injury. 10-Not Attempted due to Environmental Limitations-(lack of equipment, weather restraints, etc.). 88-Not Attempted due to Medical Conditions or Safety Concerns. Roll Left & Right (QC): 6 Sit to Lying (QC): 6 Lying to Sitting/Side of Bed(Q: 6 Sit to Stand (QC): 6 Chair/Ybh-sx-Mjgwn Xfer(QC): 6 Toilet Transfer (QC): 6 Car Transfer (QC): 6 Weight Bearing Right Lower Extremity: Right Full Weight Bearing Left Lower Extremity: Left Full Weight Bearing Gait Training Walk 10 feet (QC): 6 Walk 50 ft with 2 Turns(QC): 6 Walk 150 ft (QC): 6 Walking 10ft/uneven surface-QC: 6 Wheelchair Training Wheel 50 ft with 2 turns (QC): 6 Wheel 150 ft (QC): 6 Stair Training 1 Step (curb) (QC): 6 4 Steps (QC): 6 12 Steps (QC): 6 Balance Picking up an Object (QC): 6 Treatments Pt was able to preform Nu-step 35 mins at level 4 this day for increased strength and endurance. pt was able to preform bed mobility, picking up an object, 12 stairs, ambulation and ambulation on an uneven surface as well as transfers with independence this day Assessment Current Status: Excellent Progress PT Intermediate Goals Intermediate Goals PT Wringer Machine Operator Goals Time Frame: Nov 26, 2022 Roll Left & Right (QC): 6 (Pt will be Mod I with all aspects of functional mobility to be at PLOF. ) Sit to Lying (QC): 6 (Pt will be Mod I with all aspects of functional mobility to be at PLOF. ) Lying-Sitting on Side/Bed(QC): 6 (Pt will be Mod I with all aspects of functional mobility to be at PLOF. ) Sit to Stand (QC): 6 (Pt will be Mod I with all aspects of functional mobility to be at PLOF. ) Chair/Vzz-nw-Xnfbk Xfer(QC): 6 (Pt will be Mod I with all aspects of functional mobility to be at PLOF. ) Toilet Transfer (QC): 6 (Pt will be Mod I with all aspects of functional mobility to be at PLOF. ) Car Transfer (QC): 6 (Pt will be Mod I with all aspects of functional mobility to be at PLOF. ) Does the Patient Walk: Yes Walk 10 feet (QC): 6 (Pt will be Mod I with ambulation, with the least restrictive AD. ) Walk 50ft with 2 Turns (QC): 6 (Pt will be Mod I with ambulation, with the least restrictive AD. ) Walk 150 ft (QC): 6 (Pt will be Mod I with ambulation, with the least restrictive AD. ) Walking 10ft on Uneven Surface: 6 (Pt will be Mod I with ambulation, with the least restrictive AD. ) 1 Step (curb) (QC): 6 (Pt will be Mod I with steps to safely enter/exit the home. ) 4 Steps (QC): 6 (Pt will be Mod I with steps to safely enter/exit the home. ) 12 Steps (QC): 6 (Pt will be Mod I with steps to safely enter/exit the home. ) Picking up an Object (QC): 6 (Pt will be Mod I with all aspects of functional mobility to be at PLOF. ) Does the Pt use WC or Scooter?: No Wheel 50 feet with 2 turns (QC: 9 Type: N/A Wheel 150 feet: 9 Type: N/A PT Plan Treatment/Plan Treatment Plan: Continue Plan of Care Treatment Plan: Bed Mobility, Concurrent Therapy, Education, Functional Activity [place], Functional Strength, Group Therapy, Gait, Safety, Therapeutic Exercise, Transfers Treatment Duration: Nov 26, 2022 Frequency: At least 5 of 7 days/Wk (IRF) Estimated Hrs Per Day: 1.5 hours per day Patient and/or Family Agrees t: Yes Time Time In: 1045 Time Out: 1200 DATE: Nov 24, 2022 Total Billed Treatment Time: 75 Total Billed Treatment 1 EX x 2 FA x 3 Co treat 15 mins from [id number] [id number] individual treatment Dahlia Rahman INFORMATION ARCHITECT Nov 24, 2022 11:30
--- NOTE | 2022-11-24 11:44 | Occupational Ther Daily Note ---
OT Current Status-Daily Note Subjective Pt lying in bed upon arrival, alert and cooperative. Agreed to OT. ADL-Treatment Pt agreed to shower. Pt transferred out of bed, gathered clothing, and ambulated to bathroom independently. Pt completed bathing and grooming, toilet transfer and toilet hygiene all independently. Pt Independent with upper and lower body dressing. Pt ambulated to therapy gym and completed arm bike for 15 mins 25 teran, no recovery breaks. Pt then completed an functional exercise including fine motor coordination, dexterity, and standing balance. OT/PT co-treat for 15 mins [id number], skills of 2 clinicians required due to higher level training, higher balance active for ADL's. Co-treat for safety as this is the first time performing said activity. Ot focused on ADL task and PT focused on balance training. Pt left with SECURITY INCIDENT HANDLER, all needs met. Therapy Code Descriptions/Definitions Functional [place] Measure: 0=Not Assessed/NA 4=Minimal Assistance 1=Total Assistance 5=Supervision or Setup 2=Maximal Assistance 6=Modified [place] 3=Moderate Assistance 7=Complete IndependenceSCALE: Activities may be completed with or without assistive devices. 5-Hqbgpqnkmv-gamqfkg completes the activity by him/herself with no assistance from a helper. 5-Set-up or Clean-up Assistance-helper sets up or cleans up; patient completes activity. [place] assists only prior to or following the activity. 4-Supervision or Touching Assistance-helper provides verbal cues and/or touching/steadying and/or contact guard assistance as patient completes activity. Assistance may be provided throughout the activity or intermittently. 3-Partial/Moderate Assistance-helper does LESS THAN HALF the effort. [place] lifts, holds or supports trunk or limbs, but provides less than half the effort. 2-Substantial/Maximal Assistance-helper does MORE THAN HALF the effort. [place] lifts or holds trunk or limbs and provides more than half the effort. 9-Vgzxuvuwi-btvjgp does ALL the effort. Patient does none of the effort to complete the activity. Or, the assistance of 2 or more helpers is required for the patient to complete the activity. If activity was not attempted, code reason: 7-Patient Refused. 9-Not Applicable-not attempted and the patient did not perform the activity before the current illness, exacerbation or injury. 10-Not Attempted due to Environmental Limitations-(lack of equipment, weather restraints, etc.). 88-Not Attempted due to Medical Conditions or Safety Concerns. Eating (QC): 6 Oral Hygiene (QC): 6 Bathing Location: L Arm, R Arm, L Upper Leg, R Upper Leg, L Lower Leg (including foot), Chest, Abdomen, Buttocks, Perineal Area Shower/Bathe Self (QC): 6 Upper Body Dressing (QC): 6 Lower Body Dressing (QC): 6 On/Off Footwear: 6 Toileting Hygiene (QC): 6 Toilet Transfer (QC): 6 Education OT Patient Education: Home exercise program Teaching Recipient: Patient Teaching Methods: Demonstration, Handout Response to Teaching: Verbalize Understanding, Return Demonstration BIMS CAM BIMS Expression of Ideas and Wants: Without Difficulty Understanding Verbal Content: Understands Brief Interview/Mental Status: Yes IRF KRISTI BIMS: IRF KRISTI BIMS Response (Comments) Value Repitition of Three Words Three 3 Recalls Socks Yes, No Cue Required 2 Recalls Blue Yes, No Cue Required 2 Recalls Bed Yes, No Cue Required 2 Year Correct 3 Month Accurate Within 5 Days 2 Day Correct 1 Total 15 Patient Normally Able to Recal: Current Session, Location of own room, Staff Names and faces, That he/she in a [facility] Should Staff Asses. Mental St.: No Memory/Recall Ability: Current Season, Location of Own Room, Staff Names and Faces, That He[facility]She in Hospit[facility] CAM Mental Status Change/Baseline: 0 Inattention: 0 Disorganized thinkin Altered level of consciousness: 0 OT Short Term Goals Short Term Goals Time Frame: Nov 24, 2022 Shower/bathe self: 5 Upper body dressin Lower body dressin Putting on/taking off footwear: 5 OT Pasta Maker Goals Pasta Maker Goals Time Frame: Dec 03, 2022 Acute change in mental status: 1 Inattention: 0 Disorganized thinkin Altered level of consciousness: 0 Eating (QC): 6 (met) Oral Hygiene (QC): 6 (met) Toileting Hygiene (QC): 6 (met) Shower/Bathe Self (QC): 6 (met) Upper Body Dressing (QC): 6 (met) Lower Body Dressing (QC): 6 (met) On/Off Footwear (QC): 6 (met) Additional Goals: 1-Demonstrate ADL Tasks, 2-Verbalize Understanding, 3-ImproveStrength/[place] 1=Demonstrate adherence to instructed precautions during ADL tasks. 2=Patient will verbalize/demonstrate understanding of assistive devices/modifications for ADL. 3=Patient will improve strength/tolerance for activity to enable patient to perf orm ADL's. OT Education/Plan Discharge Recommendations Plan/Recommendations: Continue POC Treatment Plan/Plan of Care Patient would benefit from OT for education, treatment and training to promote independence in ADL's, mobility, safety and/or upper extremity function for ADL's. Plan of Care: ADL Retraining, Functional Mobility, Group Exercise/Act as Ind, UE Funct Exercise/Act Treatment Duration: Dec 03, 2022 Frequency: At least 5 of 7 days/Wk (IRF) Estimated Hrs Per Day: 1.5 hours per day Agreement: Yes Rehab Potential: Good Time Start Time: 10:00 Stop Time: 11:00 DATE: Nov 24, 2022 Total Time Billed (hr/min): 60 Billed Treatment Time 1 visit ADL 2 Ex 2 Individual time 60 min ([id number]) Co-treat PT/OT 15 min ([id number]) Eva Aguirre COTA Nov 24, 2022 11:44
--- NOTE | 2022-11-24 17:19 | Occupational Ther Daily Note ---
OT Current Status-Daily Note Subjective Pt in room lying in bed upon arrival,alert and cooperative, agreed to therapy. ADL-Treatment Pt completed a functional activity involving nuts and bolts to continue to work on manipulation, dexterity, coordination and reaching across midline while working on functional standing balance. Pt then participated in laundry management activity, as well as ambulating around ARU independently. Pt was left in room in bed resting, with call light and phone within reach, all needs met in room. Therapy Code Descriptions/Definitions Functional [place] Measure: 0=Not Assessed/NA 4=Minimal Assistance 1=Total Assistance 5=Supervision or Setup 2=Maximal Assistance 6=Modified [place] 3=Moderate Assistance 7=Complete IndependenceSCALE: Activities may be completed with or without assistive devices. 3-Efmoqtpjrr-gsjydmo completes the activity by him/herself with no assistance from a helper. 5-Set-up or Clean-up Assistance-helper sets up or cleans up; patient completes activity. [place] assists only prior to or following the activity. 4-Supervision or Touching Assistance-helper provides verbal cues and/or touching/steadying and/or contact guard assistance as patient completes activity. Assistance may be provided throughout the activity or intermittently. 3-Partial/Moderate Assistance-helper does LESS THAN HALF the effort. [place] lifts, holds or supports trunk or limbs, but provides less than half the effort. 2-Substantial/Maximal Assistance-helper does MORE THAN HALF the effort. [place] lifts or holds trunk or limbs and provides more than half the effort. 0-Eljeqmobp-ddtacf does ALL the effort. Patient does none of the effort to complete the activity. Or, the assistance of 2 or more helpers is required for the patient to complete the activity. If activity was not attempted, code reason: 7-Patient Refused. 9-Not Applicable-not attempted and the patient did not perform the activity before the current illness, exacerbation or injury. 10-Not Attempted due to Environmental Limitations-(lack of equipment, weather restraints, etc.). 88-Not Attempted due to Medical Conditions or Safety Concerns. Education OT Patient Education: Progress toward Goal/Update tx plan, Purpose of tx/functional activities Teaching Recipient: Patient Teaching Methods: Demonstration Response to Teaching: Verbalize Understanding OT Short Term Goals Short Term Goals Time Frame: Nov 24, 2022 Shower/bathe self: 5 Upper body dressin Lower body dressin Putting on/taking off footwear: 5 OT Digital Asset Manager Goals Senior Living Goals Time Frame: Dec 03, 2022 Acute change in mental status: 0 Inattention: 0 Disorganized thinkin Altered level of consciousness: 0 Eating (QC): 6 (met) Oral Hygiene (QC): 6 (met) Toileting Hygiene (QC): 6 (met) Shower/Bathe Self (QC): 6 (met) Upper Body Dressing (QC): 6 (met) Lower Body Dressing (QC): 6 (met) On/Off Footwear (QC): 6 (met) Additional Goals: 1-Demonstrate ADL Tasks, 2-Verbalize Understanding, 3-ImproveStrength/[place] 1=Demonstrate adherence to instructed precautions during ADL tasks. 2=Patient will verbalize/demonstrate understanding of assistive devices/modifications for ADL. 3=Patient will improve strength/tolerance for activity to enable patient to perform ADL's. OT Education/Plan Discharge Recommendations Plan/Recommendations: Continue POC Treatment Plan/Plan of Care Patient would benefit from OT for education, treatment and training to promote independence in ADL's, mobility, safety and/or upper extremity function for ADL's. Plan of Care: ADL Retraining, Functional Mobility, Group Exercise/Act as Ind, UE Funct Exercise/Act Treatment Duration: Dec 03, 2022 Frequency: At least 5 of 7 days/Wk (IRF) Estimated Hrs Per Day: 1.5 hours per day Agreement: Yes Rehab Potential: Good Time Start Time: 12:45 Stop Time: 13:00 DATE: Nov 24, 2022 Total Time Billed (hr/min): 15 Billed Treatment Time 1 visit FA 15 min Eva Aguirre COTA Nov 24, 2022 17:19
[2022-11-24 19:47] VITALS: BP 114/62
[2022-11-24] MEDS ORDERED: SITA1TAB2 PO (20:41)
[2022-11-24] MEDS ORDERED: MTP25TSR PO (20:41)
[2022-11-24] MEDS ORDERED: DILT180C85 PO (20:41)
[2022-11-24] MEDS ORDERED: FURO20TA4 PO (20:41)
[2022-11-24] MEDS ORDERED: APIX5TAB PO (20:41)
[2022-11-24] MEDS ORDERED: ATOR10TA66 PO (20:41)
[2022-11-24] MEDS ORDERED: GABA300C PO (20:41)
[2022-11-24] MEDS ORDERED: OMEP40CA6 PO (20:41)
[2022-11-24] MEDS ORDERED: ACHYD1T PO (20:41)
[2022-11-24] MEDS ORDERED: LOSA25TA41 PO (20:41)
[2022-11-24] MEDS ORDERED: MULT-1137 PO (20:41)
[2022-11-24] MEDS ORDERED: THIA100T80 PO (20:41)
[2022-11-24] MEDS ORDERED: FOLI1TAB33 PO (20:41)
[2022-11-24] MEDS: GABAPENTIN 300 MG (NEURONTIN) CAP PO SCH (20:59)
[2022-11-24] MEDS: MELATONIN 3 MG TABLET PO PRN (22:38)
[2022-11-25] MEDS: inSUlin ASPART (NovoLOG) 1 UNIT/0.01 ML (CHARGE PER UNIT) SC SCH ×3 (05:12→16:00)
[2022-11-25] MEDS: CATHETER FLUSH 10 ML SYR IVP SCH ×2 (05:32→18:41)
--- NOTE | 2022-11-25 05:36 | Discharge Summary ---
Diagnosis/Chief Complaint Date of Admission Nov 16, 2022 at 09:50 Date of Discharge Discharge Date: Nov 25, 2022 Discharge Diagnosis Assessment: Acute encephalopathy due to alcohol withdrawal Atrial fibrillation with recent RVR Obesity Diabetes Hypertension Hyperlipidemia Lower extremity neuropathy Plan: Aggressive rehab PT and OT Home meds Oral anticoagulation 11/17/2022: Supportive care Gabapentin tonight for neuropathy 11/18/2022: Increased dose of gabapentin 11/19/2022: Monitor closely Continue gabapentin 11/20/2022: Monitor neuropathy 11/21/2022: Monitor closely 11/22/2022: Supportive care Monitor closely 11/23/2022: Continue gabapentin 11/24/2022: Supportive care Discharge home tomorrow (1) Encephalopathy Discharge Summary Discharge Physical Examination Allergies: Coded Allergies: No Known Drug Allergies (Unverified , 11/10/22) Vitals & I&Os Vital Signs Date Time Temp Pulse Resp B/P (MAP) Pulse Ox O2 Delivery O2 Flow Rate FiO2 11/25/22 09:30 Room Air 11/25/22 08:00 35.5 68 16 108/72 (84) 97 General Appearance: Alert, Oriented X3, Cooperative Respiratory: Clear to Auscultation Cardiovascular: Regular Rate Psych/Mental Status: Mental Status NL Hospital Course Was the Problem List Reviewed?: Yes Hospital course: Patient had an uneventful hospital course following severe encephalopathy from alcohol withdrawal with fibrillation with RVR. Patient received vitamin supplementation. Slow recovery but he did participate in all therapy and he regained function back to near baseline and was discharged so he can attend alcohol rehab in [place]. Labs (last 24 hrs) Laboratory Tests 11/16/22 10:49: Glucometer 223H 11/16/22 16:33: Glucometer 133H 11/16/22 21:18: Glucometer 156H 11/17/22 04:54: White Blood Count 9.3, Red Blood Count 3.75L, Hemoglobin 11.6L, Hematocrit 36L, Mean Corpuscular Volume 95, Mean Corpuscular Hemoglobin 31, Mean Corpuscular He moglobin Concent 33, Red Cell Distribution Width 13.8, Platelet Count 416H, Mean Platelet Volume 9.5, Immature Granulocyte % (Auto) 1, Neutrophils (%) (Auto) 52, Lymphocytes (%) (Auto) 30, Monocytes (%) (Auto) 13H, Eosinophils (%) (Auto) 4, Basophils (%) (Auto) 0, Neutrophils # (Auto) 4.8, Lymphocytes # (Auto) 2.8, Monocytes # (Auto) 1.2H, Eosinophils # (Auto) 0.3, Basophils # (Auto) 0.0, Immature Granulocyte # (Auto) 0.1, Sodium Level 135, Potassium Level 4.4, Chloride Level 104, Carbon Dioxide Level 24, Anion Gap 7, Blood Urea Nitrogen 10, Creatinine 1.13, Estimat Glomerular Filtration Rate 72, BUN/Creatinine Ratio 9, Glucose Level 122H, Calcium Level 9.5, Corrected Calcium 10.0, Total Bilirubin 0.5, Aspartate Amino Transf (AST/SGOT) 20, Alanine Aminotransferase (ALT/SGPT) 19, Alkaline Phosphatase 49, Total Protein 7.0, Albumin 3.4 11/17/22 11:03: Glucometer 150H 11/17/22 15:31: Glucometer 116H 11/17/22 21:19: Glucometer 159H 11/18/22 06:17: Glucometer 118H 11/18/22 11:06: Glucometer 103 11/18/22 15:23: Glucometer 102 11/18/22 20:07: Glucometer 129H 11/19/22 06:03: Glucometer 114H 11/19/22 10:57: Glucometer 90 11/19/22 15:11: Glucometer 133H 11/19/22 20:21: Glucometer 133H 11/20/22 05:35: Glucometer 96 11/20/22 10:40: Glucometer 109 11/20/22 15:45: Glucometer 115H 11/20/22 20:19: Glucometer 116H 11/21/22 06:13: Glucometer 92 11/21/22 10:44: Glucometer 127H 11/21/22 15:23: Glucometer 115H 11/21/22 20:07: Glucometer 120H 11/22/22 05:50: White Blood Count 9.1, Red Blood Count 3.86L, Hemoglobin 12.0L, Hematocrit 36L, Mean Corpuscular Volume 93, Mean Corpuscular Hemoglobin 31, Mean Corpuscular Hemoglobin Concent 34, Red Cell Distribution Width 13.3, Platelet Count 542H, Mean Platelet Volume 9.4, Immature Granulocyte % (Auto) 1, Neutrophils (%) (Auto) 61, Lymphocytes (%) (Auto) 28, Monocytes (%) (Auto) 8, Eosinophils (%) (Auto) 2, Basophils (%) (Auto) 1, Neutrophils # (Auto) 5.5, Lymphocytes # (Auto) 2.5, Monocytes # (Auto) 0.7, Eosinophils # (Auto) 0.2, Basophils # (Auto) 0.1, Immature Granulocyte # (Auto) 0.1, Sodium Level 137, Potassium Level 3.6, Chloride Level 102, Carbon Dioxide Level 28, Anion Gap 7, Blood Urea Nitrogen 21H, Creatinine 1.30, Estimat Glomerular Filtration Rate 61, BUN/Creatinine Ratio 16, Glucose Level 96, Calcium Level 9.3, Corrected Calcium 9.8, Total Bilirubin 0.3, Aspartate Amino Transf (AST/SGOT) 18, Alanine Aminotransferase (ALT/SGPT) 20, Alkaline Phosphatase 46, Total Protein 6.7, Albumin 3.4 11/22/22 11:45: Glucometer 95 11/22/22 15:32: Glucometer 126H 11/22/22 20:27: Glucometer 146H 11/23/22 06:17: Glucometer 78 11/23/22 11:08: Glucometer 120H 11/23/22 16:15: Glucometer 146H 11/23/22 20:49: Glucometer 151H 11/24/22 05:59: Glucometer 100 11/24/22 10:52: Glucometer 111H 11/24/22 15:50: Glucometer 119H 11/24/22 20:01: Glucometer 158H 11/25/22 10:59: Glucometer 113H 11/25/22 15:40: Glucometer 95 Pending Labs Laboratory Tests 11/16/22 10:49: Glucometer 223 11/16/22 16:33: Glucometer 133 11/16/22 21:18: Glucometer 156 11/17/22 04:54: White Blood Count 9.3, Red Blood Count 3.75, Hemoglobin 11.6, Hematocrit 36, Mean Corpuscular Volume 95, Mean Corpuscular Hemoglobin 31, Mean Corpuscular Hemoglobin Concent 33, Red Cell Distribution Width 13.8, Platelet Count 416, Mean Platelet Volume 9.5, Immature Granulocyte % (Auto) 1, Neutrophils (%) (Auto) 52, Lymphocytes (%) (Auto) 30, Monocytes (%) (Auto) 13, Eosinophils (%) (Auto) 4, Basophils (%) (Auto) 0, Neutrophils # (Auto) 4.8, Lymphocytes # (Auto) 2.8, Monocytes # (Auto) 1.2, Eosinophils # (Auto) 0.3, Basophils # (Auto) 0.0, Immature Granulocyte # (Auto) 0.1, Sodium Level 135, Potassium Level 4.4, Chloride Level 104, Carbon Dioxide Level 24, Anion Gap 7, Blood Urea Nitrogen 10, Creatinine 1.13, Estimat Glomerular Filtration Rate 72, BUN/Creatinine Ratio 9, Glucose Level 122, Calcium Level 9.5, Corrected Calcium 10.0, Total Bilirubin 0.5, Aspartate Amino Transf (AST/SGOT) 20, Alanine Aminotransferase (ALT/SGPT) 19, Alkaline Phosphatase 49, Total Protein 7.0, Albumin 3.4 11/17/22 11:03: Glucometer 150 11/17/22 15:31: Glucometer 116 11/17/22 21:19: Glucometer 159 11/18/22 06:17: Glucometer 118 11/18/22 11:06: Glucometer 103 11/18/22 15:23: Glucometer 102 11/18/22 20:07: Glucometer 129 11/19/22 06:03: Glucometer 114 11/19/22 10:57: Glucometer 90 11/19/22 15:11: Glucometer 133 11/19/22 20:21: Glucometer 133 11/20/22 05:35: Glucometer 96 11/20/22 10:40: Glucometer 109 11/20/22 15:45: Glucometer 115 11/20/22 20:19: Glucometer 116 11/21/22 06:13: Glucometer 92 11/21/22 10:44: Glucometer 127 11/21/22 15:23: Glucometer 115 11/21/22 20:07: Glucometer 120 11/22/22 05:50: White Blood Count 9.1, Red Blood Count 3.86, Hemoglobin 12.0, Hematocrit 36, Mean Corpuscular Volume 93, Mean Corpuscular Hemoglobin 31, Mean Corpuscular Hemoglobin Concent 34, Red Cell Distribution Width 13.3, Platelet Count 542, Mean Platelet Volume 9.4, Immature Granulocyte % (Auto) 1, Neutrophils (%) (Auto) 61, Lymphocytes (%) (Auto) 28, Monocytes (%) (Auto) 8, Eosinophils (%) (A uto) 2, Basophils (%) (Auto) 1, Neutrophils # (Auto) 5.5, Lymphocytes # (Auto) 2.5, Monocytes # (Auto) 0.7, Eosinophils # (Auto) 0.2, Basophils # (Auto) 0.1, Immature Granulocyte # (Auto) 0.1, Sodium Level 137, Potassium Level 3.6, Chloride Level 102, Carbon Dioxide Level 28, Anion Gap 7, Blood Urea Nitrogen 21, Creatinine 1.30, Estimat Glomerular Filtration Rate 61, BUN/Creatinine Ratio 16, Glucose Level 96, Calcium Level 9.3, Corrected Calcium 9.8, Total Bilirubin 0.3, Aspartate Amino Transf (AST/SGOT) 18, Alanine Aminotransferase (ALT/SGPT) 20, Alkaline Phosphatase 46, Total Protein 6.7, Albumin 3.4 11/22/22 11:45: Glucometer 95 11/22/22 15:32: Glucometer 126 11/22/22 20:27: Glucometer 146 11/23/22 06:17: Glucometer 78 11/23/22 11:08: Glucometer 120 11/23/22 16:15: Glucometer 146 11/23/22 20:49: Glucometer 151 11/24/22 05:59: Glucometer 100 11/24/22 10:52: Glucometer 111 11/24/22 15:50: Glucometer 119 11/24/22 20:01: Glucometer 158 11/25/22 10:59: Glucometer 113 11/25/22 15:40: Glucometer 95 Discharge Home Medications: Active Scripts Active Neurontin (Gabapentin) 300 Mg Capsule 300 Mg PO HS Tab-A-Angeline Multivit with Iron (Multivitamin/Iron/Folic Acid) 18 Mg Iron-400 Mcg Tablet 1 Ea PO DAILY@0700 Vitamin B-1 (Thiamine HCl) 100 Mg Tablet 100 Mg PO DAILY@0700 Folic Acid 1 Mg Tablet 1 Mg PO DAILY Furosemide 20 Mg Tablet 20 Mg PO DAILY HYDROcodone/APAP 10/325 TABLET (Acetaminophen/Hydrocodone Bitart) 1 Ea Tab 1 Ea PO Q6H PRN Diltiazem 24Hr ER (Diltiazem HCl) 180 Mg Cap.er.24h 180 Mg PO BID Atorvastatin Calcium 10 Mg Tablet 10 Mg PO DAILY Eliquis (Apixaban) 5 Mg Tablet 5 Mg PO BID Omeprazole 40 Mg Capsule.dr 40 Mg PO DAILY Janumet 50-500 mg Tablet (Sitagliptin Phos/Metformin HCl) 50 Mg-500 Mg Tablet 1 Ea PO BID Metoprolol Succinate 25 Mg Tab.er.24h 25 Mg PO DAILY Losartan Potassium 25 Mg Tablet 25 Mg PO DAILY Instructions to patient/family Please see electronic discharge instructions given to patient. Diagnosis/Problems Diagnosis/Problems (1) Encephalopathy JONE IVEY DO Nov 25, 2022 05:36
[2022-11-25] MEDS: MULTIVIT W/MINERALS TAB (THERAGRAN M) PO SCH (06:06)
[2022-11-25] MEDS: THIAMINE 100 MG (VITAMIN B-1) TAB PO SCH (06:06)
[2022-11-25 08:00] VITALS: BP 108/72
[2022-11-25] MEDS: APIXABAN 5 MG (ELIQUIS) TABLET PO SCH (08:07)
[2022-11-25] MEDS: FOLIC ACID 1 MG TAB PO SCH (08:08)
[2022-11-25] MEDS: PANTOPRAZOLE 40 MG (PROTONIX) TAB PO SCH (08:08)
[2022-11-25] MEDS: LOSARTAN 25 MG (COZAAR) TAB PO SCH (08:08)
[2022-11-25] MEDS: AtorvaSTATin TABLET 10 MG TABLET PO SCH (08:08)
[2022-11-25] MEDS: [UNRECOGNIZED DRUG - REMARK] PO SCH (08:09)
--- NOTE | 2022-11-25 08:24 | Cardiology Progress Note ---
Subjective Date Seen by Provider: Nov 25, 2022 Time Seen by Provider: 08:21 Subjective/Events-last exam Patient sitting up in bed, no new complaints. Denies any chest pain or dyspnea Objective-Cardiology Exam Last Set of Vital Signs Vital Signs 11/25/22 08:00 Temp 35.5 Pulse 68 Resp 16 B/P (MAP) 108/72 (84) Pulse Ox 97 O2 Delivery Room Air I&O Intake and Output 11/25/22 00:00 Intake Total 1650 ml Output Total 400 ml Balance 1250 ml Intake Oral 1650 ml Output Urine Total 400 ml # Voids 6 # Bowel Movements 1 General: Alert, Oriented X3, Cooperative HEENT: Atraumatic, PERRLA Lungs: Clear to Auscultation, Normal Air Movement Heart: Other (irregulary irregular) Abdomen: Normal Bowel Sounds, Soft Extremities: No Edema Skin: No Rashes, No Significant Lesion Neuro: Cranial Nerves 3-12 NL Psych/Mental Status: Mental Status NL, Mood NL A/P-Cardiology Admission Diagnosis PAF HTN ETOH use Diverticulitis Assessment/Plan Paroxysmal atrial fibrillation/persistent atrial fibrillation Currently heart rate is better controlled, still in atrial fibrillation Maintained on Cardizem CD 180 twice daily, Toprol XL 50mg Discussed the follow-up with the patient, patient is moving to [place] and stopping in [place]. Expressed that he will arrange for cardiology evaluation once he is moved, does not want to have an appointment with me as an outpatient Confusion, agitation, improved. 2D echo was done on November 11, 2022 with normal left ventricular size, ejection fraction 60 to 65%. Moderately dilated left atrium, calcified mitral valve, PA pressure 40 to 45 mmHg. ETOH use, alcohol withdrawal Acute diverticulitis, abdominal pain, improved Managed by medical team Hypertension, patient has been having episodes of hypotension. I changed Lasix to 20 mg once daily and decrease Toprol-XL to 25 mg daily Continue on losartan 25 mg daily Monitor tolerance and response Obesity, BMI 30. Generalized weakness, Continue with PT/OT OK for discharge from cardiology standpoint, patient reports he is moving to [place], will establish with rfid engineer there. Supervisory-Addendum Brief Supervisory Addendum Participated in pt care: history, MDM, physical Personally performed: exam, history, MDM Care discussed with: ANTONIETA Results interpretation: Verified all documentation Notes: Patient was seen and evaluated with Gabriele, examination performed, management plan was discussed, agree with the current scribed note, I made few changes to the note using Italic font Patient was seen at bedside, laying down comfortably, feeling better He is currently in persistent atrial fibrillation with rate control Maintained on oral anticoagulation He will follow-up with rfid engineer in [place], does not want an appointment in [place]. Continue to monitor while in the hospital GABRIELE CASTELLON Nov 25, 2022 08:24 GASPER OLVERA MD Nov 25, 2022 08:35
[2022-11-25] MEDS ORDERED: FUROSEMIDE 20 MG (LASIX) TAB PO SCH (09:00)
[2022-11-25] MEDS: polyethylene glycoL POWDER 17 GM (MIRALAX) PACK PO SCH (09:56)
[2022-11-25] MEDS: DOCUSATE SODIUM 100 MG (COLACE) CAP PO SCH (09:56)
[2022-11-25] MEDS: SENNA W/DOCUSATE (SENOKOT S) TABLET PO SCH (09:56)
--- NOTE | 2022-11-25 15:15 | Therapy Team Discharge Summary ---
Therapy Discharge Summary Discharge Recommendations Date of Discharge Physical Therapy Roll Left to Right (QC): 6 Sit to Lying (QC): 6 Lying to Sitting/Side of Bed(Q: 6 Sit to Stand (QC): 6 Chair/Nue-pd-Vygoh Xfer(QC): 6 Toilet Transfer (QC): 6 Car Transfer (QC): 6 Does the Patient Walk: Yes Mode of Locomotion: Walk Anticipated Mode of Locomotion: Walk Walk 10 feet (QC): 6 Walk 50 ft with 2 Turns(QC): 6 Walk 150 ft (QC): 6 Walking 10ft on uneven surface: 6 Gait Assistive Device: None Does the Pt Use a Wheelchair: No Wheel 50 ft with 2 turns (QC): 6 Wheel 150 ft (QC): 6 Type of Wheelchair: N/A #of Steps: 12 1 Step (curb) (QC): 6 4 Steps (QC): 6 12 Steps (QC): 6 Balance Sitting Static: Good Balance Sitting Dynamic: Good Balance-Standing Static: Fair Picking up an Object (QC): 6 Occupational Therapy 11/10/22 ED with worsening abdominal pain, dx with diverticulosis. Transferred to ARU 11/16/22 Pt reports PLOF IND with ADLs and functional mobility without AD. [place] [facility] [place] sister's [place] in [place]. At ARU evaluation patient at minimal assist w/ LB ADLS and transfer set up /supervision w/ UB. OT intervention for strength, safety, balance and ADLS. Patient progressed well with therapy and met all goals. DC home with family PLOF Decreased Activ Tolerance, Decreased Safety Aware, Decreased UE Strength, Impaired Funct Balance, Impaired I ADL's, Impaired Self-Care Skills Eating (QC): 6 Oral Hygiene (QC): 6 Shower/Bathe Self (QC): 6 Upper Body Dressing (QC): 6 Lower Body Dressing (QC): 6 On/Off Footwear (QC): 6 Toileting Hygiene (QC): 6 PT Assisted Goals Straightedge Machine Operator Helper Goals PT Assisted Goals Time Frame: Nov 26, 2022 Roll Left to Right (QC): 6 (Pt will be Mod I with all aspects of functional mobility to be at PLOF. ) Sit to Lying (QC): 6 (Pt will be Mod I with all aspects of functional mobility to be at PLOF. ) Lying-Sitting on Side/Bed(QC): 6 (Pt will be Mod I with all aspects of functional mobility to be at PLOF. ) Sit to Stand (QC): 6 (Pt will be Mod I with all aspects of functional mobility to be at PLOF. ) Chair/Zuc-fm-Aiaiu Xfer(QC): 6 (Pt will be Mod I with all aspects of functional mobility to be at PLOF. ) Toilet/Commode Transfer (QC): 6 (Pt will be Mod I with all aspects of functional mobility to be at PLOF. ) Car Transfer (QC): 6 (Pt will be Mod I with all aspects of functional mobility to be at PLOF. ) Does the Patient Walk: Yes Walk 10 feet (QC): 6 (Pt will be Mod I with ambulation, with the least restrictive AD. ) Walk 10ft-Uneven Surface(QC): 6 (Pt will be Mod I with ambulation, with the least restrictive AD. ) Walk 50ft with 2 Turns (QC): 6 (Pt will be Mod I with ambulation, with the least restrictive AD. ) Walk 150 ft (QC): 6 (Pt will be Mod I with ambulation, with the least restrictive AD. ) Does the Pt use WC or Scooter?: No Wheel 50 feet with 2 turns (QC: 9 Type: N/A Wheel 150 feet: 9 Type: N/A 1 Step (curb) (QC): 6 (Pt will be Mod I with steps to safely enter/exit the home. ) 4 Steps (QC): 6 (Pt will be Mod I with steps to safely enter/exit the home. ) 12 Steps (QC): 6 (Pt will be Mod I with steps to safely enter/exit the home. ) Picking up an Object (QC): 6 (Pt will be Mod I with all aspects of functional mobility to be at PLOF. ) OT Assisted Goals Assisted Goals Time Frame: Dec 03, 2022 Acute change in mental status: 0 Inattention: 0 Disorganized thinkin Altered level of consciousness: 0 Eating (QC): 6 (met) Oral Hygiene (QC): 6 (met) Toileting Hygiene (QC): 6 (met) Shower/Bathe Self (QC): 6 (met) Upper Body Dressing (QC): 6 (met) Lower Body Dressing (QC): 6 (met) On/Off Footwear (QC): 6 (met) Additional Goals: 1-Demonstrate ADL Tasks, 2-Verbalize Understanding, 3- ImproveStrength/Wesley 1=Demonstrate adherence to instructed precautions during ADL tasks. 2=Patient will verbalize/demonstrate understanding of assistive devices/modifications for ADL. 3=Patient will improve strength/tolerance for activity to enable patient to perform ADL's. Speech Straightedge Machine Operator Helper Goals Straightedge Machine Operator Helper Goals Pt will complete higher level executive functioning tasks to improve overall safety and awareness with 80% accuracy with min verbal cues. Pt will complete memory and mental manipulation tasks with 80% accuracy with min verbal cues. KILLIAN DOYLE OT Nov 25, 2022 15:15
--- NOTE | 2022-11-25 15:40 | Therapy Team Discharge Summary ---
Therapy Discharge Summary Discharge Recommendations Date of Discharge 11/25/2022 Therapy D/C Recommendations: Home w/ Family Support Physical Therapy On 11/10/22 pt came to ED with worsening abdominal pain, dx with diverticulosis. Transferred to ARU 11/16/22. At OF, pt was Ind with no AD and driving. Upon initial PT eval, pt was CGA/SBA for all aspects of functional mobility. PT worked on increasing B LE strength, walking, balance, endurance, and Ind. Pt progressed well with PT, met all set goals, and is at [facility]. D/C to home with family on 11/25/22. D/C from PT Roll Left to Right (QC): 6 Sit to Lying (QC): 6 Lying to Sitting/Side of Bed(Q: 6 Sit to Stand (QC): 6 Chair/Tgw-dz-Nnvdo Xfer(QC): 6 Toilet Transfer (QC): 6 Car Transfer (QC): 6 Does the Patient Walk: Yes Mode of Locomotion: Walk Anticipated Mode of Locomotion: Walk Walk 10 feet (QC): 6 Walk 50 ft with 2 Turns(QC): 6 Walk 150 ft (QC): 6 Walking 10ft on uneven surface: 6 Gait Assistive Device: None Does the Pt Use a Wheelchair: No Wheel 50 ft with 2 turns (QC): 9 Wheel 150 ft (QC): 9 Type of Wheelchair: N/A #of Steps: 12 1 Step (curb) (QC): 6 4 Steps (QC): 6 12 Steps (QC): 6 Balance Sitting Static: Normal Balance Sitting Dynamic: Normal Balance-Standing Static: Normal Picking up an Object (QC): 6 Occupational Therapy Decreased Activ Tolerance, Decreased Safety Aware, Decreased UE Strength, Impaired Funct Balance, Impaired I ADL's, Impaired Self-Care Skills Eating (QC): 6 Oral Hygiene (QC): 6 Shower/Bathe Self (QC): 6 Upper Body Dressing (QC): 6 Lower Body Dressing (QC): 6 On/Off Footwear (QC): 6 Toileting Hygiene (QC): 6 PT Mcc Goals Direct Marketing Analyst Goals PT Mcc Goals Time Frame: Nov 26, 2022 Roll Left to Right (QC): 6 (Pt will be Mod I with all aspects of functional mob ility to be at [facility]. ) Sit to Lying (QC): 6 (Pt will be Mod I with all aspects of functional mobility to be at PLOF. ) Lying-Sitting on Side/Bed(QC): 6 (Pt will be Mod I with all aspects of functional mobility to be at PLOF. ) Sit to Stand (QC): 6 (Pt will be Mod I with all aspects of functional mobility to be at PLOF. ) Chair/Iiz-uw-Jhbro Xfer(QC): 6 (Pt will be Mod I with all aspects of functional mobility to be at PLOF. ) Toilet/Commode Transfer (QC): 6 (Pt will be Mod I with all aspects of functional mobility to be at PLOF. ) Car Transfer (QC): 6 (Pt will be Mod I with all aspects of functional mobility to be at PLOF. ) Does the Patient Walk: Yes Walk 10 feet (QC): 6 (Pt will be Mod I with ambulation, with the least restrictive AD. ) Walk 10ft-Uneven Surface(QC): 6 (Pt will be Mod I with ambulation, with the le ast restrictive AD. ) Walk 50ft with 2 Turns (QC): 6 (Pt will be Mod I with ambulation, with the least restrictive AD. ) Walk 150 ft (QC): 6 (Pt will be Mod I with ambulation, with the least restrictive AD. ) Does the Pt use WC or Scooter?: No Wheel 50 feet with 2 turns (QC: 9 Type: N/A Wheel 150 feet: 9 Type: N/A 1 Step (curb) (QC): 6 (Pt will be Mod I with steps to safely enter/exit the home. ) 4 Steps (QC): 6 (Pt will be Mod I with steps to safely enter/exit the home. ) 12 Steps (QC): 6 (Pt will be Mod I with steps to safely enter/exit the home. ) Picking up an Object (QC): 6 (Pt will be Mod I with all aspects of functional mobility to be at PLOF. ) OT Mcc Goals Mcc Goals Time Frame: Dec 03, 2022 Acute change in mental status: 0 Inattention: 0 Disorganized thinkin Altered level of consciousness: 0 Eating (QC): 6 (met) Oral Hygiene (QC): 6 (met) Toileting Hygiene (QC): 6 (met) Shower/Bathe Self (QC): 6 (met) Upper Body Dressing (QC): 6 (met) Lower Body Dressing (QC): 6 (met) On/Off Footwear (QC): 6 (met) Additional Goals: 1-Demonstrate ADL Tasks, 2-Verbalize Understanding, 3-Im proveStrength/Wesley 1=Demonstrate adherence to instructed precautions during ADL tasks. 2=Patient will verbalize/demonstrate understanding of assistive devices/modifications for ADL. 3=Patient will improve strength/tolerance for activity to enable patient to perform ADL's. Speech Mcc Goals Direct Marketing Analyst Goals Pt will complete higher level executive functioning tasks to improve overall safety and awareness with 80% accuracy with min verbal cues. Pt will complete memory and mental manipulation tasks with 80% accuracy with min verbal cues. JASKARAN QUINTANA PT Nov 25, 2022 15:40
--- NOTE | 2022-11-26 12:37 | Therapy Team Discharge Summary ---
Therapy Discharge Summary Discharge Recommendations Date of Discharge Nov 25, 2022 at 20:15 Therapy D/C Recommendations: Home w/ Family Support Physical Therapy Roll Left to Right (QC): 6 Sit to Lying (QC): 6 Lying to Sitting/Side of Bed(Q: 6 Sit to Stand (QC): 6 Chair/Jsc-hg-Huwqn Xfer(QC): 6 Toilet Transfer (QC): 6 Car Transfer (QC): 6 Does the Patient Walk: Yes Mode of Locomotion: Walk Anticipated Mode of Locomotion: Walk Walk 10 feet (QC): 6 Walk 50 ft with 2 Turns(QC): 6 Walk 150 ft (QC): 6 Walking 10ft on uneven surface: 6 Gait Assistive Device: None Does the Pt Use a Wheelchair: No Wheel 50 ft with 2 turns (QC): 9 Wheel 150 ft (QC): 9 Type of Wheelchair: N/A #of Steps: 12 1 Step (curb) (QC): 6 4 Steps (QC): 6 12 Steps (QC): 6 Balance Sitting Static: Normal Balance Sitting Dynamic: Normal Balance-Standing Static: Normal Picking up an Object (QC): 6 Occupational Therapy Decreased Activ Tolerance, Decreased Safety Aware, Decreased UE Strength, Impaired Funct Balance, Impaired I ADL's, Impaired Self-Care Skills Eating (QC): 6 Oral Hygiene (QC): 6 Shower/Bathe Self (QC): 6 Upper Body Dressing (QC): 6 Lower Body Dressing (QC): 6 On/Off Footwear (QC): 6 Toileting Hygiene (QC): 6 PT Halfway Goals Va Underwriter Goals PT Va Underwriter Goals Time Frame: Nov 26, 2022 Roll Left to Right (QC): 6 (Pt will be Mod I with all aspects of functional mobility to be at PLOF. ) Sit to Lying (QC): 6 (Pt will be Mod I with all aspects of functional mobility to be at PLOF. ) Lying-Sitting on Side/Bed(QC): 6 (Pt will be Mod I with all aspects of functional mobility to be at PLOF. ) Sit to Stand (QC): 6 (Pt will be Mod I with all aspects of functional mobility to be at PLOF. ) Chair/Wdi-so-Hiiun Xfer(QC): 6 (Pt will be Mod I with all aspects of functional mobility to be at PLOF. ) Toilet/Commode Transfer (QC): 6 (Pt will be Mod I with all aspects of functional mobility to be at PLOF. ) Car Transfer (QC): 6 (Pt will be Mod I with all aspects of functional mobility to be at PLOF. ) Does the Patient Walk: Yes Walk 10 feet (QC): 6 (Pt will be Mod I with ambulation, with the least restrictive AD. ) Walk 10ft-Uneven Surface(QC): 6 (Pt will be Mod I with ambulation, with the least restrictive AD. ) Walk 50ft with 2 Turns (QC): 6 (Pt will be Mod I with ambulation, with the least restrictive AD. ) Walk 150 ft (QC): 6 (Pt will be Mod I with ambulation, with the least restrictive AD. ) Does the Pt use WC or Scooter?: No Wheel 50 feet with 2 turns (QC: 9 Type: N/A Wheel 150 feet: 9 Type: N/A 1 Step (curb) (QC): 6 (Pt will be Mod I with steps to safely enter/exit the home. ) 4 Steps (QC): 6 (Pt will be Mod I with steps to safely enter/exit the home. ) 12 Steps (QC): 6 (Pt will be Mod I with steps to safely enter/exit the home. ) Picking up an Object (QC): 6 (Pt will be Mod I with all aspects of functional mobility to be at PLOF. ) OT Halfway Goals Va Underwriter Goals Time Frame: Dec 03, 2022 Acute change in mental status: 0 Inattention: 0 Disorganized thinkin Altered level of consciousness: 0 Eating (QC): 6 (met) Oral Hygiene (QC): 6 (met) Toileting Hygiene (QC): 6 (met) Shower/Bathe Self (QC): 6 (met) Upper Body Dressing (QC): 6 (met) Lower Body Dressing (QC): 6 (met) On/Off Footwear (QC): 6 (met) Additional Goals: 1-Demonstrate ADL Tasks, 2-Verbalize Understanding, 3- ImproveStrength/Wesley 1=Demonstrate adherence to instructed precautions during ADL tasks. 2=Patient will verbalize/demonstrate understanding of assistive devices/ modifications for ADL. 3=Patient will improve strength/tolerance for activity to enable patient to perform ADL's. Speech Va Underwriter Goals Va Underwriter Goals Pt will complete higher level executive functioning tasks to improve overall safety and awareness with 80% accuracy with min verbal cues. MET Pt will complete memory and mental manipulation tasks with 80% accuracy with min verbal cues. MET ERIKA CHICAS 23, 2023 12:37
== END 2022-11-25 20:15 | disposition home or self-care (01) | DRG 57 ==
PROVIDERS: ADMIT Internal Medicine; ATTEND Internal Medicine
DX: G31.2 Degeneration of nervous system due to alcohol (principal); K57.92 Diverticulitis of intestine, part unspecified, without perforation or abscess without bleeding; R53.1 Weakness; F10.20 Alcohol dependence, uncomplicated; F17.200 Nicotine dependence, unspecified, uncomplicated; I48.0 Paroxysmal atrial fibrillation; G57.90 Unspecified mononeuropathy of unspecified lower limb; E78.00 Pure hypercholesterolemia, unspecified; I10 Essential (primary) hypertension; E11.9 Type 2 diabetes mellitus without complications; E66.9 Obesity, unspecified; Z79.01 Long term (current) use of anticoagulants; Z68.30 Body mass index [BMI] 30.0-30.9, adult; Z79.84 Long term (current) use of oral hypoglycemic drugs; Z79.899 Other long term (current) drug therapy
CPT/HCPCS: 36415; 80053; 82947; 85025